=== PATIENT | female | born 1990 | race Caucasian/White ===

== ENCOUNTER 2020-05-01 11:49 | Outpatient (REF) | payer OTHER, SELFPAY | END 2020-05-01 11:50 | disposition home or self-care (01) | LOC: HO.MAMMO 11:49 | PROVIDERS: PCP Internal Medicine; Visit Provider Internal Medicine | DX: Z13.89 Encounter for screening for other disorder (principal) ==

== ENCOUNTER → 2020-11-07 11:26 | Outpatient (BNVA) | payer OTHER, SELFPAY | PROVIDERS: PCP Internal Medicine; Visit Provider Surgery | DX: L98.9 Disorder of the skin and subcutaneous tissue, unspecified (principal) | CPT/HCPCS: 99212 ==

== ENCOUNTER 2020-11-15 10:40 | Day surgery (SDC) | payer OTHER, SELFPAY ==
--- NOTE | 2020-11-14 12:06 | HO.ANESPROP2 ---
Documented by User: Mavis Moss 11/14/20 12:06 HPI - Anesthesia Eval Consult details Narrative: 30yo F for Excision of 4 Skin Lesions on neck and Bilateral Axilla h/o severe PONV r/t fentanyl PMFSH Active Problems Active Problems: All Active Problems (Updated 11/07/20 @ 13:05 by José Antonio Hull MD) Skin lesions, generalized (Acute) Past Medical History Medical History (Updated 11/07/20 @ 13:05 by José Antonio Hull MD) Chronic heartburn Lumbago with sciatica, right side Tonsillar abscess Family History Family History Maternal Aunt Breast cancer, Onset Age: 40 Surgical History Surgical History History of section (06/19/09) History of excision of mass (06/07/19) Social History Social History (Updated 11/07/20 @ 11:40 by NEGRO Zafar) Alcohol intake: current Alcohol intake frequency: holidays/special occasions only Patient Tobacco Use Status: Current everyday Tobacco user Tobacco use type: Cigarette Cigarette Packs Per Day: 1 Cigarettes Per Day: 20.0 Second Hand Smoke Exposure: No Use of substances other than those prescribed or required for medical reasons: No Are you DNR?: No Advance Directives: No Advance Directives Information Provided: Yes Patient : No Meds Allergies Allergy/AdvReac Type Severity Reaction Status Date / Time fentanyl [FENTANYL] Allergy Severe SEVERE N/V Verified 11/15/20 11:17 (POST EGD W/CS) clindamycin [CLINDAMYCIN] Allergy Intermediate HIVES/SWELL Verified 11/15/20 11:17 ING Home Medications Medication Instructions Recorded Confirmed Last Taken Type omeprazole 20 mg capsule,delayed 20 mg PO BID 11/07/20 11/07/20 Unknown History release Exam Exam Date and Time: November 14, 2020 1206 Assessment and Plan Assessment Anesthesia Assessment: Chart Reviewed Documented by User: Winifred Vo 11/15/20 12:37 PMFSH Past Medical History Medical History (Updated 11/07/20 @ 13:05 by José Antonio Hull MD) Chronic heartburn Lumbago with sciatica, right side Tonsillar abscess Family History Family History Maternal Aunt Breast cancer, Onset Age: 40 Surgical History Surgical History History of section (06/19/09) History of excision of mass (06/07/19) Social History Social History (Updated 11/07/20 @ 11:40 by NEGRO Zafar) Alcohol intake: current Alcohol intake frequency: holidays/special occasions only Patient Tobacco Use Status: Current everyday Tobacco user Tobacco use type: Cigarette Cigarette Packs Per Day: 1 Cigarettes Per Day: 20.0 Second Hand Smoke Exposure: No Use of substances other than those prescribed or required for medical reasons: No Are you DNR?: No Advance Directives: No Advance Directives Information Provided: Yes Patient : No Meds Allergies Allergy/AdvReac Type Severity Reaction Status Date / Time fentanyl [FENTANYL] Allergy Severe SEVERE N/V Verified 11/15/20 11:17 (POST EGD W/CS) clindamycin [CLINDAMYCIN] Allergy Intermediate HIVES/SWELL Verified 11/15/20 11:17 ING Home Medications Medication Instructions Recorded Confirmed Last Taken Type omeprazole 20 mg capsule,delayed 20 mg PO BID 11/07/20 11/07/20 Unknown History release Exam Airway Mallampati Class: I TM Dist: >3cm Neck ROM: Full
[2020-11-15 10:56] VITALS: BMI 32.3
[2020-11-15 11:04] VITALS: BP 143/74; PULSE 107; RESP 16; TEMP 36.4; O2SAT 100
[2020-11-15] MEDS: ceFAZolin Sodium/Dextrose,Iso 2 GM/50 ML PIGGYBACK IV (11:15)
[2020-11-15] MEDS: Lactated Ringers 1,000 ML 100 ML IVCONT (11:15)
[2020-11-15] MEDS: Scopolamine 1.5 MG PATCH.TD.3 TRANSDERMA (11:16)
[2020-11-15 12:31] LABS: UPreg QC Valid YES; Urine Pregnancy NEGATIVE (NEGATIVE)
--- NOTE | 2020-11-15 13:10 | MHC.SHP ---
Pre-Procedural Eval Section A The patient is an INPATIENT: No Changes since office visit: Yes Patient answered all questions; No Cold of Flu in the past 2 weeks, No New Medical Problems and No Changes in Medication The History & Physical has been completed within 30 days and I have reviewed it.: Yes Section B Chief Complaint: Skin lesions, generalized Allergies: Allergies Allergy/AdvReac Type Severity Reaction Status Date / Time fentanyl [FENTANYL] Allergy Severe SEVERE N/V Verified 11/15/20 11:17 (POST EGD W/CS) clindamycin [CLINDAMYCIN] Allergy Intermediate HIVES/SWELL Verified 11/15/20 11:17 ING Plan Diagnosis/Plan: Unchanged I have reviewed the history and physical and performed a pertinent physical examination on my patient. No changes have occurred unless specified.
--- NOTE | 2020-11-15 14:12 | P.OP_ITS ---
Operative Note Operative Note Date of Service: 11/15/20 Narrative: Preoperative diagnosis: Dense x4 including 2 and right axilla, 1 in neck and 1 in left axilla Postoperative diagnosis: Same Procedure: Excision of 4 skin lesions of bilateral axilla and neck Surgeon: José Antonio Hull MD [employer] Hand: Ally Small PA-C Anesthesia: Local plus MAC Indications for procedure: 30-year-old female presenting with multiple dark skin lesions throughout her body including a large lesion measuring 0.5 cm in the neck just above the sternal notch, a 2nd lesion in the left anterior axilla measuring 0.5 cm at its base. In the right axilla there are 2 lesions 1 measuring 0.25 and the 2nd measuring 0.5 cm. No ulceration or bleeding is noted from any of the lesions. Operative findings: 4 skin lesions as noted above Specimen:skin lesions times 4 of bilateral axilla and neck. Estimated blood loss: 5 mls Complications:none Procedure details: Patient was brought to the OR and placed in a supine position. After administering light sedation the patient's bilateral axilla and neck were prepped Betadine and draped in a sterile fashion. Beginning in the left axilla the lesion was anesthetized using 1% lidocaine with epinephrine. Elliptical incisions and created with a scalpel carried down through subcutaneous tissue. Lesion was completely excised and sent to pathology for further examination. This was then closed using a 5-0 Prolene suture. Attention was then directed to the neck where again local was applied an elliptical incision oriented transversely created. Lesion was carried down through the subcutaneous tissue and excised. This was passed off the table and sent to pathology for further examination. Skin was then closed using 5 0 Prolene suture. Attention was then directed to the right axilla were 2 lesions were identified. Both sites were anesthetized with the lidocaine 1% with epinephrine. Two elliptical incisions were then created around both lesions. Lesions were closed using the 5 0 Prolene suture. Sterile bandages were applied. The patient tolerated the procedure well. She was transferred to PACU in stable condition.
[2020-11-15 14:20] VITALS: BP 92/38; PULSE 94; RESP 16; TEMP 36.6; O2SAT 99
[2020-11-15 14:35] VITALS: BP 100/57; PULSE 80; RESP 16; O2SAT 100
[2020-11-15 14:50] VITALS: BP 103/62; PULSE 84; RESP 18; TEMP 36.8; O2SAT 97
== END 2020-11-15 15:15 | disposition home or self-care (01) ==
PROVIDERS: Nurse Practitioner; PCP Internal Medicine; Visit Provider Surgery
PROC: (CPT 11400; principal; 2020-11-15 12:40)
DX: D23.4 Other benign neoplasm of skin of scalp and neck (principal); D23.5 Other benign neoplasm of skin of trunk; K21.9 Gastro-esophageal reflux disease without esophagitis; Z79.899 Other long term (current) drug therapy; Z88.1 Allergy status to other antibiotic agents; Z88.8 Allergy status to other drugs, medicaments and biological substances; F17.210 Nicotine dependence, cigarettes, uncomplicated
CPT/HCPCS: 11400; 11420; 11401; 81025; 88305; J0690

== ENCOUNTER → 2020-11-24 11:36 | Outpatient (BNVA) | payer OTHER, SELFPAY | PROVIDERS: PCP Internal Medicine; Visit Provider Surgery | DX: L98.9 Disorder of the skin and subcutaneous tissue, unspecified (principal) | CPT/HCPCS: 99212 ==

== ENCOUNTER → 2021-12-04 10:44 | Outpatient (BNVA) | payer OTHER, SELFPAY | PROVIDERS: PCP Internal Medicine; Visit Provider Surgery | DX: L98.9 Disorder of the skin and subcutaneous tissue, unspecified (principal) | CPT/HCPCS: 99212 ==

== ENCOUNTER 2021-12-12 13:28 | Outpatient (REF) | payer OTHER, SELFPAY ==
[2021-12-12 16:29] LABS: MANUAL DIFF FLAG NO
[2021-12-12 16:57] LABS: Alanine Aminotransferase 34 U/L (0-31); Anion Gap 12 (12-20); Aspartate Amino Transferase 25 U/L (5-31); Blood Urea Nitrogen 5 mg/dL (9-16); Calcium 9.5 mg/dL (8.4-10.2); Carbon Dioxide 26 mmol/L (22-29); Chloride 106 mmol/L (96-108); Cholesterol 155 mg/dL; Estimated Glomerular Filt Rate > 60; Glucose Fasting 94 mg/dL (60-99); HDL Cholesterol 39 mg/dL; LDL Cholesterol Calculated 80 mg/dl; Potassium 3.7 mmol/L (3.3-5.1); Sodium 140 mmol/L (135-145); Triglycerides 183 mg/dL
[2021-12-12 17:03] LABS: Basophils Percent Auto 0.4 % (0-2); Eosinophils Absolute Auto 0.2 X10*3/uL (0.0-0.4); Eosinophils Percent Auto 2.3 % (0-4); Hematocrit 35.5 % (37.0-47.0); Hemoglobin 11.8 g/dl (12.0-16.0); Imm Gran Abs Auto 0.02 X10*3/uL (0.00-0.03); Imm Gran Pct Auto 0.3 % (0.0-0.4); Lymphocytes Absolute Auto 2.8 X10*3/uL (1.2-4.9); Mean Corpuscular HGB Conc 33.2 g/dl (31.0-35.0); Mean Corpuscular Hemoglobin 27.9 pg (27.0-33.0); Mean Corpuscular Volume 83.9 fL (80.0-98.0); Monocytes Absolute Auto 0.6 X10*3/uL (0.1-1.2); Monocytes Percent Auto 7.7 % (2-11); Neutrophils Absolute Auto 3.7 x10*3/uL (2.0-8.3); Neutrophils Percent Auto 51.3 % (45-73); Platelet Count 335 X10*3/uL (160-400); Red Blood Count 4.23 X10*6/uL (4.20-5.50); Red Cell Distribution Width 12.8 % (11.0-16.0); White Blood Count 7.3 X10*3/uL (4.8-10.8)
== END 2021-12-12 13:29 | disposition home or self-care (01) ==
LOC: HO.HMGCLDS 13:28
PROVIDERS: Visit Provider Internal Medicine
DX: Z00.01 Encounter for general adult medical examination with abnormal findings (principal)
CPT/HCPCS: 36415; 80048; 80061; 84450; 84460; 85025

== ENCOUNTER 2022-02-06 05:57 | Day surgery (SDC) | payer OTHER, SELFPAY ==
[2021-12-13 11:09] VITALS: BMI 35.9
--- NOTE | 2021-12-18 09:33 | HO.ANESPROP2 ---
HPI - Anesthesia Eval Consult details Narrative: 31yo F for Excision Lesion, right face, right neck, bilateral groin s/p lesion excision 10/2020 with MAC PMFSH Active Problems Active Problems: All Active Problems (Updated 12/12/21 @ 13:26 by Eladia Baker MD) Skin lesions, generalized (Acute) Past Medical History Medical History (Updated 12/12/21 @ 13:26 by Eladia Baker MD) Chronic heartburn Hiatal hernia Lumbago with sciatica, right side Tonsillar abscess Family History Family History (Updated 12/12/21 @ 12:29 by Aliyah Browning CMA) Maternal Aunt Breast cancer, Onset Age: 40 Surgical History Surgical History (Updated 12/13/21 @ 11:07 by Wen Bryan RN) History of section (06/19/09) History of esophagogastroduodenoscopy (EGD) History of excision of mass (06/07/19) Social History Social History Housing: Apartment Alcohol intake: current Alcohol intake frequency: holidays/special occasions only Patient Tobacco Use Status: Former Tobacco user Tobacco use type: Cigarette Cigarette Packs Per Day: 1 Cigarettes Per Day: 20.0 e-Cigarette/Vaping Use: Never Used Second Hand Smoke Exposure: No Current occupational status: unemployed Cognitive needs: No Hearing needs: No Vision needs: No Meds Allergies Allergy/AdvReac Type Severity Reaction Status Date / Time fentanyl [FENTANYL] Allergy Severe SEVERE N/V Verified 12/12/21 13:06 (POST EGD W/CS) clindamycin [CLINDAMYCIN] Allergy Intermediate HIVES/SWELL Verified 12/12/21 13:06 ING Home Medications Medication Instructions Recorded Confirmed Last Taken Type omeprazole 20 mg capsule,delayed 20 mg PO DAILY 04/27/21 04/27/21 Unknown History release acetaminophen 500 mg tablet 500 mg PO Q4-6H PRN pain 12/12/21 Unknown History ibuprofen 800 mg tablet 800 mg PO Q6-8H PRN pain 12/12/21 Unknown History levonorgestrel 20 mcg/24 hours (7 intrauterine 12/12/21 Unknown History yrs) 52 mg intrauterine device (Mirena) Exam Exam Date and Time: December 18, 2021 0933 Height,Weight and Vital Signs: Height 5 ft 1 in Weight 86.183 kg Pertinent Lab Results Pertinent Lab Results: Laboratory Tests 12/12/21 12/12/21 13:36 13:36 WBC 7.3 Hgb 11.8 L Hct 35.5 L Plt Count 335 Sodium 140 Potassium 3.7 Chloride 106 Carbon Dioxide 26 BUN 5 L Creatinine 0.79 Assessment and Plan Assessment Anesthesia Assessment: Chart Reviewed
--- NOTE | 2022-01-17 15:00 | HO.ANESPROP2 ---
Documented by User: Mavis Moss NP 02/04/22 08:14 HPI - Anesthesia Eval Consult details Narrative: 31yo F for Excision Lesion, right face, right neck, bilateral groin 02/06/22 Fentanyl causes severe N/V s/p axilla and neck lesion excision 10/2020 with MAC PMFSH Active Problems Active Problems: All Active Problems (Updated 12/12/21 @ 13:26 by Eladia Baker MD) Skin lesions, generalized (Acute) Past Medical History Medical History Chronic heartburn Hiatal hernia Lumbago with sciatica, right side Tonsillar abscess Family History Family History Maternal Aunt Breast cancer, Onset Age: 40 Surgical History Surgical History History of section (06/19/09) History of esophagogastroduodenoscopy (EGD) History of excision of mass (06/07/19) Social History Social History Housing: Apartment Alcohol intake: current Alcohol intake frequency: holidays/special occasions only Patient Tobacco Use Status: Former Tobacco user Tobacco use type: Cigarette Cigarette Packs Per Day: 1 Cigarettes Per Day: 20.0 e-Cigarette/Vaping Use: Never Used Second Hand Smoke Exposure: No Use of substances other than those prescribed or required for medical reasons: Yes Substance Use Type Other:: occasional; Are you DNR?: No Advance Directives: No Advance Directives Information Provided: Yes Patient : No Current occupational status: unemployed Cognitive needs: No Hearing needs: No Vision needs: No Meds Allergies Allergy/AdvReac Type Severity Reaction Status Date / Time fentanyl [FENTANYL] Allergy Severe SEVERE N/V Verified 01/02/22 10:43 (POST EGD W/CS) clindamycin [CLINDAMYCIN] Allergy Intermediate HIVES/SWELL Verified 01/02/22 10:43 ING Home Medications Medication Instructions Recorded Confirmed Last Taken Type omeprazole 20 mg capsule,delayed 20 mg PO DAILY 04/27/21 04/27/21 02/06/22 History release acetaminophen 500 mg tablet 500 mg PO Q4-6H PRN pain 12/12/21 Unknown History ibuprofen 800 mg tablet 800 mg PO Q6-8H PRN pain 12/12/21 02/05/22 History levonorgestrel 20 mcg/24 hours (7 intrauterine 12/12/21 Unknown History yrs) 52 mg intrauterine device (Mirena) Exam Exam Date and Time: January 17, 2022 1500 Height,Weight and Vital Signs: Height 5 ft 1 in Weight 86.183 kg Pertinent Lab Results Pertinent Lab Results: Laboratory Tests 12/12/21 12/12/21 13:36 13:36 WBC 7.3 Hgb 11.8 L Hct 35.5 L Plt Count 335 Sodium 140 Potassium 3.7 Chloride 106 Carbon Dioxide 26 BUN 5 L Creatinine 0.79 Assessment and Plan Assessment Anesthesia Assessment: Chart Reviewed Documented by User: Ritu Vo MD 02/06/22 07:29 [facility] Past Medical History Medical History Chronic heartburn Hiatal hernia Lumbago with sciatica, right side Tonsillar abscess Functional capacity: independent ambulation Patient : No Family History Family History Maternal Aunt Breast cancer, Onset Age: 40 Family history of problems with anesthesia: No Surgical History Surgical History History of section (06/19/09) History of esophagogastroduodenoscopy (EGD) History of excision of mass (06/07/19) History of Problems with Anesthesia: No Social History Social History Housing: Apartment Alcohol intake: current Alcohol intake frequency: holidays/special occasions only Patient Tobacco Use Status: Former Tobacco user Tobacco use type: Cigarette Cigarette Packs Per Day: 1 Cigarettes Per Day: 20.0 e-Cigarette/Vaping Use: Never Used Second Hand Smoke Exposure: No Use of substances other than those prescribed or required for medical reasons: Yes Substance Use Type Other:: occasional; Are you DNR?: No Advance Directives: No Advance Directives Information Provided: Yes Patient : No Current occupational status: unemployed Cognitive needs: No Hearing needs: No Vision needs: No Meds Allergies Allergy/AdvReac Type Severity Reaction Status Date / Time fentanyl [FENTANYL] Allergy Severe SEVERE N/V Verified 01/02/22 10:43 (POST EGD W/CS) clindamycin [CLINDAMYCIN] Allergy Intermediate HIVES/SWELL Verified 01/02/22 10:43 ING Home Medications Medication Instructions Recorded Confirmed Last Taken Type omeprazole 20 mg capsule,delayed 20 mg PO DAILY 04/27/21 04/27/21 02/06/22 History release acetaminophen 500 mg tablet 500 mg PO Q4-6H PRN pain 12/12/21 Unknown History ibuprofen 800 mg tablet 800 mg PO Q6-8H PRN pain 12/12/21 02/05/22 History levonorgestrel 20 mcg/24 hours (7 intrauterine 12/12/21 Unknown History yrs) 52 mg intrauterine device (Mirena) Exam Airway Mallampati Class: III TM Dist: >3cm Neck ROM: Full Loose/Missing/Broken Teeth: Yes, Upper and Lower Heart: RRR Lungs: CTA Assessment and Plan Final Anesthetic Review Family History of Problems with Anesthesia: No History of Problems with Anesthesia: No ASA Class: II Final Preanesthetic Review: No Changes in Pt Med Stat, Meds/Allgs Chart Reviewed, Consent Obtained/Reviewed and Anes Risks/Benef Reviewed Patient Risk: Intermediate Procedure Risk: Low Anesthetic Plan Anesthetic Plan: MAC: Disposition: Standard PACU
[2022-02-06 06:21] VITALS: BMI 35.9
[2022-02-06 06:35] LABS: UPreg QC Valid YES; Urine Pregnancy NEGATIVE (NEGATIVE)
[2022-02-06] MEDS: Lactated Ringers 1,000 ML 100 ML IVCONT (06:57)
[2022-02-06] MEDS: Scopolamine 1.5 MG PATCH.TD.3 EAR-BEHIND (07:36)
--- NOTE | 2022-02-06 07:36 | MHC.SHP ---
Pre-Procedural Eval Section A Date of Service: 02/06/22 The patient is an INPATIENT: No Changes since office visit: Yes Patient answered all questions; No Cold of Flu in the past 2 weeks, No New Medical Problems and No Changes in Medication The History & Physical has been completed within 30 days and I have reviewed it.: Yes Section B Chief Complaint: lesions Allergies: Allergies Allergy/AdvReac Type Severity Reaction Status Date / Time fentanyl [FENTANYL] Allergy Severe SEVERE N/V Verified 01/02/22 10:43 (POST EGD W/CS) clindamycin [CLINDAMYCIN] Allergy Intermediate HIVES/SWELL Verified 01/02/22 10:43 ING Plan Diagnosis/Plan: Unchanged I have reviewed the history and physical and performed a pertinent physical examination on my patient. No changes have occurred unless specified.
--- NOTE | 2022-02-06 08:27 | P.OP_ITS ---
Operative Note Operative Note Date of Service: 02/06/22 Narrative: Preoperative diagnosis: Skin lesion x2 right face and neck, x2 bilateral groins Postoperative diagnosis: Same Procedure: Excision of skin lesions right face, right neck, and bilateral groins. Surgeon: José Antonio Hull MD Academic Support Specialist: Anesthesia: Mac Indications for procedure: 31-year-old female with history of multiple skin lesions now presenting with several new skin lesions which are causing irritation and increasing in size. This includes a black/brown variegated lesion in a pre-auricular location measuring approximately 1 cm in diameter. A 2nd flat melanotic lesion is noted in the right neck just below the chin in the submental region, this 1 measuring 1.5 cm in diameter. Two groin lesions are noted including 1 pedunculated lesion with a red surface in the left groin measuring 1 cm diameter. A 2nd flat lesion which is very irritated and has a nipple like in appearance measuring 2 cm in diameter is located in the right groin at the leg crease. Operative findings: Lesions as noted above all excised and sent to pathology for further examination. Specimen: Skin lesion right face, right neck, bilateral groins. Estimated blood loss: Less than 2 mL Complications: None Procedure details: Patient was brought to the OR and placed in a supine position. After administering light sedation patient's right face and neck and bilateral groins were prepped with Betadine and draped in a sterile fashion. A surgical time-out was called the consent confirmed. Patient received preoperative antibiotics and Venodyne boots were in place. Beginning in the preauricular region on the right side local anesthesia was infiltrated around the skin lesion. Elliptical incision was then created with a 1 mm margin. This was carried out through subcutaneous tissue and around the lesion. Pressure was held to maintain hemostasis. Skin was then closed using interrupted 4-0 nylon sutures. Attention was then directed to the right next lesion. Again local anesthesia was infiltrated around the lesion. Elliptical incision with 2 mm margins was then obtained. This carried out through subcutaneous tissue and around the lesion in the subcutaneous tissue. Pressure was held to maintain hemostasis. Dermis was reapproximated using interrupted 3-0 Polysorb sutures. Skin was then closed using 4-0 nylon suture. Attention was then directed to the bilateral groins. Beginning in the left groi n local anesthesia was infiltrated below the lesion. Elliptical incision with 2 mm margins was then obtained. This was carried out to through subcutaneous tissue and around the lesion wall. Skin was then closed using interrupted 4-0 nylon sutures. Attention was then directed to the right groin were again local was infiltrated in elliptical incision created with 2 mm margins. This was carried down to the subcutaneous tissue and around the lesion. Dermis was reapproximated using interrupted 3-0 Polysorb sutures. Skin was then closed using interrupted 4-0 nylon sutures. Sterile dressings were then applied to all 4 lesions. Specimen was passed off the table and sent to pathology for further examination. The patient tolerated the procedure well. Sponge, instrument, and needle counts reported as correct. The patient was transferred to PACU in stable condition.
[2022-02-06 08:35] VITALS: BP 96/45; PULSE 72; RESP 16; TEMP 36.2; O2SAT 95
[2022-02-06 08:50] VITALS: BP 106/49; PULSE 71; RESP 16; TEMP 36.2; O2SAT 98
--- NOTE | 2022-02-06 14:34 | HO.POSTANES ---
Post Anesthesia Evaluation Post Anesthesia Evaluation Vital Signs: Vital Signs Temp Pulse Resp BP Pulse Ox O2 Del Method 02/06/22 08:50 97.2 F 71 16 106/49 L 98 Room Air 02/06/22 08:35 97.2 F 72 16 96/45 L 95 Room Air Anesthesia: Monitored Mental Status: Awake Pain Control: Satisfactory Nausea/Vomiting: None Hydration: Adequate Anesthesia-Related Issues: No Anes. Related Issues
== END 2022-02-06 09:36 | disposition home or self-care (01) ==
PROVIDERS: Nurse Practitioner; PCP Internal Medicine; Visit Provider Surgery
PROC: (CPT 11442; principal; 2022-02-06 07:30)
DX: D22.21 Melanocytic nevi of right ear and external auricular canal (principal); D22.39 Melanocytic nevi of other parts of face; D22.5 Melanocytic nevi of trunk; R12 Heartburn; Z79.899 Other long term (current) drug therapy; Z88.1 Allergy status to other antibiotic agents; Z88.8 Allergy status to other drugs, medicaments and biological substances; F17.210 Nicotine dependence, cigarettes, uncomplicated
CPT/HCPCS: 11442; 11422; 12041; 11402; 11403; 12031; 81025; 88305; J0690; J1100; J2250; J2405; J2795; J3010

== ENCOUNTER 2022-03-01 09:40 | Outpatient (REF) | payer OTHER, SELFPAY ==
--- NOTE | ~2022-03-01 | MR_ITS ---
EXAMINATION: MR KNEE WITHOUT CONTRAST, RIGHT CLINICAL INFORMATION: Medial right knee pain. COMPARISON: None TECHNIQUE: MRI of the knee without contrast was performed using routine sequences on a high-field scanner. FINDINGS: MENISCI: Medial Meniscus: Intact. Lateral Meniscus: Intact. LIGAMENTS: Cruciate: Intact. Collateral: Minimal edema adjacent to the medial collateral ligament which could indicate a minimal 1 sprain. No measurable tear. Intact fibular collateral ligament. EXTENSOR MECHANISM: Intact. ARTICULAR CARTILAGE/BONE: Patellofemoral Compartment: Normal. Medial Compartment: Normal. Lateral Compartment: Normal. JOINT FLUID AND BURSAE: Normal. There is focal aneurysmal dilatation of the small saphenous vein with a fluid-fluid level measuring up to 1.4 x 2.1 x 2.7 cm. No additional soft tissue mass or fluid collection. MR/MR knee RT wo con IMPRESSION: 1. Possible minimal grade 1 sprain of the medial collateral ligament. 2. 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
== END 2022-03-01 09:41 | disposition home or self-care (01) ==
LOC: HO.MRI 09:40
PROVIDERS: Visit Provider Internal Medicine
DX: M25.561 Pain in right knee (principal)
CPT/HCPCS: 73721

== ENCOUNTER 2022-06-24 11:42 | Emergency (ER) | payer OTHER, SELFPAY ==
[2022-06-24 12:44] VITALS: BP 122/81; PULSE 74; RESP 16; O2SAT 100; BMI 36.2
--- NOTE | 2022-06-24 12:49 | ED_ITS ---
HPI - Ear Problem General Chief complaint: Ear Problems Stated complaint: Double Ear Pain Time Seen by Provider: 06/24/22 12:51 Source: patient Mode of arrival: ambulatory Limitations: no limitations History of Present Illness HPI Narrative: 31-year-old female presenting to the ER with complaints of bilateral ear pain worse on the right than the left for the past few days worse today. Reports that she tried to remove some walks with cotton swab and no symptomatic relief. She has also been using heating pads. She has also been using peroxide. No symptomatic relief. She denies any other symptoms related to this. MD Complaint: ear pain, ear discharge and decreased hearing Location: right ear Duration: constant Severity: moderate Relieving factors: nothing Exacerbating factors: chewing and palpation Discharge from ear: yes - purulent Associated symptoms ear: decreased hearing and external ear tenderness Treatment prior to arrival: attempt at ear wax removal and other (And peroxide) Related Data Home Medications Medication Instructions Recorded Confirmed omeprazole 20 mg capsule,delayed 20 mg PO DAILY 04/27/21 04/27/21 release ibuprofen 800 mg tablet 800 mg PO Q6-8H PRN pain 12/12/21 levonorgestrel 20 mcg/24 hours (8 intrauterine 12/12/21 yrs) 52 mg intrauterine device (Mirena) Previous Rx's Medication Instructions Recorded ferrous fumarate 324 mg (106 mg 324 mg PO DAILY #90 tabs 12/14/21 iron) tablet tramadol 50 mg tablet 50 mg PO DAILY PRN pain #10 tabs 02/12/22 acetaminophen 300 mg-codeine 30 mg 1 tab PO Q8H PRN pain #10 tabs 06/24/22 tablet amoxicillin 875 mg-potassium 1 tab PO BID 10 days #20 tabs 06/24/22 clavulanate 125 mg tablet Allergies Allergy/AdvReac Type Severity Reaction Status Date / Time fentanyl [FENTANYL] Allergy Severe SEVERE N/V Verified 02/14/22 13:56 (POST EGD W/CS) clindamycin [CLINDAMYCIN] Allergy Intermediate HIVES/SWELL Verified 02/14/22 13:56 ING Review of Systems Review of Systems: Constitutional : No Weight loss, No Fever, No Chills, No Night Sweats, No Fatigue, No Malaise ENT/Mouth : No Hearing loss, + Ear Pain, No Nasal Congestion, No Sinus Pain, No Hoarseness, No sore throat, No Rhinorrhea, No Swallowing Difficulty Eyes: No Eye Pain, No Swelling, No Redness, No Foreign Body, No Discharge, No Vision Changes Cardiovascular : No Chest Pain, No SOB, No Dyspnea on Exertion, No Orthopnea, No Edema, No Palpitations Respiratory : No Cough, No Sputum, No Wheezing, No Smoke Exposure, No Dyspnea Gastrointestinal : No Nausea, No Vomiting, No Diarrhea, No Constipation, No abdominal Pain, No Hematochezia, No Melena Genitourinary : no irregular bleeding, No Dysuria, No Urinary Frequency, No Hematuria, No Urinary Incontinence, No Urgency, No Flank Pain, No Urinary Flow Changes, No Hesitancy Musculoskeletal : No joint pain, No Myalgias, No Joint Swelling Skin : No Skin Lesions, No rash Neuro : No Weakness, No Numbness, No Paresthesias, No Loss of Consciousness, No Dizziness, No Headache Psych : No Anxiety/Panic, No Depression, No SI/HI/AH/VH, No Social Issues, Heme/Lymph: No Bruising, No Bleeding,No Lymphadenopathy Endocrine : No Polyuria, No Polydipsia, No Temperature Intolerance Yes all other systems are reviewed and are negative [facility] Past Medical History Attestation statement: The following information was validated with the patient. Source: old records reviewed and nursing notes reviewed Medical History Chronic heartburn Hiatal hernia Knee pain, right anterior Lumbago with sciatica, right side Tonsillar abscess Surgical History History of section (06/19/09) History of esophagogastroduodenoscopy (EGD) History of excision of mass (06/07/19) Family History Family History Maternal Aunt Breast cancer, Onset Age: 40 Social History Social History Housing: Apartment Alcohol intake: current Alcohol intake frequency: holidays/special occasions only Patient Tobacco Use Status: Former Tobacco user Tobacco use type: Cigarette Cigarette Packs Per Day: 1 Cigarettes Per Day: 20.0 e-Cigarette/Vaping Use: Never Used Second Hand Smoke Exposure: No Advance Directives: No Advance Directives Information Provided: No Current occupational status: unemployed Cognitive needs: No Hearing needs: No Vision needs: No Physical Exam Vital Signs: Vital Signs: Last Vital Signs Pulse 74 06/24/22 12:44 Resp 16 06/24/22 12:44 BP 122/81 06/24/22 12:44 Pulse Ox 100 06/24/22 12:44 O2 Del Method 06/24/22 12:44 BMI result Body Mass Index 36.2 Vital signs reviewed. Blood pressure normal. Pulse normal. Respiration normal. Oxygen normal. Temperature normal. Appearance: Alert. Oriented X3. No acute distress. Head: Normal external exam. Normocephalic. Atraumatic. Eyes: PERRLA. EOMI. Conjunctiva and sclera normal. Eyelids normal. ENT: EAC normal. Left tympanic membrane mildly erythematous not perforated. Right tympanic membrane appears perforated patient noted to have purulent drainage with external ear canal tenderness and tenderness to palpation upon manipulation of the pinna and tragus. Consistent went external ear canal otitis externa and ruptured tympanic membrane to the right side. Pharynx normal. Uvula midline. Moist mucous membranes. No lesions/ulcerations or masses noted on the tongue. Normal voice. No trismus noted. No drooling noted. No muffled voice noted. Neck: Normal inspection. Neck supple. FROM. No adenopathy. Thyroid Normal. No meningeal signs. CVS: Normal heart rate and rhythm. Heart sound normal. Pulses normal throughout. No murmurs/rales/gallops. Respiratory: No respiratory distress. Painless inspiration. Breath sounds normal. No wheezes/rales/rhonchi noted. Chest nontender. No accessory muscle usage noted or decreased air movement noted. Back: Full range of motion noted. Nontender. Skin: Skin warm and dry. Normal skin color. Normal skin turgor. No rashes/lesions/lacerations noted. Extremities: Extremities exhibit normal range of motion and nontender. Neuro: Oriented X 3. No motor deficit. No sensory deficit. Reflexes normal. Normal steady gait. No focal neuro deficits noted. CN's II-XII intact bilaterally? Vascular: + radial pulses. Normal cap refill. No cyanosis noted to upper extremity nails Course Course Course Narrative: Will DC home with antibiotics and symptomatic treatment referral to ear nose and throat and instructions return if any new or worsening symptoms to stop trying to clean her ears with any drops or Q-tips. Patient understands agrees with this plan. Discharge Plan Discharge Clinical Impression: Otitis media, Otitis media with rupture of tympanic membrane Patient Disposition: Home, Self-Care Instructions: Ruptured Eardrum (ED), Ear Infection (ED) Prescriptions: New amoxicillin-pot clavulanate 875-125 mg tablet 1 tab PO BID 10 Days Qty: 20 0RF acetaminophen-codeine 300-30 mg tablet 1 tab PO Q8H PRN (Reason: pain) Qty: 10 0RF No Action ferrous fumarate 324 mg (106 mg iron) tablet 324 mg PO DAILY Qty: 90 1RF tramadol 50 mg tablet 50 mg PO DAILY PRN (Reason: pain) Qty: 10 0RF omeprazole 20 mg capsule,delayed release(DR/EC) 20 mg PO DAILY ibuprofen 800 mg tablet 800 mg PO Q6-8H PRN (Reason: pain) Mirena 20 mcg/24 hours (7 yrs) 52 mg intrauterine device intrauterine Referrals: Eladia Baker MD [Primary Care Provider] - Yadiel Guardado [Physician] - (Call to make a follow-up appointment)
== END 2022-06-24 13:03 | disposition home or self-care (01) ==
LOC: HO.ED 12:55
PROVIDERS: Emergency Provider Student in an Organized Health Care Education/Training Program; PCP Internal Medicine
DX: H66.91 Otitis media, unspecified, right ear (principal); H72.91 Unspecified perforation of tympanic membrane, right ear; H66.92 Otitis media, unspecified, left ear; Z87.891 Personal history of nicotine dependence
CPT/HCPCS: 99281; 99283

== ENCOUNTER 2022-12-17 10:41 | Outpatient (REF) | payer BC, SELFPAY ==
[2022-12-19 08:13] LABS: Prolactin 4.4 ng/mL
== END 2022-12-17 10:42 | disposition home or self-care (01) ==
LOC: HO.HMGCLDS 10:41
PROVIDERS: PCP Internal Medicine; Visit Provider Internal Medicine
DX: N64.3 Galactorrhea not associated with childbirth (principal)
CPT/HCPCS: 36415; 84146

== ENCOUNTER 2022-12-30 15:22 | Outpatient (AMB) | payer BC, SELFPAY ==
--- NOTE | 2022-12-30 15:23 | MHC.OFFWIV ---
Intake Vital Signs 12/30/22 15:28 BP 122/82 Blood Pressure Location Lt brachial Position Sitting Pulse 94 Pulse Source Pulse Oximeter Pulse Oximetry (%) 98 Oxygen Delivery Method Room Air Intake Visit Reasons: EST bleeding from right breast Intake Note: Patient here for bleeding from right breast, the bleeding and oozing which has been 2 days but she was having tender breast days prior. Patient Tobacco Use Status: Former Tobacco user Allergies fentanyl [FENTANYL] Allergy (Severe, Verified 12/31/22 14:17) SEVERE N/V (POST EGD W/CS) clindamycin [CLINDAMYCIN] Allergy (Intermediate, Verified 12/31/22 14:17) HIVES/SWELLING Medication List - Last Reconciled 12/30/22 by Robbie Orantes MD acetaminophen-codeine 300-30 mg 1 tab PO Q8H PRN ferrous fumarate 324 mg PO DAILY ibuprofen 600 mg PO Q8H PRN levonorgestrel (Mirena) intrauterine omeprazole 20 mg PO DAILY Do you need a note to return to daycare/school/sports/work: No HPI EST bleeding from right breast HPI Details 32-year-old female presents to the office for a sick visit. Patient is reporting that she is now having some blood coming out from the right nipple. In fact it is an area adjoining the nipple. She still has milkish discharge from the nipple. No fever or chills. [facility] Medical History Chronic heartburn Hiatal hernia Knee pain, right anterior Lumbago with sciatica, right side Tonsillar abscess Surgical History History of section (06/19/09) History of esophagogastroduodenoscopy (EGD) History of excision of mass (06/07/19) Family History Maternal Aunt Breast cancer, Onset Age: 40 Social History Housing: Apartment Alcohol intake: current Alcohol intake frequency: holidays/special occasions only Patient Tobacco Use Status: Former Tobacco user Tobacco use type: Cigarette Cigarette Packs Per Day: 1 Cigarettes Per Day: 20.0 e-Cigarette/Vaping Use: Never Used Second Hand Smoke Exposure: No Current occupational status: unemployed Cognitive needs: No Hearing needs: No Vision needs: No Physical Exam Vital Signs: Last Vital Signs Pulse 94 12/30/22 15:28 BP 122/82 12/30/22 15:28 Pulse Ox 98 12/30/22 15:28 Oxygen Delivery Method Room Air 12/30/22 15:28 Chest Other: Exam done with female medical reimbursement manager in the room. Right breast: Tiny erosion, adjacent to the nipple. No oozing noted. No masses palpable and no lymphadenopathy. Assessment & Plan Assessment & Plan (1) Mastitis, acute: Code(s): N61.0 - Mastitis without abscess Plan: Ultrasound of the breast ordered. Antibiotics ordered. Patient has already an appointment with her primary care provider for galactorrhea.. Orders: Orders US breast RT complete 12/30/22 N61.0 - Mastitis without abscess Medications: New cephalexin 500 mg PO BID 14 caps 0RF Coding Level of Care Code Est Pt Level 3 (97624) Diagnoses Mastitis, acute N61.0
[2022-12-30 15:28] VITALS: BP 122/82; PULSE 94; O2SAT 98
== END 2022-12-30 16:15 | disposition home or self-care (01) ==
PROVIDERS: PCP Internal Medicine; Visit Provider Internal Medicine
DX: N61.0 Mastitis without abscess (principal)
CPT/HCPCS: 99213

== ENCOUNTER 2023-01-15 13:40 | Outpatient (AMB) | payer BC, SELFPAY ==
--- NOTE | 2023-01-15 13:47 | MHC.PC.OV ---
Vital Signs 01/15/23 13:48 Height 5 ft 2 in Weight 189 lb BMI 34.6 BP 102/72 Blood Pressure Location Lt brachial Position Sitting Pulse 77 Pulse Source Pulse Oximeter Pulse Oximetry (%) 98 Oxygen Delivery Method Room Air Intake Visit Reasons: follow up from walk in Intake Note: Pt is here today c/o recurrent leakage Rt breast Allergies fentanyl [FENTANYL] Allergy (Severe, Verified 01/15/23 16:44) SEVERE N/V (POST EGD W/CS) clindamycin [CLINDAMYCIN] Allergy (Intermediate, Verified 01/15/23 16:44) HIVES/SWELLING Medication List - Last Reconciled 01/15/23 by Eladia Baker MD acetaminophen-codeine 300-30 mg 1 tab PO Q8H PRN ferrous fumarate 324 mg PO DAILY ibuprofen 600 mg PO Q8H PRN levonorgestrel (Mirena) intrauterine omeprazole 20 mg PO DAILY Tobacco use date assessed: 01/15/23 Dental Screening Dental Screen Date: 01/15/23 Did you have a dental visit in the last 12 months?: Yes Did you have a dental problem in the last 6 months where you did not have access to dental care?: Yes Was dental information given to patient?: Patient has dentist HPI HPI Comments History of Present Illness Details 32-year-old lady here today for follow-up after recent visit to the walk-in , complaining of a bloody discharge coming from right nipple, accompanied by pain in right breast. She was placed on cephalexin with no further discharge noted coming from right nipple area. She still is complaining of some tenderness on right areola. She still has not had her breast ultrasound done due to some miscommunication with orders. Has already orders for bilateral diagnostic mammogram and needs an order for bilateral [facility]. She has had similar episodes in her from the left nipple in 2019, diagnosed with a cyst in her left nipple which was surgically removed. [facility] Medical History (Updated 01/15/23 @ 16:52 by Eladia Baker MD) Breast pain, right Chronic heartburn Cyst of left nipple H/O nipple discharge Hiatal hernia Knee pain, right anterior Lumbago with sciatica, right side Tonsillar abscess Surgical History History of section (06/19/09) History of esophagogastroduodenoscopy (EGD) History of excision of mass (06/07/19) Family History Maternal Aunt Breast cancer, Onset Age: 40 Social History Housing: Apartment Alcohol intake: current Alcohol intake frequency: holidays/special occasions only Patient Tobacco Use Status: Former Tobacco user Tobacco use type: Cigarette Cigarette Packs Per Day: 1 Cigarettes Per Day: 20.0 e-Cigarette/Vaping Use: Never Used Second Hand Smoke Exposure: No Current occupational status: unemployed Cognitive needs: No Hearing needs: No Vision needs: No Questionnaire Thrive Questionnaire Date Thrive assessed: 12/12/21 I am a: Patient What is your living situation today?: I have a steady place to live Within the past 12 months, did the food you bought not last and you didn't have the money to get more?: Never true Within the past 12 months, did you worry whether your food would run out before you got money to buy more?: Never true Please select the resources that you would like help with: None AUDIT C Alcohol Use Questionnaire (AUDIT-C) 1. How often do you have a drink containing alcohol?: 2-4 times a month 2. How many drinks containing alcohol do you have on a typical day when you are drinking?: 5 or 6 3. How often do you have six or more drinks on one occasion?: Monthly Total Score: 6 ELLIOT-7 AMB Questionnaire ELLIOT-7 Date ELLIOT - 7 assessed: 12/12/21 Feeling nervous, anxious, or on edge: 2 = More than half the days Not being able to stop or control worryin = More than half the days Worrying too much about different things: 2 = More than half the days Trouble relaxin = Several days Being so restless that it is hard to sit still: 0 = Not at all Becoming easily annoyed or irritable: 2 = More than half the days Feeling afraid as if something awful might happen: 1 = Several days Total ELLIOT-7 score (0-4 normal; 5-9 mild; 10-14 moderate; 15-21 severe): 10 Source: Developed by Drs. Dante Perkins, Soniya Maldonado, Jatinder Tellez and colleagues, with an educational betsy from [employer]. Review of Systems Const All systems reviewed & are unremarkable except as noted in HPI and below Physical exam (Primary Care) Vital Signs: Last Vital Signs Pulse 77 01/15/23 13:48 BP 102/72 01/15/23 13:48 Pulse Ox 98 01/15/23 13:48 Oxygen Delivery Method Room Air 01/15/23 13:48 BMI result Body Mass Index 34.6 Tobacco/Smoking Status: Tobacco use Status Tobacco use date assessed 01/15/23 01/15/23 13:54 Patient Tobacco Use Status Former Tobacco user 01/15/23 13:47 Tobacco use type Cigarette 01/15/23 13:47 e-Cigarette/Vaping Use Never Used 01/15/23 13:47 Thrive Assessment: Date of Thrive Assessment Date Thrive assessed 12/12/21 01/15/23 13:47 Const Other: Alert oriented x3, no acute distress noted ambulatory normal gait Neck Other: Supple with no lymphadenopathy Chest Other: No palpable breast mass bilateral, slight tenderness on palpation of right areolar area, no discharge expressed from right breast, no rash or skin lesion noted Breast/axilla inspection: normal inspection of the axillae Breast/axilla palpation: axillary lymphadenopathy not noted Assessment and Plan Assessment & Plan (1) Breast pain, right: Code(s): N64.4 - Mastodynia Plan: Already has orders for bilateral diagnostic mammogram, ordered bilateral breast ultrasound, and advised to follow-up with Dr. Hull after tests done further evaluation and management (2) H/O nipple discharge: Code(s): Z87.898 - Personal history of other specified conditions Plan: Bilateral breast ultrasound and bilateral diagnostic mammogram ordered. Advised to follow-up with Dr. Hull after test done for further evaluation and management. Orders: Orders US breast LT complete Today N64.4 - Mastodynia, Z87.898 - Personal history of other specified conditions US breast RT complete Today N61.0 - Mastitis without abscess, N64.3 - Galactorrhea not associated with childbirth US breast RT complete 12/30/22 N64.4 - Mastodynia, Z87.898 - Personal history of other specified conditions Coding Level of Care Code Est Pt Level 3 (91955) Diagnoses Breast pain, right N64.4 H/O nipple discharge Z87.898
[2023-01-15 13:48] VITALS: BP 102/72; PULSE 77; O2SAT 98; BMI 34.6
== END 2023-01-15 14:40 | disposition home or self-care (01) ==
PROVIDERS: PCP Internal Medicine; Visit Provider Internal Medicine
DX: N64.4 Mastodynia (principal); Z87.898 Personal history of other specified conditions
CPT/HCPCS: 99213

== ENCOUNTER 2023-01-17 14:27 | Outpatient (REF) | payer BC, SELFPAY ==
--- NOTE | ~2023-01-17 | MM_ITS ---
EXAMINATION: MM DIAGNOSTIC DIGITAL BREAST TOMOSYNTHESIS, BILATERAL CLINICAL INFORMATION: The patient is a 32-year-old female with one month of spontaneous right white and yellow nipple discharge and one episode of right bloody nipple discharge. The patient also reported right nipple pain The patient reports finishing antibiotics on 01/13/2023 with resolution of her nipple pain. The lifetime risk of breast cancer based on the Tyrer-Cuzick Model is 12.6%. COMPARISON: Mammography: This study is compared with the prior exam from 2019. MAMMOGRAM: TECHNIQUE: Digital breast tomosynthesis is performed in both the craniocaudal and mediolateral oblique views along with computer-aided detection (CAD). Synthesized 2D images are generated from the tomosynthesis. CC and lateral magnification imaging of the nipple areolar complex and subareolar region were performed. FINDINGS: There are scattered areas of fibroglandular density (ACR BI-RADS breast composition Category b). There are no significant masses, abnormal calcifications, or other abnormalities. ULTRASOUND: Sonography of the right nipple areolar complex reveals no discrete abnormality. Clinical follow-up is advised. MM/MM tomosynthesis diagnostic BI IMPRESSION: No mammographic evidence of malignancy. No sonographic abnormalities of the right nipple areolar complex. In the setting of one episode of bloody nipple discharge, clinical follow-up is advised. A surgical consultation may be obtained at the discretion of the referring clinician. Breast MRI may also be useful for history of bloody nipple discharge, even one episode. Results are provided to the patient at time of visit by the technologist. ASSESSMENT: BI-RADS BI-RADS 1 - Negative RECOMMENDATION: 1 year F/U This patient's information was entered into a reminder system with a target due date for their next mammogram.
== END 2023-01-17 14:28 | disposition home or self-care (01) ==
LOC: HO.MAMMO 14:27
PROVIDERS: PCP Internal Medicine; Visit Provider Internal Medicine
DX: N61.0 Mastitis without abscess (principal); N64.3 Galactorrhea not associated with childbirth
CPT/HCPCS: 76642; 77062; 77066

== ENCOUNTER → 2023-01-17 14:30 | Outpatient (BNV) | payer BC, SELFPAY | PROVIDERS: PCP Internal Medicine; Visit Provider Radiology Diagnostic Radiology | DX: N64.52 Nipple discharge (principal) | CPT/HCPCS: 76642; 77062; 77066 ==

== ENCOUNTER 2023-01-23 14:45 | Outpatient (AMB) | payer BC, SELFPAY ==
--- NOTE | 2023-01-23 14:53 | A.OFFVIS_ITS ---
Intake Vital Signs 01/23/23 15:04 Height 5 ft 1 in Weight 191 lb BMI 36.1 BP 148/86 H Blood Pressure Location Lt brachial Position Sitting Pulse 107 H Intake Visit Reasons: Right breast pain, bloody nipple discharge Intake Note: Patient is seen in office for evaluation of right breast pain, bloody nipple discharge. Patient c/o: onset over a month, bleeding on right nipple started 3 wks ago, was given antibiotics and bleeding stopped, feels the breast are full like breast feeding when squeezing blood comes out, has family hx of breast CA, area is sore and tender denies redness, discoloration, or other concerns with the breast , had mammogram and u/s done Deposition Operator Required: No Partition Assembly Machine Operator: Partition Assembly Machine Operator Present Accompanied by: Self / Same As Patient Allergies fentanyl [FENTANYL] Allergy (Severe, Verified 01/23/23 15:02) SEVERE N/V (POST EGD W/CS) clindamycin [CLINDAMYCIN] Allergy (Intermediate, Verified 01/23/23 15:02) HIVES/SWELLING Medication List - Last Reconciled 01/24/23 by José Antonio Hull MD acetaminophen-codeine 300-30 mg 1 tab PO Q8H PRN ferrous fumarate 324 mg PO DAILY ibuprofen 600 mg PO Q8H PRN levonorgestrel (Mirena) intrauterine omeprazole 20 mg PO DAILY HPI HPI Comments History of Present Illness Details 32-year-old female patient presenting for evaluation of right breast pain and bloody nipple discharge. The discharge started approximately a month ago and was spontaneous without the need for squeezing. This lasted several days but then subsequently resolved but now she continues to have a cloudy to clear discharge always from the same region of the breast. She starts with an a jesse of fullness in the 10 o'clock to 11 o'clock position 4-5 cm from the nipple after which pressure on this location will immediately produce a large amount of discharge. The area is sore to palpation but she denies any redness, or other palpable masses. Her family history is positive for breast cancer. Mammogram and ultrasound revealed no suspicious findings (BI-RADS 1). The patient is concerned about breast cancer and would like to have lesion removed if possible. [facility] Medical History Breast pain, right Chronic heartburn Cyst of left nipple H/O nipple discharge Hiatal hernia Knee pain, right anterior Lumbago with sciatica, right side Tonsillar abscess Surgical History History of section (06/19/09) History of esophagogastroduodenoscopy (EGD) History of excision of mass (06/07/19) Family History Maternal Aunt Breast cancer, Onset Age: 40 Social History Housing: Apartment Alcohol intake: current Alcohol intake frequency: holidays/special occasions only Patient Tobacco Use Status: Former Tobacco user Tobacco use type: Cigarette Cigarette Packs Per Day: 1 Cigarettes Per Day: 20.0 e-Cigarette/Vaping Use: Never Used Second Hand Smoke Exposure: No Current occupational status: unemployed Cognitive needs: No Hearing needs: No Vision needs: No Female Reproductive History Menstrual Age of Menarche: 10 Date of last menstrual period: 01/22/12 Total pregnancies: 1 Number of Living Children: 1 Review of Systems Const Denies chills, Denies fever(s), Denies headache(s) and Denies poor appetite ENT Denies dizziness and Denies headache(s) Card Denies chest pain, Denies rapid heart rate, Denies palpitations and Denies slow heart rate Resp Denies chest congestion, Denies cough, Denies pain on inspiration and Denies wheezing GI Denies abdominal pain, Denies bloating, Denies change in stool character, Denies constipation, Denies diarrhea, Denies nausea, Denies vomiting and Denies h ematemesis Reports nipple discharge Musc Denies back pain, Denies arthralgias, Denies joint swelling and Denies numbness Skin/Breast Reports breast swelling, Reports breast pain, Reports change in pigmentation, Reports nipple discharge and Denies rash Neuro Denies dizziness, Denies headache(s) and Denies numbness Psych Denies anxiety and Denies depression Endo Denies palpitations Morgan/Lymph Denies easy bleeding, Denies easy bruising and Denies lymphadenopathy Aller/Immun Denies wheezing Physical Exam Vital Signs: Last Vital Signs Pulse 107 H 01/23/23 15:04 BP 148/86 H 01/23/23 15:04 BMI result Body Mass Index 36.1 Const General: cooperative and no acute distress Nutritional Appearance: well nourished Orientation/consciousness: patient oriented x3 Limitations: no limitations HEENT Head: Yes normocephalic and Yes atraumatic Ears: hearing grossly normal bilaterally Chest Other: Palpation of the right breast reveals no palpable mass, skin change or enlarged lymph nodes. Palpation within the 11 o'clock position by the patient is able to produce a small amount of clear discharge from a single duct. The discharge is nonbloody. Examination of the left breast reveals no palpable mass, skin change, enlarged lymph nodes or nipple discharge. Chest/axillae images: 1. Quadrant producing discharge Resp Effort & Inspection: normal respiratory effort, no audible wheezes, no cough and no respiratory distress Cardio Jugular venous distension: no JVD GI Inspection: Yes normal to inspection Skin Other: Warm, dry, no rash Neuro General: patient oriented x3 Extrem General: Yes no clubbing, cyanosis or edema Assessment & Plan Assessment & Plan (1) H/O nipple discharge: Code(s): Z87.898 - Personal history of other specified conditions (2) Breast pain, right: Code(s): N64.4 - Mastodynia Plan 32-year-old female patient presenting with persistent discharge from the right nipple which is spontaneous but also his produce with pressure in the 10-11 o'clock position of the right breast. The patient is reporting discomfort associated with this and is concerned about developing breast cancer due to family history. We discussed excision of the offending lactiferous duct. After discussion of the procedure, risks, and alternatives, she consents to the right breast duct excision as a short-stay surgery. Coding Level of Care Code Est Pt Level 4 (03431) Diagnoses H/O nipple discharge Z87.898 Breast pain, right N64.4
[2023-01-23 15:04] VITALS: BP 148/86; PULSE 107; BMI 36.1
== END 2023-01-23 15:24 | disposition home or self-care (01) ==
PROVIDERS: PCP Internal Medicine; Referring Provider Internal Medicine; Visit Provider Surgery
DX: N64.52 Nipple discharge (principal); N64.4 Mastodynia; Z80.3 Family history of malignant neoplasm of breast
CPT/HCPCS: 99214

== ENCOUNTER → 2023-01-23 14:45 | Outpatient (BNVA) | payer BC, SELFPAY | PROVIDERS: PCP Internal Medicine; Referring Provider Internal Medicine; Visit Provider Surgery ==

== ENCOUNTER 2023-02-05 06:06 | Day surgery (SDC) | payer BC, SELFPAY ==
--- NOTE | 2023-02-04 08:51 | P.CONAN_ITS ---
Documented by User: Mavis Moss NP 02/04/23 08:51 HPI - Anesthesia Eval Consult details Narrative: 32yo F for Right Excision Rt Breast lactiferous Duct Severe PONV after conscious sedation EGD with fentanyl PMFSH Active Problems Active Problems: All Active Problems (Updated 01/15/23 @ 16:52 by Eladia Baker MD) H/O nipple discharge (Acute) Breast pain, right (Acute) Mastitis, acute (Acute) Galactorrhea (Acute) Knee pain, right anterior (Acute) Skin lesions, generalized (Acute) Past Medical History Medical History Breast pain, right Chronic heartburn Cyst of left nipple H/O nipple discharge Hiatal hernia Knee pain, right anterior Lumbago with sciatica, right side Tonsillar abscess Family History Family History Maternal Aunt Breast cancer, Onset Age: 40 Family history of problems with anesthesia: No Surgical History Surgical History History of section (06/19/09) History of esophagogastroduodenoscopy (EGD) History of excision of mass (06/07/19) History of Problems with Anesthesia: No Social History Social History Housing: Apartment Alcohol intake: current Alcohol intake frequency: holidays/special occasions only Patient Tobacco Use Status: Former Tobacco user Tobacco use type: Cigarette Cigarette Packs Per Day: 1 Cigarettes Per Day: 20.0 e-Cigarette/Vaping Use: Never Used Second Hand Smoke Exposure: No Current occupational status: unemployed Cognitive needs: No Hearing needs: No Vision needs: No Meds Allergies Allergy/AdvReac Type Severity Reaction Status Date / Time fentanyl [FENTANYL] Allergy Severe SEVERE N/V Verified 01/23/23 15:02 (POST EGD W/CS) clindamycin [CLINDAMYCIN] Allergy Intermediate HIVES/SWELL Verified 01/23/23 15:02 ING Home Medications Medication Instructions Recorded Confirmed Last Taken Type omeprazole 20 mg capsule,delayed 20 mg PO DAILY 04/27/21 01/24/23 02/05/23 History release levonorgestrel 21 mcg/24 hours (22 08/04/23 Unknown History yrs) 52 mg intrauterine device (Mirena) Exam Exam Date and Time: February 04, 2023 0851 Assessment and Plan Assessment Anesthesia Assessment: Chart Reviewed Final Anesthetic Review Family History of Problems with Anesthesia: No History of Problems with Anesthesia: No Documented by User: Betsy oJnas MD 02/05/23 07:36 [facility] Past Medical History Medical History Breast pain, right Chronic heartburn Cyst of left nipple H/O nipple discharge Hiatal hernia Knee pain, right anterior Lumbago with sciatica, right side Tonsillar abscess Family History Family History Maternal Aunt Breast cancer, Onset Age: 40 Surgical History Surgical History History of section (06/19/09) History of esophagogastroduodenoscopy (EGD) History of excision of mass (06/07/19) Social History Social History Housing: Apartment Alcohol intake: current Alcohol intake frequency: holidays/special occasions only Patient Tobacco Use Status: Former Tobacco user Tobacco use type: Cigarette Cigarette Packs Per Day: 1 Cigarettes Per Day: 20.0 e-Cigarette/Vaping Use: Never Used Second Hand Smoke Exposure: No Current occupational status: unemployed Cognitive needs: No Hearing needs: No Vision needs: No Meds Allergies Allergy/AdvReac Type Severity Reaction Status Date / Time fentanyl [FENTANYL] Allergy Severe SEVERE N/V Verified 01/23/23 15:02 (POST EGD W/CS) clindamycin [CLINDAMYCIN] Allergy Intermediate HIVES/SWELL Verified 01/23/23 15:02 ING Home Medications Medication Instructions Recorded Confirmed Last Taken Type omeprazole 20 mg capsule,delayed 20 mg PO DAILY 04/27/21 01/24/23 02/05/23 History release levonorgestrel 21 mcg/24 hours (8 intrauterine 12/12/21 01/24/23 Unknown History yrs) 52 mg intrauterine device (Mirena) Exam Airway Mallampati Class: II (edentulous) TM Dist: >3cm Neck ROM: Full Denture: Upper and Lower Loose/Missing/Broken Teeth: Yes, Upper and Lower Heart: RRR Lungs: CTA Assessment and Plan Assessment Anesthesia Assessment: Anesthesia Plan Discussed and Chart Reviewed Final Anesthetic Review NPO: Yes ASA Class: II Final Preanesthetic Review: Meds/Allgs Chart Reviewed, Consent Obtained/Reviewed and Anes Risks/Benef Reviewed Patient Risk: Low Procedure Risk: Low Anesthetic Plan Anesthetic Plan: GA Disposition: Standard PACU
[2023-02-05] VITALS (8 sets, daily range): BP systolic 93–136; BP diastolic 41–74; PULSE 64–99; RESP 13–20; TEMP 36.3; O2SAT 97–100; BMI 37.0
[2023-02-05] MEDS: Scopolamine 1.5 MG PATCH.TD.3 TRANSDERMA (06:15)
[2023-02-05 06:28] LABS: UPreg QC Valid YES; Urine Pregnancy NEGATIVE (NEGATIVE)
[2023-02-05] MEDS: Lactated Ringers 1,000 ML 100 ML IVCONT (06:42)
--- NOTE | 2023-02-05 08:14 | W.PM.OPN ---
Operative Note Operative Note Date of Service: 02/05/23 Narrative: Preoperative diagnosis: right nipple discharge, bloody Postoperative diagnosis: same Procedure: excision right breast lactiferous duct Surgeon: José Antonio Hull MD Demand Planning Analyst: Ally Small PA-C Anesthesia: general LMA Indications for procedure: 32-year-old female patient presenting with complaints of bloody nipple discharge from right nipple. She reports a sensation of fullness in the 11 o'clock position. When area is breast bloody discharge is expressed. Workup with mammogram ultrasound was negative. Operative findings: Area of fullness noted in the 11 o'clock position. Lacrimal probe unable to definitely localize the offending lactiferous duct. Excision of lactiferous duct extending to the 11 o'clock position was performed up to undersurface of the nipple. Specimen: Right breast lump Estimated blood loss: 2 mL Complications: none Procedure details: patient was brought to the OR placed in a supine position. After administering general anesthesia patient's right breast was prepped with ChloraPrep and draped in a sterile fashion. A surgical time-out was called the consent confirmed. Patient received preoperative antibiotics and Venodyne boots were in place. Local anesthesia consisting of 0.5% Sensorcaine was infiltrated in a curvilinear fashion at the margin of the areola at the 10 to 12 o'clock position. A lack more probe, 4-0 was inserted into the opening lactiferous duct. Discharge was noted from this duct. Curvilinear incision was then made between the 10 and 12 o'clock position. This was carried out through subcutaneous tissue. Dissection was continued in the subcutaneous tissue up to the nipple. Hemostat was then used to dissect around the offending lactiferous duct. The probe was removed as a could not be advanced any further. Dissection was continued in a radial fashion towards the 11 o'clock position to include the offending lactiferous duct. Was marked with a long suture on the lateral margin, short suture the medial (nipple ) margin and looped suture on the posterior margin. Hemostasis was assured using electrocautery. Wounds were irrigated with saline solution and suctioned dry. Deep breast tissue was reapproximated using interrupted 3-0 Polysorb sutures. Dermis was reapproximated using interrupted 3-0 Polysorb sutures and skin was closed using a running subcuticular 4-0 Polysorb suture. Steri-Strips, 2 x 2 gauze and Tegaderm were then applied. Patient tolerated the procedure well. Sponge, instrument, and needle counts reported as correct. Patient was transferred to PACU in stable condition.
[2023-02-05] MEDS: oxyCODONE HCl Immed Release 5 MG TABLET PO (08:56)
[2023-02-05] MEDS: ondansetron HCL 4 MG/2 ML VIAL IVPUSH (09:36)
== END 2023-02-05 10:33 | disposition home or self-care (01) ==
PROVIDERS: Nurse Practitioner; PCP Internal Medicine; Visit Provider Surgery
PROC: (CPT 19112; principal; 2023-02-05 07:30)
DX: N64.52 Nipple discharge (principal); N60.31 Fibrosclerosis of right breast; N60.81 Other benign mammary dysplasias of right breast; N60.21 Fibroadenosis of right breast; N64.89 Other specified disorders of breast; Z87.898 Personal history of other specified conditions
CPT/HCPCS: 19120; 81025; 88307; J0131; J0690; J1100; J2250; J2405; J2795; J3010

== ENCOUNTER → 2023-02-05 06:06 | Outpatient (BNV) | payer BC, SELFPAY | PROVIDERS: PCP Internal Medicine; Visit Provider Surgery | DX: N64.52 Nipple discharge (principal) | CPT/HCPCS: 19110 ==

== ENCOUNTER 2023-02-14 11:08 | Outpatient (AMB) | payer BC, SELFPAY ==
--- NOTE | 2023-02-14 11:09 | MHC.OFFVIS ---
Intake Vital Signs 02/14/23 11:15 Height 5 ft 1 in Weight 189 lb 4 oz BMI 35.8 BP 131/67 Blood Pressure Location Lt brachial Position Sitting Pulse 77 Intake Visit Reasons: S/P excision Rt breast lactiforous duct Intake Note: Patient is seen in office for post op assessment post excision of lactifourous duct of the right breast. 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 She tolerated the procedure well returns today for wound check. 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 She feels well and denies any ongoing nipple discharge at this time. [facility] Medical History Breast pain, right Chronic heartburn Cyst of left nipple H/O nipple discharge Hiatal hernia Knee pain, right anterior Lumbago with sciatica, right side Tonsillar abscess Surgical History History of section (06/19/09) History of esophagogastroduodenoscopy (EGD) History of excision of mass (06/07/19) Family History Maternal Aunt Breast cancer, Onset Age: 40 Social History Housing: Apartment Alcohol intake: current Alcohol intake frequency: holidays/special occasions only Patient Tobacco Use Status: Former Tobacco user Tobacco use type: Cigarette Cigarette Packs Per Day: 1 Cigarettes Per Day: 20.0 e-Cigarette/Vaping Use: Never Used Second Hand Smoke Exposure: No Current occupational status: unemployed Cognitive needs: No Hearing needs: No Vision needs: No Female Reproductive History Menstrual Age of Menarche: 10 Physical Exam Vital Signs: Last Vital Signs Pulse 77 02/14/23 11:15 BP 131/67 02/14/23 11:15 BMI result Body Mass Index 35.8 Const General: comfortable and no acute distress Nutritional Appearance: well nourished Orientation/consciousness: patient oriented x3 Limitations: no limitations Chest Other: Incision in the circumareolar region of 9-12 o'clock is clean, dry, and intact without redness or discharge. No hematoma or seroma is appreciated. Resp Effort & Inspection: normal respiratory effort Skin Other: Warm, dry, no rash Neuro General: patient oriented x3 Extrem Other: No edema. Assessment & Plan Assessment & Plan (1) H/O nipple discharge: Code(s): Z87.898 - Personal history of other specified conditions Plan 32-year-old female patient presenting with complaints of right nipple discharge, s/p excision of right breast lactiferous duct. 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 A copy of the pathology report was provided to the patient. Her wounds were found to be clean, dry, and intact without redness or discharge. She should follow up as needed. Coding Level of Care Code Global (11854) Diagnoses H/O nipple discharge Z87.898
[2023-02-14 11:15] VITALS: BP 131/67; PULSE 77; BMI 35.8
== END 2023-02-14 11:20 | disposition home or self-care (01) ==
PROVIDERS: PCP Internal Medicine; Visit Provider Surgery
DX: Z87.898 Personal history of other specified conditions (principal)
CPT/HCPCS: 99024

== ENCOUNTER → 2023-02-14 11:08 | Outpatient (BNVA) | payer BC, SELFPAY | PROVIDERS: PCP Internal Medicine; Visit Provider Surgery ==

== ENCOUNTER 2023-02-20 09:44 | Outpatient (AMB) | payer BC, SELFPAY ==
--- NOTE | 2023-02-20 09:48 | A.OFFVIS_ITS ---
Intake Vital Signs 02/20/23 09:53 Height 5 ft 1 in Weight 193 lb 1.999 oz BMI 36.5 BP 120/80 Blood Pressure Location Lt brachial Position Sitting Intake Visit Reasons: Right breast pain, bloody nipple discharge Intake Note: Patient is seen in office for right breast pain, bloody nipple discharge. 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 She noted some whitish discharge from the piercing site as well as some bloody discharge and yellow discharge from the nipple. She denies any redness in the skin but does note continued hardness in pain. [facility] Medical History Breast pain, right Chronic heartburn Cyst of left nipple H/O nipple discharge Hiatal hernia Knee pain, right anterior Lumbago with sciatica, right side Tonsillar abscess Surgical History History of section (06/19/09) History of esophagogastroduodenoscopy (EGD) History of excision of mass (06/07/19) Family History Maternal Aunt Breast cancer, Onset Age: 40 Social History Housing: Apartment Alcohol intake: current Alcohol intake frequency: holidays/special occasions only Patient Tobacco Use Status: Former Tobacco user Tobacco use type: Cigarette Cigarette Packs Per Day: 1 Cigarettes Per Day: 20.0 e-Cigarette/Vaping Use: Never Used Second Hand Smoke Exposure: No Current occupational status: unemployed Cognitive needs: No Hearing needs: No Vision needs: No Female Reproductive History Menstrual Age of Menarche: 10 Physical Exam Chest Chest/axillae images: 1. Incision is clean, dry, and intact. Small amount of whitish discharge is noted from the lateral opening of the nipple piercing. Breast is tender with deep palpation with an apparent underlying hematoma. Skin General skin exam: no rashes or lesions noted Assessment & Plan Assessment & Plan (1) H/O nipple discharge: Code(s): Z87.898 - Personal history of other specified conditions Plan Possible bloody discharge from underlying hematoma with open terminal ducts. Recommend warm compresses several times daily to the right breast. Additional bloody discharge may be expressed over the next several days. No evidence of underlying infection. I recommended patient return in 1 week for wound examination. Coding Level of Care Code Global (00532) Diagnoses H/O nipple discharge Z87.898
[2023-02-20 09:53] VITALS: BP 120/80; BMI 36.5
== END 2023-02-20 10:01 | disposition home or self-care (01) ==
PROVIDERS: PCP Internal Medicine; Visit Provider Surgery
DX: Z87.898 Personal history of other specified conditions (principal); Z48.89 Encounter for other specified surgical aftercare
CPT/HCPCS: 99024

== ENCOUNTER → 2023-02-20 09:44 | Outpatient (BNVA) | payer BC, SELFPAY | PROVIDERS: PCP Internal Medicine; Visit Provider Surgery ==

== ENCOUNTER 2023-02-27 13:15 | Outpatient (AMB) | payer BC, SELFPAY ==
[2023-02-27 13:20] VITALS: BP 131/65; PULSE 86; BMI 36.1
--- NOTE | 2023-02-27 13:20 | A.OFFVIS_ITS ---
Intake Vital Signs 02/27/23 13:20 Height 5 ft 1 in Weight 191 lb BMI 36.1 BP 131/65 Blood Pressure Location Rt brachial Position Sitting Pulse 86 Intake Visit Reasons: Right breast pain, wound check, 1 wk follow up Intake Note: Patient here to f/u Rt breast wound check. C/o bleeding, oozing clear and yellowish discharge from nipple. No longer taking pain meds. Senior Sales Operations Analyst Required: No Accompanied by: Self / Same As Patient Allergies fentanyl [FENTANYL] Allergy (Severe, Verified 02/27/23 13:22) SEVERE N/V (POST EGD W/CS) clindamycin [CLINDAMYCIN] Allergy (Intermediate, Verified 02/27/23 13:22) HIVES/SWELLING HPI HPI Comments History of Present Illness Details Patient returns for a right breast wound check. She denies any further nipple bleeding but does report some discharge from the piercing site. This is similar to what happen on the left side which was previously excised. She has some discomfort associated with this but denies any skin redness. The discharge is white color. [facility] Medical History H/O nipple discharge Breast pain, right Cyst of left nipple Knee pain, right anterior Hiatal hernia Chronic heartburn Lumbago with sciatica, right side Tonsillar abscess Surgical History History of esophagogastroduodenoscopy (EGD) History of excision of mass (06/07/19) History of section (06/19/09) Family History Maternal Aunt Breast cancer, Onset Age: 40 Social History Housing: Apartment Alcohol intake: current Alcohol intake frequency: holidays/special occasions only Patient Tobacco Use Status: Former Tobacco user Tobacco use type: Cigarette Cigarette Packs Per Day: 1 Cigarettes Per Day: 20.0 e-Cigarette/Vaping Use: Never Used Second Hand Smoke Exposure: No Current occupational status: unemployed Cognitive needs: No Hearing needs: No Vision needs: No Female Reproductive History Menstrual Age of Menarche: 10 Review of Systems Const Denies chills, Denies fever(s), Denies headache(s) and Denies poor appetite ENT Denies dizziness and Denies headache(s) Card Denies chest pain, Denies rapid heart rate, Denies palpitations and Denies slow heart rate Resp Denies chest congestion, Denies cough, Denies pain on inspiration and Denies wheezing GI Denies abdominal pain, Denies bloating, Denies change in stool character, Denies constipation, Denies diarrhea, Denies nausea, Denies vomiting and Denies hematemesis Reports nipple discharge Musc Denies back pain, Denies arthralgias, Denies joint swelling and Denies numbness Skin/Breast Reports breast swelling, Reports breast pain, Reports change in pigmentation, Reports nipple discharge and Denies rash Neuro Denies dizziness, Denies headache(s) and Denies numbness Psych Denies anxiety and Denies depression Endo Denies palpitations Morgan/Lymph Denies easy bleeding, Denies easy bruising and Denies lymphadenopathy Aller/Immun Denies wheezing Physical Exam Vital Signs: Last Vital Signs Pulse 86 02/27/23 13:20 BP 131/65 02/27/23 13:20 BMI result Body Mass Index 36.1 Const General: comfortable and no acute distress Nutritional Appearance: well nourished Orientation/consciousness: patient oriented x3 Limitations: no limitations Chest Other: Incision in the circumareolar region of 9-12 o'clock is clean, dry, and intact without redness or discharge. No palpable masses appreciated and no nipple discharge can be expressed. Open area noted at the site of the piercing medially and laterally. No evidence of abscess at this time. Resp Effort & Inspection: normal respiratory effort Skin Other: Warm, dry, no rash Neuro General: patient oriented x3 Extrem Other: No edema. Assessment & Plan Assessment & Plan (1) H/O nipple discharge: Code(s): Z87.898 - Personal history of other specified conditions Plan Patient is improved today with no further nipple discharge. There is some discharge from the nipple piercing similar to what was seen on the left side. I recommended observation for now. The tract of the piercing may be removed if this persists. The patient expressed understanding and agrees with the plan. Coding Level of Care Code Global (35103) Diagnoses H/O nipple discharge Z87.898
== END 2023-02-27 13:46 | disposition home or self-care (01) ==
PROVIDERS: PCP Internal Medicine; Visit Provider Surgery
DX: Z87.898 Personal history of other specified conditions (principal); Z48.89 Encounter for other specified surgical aftercare
CPT/HCPCS: 99024

== ENCOUNTER → 2023-02-27 13:15 | Outpatient (BNVA) | payer BC, SELFPAY | PROVIDERS: PCP Internal Medicine; Visit Provider Surgery ==

== ENCOUNTER 2023-03-07 09:01 | Day surgery (SDC) | payer BC, SELFPAY ==
--- NOTE | 2023-03-05 15:00 | P.CONAN_ITS ---
Documented by User: Mavis Moss NP 03/05/23 15:01 HPI - Anesthesia Eval Consult details Narrative: 32yo F for Upper Endoscopy s/p breast mass excision 01/2023 with GA-LMA Hx of severe PONV after EGD with conscious sedation PMFSH Active Problems Active Problems: All Active Problems (Updated 01/15/23 @ 16:52 by Eladia Baker MD) H/O nipple discharge (Acute) Breast pain, right (Acute) Mastitis, acute (Acute) Galactorrhea (Acute) Knee pain, right anterior (Acute) Skin lesions, generalized (Acute) Past Medical History Medical History H/O nipple discharge Breast pain, right Cyst of left nipple Knee pain, right anterior Hiatal hernia Chronic heartburn Lumbago with sciatica, right side Tonsillar abscess Family History Family History Maternal Aunt Breast cancer, Onset Age: 40 Family history of problems with anesthesia: No Surgical History Surgical History Hx of breast surgery History of esophagogastroduodenoscopy (EGD) History of excision of mass (06/07/19) History of section (06/19/09) History of Problems with Anesthesia: No Social History Social History Housing: Apartment Alcohol intake: current Alcohol intake frequency: holidays/special occasions only Patient Tobacco Use Status: Former Tobacco user Quit Date: 2 yrs ago Tobacco use type: Cigarette Cigarette Packs Per Day: 1 Cigarettes Per Day: 20.0 e-Cigarette/Vaping Use: Never Used Second Hand Smoke Exposure: No Use of substances other than those prescribed or required for medical reasons: No Are you DNR?: No Advance Directives: No Advance Directives Information Provided: Yes Current occupational status: unemployed Cognitive needs: No Hearing needs: No Vision needs: No Meds Allergies Allergy/AdvReac Type Severity Reaction Status Date / Time clindamycin [CLINDAMYCIN] Allergy Intermediate HIVES/SWELL Verified 03/07/23 09:13 ING fentanyl [FENTANYL] AdvReac Severe SEVERE N/V Verified 03/07/23 09:13 (POST EGD W/CS) Home Medications Medication Instructions Recorded Confirmed Last Taken Type omeprazole 20 mg capsule,delayed 20 mg PO DAILY 04/27/21 02/20/23 03/07/23 08:00 History release levonorgestrel 21 mcg/24 hours (8 1 device intrauterine 12/12/21 02/20/23 Unknown History yrs) 52 mg intrauterine device (Mirena) biotin 2,500 mcg tablet 5,000 mcg PO DAILY 03/07/23 03/07/23 Unknown History ferrous fumarate 324 mg (106 mg 324 mg PO DAILY 03/07/23 Unknown History iron) tablet (Ferrocite) Exam Exam Date and Time: March 05, 2023 1500 Assessment and Plan Assessment Anesthesia Assessment: Chart Reviewed Final Anesthetic Review Family History of Problems with Anesthesia: No History of Problems with Anesthesia: No Documented by User: Betsy Jonas MD 03/07/23 10:12 [facility] Past Medical History Medical History H/O nipple discharge Breast pain, right Cyst of left nipple Knee pain, right anterior Hiatal hernia Chronic heartburn Lumbago with sciatica, right side Tonsillar abscess Family History Family History Maternal Aunt Breast cancer, Onset Age: 40 Surgical History Surgical History Hx of breast surgery History of esophagogastroduodenoscopy (EGD) History of excision of mass (06/07/19) History of section (06/19/09) Social History Social History Housing: Apartment Alcohol intake: current Alcohol intake frequency: holidays/special occasions only Patient Tobacco Use Status: Former Tobacco user Quit Date: 2 yrs ago Tobacco use type: Cigarette Cigarette Packs Per Day: 1 Cigarettes Per Day: 20.0 e-Cigarette/Vaping Use: Never Used Second Hand Smoke Exposure: No Use of substances other than those prescribed or required for medical reasons: No Are you DNR?: No Advance Directives: No Advance Directives Information Provided: Yes Current occupational status: unemployed Cognitive needs: No Hearing needs: No Vision needs: No Meds Allergies Allergy/AdvReac Type Severity Reaction Status Date / Time clindamycin [CLINDAMYCIN] Allergy Intermediate HIVES/SWELL Verified 03/07/23 09:13 ING fentanyl [FENTANYL] AdvReac Severe SEVERE N/V Verified 03/07/23 09:13 (POST EGD W/CS) Home Medications Medication Instructions Recorded Confirmed Last Taken Type omeprazole 20 mg capsule,delayed 20 mg PO DAILY 04/27/21 02/20/23 03/07/23 08:00 History release levonorgestrel 21 mcg/24 hours (8 1 device intrauterine 12/12/21 02/20/23 Unknown History yrs) 52 mg intrauterine device (Mirena) biotin 2,500 mcg tablet 5,000 mcg PO DAILY 03/07/23 03/07/23 Unknown History ferrous fumarate 324 mg (106 mg 324 mg PO DAILY 03/07/23 Unknown History iron) tablet (Ferrocite) Exam Airway Mallampati Class: II TM Dist: >3cm Neck ROM: Full Loose/Missing/Broken Teeth: Yes, Upper and Lower Heart: RRR Lungs: CTA Assessment and Plan Assessment Anesthesia Assessment: Anesthesia Plan Discussed Final Anesthetic Review NPO: Yes ASA Class: II Final Preanesthetic Review: Meds/Allgs Chart Reviewed, Consent Obtained/Reviewed and Anes Risks/Benef Reviewed Patient Risk: Low Procedure Risk: Intermediate Anesthetic Plan Anesthetic Plan: MAC: Disposition: Standard PACU
[2023-03-07 09:18] VITALS: BMI 35.3
[2023-03-07 09:26] VITALS: BP 122/81; PULSE 97; RESP 15; TEMP 36.7; O2SAT 97
[2023-03-07 09:34] LABS: UPreg QC Valid YES; Urine Pregnancy NEGATIVE (NEGATIVE)
[2023-03-07] MEDS: Lactated Ringers 1,000 ML 100 ML IVCONT (09:37)
[2023-03-07 10:40] VITALS: BP 98/45; PULSE 76; RESP 18; TEMP 36.1; O2SAT 99
--- NOTE | 2023-03-07 10:42 | P.BOP_ITS ---
Brief Operative Note Date of Service: 03/07/23 Pre-op diagnosis: Goodson's Post-op diagnosis: other (Same, Hiatal hernia, Gastric polyps) Procedure: EGD with biopsies Surgeon: Dante Ho Anesthesia: MAC Was an Controls Project Engineer used for this Procedure?: No Estimated blood loss (mL): 2.0 Pathology: other (A. EG Junction at 32cm B. Gastric polyps) Condition: stable Disposition: PACU
[2023-03-07 10:55] VITALS: BP 113/66; PULSE 82; RESP 20; TEMP 36.7; O2SAT 97
--- NOTE | 2023-03-07 11:30 | OP_ITS ---
DATE OF SERVICE: 03/07/2023 SURGEON: Dante Ho MD INDICATIONS: The patient presents for evaluation of gastroesophageal reflux and Goodson's esophagus. Full consent obtained from her for this, including risks of bleeding and perforation. PREOPERATIVE DIAGNOSIS: POSTOPERATIVE DIAGNOSIS: PROCEDURE PERFORMED: Esophagogastroduodenoscopy with biopsies. ESTIMATED BLOOD LOSS: COMPLICATIONS: ANESTHESIA: Monitored anesthesia care. ASSISTANTS: SPECIMENS: PREOPERATIVE DIAGNOSES: Gastroesophageal reflux and Goodson's esophagus. POSTOPERATIVE DIAGNOSES: Gastroesophageal reflux and Goodson esophagus's, hiatal hernia, gastric polyps. DESCRIPTION OF PROCEDURE: The patient was placed in the left lateral decubitus position. The Olympus video gastroscope was passed in the posterior oropharynx and upper esophagus under direct vision. The scope was passed slowly to the distal esophagus. The gastroesophageal junction appeared at 32 cm. There were short, less than 1 cm projections of Goodson's mucosa. There was no esophagitis nor any lesions. There was a small to moderate-sized hiatal hernia. The scope was advanced to the pylorus and the duodenum was cannulated in the descending portion. The duodenum including the bulb appeared normal without mass or ulceration. The scope was withdrawn back in the stomach. The gastric antrum and body appeared normal with good peristalsis. The scope was retroflexed, visualizing the proximal stomach carefully, which appeared normal, other than multiple hyperplastic appearing gastric polyps. There was no mass or ulceration. The scope was straightened. Biopsies were obtained from some of the gastric polyps. The scope was withdrawn back to the esophagus. Biopsies were obtained from the area of Goodson's appearing mucosa. Proximal to this, the esophageal mucosa appeared normal. The scope was withdrawn from the patient. She tolerated the procedure well and was returned to the recovery area in stable condition. IMPRESSION: 1. Hiatal hernia, history of Goodson esophagus. 2. Gastric polyps. PLAN: The results of the biopsies will be checked. She was advised to continue her daily omeprazole. I would recommend a repeat upper endoscopy in 3 years for further surveillance, assuming these biopsies do not show dysplasia. MD ADRIANNA Gerard/YANIRA / [id number] MTDDerik
== END 2023-03-07 11:20 | disposition home or self-care (01) ==
PROVIDERS: Nurse Practitioner; PCP Internal Medicine; Visit Provider Internal Medicine
PROC: 0DJ08ZZ Inspection of Upper Intestinal Tract, Via Natural or Artificial Opening Endoscopic (ICD-10-PCS; CPT 43235; principal; 2023-03-07 10:10)
DX: K21.9 Gastro-esophageal reflux disease without esophagitis (principal); K22.70 Barrett's esophagus without dysplasia; K31.7 Polyp of stomach and duodenum; K44.9 Diaphragmatic hernia without obstruction or gangrene; Z79.899 Other long term (current) drug therapy
CPT/HCPCS: 43239; 81025; 88305; 88342

== ENCOUNTER 2023-04-28 05:53 | Day surgery (SDC) | payer BC, SELFPAY ==
[2023-04-23 18:53] VITALS: BMI 37.4
--- NOTE | 2023-04-25 09:03 | P.CONAN_ITS ---
Documented by User: Mavis Moss NP 04/25/23 09:04 HPI - Anesthesia Eval Consult details Narrative: 32yo F for Right Nipple Fistula Excision Severe N/V with Fentanyl PMFSH Active Problems Active Problems: All Active Problems (Updated 03/06/23 @ 07:18 by Radha Farnsworth RN) Mastitis, acute (Acute) Galactorrhea (Acute) Skin lesions, generalized (Acute) H/O nipple discharge (Acute) Breast pain, right (Acute) Knee pain, right anterior (Acute) Past Medical History Medical History H/O nipple discharge Breast pain, right Cyst of left nipple Knee pain, right anterior Hiatal hernia Chronic heartburn Lumbago with sciatica, right side Tonsillar abscess Family History Family History Maternal Aunt Breast cancer, Onset Age: 40 Family history of problems with anesthesia: No Surgical History Surgical History Hx of breast surgery History of esophagogastroduodenoscopy (EGD) History of excision of mass (06/07/19) History of section (06/19/09) History of Problems with Anesthesia: No Social History Social History Housing: Apartment Alcohol intake: current Alcohol intake frequency: 0-2 drinks per day Patient Tobacco Use Status: Former Tobacco user Quit Date: 2020 Tobacco use type: Cigarette Cigarette Packs Per Day: 1 Cigarettes Per Day: 20.0 e-Cigarette/Vaping Use: Never Used Second Hand Smoke Exposure: No Use of substances other than those prescribed or required for medical reasons: No Have you been hit, kicked, punched, or otherwise hurt by someone within the past year? If so, by whom?: No Are you DNR?: No Advance Directives: No Advance Directives Information Provided: Yes Advance Directives on File: No Recently lost weight without trying: No Eating poorly because of decreased appetite: No Nutrition Risks: No Nutritional Risk Patient : No Current occupational status: unemployed Cognitive needs: No Hearing needs: No Vision needs: No Meds Allergies Allergy/AdvReac Type Severity Reaction Status Date / Time clindamycin [CLINDAMYCIN] Allergy Intermediate HIVES/SWELL Verified 03/07/23 09:13 ING fentanyl [FENTANYL] AdvReac Severe SEVERE N/V Verified 03/07/23 09:13 (POST EGD W/CS) Home Medications Medication Instructions Recorded Confirmed Last Taken Type omeprazole 20 mg capsule,delayed 20 mg PO DAILY 04/27/21 04/28/23 04/28/23 History release levonorgestrel 21 mcg/24 hours (8 1 device intrauterine ONCE 12/12/21 04/23/23 Unknown History yrs) 52 mg intrauterine device (Mirena) biotin 2,500 mcg tablet 5,000 mcg PO DAILY 03/07/23 04/23/23 Unknown History ferrous fumarate 324 mg (106 mg 324 mg PO DAILY 03/07/23 04/23/23 Unknown History iron) tablet (Ferrocite) Exam Exam Date and Time: April 25, 2023 09 Height,Weight and Vital Signs: Height 5 ft 1 in Weight 89.811 kg Assessment and Plan Assessment Anesthesia Assessment: Chart Reviewed Final Anesthetic Review Family History of Problems with Anesthesia: No History of Problems with Anesthesia: No Documented by User: Kitty Tony MD 04/28/23 07:35 [facility] Past Medical History Medical History H/O nipple discharge Breast pain, right Cyst of left nipple Knee pain, right anterior Hiatal hernia Chronic heartburn Lumbago with sciatica, right side Tonsillar abscess Family History Family History Maternal Aunt Breast cancer, Onset Age: 40 Surgical History Surgical History Hx of breast surgery History of esophagogastroduodenoscopy (EGD) History of excision of mass (06/07/19) History of section (06/19/09) Social History Social History Housing: Apartment Alcohol intake: current Alcohol intake frequency: 0-2 drinks per day Patient Tobacco Use Status: Former Tobacco user Quit Date: 2020 Tobacco use type: Cigarette Cigarette Packs Per Day: 1 Cigarettes Per Day: 20.0 e-Cigarette/Vaping Use: Never Used Second Hand Smoke Exposure: No Use of substances other than those prescribed or required for medical reasons: No Have you been hit, kicked, punched, or otherwise hurt by someone within the past year? If so, by whom?: No Are you DNR?: No Advance Directives: No Advance Directives Information Provided: Yes Advance Directives on File: No Recently lost weight without trying: No Eating poorly because of decreased appetite: No Nutrition Risks: No Nutritional Risk Patient : No Current occupational status: unemployed Cognitive needs: No Hearing needs: No Vision needs: No Meds Allergies Allergy/AdvReac Type Severity Reaction Status Date / Time clindamycin [CLINDAMYCIN] Allergy Intermediate HIVES/SWELL Verified 03/07/23 09:13 ING fentanyl [FENTANYL] AdvReac Severe SEVERE N/V Verified 03/07/23 09:13 (POST EGD W/CS) Home Medications Medication Instructions Recorded Confirmed Last Taken Type omeprazole 20 mg capsule,delayed 20 mg PO DAILY 04/27/21 04/28/23 04/28/23 History release levonorgestrel 21 mcg/24 hours (8 1 device intrauterine ONCE 12/12/21 04/23/23 Unknown History yrs) 52 mg intrauterine device (Mirena) biotin 2,500 mcg tablet 5,000 mcg PO DAILY 03/07/23 04/23/23 Unknown History ferrous fumarate 324 mg (106 mg 324 mg PO DAILY 03/07/23 04/23/23 Unknown History iron) tablet (Ferrocite) Exam Airway Mallampati Class: II TM Dist: >3cm Neck ROM: Full Denture: Upper and Lower Heart: rrr Lungs: cta Assessment and Plan Assessment Anesthesia Assessment: Anesthesia Plan Discussed Final Anesthetic Review NPO: Yes ASA Class: III Final Preanesthetic Review: No Changes in Pt Med Stat, Meds/Allgs Chart Reviewed, Consent Obtained/Reviewed and Anes Risks/Benef Reviewed Patient Risk: Low Procedure Risk: Low Anesthetic Plan Anesthetic Plan: GA Disposition: Standard PACU
[2023-04-28] VITALS (10 sets, daily range): BP systolic 100–120; BP diastolic 35–70; PULSE 61–95; RESP 16–18; TEMP 36.5–36.7; O2SAT 96–99
[2023-04-28 06:36] LABS: UPreg QC Valid YES; Urine Pregnancy NEGATIVE (NEGATIVE)
[2023-04-28] MEDS: Lactated Ringers 1,000 ML 100 ML IVCONT (06:43)
[2023-04-28] MEDS: Scopolamine 1.5 MG PATCH.TD.3 TRANSDERMA (06:43)
--- NOTE | 2023-04-28 07:25 | MHC.SHP ---
Pre-Procedural Eval Section A Date of Service: 04/28/23 The patient is an INPATIENT: No Changes since office visit: Yes Patient answered all questions; No Cold of Flu in the past 2 weeks, No New Medical Problems and No Changes in Medication The History & Physical has been completed within 30 days and I have reviewed it.: Yes Section B Chief Complaint: Personal history of other specified conditions Allergies: Allergies Allergy/AdvReac Type Severity Reaction Status Date / Time clindamycin [CLINDAMYCIN] Allergy Intermediate HIVES/SWELL Verified 03/07/23 09:13 ING fentanyl [FENTANYL] AdvReac Severe SEVERE N/V Verified 03/07/23 09:13 (POST EGD W/CS) Plan Diagnosis/Plan: Unchanged I have reviewed the history and physical and performed a pertinent physical examination on my patient. No changes have occurred unless specified. Time Spent With Patient Time: Total time managing care of this patient today ____ minutes.
--- NOTE | 2023-04-28 08:21 | P.OP_ITS ---
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 Patient was found to have discharge both from the nipple and piercing site in the right nipple. Operative findings: Fistula tract between the nipple and opening on the medial right nipple. This is the site of her previous piercing Specimen: Right nipple fistula Estimated blood loss: 2 mL Complications: None Procedure details: Patient was brought to the OR placed in a supine position. After administering general anesthesia patient's right breast was prepped with ChloraPrep and draped in a sterile fashion. A surgical time-out was called the consent confirmed. Patient received preoperative antibiotics and Venodyne boots were in place. Local anesthesia was then infiltrated circumferentially around the right nipple-areolar complex. A probe was then inserted into the nipple at the site of discharge and immediately exited through the medial piercing site. An elliptical incision was then made around the piercing site circumferentially. Incision was then carried down into the subcutaneous tissue. A sharp scissors was then used to excise the track from the piercing to the nipple exit. The specimen was removed and sent to pathology for further examination. A small cystic collection appear to be associated with this fistula was included with the specimen. Pressure was held to maintain hemostasis. Dermis was then reapproximated using interrupted 4-0 Polysorb sutures. Skin was closed using i nterrupted 5 0 Prolene sutures. Sterile dressing cyst in of 2 x 2 gauze and Tegaderm were then applied. The patient tolerated the procedure well. Sponge, instrument, and needle counts reported as correct. The patient was transferred to PACU in stable condition.
[2023-04-28] MEDS: ondansetron HCL 4 MG/2 ML VIAL IVPUSH (08:51)
== END 2023-04-28 10:29 | disposition home or self-care (01) ==
PROVIDERS: Nurse Practitioner; PCP Internal Medicine; Visit Provider Surgery
PROC: (CPT 19120; principal; 2023-04-28 07:30)
DX: N64.0 Fissure and fistula of nipple (principal); N60.31 Fibrosclerosis of right breast; N64.52 Nipple discharge; S20.151A Superficial foreign body of breast, right breast, initial encounter; W26.8XXA Contact with other sharp object(s), not elsewhere classified, initial encounter; W45.8XXA Other foreign body or object entering through skin, initial encounter; Y93.9 Activity, unspecified; Y92.9 Unspecified place or not applicable; Y99.8 Other external cause status; Z87.891 Personal history of nicotine dependence
CPT/HCPCS: 19120; 81025; 88305; 88307; J0690; J1100; J1885; J2405; J2550; J2795; J3010

== ENCOUNTER → 2023-04-28 05:53 | Outpatient (BNV) | payer BC, SELFPAY | PROVIDERS: PCP Internal Medicine; Visit Provider Surgery | DX: N64.0 Fissure and fistula of nipple (principal) | CPT/HCPCS: 19120 ==

== ENCOUNTER 2023-05-06 09:53 | Outpatient (AMB) | payer BC, SELFPAY ==
--- NOTE | 2023-05-06 09:55 | A.OFFVIS_ITS ---
Intake Vital Signs 05/06/23 10:02 Height 5 ft 1 in Weight 191 lb 2 oz BMI 36.1 BP 123/70 Blood Pressure Location Lt brachial Position Sitting Pulse 100 Intake Visit Reasons: S/P Rt. nipple fistula excision Intake Note: Patient is seen in office for post op assessment post excision right nipple fistula (lumpectomy). Patient c/o: area is sore, admits to pain, white/yellowish discharge for the past 2 days Guest Specialist Required: No Circular Head Saw Operator: Circular Head Saw Operator Present Accompanied by: Self / Same As Patient Allergies clindamycin [CLINDAMYCIN] Allergy (Intermediate, Verified 05/06/23 10:03) HIVES/SWELLING fentanyl [FENTANYL] Adverse Reaction (Severe, Verified 05/06/23 10:03) SEVERE N/V (POST EGD W/CS) Medication List - Last Reconciled 05/06/23 by José Antonio Hull MD biotin 5,000 mcg PO DAILY ferrous fumarate (Ferrocite) 324 mg PO DAILY levonorgestrel (Mirena) 1 device intrauterine ONCE omeprazole 20 mg PO DAILY oxycodone 5 mg PO Q6H PRN HPI HPI Comments History of Present Illness Details Patient returns 1 week following excision of a right breast fistula between the nipple and nipple piercing. She tolerated the procedure well but does note some discharge from the opposite side. She has some soreness from the sutures which are in place still. She denies any fever or chills. [facility] Medical History H/O nipple discharge Breast pain, right Cyst of left nipple Knee pain, right anterior Hiatal hernia Chronic heartburn Lumbago with sciatica, right side Tonsillar abscess Surgical History History of lumpectomy of right breast (04/28/23) Hx of breast surgery History of esophagogastroduodenoscopy (EGD) History of excision of mass (06/07/19) History of section (06/19/09) Family History Maternal Aunt Breast cancer, Onset Age: 40 Social History Housing: Apartment Alcohol intake: current Alcohol intake frequency: 0-2 drinks per day Patient Tobacco Use Status: Former Tobacco user Quit Date: 2020 Tobacco use type: Cigarette Cigarette Packs Per Day: 1 Cigarettes Per Day: 20.0 e-Cigarette/Vaping Use: Never Used Second Hand Smoke Exposure: No Current occupational status: unemployed Cognitive needs: No Hearing needs: No Vision needs: No Female Reproductive History Menstrual Age of Menarche: 10 Physical Exam Vital Signs: Last Vital Signs Pulse 100 05/06/23 10:02 BP 123/70 05/06/23 10:02 BMI result Body Mass Index 36.1 Const General: healthy appearing Chest Other: Right breast incision is clean, dry and intact. Two sutures remain in place. These were removed in the incision found to be well healed. Skin Other: Warm, dry, no rash Extrem General: No edema Assessment & Plan Assessment & Plan (1) Galactorrhea: Code(s): N64.3 - Galactorrhea not associated with childbirth Plan Patient returns 1 week following excision of a left nipple fistula. She tolerated the procedure well the wounds are healing nicely. I recommended she return in 1 month for follow-up examination. She should call sooner for any new concerns. Coding Level of Care Code Global (54420) Diagnoses Galactorrhea N64.3
[2023-05-06 10:02] VITALS: BP 123/70; PULSE 100; BMI 36.1
== END 2023-05-06 10:10 | disposition home or self-care (01) ==
PROVIDERS: PCP Internal Medicine; Visit Provider Surgery
DX: N64.3 Galactorrhea not associated with childbirth (principal)
CPT/HCPCS: 99024

== ENCOUNTER → 2023-05-06 09:53 | Outpatient (BNVA) | payer BC, SELFPAY | PROVIDERS: PCP Internal Medicine; Visit Provider Surgery ==

== ENCOUNTER 2023-05-13 08:22 | Outpatient (REF) | payer BC, SELFPAY ==
[2023-05-13 15:44] LABS: CT PCR NOT DETECTED (Not Detect.); NG PCR NOT DETECTED (Not Detect.)
[2023-05-14 13:19] LABS: BV Int Neg Control Negative (Negative); BV Int Pos Control Positive (Positive)
== END 2023-05-13 08:23 | disposition home or self-care (01) ==
LOC: HO.LAB 08:22
PROVIDERS: Advanced Practice Midwife; PCP Internal Medicine; Visit Provider Surgery
DX: Z01.419 Encounter for gynecological examination (general) (routine) without abnormal findings (principal); Z20.2 Contact with and (suspected) exposure to infections with a predominantly sexual mode of transmission; N64.3 Galactorrhea not associated with childbirth
CPT/HCPCS: 0353U; 87480; 87510; 87660

== ENCOUNTER 2023-05-13 08:22 | Outpatient (AMB) | payer BC, SELFPAY ==
--- NOTE | 2023-05-13 08:24 | MHC.OFFVIS ---
Intake Vital Signs 05/13/23 08:32 Height 5 ft 1 in Weight 191 lb 4 oz BMI 36.1 BP 135/72 Blood Pressure Location Lt brachial Position Sitting Pulse 95 Intake Visit Reasons: Infected incision Intake Note: Patient is seen in office for wound check/poss infection, post excision right nipple fistula (lumpectomy). Patient c/o: since the weekend the wound started to open, discharge and had what looks like an internal suture come out of the incision L.OV: 05/06/23 Receptionist Secretary Required: No Accompanied by: Self / Same As Patient Allergies clindamycin [CLINDAMYCIN] Allergy (Intermediate, Verified 05/13/23 08:26) HIVES/SWELLING fentanyl [FENTANYL] Adverse Reaction (Severe, Verified 05/13/23 08:26) SEVERE N/V (POST EGD W/CS) HPI HPI Comments History of Present Illness Details Patient returns 2 weeks following excision of a right breast fistula between the nipple and nipple piercing. She reported green to yellow discharge from the incision late last week and was subsequently started on doxycycline 100 mg p.o. b.i.d.. She returns today for follow-up examination. She reports noting a suture, white in color with purulence discharge. Findings suggestive of an infected Polysorb suture. She is taking the antibiotic without any apparent side effects. She does know a diffuse rash which started before the antibiotic. [facility] Medical History H/O nipple discharge Breast pain, right Cyst of left nipple Knee pain, right anterior Hiatal hernia Chronic heartburn Lumbago with sciatica, right side Tonsillar abscess Surgical History History of lumpectomy of right breast (04/28/23) Hx of breast surgery History of esophagogastroduodenoscopy (EGD) History of excision of mass (06/07/19) History of section (06/19/09) Family History Maternal Aunt Breast cancer, Onset Age: 40 Social History Housing: Apartment Alcohol intake: current Alcohol intake frequency: 0-2 drinks per day Patient Tobacco Use Status: Former Tobacco user Quit Date: 2020 Tobacco use type: Cigarette Cigarette Packs Per Day: 1 Cigarettes Per Day: 20.0 e-Cigarette/Vaping Use: Never Used Second Hand Smoke Exposure: No Current occupational status: unemployed Cognitive needs: No Hearing needs: No Vision needs: No Female Reproductive History Menstrual Age of Menarche: 10 Physical Exam Const General: healthy appearing Chest Other: Right breast incision is now open and draining a small amount of purulent fluid. There is no surrounding erythema appreciated. The nipple incision is healed. Skin Other: Warm, dry, no rash Extrem General: No edema Assessment & Plan Assessment & Plan (1) Galactorrhea: Code(s): N64.3 - Galactorrhea not associated with childbirth Plan Probable stitch abscess which appears to be improving knot of the suture has been evacuated. Can you antibiotics as prescribed. She should follow-up in approximately 2 weeks for wound examination. Coding Level of Care Code Global (61286) Diagnoses Galactorrhea N64.3
[2023-05-13 08:32] VITALS: BP 135/72; PULSE 95; BMI 36.1
== END 2023-05-13 08:39 | disposition home or self-care (01) ==
PROVIDERS: PCP Internal Medicine; Visit Provider Surgery
DX: N64.3 Galactorrhea not associated with childbirth (principal)
CPT/HCPCS: 99024

== ENCOUNTER 2023-05-13 08:46 | Outpatient (AMB) | payer BC, SELFPAY ==
--- NOTE | 2023-05-13 08:50 | A.OFFVIS_ITS ---
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 Doing well with no concerns. She tries to eat healthy, having issues with her dentures, and not active with exercise. No bleeding with the Mirena, inserted 2020. Strings not found at follow up, was told US was normal. She denies vaginal itching and irritation. STI screening offered; she accepts. Declines bloodwork. Denies family history of breast, ovarian or colon cancer. Last pap smear 2020, was negative. [facility] Medical History (Updated 05/13/23 @ 09:06 by NEGRO Aragon) H/O herpes simplex infection H/O nipple discharge Breast pain, right Cyst of left nipple Knee pain, right anterior Hiatal hernia Chronic heartburn Lumbago with sciatica, right side Tonsillar abscess Surgical History History of lumpectomy of right breast (04/28/23) Hx of breast surgery History of esophagogastroduodenoscopy (EGD) History of excision of mass (06/07/19) History of section (06/19/09) Family History (Updated 05/13/23 @ 09:01 by NEGRO Aragon) Maternal Aunt Breast cancer, Onset Age: 40 Father Myocardial infarction Maternal Grandmother Pancreas cancer Paternal Grandfather Lung cancer Bladder cancer (Updated 05/13/23 @ 08:57 by NEGRO Aragon) Housing: Apartment Alcohol intake: current Alcohol intake frequency: 0-2 drinks per day Patient Tobacco Use Status: Former Tobacco user Quit Date: 2020 Tobacco use type: Cigarette Cigarette Packs Per Day: 1 Cigarettes Per Day: 20.0 e-Cigarette/Vaping Use: Never Used Second Hand Smoke Exposure: No Current occupational status: unemployed Sexual orientation: Straight/Heterosexual Gender identity: Female Cognitive needs: No Hearing needs: No Vision needs: No Female Reproductive History Menstrual Age of Menarche: 10 control method: progestin IUCD (Mirena 07/2020, strings missing, pt. reports US at [facility] was normal-IUD in place) Total pregnancies: 1 Full term: 1 Number of Living Children: 1 Date of last pap smear: 09/29/18 (neg pap and hpv) History of STI: Yes (HSV) Review of Systems Const All systems reviewed & are unremarkable except as noted in HPI and below Reports as per HPI Eyes Reports no additional complaints ENT Reports no additional complaints Card Reports no additional complaints Resp Reports no additional complaints GI Reports as per HPI and Reports no additional complaints Reports as per HPI Musc Reports no additional complaints Skin/Breast Reports as per HPI Neuro Reports no additional complaints Psych Reports no additional complaints Endo Reports no additional complaints Morgan/Lymph Reports no additional complaints Aller/Immun Reports no additional complaints Physical Exam Vital Signs: Last Vital Signs BP 114/78 05/13/23 08:54 BMI result Body Mass Index 36.1 Const General: cooperative, healthy appearing, no acute distress, well developed and alert Orientation/consciousness: patient oriented x3 HEENT Head: Yes normal to inspection Eyes General: appearance normal, both eyes and all related structures Neck Neck: Yes normal visual inspection Thyroid: Thyroid normal Chest Chest palpation & inspection: normal inspection of the chest and other (no puckering, dimpling, peau de orange, retraction, discharge, masses) Breast/axilla inspection: normal inspection of the breasts Breast/axilla palpation: normal palpation of the breasts Resp Effort & Inspection: normal respiratory effort GI Inspection: Yes normal to inspection Palpation (GI): Soft to palpation Rectal Exam - Female: deferred General: Yes bladder normal to palpation External Female Exam: normal external appearance and normal appearance of the urethra Speculum Exam - Vagina: normal appearance of the vagina, normal palpation and normal vaginal discharge Speculum Exam - Cervix: normal appearance of the cervix and normal palpation Bimanual exam- vagina & uterus: normal bimanual exam, normal palpation, uterine size normal, bladder normal to palpation, normal palpation and non-tender Bimanual Exam- Adnexa, other: no masses Skin General skin exam: no rashes or lesions noted Rashes: no rashes Neuro General: patient oriented x3 Cognition (Neuro): normal cognition Extrem General: Yes normal to inspection Psych Attitude: cooperative Thought process: Normal thought process present Assessment & Plan Assessment & Plan (1) Encounter for well woman exam with routine gynecological exam: Code(s): Z01.419 - Encounter for gynecological examination (general) (routine) without abnormal findings Plan: Discussed: Current recommendations for pap smears per ASCCP guidelines. Breast awareness and periodic breast exams. Maintain a healthy lifestyle including a well balanced diet and routine exercise. Missing IUD strings: Plan records-US from [facility]. All of her questions and concerns were addressed to the best of my ability. 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 Orders: Orders Bacterial Vaginosis Panel Today Z20.2 - Contact with and (suspected) exposure to infections with a predominantly sexual mode of transmission CT NG by PCR Today Z20.2 - Contact with and (suspected) exposure to infections with a predominantly sexual mode of transmission Medications: New valacyclovir take for three days, then repeat as needed 500 mg PO DAILY 90 days 30 tabs 1RF Coding Level of Care Code New Pt Prev Care 18-39yr(38027 Diagnoses Encounter for well woman exam with routine gynecological exam Z01.419
[2023-05-13 08:54] VITALS: BP 114/78; BMI 36.1
== END 2023-05-13 09:32 | disposition home or self-care (01) ==
PROVIDERS: PCP Internal Medicine; Visit Provider Advanced Practice Midwife
DX: Z01.419 Encounter for gynecological examination (general) (routine) without abnormal findings (principal)
CPT/HCPCS: 99385

== ENCOUNTER 2023-05-13 09:29 | Outpatient (REF) | payer BC, SELFPAY | END 2023-05-13 09:30 | disposition home or self-care (01) | LOC: HO.LNP 09:29 | PROVIDERS: Visit Provider Advanced Practice Midwife | DX: Z13.89 Encounter for screening for other disorder (principal) ==

== ENCOUNTER 2023-05-26 13:25 | Outpatient (AMB) | payer BC, SELFPAY ==
[2023-05-26 14:13] VITALS: BP 120/82; PULSE 80; O2SAT 98; BMI 36.1
--- NOTE | 2023-05-26 14:13 | A.OFFPC_ITS ---
Vital Signs 05/26/23 14:13 Height 5 ft 1 in Weight 191 lb BMI 36.1 BP 120/82 Blood Pressure Location Rt brachial Position Sitting Pulse 80 Pulse Source Pulse Oximeter Pulse Oximetry (%) 98 Oxygen Delivery Method Room Air Intake Visit Reasons: Follow up Anxiety/Loss of sleep OK by Dr. Baker Intake Note: Pt is here to follow up on loss of sleep and Anxiety Allergies clindamycin [CLINDAMYCIN] Allergy (Intermediate, Verified 05/26/23 14:23) HIVES/SWELLING fentanyl [FENTANYL] Adverse Reaction (Severe, Verified 05/26/23 14:23) SEVERE N/V (POST EGD W/CS) Medication List - Last Reconciled 05/26/23 by Eladia Baker MD biotin 5,000 mcg PO DAILY ferrous fumarate (Ferrocite) 324 mg PO DAILY levonorgestrel (Mirena) 1 device intrauterine ONCE omeprazole 20 mg PO DAILY valacyclovir 500 mg PO DAILY 90 days Tobacco use date assessed: 05/26/23 Dental Screening Dental Screen Date: 05/26/23 Did you have a dental visit in the last 12 months?: No Did you have a dental problem in the last 6 months where you did not have access to dental care?: No Was dental information given to patient?: Patient has dentist HPI Follow up Anxiety/Loss of sleep OK by Dr. Baker HPI Details 32-year-old lady here today complaining of having difficulty initiating and maintaining sleep at night. Patient has been having some frequent anxiety attacks lately, mainly he brought about by ongoing issues with her right breast, currently not healing well after surgical excision of a cystic mass. She also is here complaining of slightly pruritic rash appearing on and off on arms and has a mole on her back that she would like to have checked by dermatology. [facility] Medical History (Updated 06/02/23 @ 01:43 by Eladia Baker MD) Anxiety H/O herpes simplex infection H/O nipple discharge Breast pain, right Cyst of left nipple Knee pain, right anterior Hiatal hernia Chronic heartburn Lumbago with sciatica, right side Tonsillar abscess Surgical History History of lumpectomy of right breast (04/28/23) Hx of breast surgery History of esophagogastroduodenoscopy (EGD) History of excision of mass (06/07/19) History of section (06/19/09) Family History Maternal Aunt Breast cancer, Onset Age: 40 Father Myocardial infarction Maternal Grandmother Pancreas cancer Paternal Grandfather Lung cancer Bladder cancer Social History Housing: Apartment Alcohol intake: current Alcohol intake frequency: 0-2 drinks per day Comment: counts correct Patient Tobacco Use Status: Former Tobacco user Quit Date: 2020 Tobacco use type: Cigarette Cigarette Packs Per Day: 1 Cigarettes Per Day: 20.0 e-Cigarette/Vaping Use: Never Used Second Hand Smoke Exposure: No Current occupational status: unemployed Sexual orientation: Straight/Heterosexual Gender identity: Female Cognitive needs: No Hearing needs: No Vision needs: No Female Reproductive History Menstrual Age of Menarche: 10 Questionnaire PHQ-9 Over the last 2 weeks, how often have you been bothered by any of the following problems? 1. Little interest or pleasure in doing things: several days 2. Feeling down, depressed, or hopeless: not at all 3. Trouble falling or staying asleep, or sleeping too much: more than half the days 4. Feeling tired or having little energy: more than half the days 5. Poor appetite or overeating: not at all 6. Feeling bad about yourself - or that you are a failure or have let yourself or your family down: not at all 7. Trouble concentrating on things, such as reading the newspaper or watching television: not at all 8. Moving or speaking so slowly that other people could have noticed. Or the opposite - being so fidgety or restless that you have been moving around a lot more than usual: not at all 9. Thoughts that you would be better off or of hurting yourself in some way: not at all Total score: 5 Depression Screening Interpretation: Negative Depression Screening Done: Yes 20954 - PHQ-9 Billing: Yes Source: Developed by Drs. Dante Perkins, Soniya Maldonado, Jatinder Tellez and colleagues, with an educational betsy from [email or web address]. Thrive Questionnaire Date Thrive assessed: 05/26/23 I am a: Patient What is your living situation today?: I have a steady place to live Within the past 12 months, did the food you bought not last and you didn't have the money to get more?: Never true Within the past 12 months, did you worry whether your food would run out before you got money to buy more?: Never true Do you have trouble paying for medicines?: No Do you have trouble getting transportation to medical appointments?: No Do you have trouble paying your heating and electricity bill?: No Do you have trouble taking care of your child, family member or friend?: No Do you have trouble with day-to-day activities such as bathing, preparing meals, shopping, managing finances, etc.?: No Are you currently unemployed and looking for a job?: No Are you interested in more education?: No ELLIOT-7 AMB Questionnaire ELLIOT-7 Date ELLIOT - 7 assessed: 05/26/23 Feeling nervous, anxious, or on edge: 2 = More than half the days Not being able to stop or control worryin = More than half the days Worrying too much about different things: 1 = Several days Trouble relaxin = More than half the days Being so restless that it is hard to sit still: 1 = Several days Becoming easily annoyed or irritable: 1 = Several days Feeling afraid as if something awful might happen: 2 = More than half the days Total ELLIOT-7 score (0-4 normal; 5-9 mild; 10-14 moderate; 15-21 severe): 11 Source: Developed by Drs. Dante Perkins, Soniya Maldonado, Jatinder Tellez and colleagues, with an educational betsy from [email or web address]. ELLIOT-7 Assessment Billing ELLIOT-7 Assessment Tool: ELLIOT-7 Assessment 28369 Review of Systems Const All systems reviewed & are unremarkable except as noted in HPI and below Physical exam (Primary Care) Vital Signs: Last Vital Signs Pulse 80 05/26/23 14:13 BP 120/82 05/26/23 14:13 Pulse Ox 98 05/26/23 14:13 Oxygen Delivery Method Room Air 05/26/23 14:13 BMI result Body Mass Index 36.1 Tobacco/Smoking Status: Tobacco use Status Tobacco use date assessed 05/26/23 05/26/23 14:20 Patient Tobacco Use Status Former Tobacco user 05/26/23 14:13 Tobacco use type Cigarette 05/26/23 14:13 e-Cigarette/Vaping Use Never Used 05/26/23 14:13 PHQ-9: PHQ-9 Score PHQ-9: Total score 13 05/26/23 14:51 Depression Screening Interpretation: Negative Thrive Assessment: Date of Thrive Assessment Date Thrive assessed 05/26/23 05/26/23 14:51 Const Other: Alert oriented x3, no acute distress noted, ambulatory normal gait Orientation/consciousness: patient oriented x3 Neck Neck: Yes full ROM, Yes no lymphadenopathy and Yes supple Skin Other: Hyperpigmented slightly raised lesion on right upper back, with slightly blurred margins, faint erythematous rash on arms Neuro General: patient oriented x3, gait normal, tone normal, moves all extremities, Normal light touch and pain sensation, no focal motor deficits and CN's II-XI intact bilaterally Extrem General: Yes normal to inspection, Yes full ROM, Yes no joint enlargement and Yes no pedal edema Psych Appearance: grossly normal and well kempt Mental Status: mental status grossly normal Speech and movement: Normal speech and movement present Affect: normal affect Attitude: cooperative Thought process: Normal thought process present Assessment and Plan Assessment & Plan (1) Atypical mole: Code(s): D22.9 - Melanocytic nevi, unspecified Plan: Referral to [facility] ordered for further evaluation management (2) Rash and nonspecific skin eruption: Code(s): R21 - Rash and other nonspecific skin eruption Plan: Referral to [facility] ordered (3) Anxiety: Code(s): F41.9 - Anxiety disorder, unspecified Plan: Will do a trial of hydroxyzine 25 mg per tablet to take initially half a tablet at bedtime as needed for insomnia an acute anxiety attacks. May increase to full dose if no improvement of symptoms noted. Patient cautioned that this medicine may cause drowsiness and decreased alertness, advised not to drive or operate any machinery when taking the medication. Orders: Referrals Dermatology Referral D22.9 - Melanocytic nevi, unspecified, R21 - Rash and other nonspecific skin eruption Medications: New hydroxyzine HCl Initially try half a tablet or 12.5 mg at bedtime. And may take as needed twice a day for acute anxiety 25 mg PO BID PRN 30 tabs 0RF Acute anxiety at tacks and insomnia Coding Level of Care Code Est Pt Level 3 (82891) Diagnoses Atypical mole D22.9 Rash and nonspecific skin eruption R21 Anxiety F41.9 Additional Codes ELLIOT-7 Assessment Billing - ELLIOT-7 Assessment Tool: ELLIOT-7 Assessment 03288 ([id number])
== END 2023-05-26 15:24 | disposition home or self-care (01) ==
PROVIDERS: PCP Internal Medicine; Visit Provider Internal Medicine
DX: D22.9 Melanocytic nevi, unspecified (principal); R21 Rash and other nonspecific skin eruption; F41.9 Anxiety disorder, unspecified
CPT/HCPCS: 99213

== ENCOUNTER → 2023-05-29 10:50 | Outpatient (BNVA) | payer BC, SELFPAY | PROVIDERS: PCP Internal Medicine; Visit Provider Surgery | DX: Z48.01 Encounter for change or removal of surgical wound dressing (principal) | CPT/HCPCS: 99211 ==

== ENCOUNTER 2023-06-05 08:48 | Outpatient (AMB) | payer BC, SELFPAY ==
--- NOTE | 2023-06-05 08:53 | A.OFFVIS_ITS ---
Intake Vital Signs 06/05/23 09:01 Height 5 ft 1 in Weight 192 lb 4 oz BMI 36.3 BP 134/63 Blood Pressure Location Lt brachial Position Sitting Pulse 79 Intake Visit Reasons: one month S/P Rt. nipple fistula excision Intake Note: Patient is seen in office for 2 weeks follow up, post excision right nipple fistula (lumpectomy). Pt c/o: continued discharge, feels like one of the internal stitches is coming out, redness and pain Salon Coordinator Required: No Manager Welding: Manager Welding Present Accompanied by: Self / Same As Patient Allergies clindamycin [CLINDAMYCIN] Allergy (Intermediate, Verified 06/05/23 09:01) HIVES/SWELLING fentanyl [FENTANYL] Adverse Reaction (Severe, Verified 06/05/23 09:01) SEVERE N/V (POST EGD W/CS) Medication List - Last Reconciled 06/05/23 by José Antonio Hull MD biotin 5,000 mcg PO DAILY ferrous fumarate (Ferrocite) 324 mg PO DAILY hydroxyzine HCl 25 mg PO BID PRN levonorgestrel (Mirena) 1 device intrauterine ONCE omeprazole 20 mg PO DAILY valacyclovir 500 mg PO DAILY 90 days HPI HPI Comments History of Present Illness Details Patient returns with continued discharge from the right nipple. She noted a dissolvable stitch which she was able to remove. She was able to take a picture of the suture which definitely appear to be a Polysorb suture. She also notes occasional discharge from the lateral portion of the piercing. [facility] Medical History Anxiety H/O herpes simplex infection H/O nipple discharge Breast pain, right Cyst of left nipple Knee pain, right anterior Hiatal hernia Chronic heartburn Lumbago with sciatica, right side Tonsillar abscess Surgical History History of lumpectomy of right breast (04/28/23) Hx of breast surgery History of esophagogastroduodenoscopy (EGD) History of excision of mass (06/07/19) History of section (06/19/09) Family History Maternal Aunt Breast cancer, Onset Age: 40 Father Myocardial infarction Maternal Grandmother Pancreas cancer Paternal Grandfather Lung cancer Bladder cancer Social History Housing: Apartment Alcohol intake: current Alcohol intake frequency: 0-2 drinks per day Comment: counts correct Patient Tobacco Use Status: Former Tobacco user Quit Date: 2020 Tobacco use type: Cigarette Cigarette Packs Per Day: 1 Cigarettes Per Day: 20.0 e-Cigarette/Vaping Use: Never Used Second Hand Smoke Exposure: No Current occupational status: unemployed Sexual orientation: Straight/Heterosexual Gender identity: Female Cognitive needs: No Hearing needs: No Vision needs: No Female Reproductive History Menstrual Age of Menarche: 10 Physical Exam Vital Signs: Last Vital Signs Pulse 79 06/05/23 09:01 BP 134/63 06/05/23 09:01 BMI result Body Mass Index 36.3 Chest Other: Right nipple with an area of granulation tissue measuring several mm in diameter suggestive of a foreign body reaction. No underlying abscess appreciated. No residual suture materials identified. Spot Band-Aid applied to granulation t issue. Skin Other: Warm, dry, no rash Assessment & Plan Assessment & Plan (1) Galactorrhea: Code(s): N64.3 - Galactorrhea not associated with childbirth Plan Patient develops stitch abscess at the nipple and subsequently was able to remove the suture. Granulation tissue was noted noted at the site. I recommended continuing dry sterile dressings. Site should really epithelialize over the next several days not of the sutures removed. She will return approximately 2-3 weeks for follow-up examination. Coding Level of Care Code Global (55598) Diagnoses Galactorrhea N64.3
[2023-06-05 09:01] VITALS: BP 134/63; PULSE 79; BMI 36.3
== END 2023-06-05 09:11 | disposition home or self-care (01) ==
PROVIDERS: PCP Internal Medicine; Visit Provider Surgery
DX: N64.3 Galactorrhea not associated with childbirth (principal)
CPT/HCPCS: 99024

== ENCOUNTER → 2023-06-05 08:48 | Outpatient (BNVA) | payer BC, SELFPAY | PROVIDERS: PCP Internal Medicine; Visit Provider Surgery ==

== ENCOUNTER 2023-06-24 09:15 | Outpatient (AMB) | payer BC, SELFPAY ==
--- NOTE | 2023-06-24 09:23 | A.OFFVIS_ITS ---
Intake Vital Signs 06/24/23 09:27 Height 5 ft 1 in Weight 196 lb 10.437 oz BMI 37.2 BP 100/60 Blood Pressure Location Lt brachial Position Sitting Intake Visit Reasons: 3 wks f/ S/P Rt. nipple fistula excision Intake Note: Patient is seen in office for 3 weeks follow up, post excision right nipple fistula (lumpectomy). 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 She continues to have pain and discharge at the nipple. A photo taking several days ago reveals discharge from both sides of the nipple corresponding to the previous piercing as well as the center of the nipple. She reports a collection below the nipple which fills and then pains from the 3 areas. She denies fever or chills. She is currently off antibiotics. [facility] Medical History Anxiety H/O herpes simplex infection H/O nipple discharge Breast pain, right Cyst of left nipple Knee pain, right anterior Hiatal hernia Chronic heartburn Lumbago with sciatica, right side Tonsillar abscess Surgical History History of lumpectomy of right breast (04/28/23) Hx of breast surgery History of esophagogastroduodenoscopy (EGD) History of excision of mass (06/07/19) History of section (06/19/09) Family History Maternal Aunt Breast cancer, Onset Age: 40 Father Myocardial infarction Maternal Grandmother Pancreas cancer Paternal Grandfather Lung cancer Bladder cancer Social History Housing: Apartment Alcohol intake: current Alcohol intake frequency: 0-2 drinks per day Comment: counts correct Patient Tobacco Use Status: Former Tobacco user Quit Date: 2020 Tobacco use type: Cigarette Cigarette Packs Per Day: 1 Cigarettes Per Day: 20.0 e-Cigarette/Vaping Use: Never Used Second Hand Smoke Exposure: No Current occupational status: unemployed Sexual orientation: Straight/Heterosexual Gender identity: Female Cognitive needs: No Hearing needs: No Vision needs: No Female Reproductive History Menstrual Age of Menarche: 10 Physical Exam Vital Signs: Last Vital Signs BP 100/60 06/24/23 09:27 BMI result Body Mass Index 37.2 Chest Other: Right nipple with openings noted in the medial and central portion of the nipple with a pimple like structure in the lateral site. No fluctuance is appreciated however there is tenderness to deep palpation. No erythema noted in the surrounding skin. No residual suture material is identified. Skin General skin exam: no rashes or lesions noted and no fluctuance Extrem General: No edema Assessment & Plan Assessment & Plan (1) Mastitis, acute: Code(s): N61.0 - Mastitis without abscess Plan Patient with continued right nipple discharge following excision of a fistula. Previous examination revealed a spit suture. No further suture material is noted at this time. She continues to have evidence of a fistula despite the previous excision. I recommended restarting antibiotics for the next 2 weeks with follow-up examination at that time. She may require further surgical excision of fistula remains. Medications: New doxycycline hyclate 100 mg PO BID 30 tabs 0RF Coding Level of Care Code Global (41579) Diagnoses Mastitis, acute N61.0
[2023-06-24 09:27] VITALS: BP 100/60; BMI 37.2
== END 2023-06-24 09:41 | disposition home or self-care (01) ==
PROVIDERS: PCP Internal Medicine; Visit Provider Surgery
DX: N61.0 Mastitis without abscess (principal)
CPT/HCPCS: 99024

== ENCOUNTER → 2023-06-24 09:15 | Outpatient (BNVA) | payer BC, SELFPAY | PROVIDERS: PCP Internal Medicine; Visit Provider Surgery ==

== ENCOUNTER 2023-07-01 16:19 | Outpatient (AMB) | payer BC, SELFPAY ==
--- NOTE | 2023-07-01 16:16 | A.OFFPC_ITS ---
Intake Visit Reasons: Followup insomnia Veronica [phone] Intake Note: Pt is following up for insomnia Allergies clindamycin [CLINDAMYCIN] Allergy (Intermediate, Verified 07/01/23 16:51) HIVES/SWELLING fentanyl [FENTANYL] Adverse Reaction (Severe, Verified 07/01/23 16:51) SEVERE N/V (POST EGD W/CS) Medication List - Last Reconciled 07/01/23 by Eladia Baker MD biotin 5,000 mcg PO DAILY doxycycline hyclate 100 mg PO BID ferrous fumarate (Ferrocite) 324 mg PO DAILY hydroxyzine HCl 25 mg PO BEDTIME PRN levonorgestrel (Mirena) 1 device intrauterine ONCE omeprazole 20 mg PO DAILY Tobacco use date assessed: 07/01/23 Dental Screening Dental Screen Date: 07/01/23 Did you have a dental visit in the last 12 months?: No Did you have a dental problem in the last 6 months where you did not have access to dental care?: No Was dental information given to patient?: No HPI HPI Comments History of Present Illness Details 2-year-old lady here today for a [facility] visit regarding difficulty sleeping. Patient has been taking hydroxyzine, 25 mg at bedtime as needed which helps her go to sleep but makes her wake up groggy and sleepy in the morning. She also has been having frequent anxiety attacks and low mood, feeling tired a lot, no energy and poor appetite. Patient states that she has started feeling this way ever since she started having her breast issues. [facility] Medical History (Updated 07/01/23 @ 17:04 by Eladia Baker MD) Mixed anxiety and depressive disorder H/O herpes simplex infection H/O nipple discharge Breast pain, right Cyst of left nipple Knee pain, right anterior Hiatal hernia Chronic heartburn Lumbago with sciatica, right side Tonsillar abscess Surgical History History of lumpectomy of right breast (04/28/23) Hx of breast surgery History of esophagogastroduodenoscopy (EGD) History of excision of mass (06/07/19) History of section (06/19/09) Family History Maternal Aunt Breast cancer, Onset Age: 40 Father Myocardial infarction Maternal Grandmother Pancreas cancer Paternal Grandfather Lung cancer Bladder cancer Social History Housing: Apartment Alcohol intake: current Alcohol intake frequency: 0-2 drinks per day Comment: counts correct Patient Tobacco Use Status: Former Tobacco user Quit Date: 2020 Tobacco use type: Cigarette Cigarette Packs Per Day: 1 Cigarettes Per Day: 20.0 e-Cigarette/Vaping Use: Never Used Second Hand Smoke Exposure: No Current occupational status: unemployed Sexual orientation: Straight/Heterosexual Gender identity: Female Cognitive needs: No Hearing needs: No Vision needs: No Female Reproductive History Menstrual Age of Menarche: 10 Questionnaire PHQ-9 Over the last 2 weeks, how often have you been bothered by any of the following problems? 1. Little interest or pleasure in doing things: not at all 2. Feeling down, depressed, or hopeless: more than half the days 3. Trouble falling or staying asleep, or sleeping too much: nearly every day 4. Feeling tired or having little energy: more than half the days 5. Poor appetite or overeating: nearly every day 6. Feeling bad about yourself - or that you are a failure or have let yourself or your family down: several days 7. Trouble concentrating on things, such as reading the newspaper or watching television: not at all 8. Moving or speaking so slowly that other people could have noticed. Or the opposite - being so fidgety or restless that you have been moving around a lot more than usual: several days 9. Thoughts that you would be better off or of hurting yourself in some way: not at all Total score: 12 Depression Screening Interpretation: Positive Depression Screening Done: Yes Source: Developed by Drs. Dante Perkins, Soniya Maldonado, Jatinder Tellez and colleagues, with an educational betsy from [employer]. Thrive Questionnaire Date Thrive assessed: 07/01/23 I am a: Patient What is your living situation today?: I have a steady place to live Within the past 12 months, did the food you bought not last and you didn't have the money to get more?: Never true Within the past 12 months, did you worry whether your food would run out before you got money to buy more?: Never true Do you have trouble paying for medicines?: No Do you have trouble getting transportation to medical appointments?: No Do you have trouble paying your heating and electricity bill?: No Do you have trouble taking care of your child, family member or friend?: No Do you have trouble with day-to-day activities such as bathing, preparing meals, shopping, managing finances, etc.?: No Are you currently unemployed and looking for a job?: No Are you interested in more education?: No Please select the resources that you would like help with: None AUDIT C Alcohol Use Questionnaire (AUDIT-C) 1. How often do you have a drink containing alcohol?: 2-4 times a month 2. How many drinks containing alcohol do you have on a typical day when you are drinking?: 3 or 4 3. How often do you have six or more drinks on one occasion?: Never Total Score: 3 ELLIOT-7 AMB Questionnaire ELLIOT-7 Date ELLIOT - 7 assessed: 07/01/23 Feeling nervous, anxious, or on edge: 2 = More than half the days Not being able to stop or control worryin = More than half the days Worrying too much about different things: 2 = More than half the days Trouble relaxin = More than half the days Being so restless that it is hard to sit still: 2 = More than half the days Becoming easily annoyed or irritable: 0 = Not at all Feeling afraid as if something awful might happen: 2 = More than half the days Total ELLIOT-7 score (0-4 normal; 5-9 mild; 10-14 moderate; 15-21 severe): 12 Source: Developed by Drs. Dante Perkins, Soniya Maldonado, Jatinder Tellez and colleagues, with an educational betsy from [employer]. ELLIOT-7 Assessment Billing ELLIOT-7 Assessment Tool: ELLIOT-7 Assessment 38934 Review of Systems Const All systems reviewed & are unremarkable except as noted in HPI and below Denies body aches, Denies headache(s) and Denies weakness ENT Denies dizziness, Denies headache(s), Denies nasal congestion, Denies nasal discharge and Denies sore throat Card Denies chest pain, Denies lightheadedness, Denies palpitations and Denies dyspnea Resp Denies cough, Denies dyspnea and Denies wheezing GI Denies abdominal pain, Denies belching and Denies melena Denies urinary frequency, Denies dysuria and Denies urinary urgency Musc Reports no additional complaints Neuro Denies dizziness, Denies headache(s) and Denies weakness Psych Reports no additional complaints Endo Denies polydipsia, Denies polyuria and Denies palpitations Aller/Immun Denies seasonal rhinorrhea and Denies wheezing Physical exam (Primary Care) Tobacco/Smoking Status: Tobacco use Status Tobacco use date assessed 07/01/23 07/01/23 16:19 Patient Tobacco Use Status Former Tobacco user 07/01/23 16:19 Tobacco use type Cigarette 07/01/23 16:19 e-Cigarette/Vaping Use Never Used 07/01/23 16:19 PHQ-9: PHQ-9 Score PHQ-9: Total score 12 07/01/23 17:05 Depression Screening Interpretation: Positive Thrive Assessment: Date of Thrive Assessment Date Thrive assessed 07/01/23 07/01/23 16:21 Assessment and Plan Assessment & Plan (1) Mixed anxiety and depressive disorder: Code(s): F41.8 - Other specified anxiety disorders Plan: Started on buspirone 5 mg per tablet to take 1 tablet 3 times a day and take hydroxy seen but cut it down to 12.5 mg or half a tablet once or twice a day as needed for acute anxiety attacks. She was also given a prescription for trazodone 50 mg per tablet to take 1 tablet at bedtime as needed for acute episodes of insomnia . Schedule follow-up visit in 4 weeks. Medications: New trazodone 50 mg PO BEDTIME PRN 20 tabs 0RF sleep buspirone 5 mg PO TID 90 tabs 0RF F41.8 - Other specified anxiety disorders Changed From hydroxyzine HCl Initially try half a tablet or 12.5 mg at bedtime. And may take as needed twice a day for acute anxiety 25 mg PO BID PRN 30 tabs 0RF Acute anxiety attacks and insomnia To hydroxyzine HCl Initially try half a tablet or 12.5 mg at bedtime. And may take as needed twice a day for acute anxiety 25 mg PO BEDTIME PRN Acute anxiety attacks and insomnia Coding Level of Care Code Tele Est Pt Level 3 (31401) Diagnoses Mixed anxiety and depressive disorder F41.8 Additional Codes ELLIOT-7 Assessment Billing - ELLIOT-7 Assessment Tool: ELLIOT-7 Assessment 27224 ([id number])
== END 2023-07-01 17:03 | disposition home or self-care (01) ==
LOC: HO.HMGC 16:19
PROVIDERS: PCP Internal Medicine; Visit Provider Internal Medicine
DX: F41.8 Other specified anxiety disorders (principal)
CPT/HCPCS: 96127; 99213

== ENCOUNTER 2023-07-10 07:24 | Outpatient (REF) | payer BC, SELFPAY ==
[2023-07-10 11:47] LABS: MANUAL DIFF FLAG NO
[2023-07-10 12:25] LABS: Basophils Percent Auto 0.3 % (0-2); Eosinophils Absolute Auto 0.2 X10*3/uL (0.0-0.4); Eosinophils Percent Auto 2.2 % (0-4); Hematocrit 37.1 % (37.0-47.0); Hemoglobin 12.4 g/dl (12.0-16.0); Imm Gran Abs Auto 0.03 X10*3/uL (0.00-0.03); Imm Gran Pct Auto 0.3 % (0.0-0.4); Lymphocytes Percent Auto 32.7 % (20-40); Mean Corpuscular HGB Conc 33.4 g/dl (31.0-35.0); Mean Corpuscular Hemoglobin 28.6 pg (27.0-33.0); Mean Corpuscular Volume 85.7 fL (80.0-98.0); Mean Platelet Volume 10.1 fL (9.4-12.3); Monocytes Absolute Auto 0.5 X10*3/uL (0.1-1.2); Monocytes Percent Auto 5.6 % (2-11); Neutrophils Absolute Auto 5.4 x10*3/uL (2.0-8.3); Neutrophils Percent Auto 58.9 % (45-73); Platelet Count 328 X10*3/uL (160-400); Red Blood Count 4.33 X10*6/uL (4.20-5.50); White Blood Count 9.1 X10*3/uL (4.8-10.8)
[2023-07-10 12:28] LABS: Alanine Aminotransferase 23 U/L (0-31); Aspartate Amino Transferase 20 U/L (5-31); Cholesterol 137 mg/dL (<200); HDL Cholesterol 45 mg/dL (>40); Iron 80 mcg/dL (30-160); LDL Cholesterol Calculated 73 mg/dL (<100); Percent Iron Saturation 34 % (15-50); Total Iron Binding Capacity 235 mcg/dL (228-428); Triglycerides 99 mg/dL (<150); Unsaturated Iron Binding 155 ug/dL
== END 2023-07-10 07:25 | disposition home or self-care (01) ==
LOC: HO.HMGCLDS 07:24
PROVIDERS: PCP Internal Medicine; Visit Provider Internal Medicine
DX: D64.9 Anemia, unspecified (principal); E78.1 Pure hyperglyceridemia
CPT/HCPCS: 36415; 80061; 83540; 84450; 84460; 85025

== ENCOUNTER 2023-07-15 09:51 | Outpatient (AMB) | payer BC, SELFPAY ==
--- NOTE | 2023-07-15 10:00 | MHC.OFFVIS ---
Intake Vital Signs 07/15/23 10:07 Height 5 ft 1 in Weight 192 lb BMI 36.3 BP 126/70 Blood Pressure Location Lt brachial Position Sitting Pulse 91 Intake Visit Reasons: 3 wks f/ S/P Rt. nipple fistula excision Intake Note: Patient is seen in office for 3 weeks follow up, post excision right nipple fistula (lumpectomy). Pt c/o: right breast left side of nipple is finally closed up, still has discharge in 2 areas of the nipple Teacher Adult Education Required: No Filbert Grower: Filbert Grower Present Accompanied by: Self / Same As Patient Allergies clindamycin [CLINDAMYCIN] Allergy (Intermediate, Verified 07/01/23 16:51) HIVES/SWELLING fentanyl [FENTANYL] Adverse Reaction (Severe, Verified 07/01/23 16:51) SEVERE N/V (POST EGD W/CS) HPI HPI Comments History of Present Illness Details 32-year-old female patient returning for follow-up examination of her right nipple. She reports some pain extending into the right axilla but denies any fever or chills. She does have discharge from 3 spots including the site of the nipple piercing and the central nipple which feels up nearly every other day. When the nipple drains the pain improves. She is continuing with the antibiotics without difficulty. [facility] Medical History Hypertriglyceridemia Anemia Mixed anxiety and depressive disorder H/O herpes simplex infection H/O nipple discharge Breast pain, right Cyst of left nipple Knee pain, right anterior Hiatal hernia Chronic heartburn Lumbago with sciatica, right side Tonsillar abscess Surgical History History of lumpectomy of right breast (04/28/23) Hx of breast surgery History of esophagogastroduodenoscopy (EGD) History of excision of mass (06/07/19) History of section (06/19/09) Family History Maternal Aunt Breast cancer, Onset Age: 40 Father Myocardial infarction Maternal Grandmother Pancreas cancer Paternal Grandfather Lung cancer Bladder cancer Social History Housing: Apartment Alcohol intake: current Alcohol intake frequency: 0-2 drinks per day Comment: counts correct Patient Tobacco Use Status: Former Tobacco user Quit Date: 2020 Tobacco use type: Cigarette Cigarette Packs Per Day: 1 Cigarettes Per Day: 20.0 e-Cigarette/Vaping Use: Never Used Second Hand Smoke Exposure: No Current occupational status: unemployed Sexual orientation: Straight/Heterosexual Gender identity: Female Cognitive needs: No Hearing needs: No Vision needs: No Female Reproductive History Menstrual Age of Menarche: 10 Review of Systems Const Denies chills, Denies fever(s), Denies headache(s) and Denies poor appetite ENT Denies dizziness and Denies headache(s) Card Denies chest pain, Denies rapid heart rate, Denies palpitations and Denies slow heart rate Resp Denies chest congestion, Denies cough, Denies pain on inspiration and Denies wheezing GI Denies abdominal pain, Denies bloating, Denies change in stool character, Denies constipation, Denies diarrhea, Denies nausea, Denies vomiting and Denies hematemesis Reports nipple discharge Musc Denies back pain, Denies arthralgias, Denies joint swelling and Denies numbness Skin/Breast Reports breast swelling, Reports breast pain, Reports change in pigmentation, Reports nipple discharge and Denies rash Neuro Denies dizziness, Denies headache(s) and Denies numbness Psych Denies anxiety and Denies depression Endo Denies palpitations Morgan/Lymph Denies easy bleeding, Denies easy bruising and Denies lymphadenopathy Aller/Immun Denies wheezing Physical Exam Vital Signs: Last Vital Signs Pulse 91 07/15/23 10:07 BP 126/70 07/15/23 10:07 BMI result Body Mass Index 36.3 Chest Other: Right nipple with openings noted in the medial and central portion of the nipple with a pimple like structure in the lateral site. No fluctuance is appreciated however there is tenderness to deep palpation. No erythema noted in the surrounding skin. No residual suture material is identified. No enlarged lymph nodes appreciated. Chest/axillae images: 1. Site of discharge from both sides of the nipple Resp Effort & Inspection: normal respiratory effort, no audible wheezes, no cough and no respiratory distress GI Inspection: Yes normal to inspection Skin General skin exam: no rashes or lesions noted and no fluctuance Extrem General: No edema Assessment & Plan Assessment & Plan (1) Galactorrhea: Code(s): N64.3 - Galactorrhea not associated with childbirth Plan 32-year-old female patient returning with continued discharge from the nipple at the site of nipple piercing. Patient has nearly daily output from 3 locations as noted above. I recommended a re-excision to include both sides of the piercing as well as the central nipple to be performed as a short-stay surgery. After discussion of the procedure, risks, and alternatives, she consents to a excision of a right nipple fistula as a short-stay surgery. Coding Level of Care Code Global (97063) Diagnoses Galactorrhea N64.3
[2023-07-15 10:07] VITALS: BP 126/70; PULSE 91; BMI 36.3
== END 2023-07-15 10:20 | disposition home or self-care (01) ==
PROVIDERS: PCP Internal Medicine; Visit Provider Surgery
DX: N64.3 Galactorrhea not associated with childbirth (principal)
CPT/HCPCS: 99024

== ENCOUNTER → 2023-07-15 09:51 | Outpatient (BNVA) | payer BC, SELFPAY | PROVIDERS: PCP Internal Medicine; Visit Provider Surgery ==

== ENCOUNTER 2023-07-21 11:47 | Outpatient (AMB) | payer BC, SELFPAY ==
--- NOTE | 2023-07-21 11:48 | A.OFFPC_ITS ---
Intake Visit Reasons: Follow up med/[phone] Allergies clindamycin [CLINDAMYCIN] Allergy (Intermediate, Verified 07/21/23 12:03) HIVES/SWELLING fentanyl [FENTANYL] Adverse Reaction (Severe, Verified 07/21/23 12:03) SEVERE N/V (POST EGD W/CS) Medication List - Last Reconciled 07/21/23 by Eladia Baker MD biotin 5,000 mcg PO DAILY buspirone 5 mg PO TID ferrous fumarate (Ferrocite) 324 mg PO DAILY levonorgestrel (Mirena) 1 device intrauterine ONCE omeprazole 20 mg PO DAILY trazodone 50 mg PO BEDTIME PRN Tobacco use date assessed: 07/21/23 Dental Screening Dental Screen Date: 07/21/23 Did you have a dental visit in the last 12 months?: No Was dental information given to patient?: No HPI Follow up med/[phone] HPI Details 32-year-old lady here today for follow-u p regarding her mixed anxiety depression. She was started on buspirone 5 mg 1 tablet taken 3 times a day in addition to trazodone 50 mg at bedtime for help with sleeping. Patient states that mood swings has improved, has not had any acute anxiety attacks since starting medication, able to sleep better on trazodone which he takes at night. [facility] Medical History (Updated 07/21/23 @ 12:11 by Eladia Baker MD) Hypertriglyceridemia Anemia Mixed anxiety and depressive disorder H/O herpes simplex infection H/O nipple discharge Breast pain, right Cyst of left nipple Knee pain, right anterior Hiatal hernia Chronic heartburn Lumbago with sciatica, right side Tonsillar abscess Surgical History History of lumpectomy of right breast (04/28/23) Hx of breast surgery History of esophagogastroduodenoscopy (EGD) History of excision of mass (06/07/19) History of section (06/19/09) Family History Maternal Aunt Breast cancer, Onset Age: 40 Father Myocardial infarction Maternal Grandmother Pancreas cancer Paternal Grandfather Lung cancer Bladder cancer Social History Housing: Apartment Alcohol intake: current Alcohol intake frequency: 0-2 drinks per day Comment: counts correct Patient Tobacco Use Status: Former Tobacco user Quit Date: 2020 Tobacco use type: Cigarette Cigarette Packs Per Day: 1 Cigarettes Per Day: 20.0 e-Cigarette/Vaping Use: Never Used Second Hand Smoke Exposure: No Current occupational status: unemployed Sexual orientation: Straight/Heterosexual Gender identity: Female Cognitive needs: No Hearing needs: No Vision needs: No Female Reproductive History Menstrual Age of Menarche: 10 Questionnaire PHQ-9 Over the last 2 weeks, how often have you been bothered by any of the following problems? 1. Little interest or pleasure in doing things: not at all 2. Feeling down, depressed, or hopeless: not at all 3. Trouble falling or staying asleep, or sleeping too much: more than half the days 4. Feeling tired or having little energy: not at all 5. Poor appetite or overeating: not at all 6. Feeling bad about yourself - or that you are a failure or have let yourself or your family down: not at all 7. Trouble concentrating on things, such as reading the newspaper or watching television: not at all 8. Moving or speaking so slowly that other people could have noticed. Or the opp osite - being so fidgety or restless that you have been moving around a lot more than usual: not at all 9. Thoughts that you would be better off or of hurting yourself in some way: not at all Total score: 2 Depression Screening Interpretation: Negative (Feeling much better on buspirone 5 mg taken 1 tablet 3 times a day) Depression Screening Done: Yes 05519 - PHQ-9 Billing: Yes Source: Developed by Drs. Dante Perkins, Soniya Maldonado, Jatinder Tellez and colleagues, with an educational betsy from [employer]. Thrive Questionnaire Date Thrive assessed: 07/01/23 ELLIOT-7 AMB Questionnaire ELLIOT-7 Date ELLIOT - 7 assessed: 07/21/23 Source: Developed by Drs. Dante Perkins, Soniya Maldonado, Jatinder Tellez and colleagues, with an educational betsy from [employer]. Review of Systems Const Denies chills, Denies fever(s), Denies headache(s) and Denies poor appetite ENT Denies dizziness and Denies headache(s) Card Denies chest pain, Denies rapid heart rate, Denies palpitations and Denies slow heart rate Resp Denies chest congestion, Denies cough, Denies pain on inspiration and Denies wheezing GI Denies abdominal pain, Denies bloating, Denies change in stool character, Denies constipation, Denies diarrhea, Denies nausea, Denies vomiting and Denies hematemesis Reports nipple discharge Musc Denies back pain, Denies arthralgias, Denies joint swelling and Denies numbness Skin/Breast Reports breast swelling, Reports breast pain, Reports change in pigmentation, Reports nipple discharge and Denies rash Neuro Denies dizziness, Denies headache(s) and Denies numbness Psych Denies anxiety and Denies depression Endo Denies palpitations Morgan/Lymph Denies easy bleeding, Denies easy bruising and Denies lymphadenopathy Aller/Immun Denies wheezing Physical exam (Primary Care) Tobacco/Smoking Status: Tobacco use Status Tobacco use date assessed 07/21/23 07/21/23 11:49 Patient Tobacco Use Status Former Tobacco user 07/21/23 11:49 Tobacco use type Cigarette 07/21/23 11:49 e-Cigarette/Vaping Use Never Used 07/21/23 11:49 Depression Screening Interpretation: Negative (Feeling much better on buspirone 5 mg taken 1 tablet 3 times a day) Thrive Assessment: Date of Thrive Assessment Date Thrive assessed 07/01/23 07/21/23 11:49 Results Reviewed Results Reviewed: Name: Mavis Blakely Age/Sex: 32/F : 1990 Unit#: [id number] Attend Dr: Eladia Baker MD Re07/10/23 Status: DEP REF Location: [facility] Disch: SPEC : [id number] ASAEL: 07/10/23 STATUS: COMP REQ : [id number] RECD: 07/10/[address]: Eladia Baker MD COMP: 07/10/23 ENTERED: 07/10/[address]: ORDERED: CBC Auto Diff Test Result Flag Reference WBC 9.1 4.8-10.8 X10*3/uL RBC 4.33 4.20-5.50 X10*6/uL HGB 12.4 12.0-16.0 g/dl HCT 37.1 37.0-47.0 % MCV 85.7 80.0-98.0 fL MCH 28.6 27.0-33.0 pg MCHC 33.4 31.0-35.0 g/dl RDW 13.0 11.0-16.0 % PLT 328 160-400 X10*3/uL SPEC : [id number] ASAEL: 07/10/23 STATUS: COMP REQ : [id number] RECD: 07/10/23 [facility] DR: Eladia Baker MD COMP: 07/10/23 ENTERED: 07/10/[address] [facility] [address]: ORDERED: IRON PROF, AST, ALT, Lipid Panel Test Result Flag Reference Iron 80 30-160 mcg/dL TIBC 235 228-428 mcg/dL Saturation 34 15-50 % UIBC 155 ug/dL AST (GOT) 20 5-31 U/L ALT (GPT) 23 0-31 U/L Triglyceride 99 <150 mg/dL Desirable Triglyceride: less than 150 mg/dL Borderline High Triglyceride 150-199 mg/dL High Triglyceride: 200-499 mg/dL Very High Triglyceride: greater than or equal to 5OO mg/dL Cholesterol 137 <200 mg/dL Desirable Cholesterol: less than 200 mg/dL Borderline High Cholesterol: 200-239 mg/dL High Cholesterol: greater than 239 mg/dL LDL Calculated 73 <100 mg/dL Desirable LDL: less than 100 mg/dL Near Optimal/Above Optimal LDL: 110-129 mg/dL Borderline High LDL: 130-159 mg/dL High LDL: 160-189 mg/dL Very High LDL: greater than or equal to 190 mg/dL HDL 45 >40 mg/dL Desirable HDL: greater than 40 mg/dL Note: This HDL assay may give artificially low results in patients with liver disease. SPEC : [id number] ASAEL: 07/10/23 STATUS: COMP REQ : [id number] RECD: 07/10/23 [facility] DR: Eladia Baker MD COMP: 07/10/23-1228 ENTERED: 07/10/23-[address]: ORDERED: IRON PROF, AST, ALT, Lipid Panel Test Result Flag Reference Iron 80 30-160 mcg/dL TIBC 235 228-428 mcg/dL Saturation 34 15-50 % UIBC 155 ug/dL AST (GOT) 20 5-31 U/L ALT (GPT) 23 0-31 U/L Triglyceride 99 <150 mg/dL Desirable Triglyceride: less than 150 mg/dL Borderline High Triglyceride 150-199 mg/dL High Triglyceride: 200-499 mg/dL Very High Triglyceride: greater than or equal to 5OO mg/dL Cholesterol 137 <200 mg/dL Desirable Cholesterol: less than 200 mg/dL Borderline High Cholesterol: 200-239 mg/dL High Cholesterol: greater than 239 mg/dL LDL Calculated 73 <100 mg/dL Desirable LDL: less than 100 mg/dL Near Optimal/Above Optimal LDL: 110-129 mg/dL Borderline High LDL: 130-159 mg/dL High LDL: 160-189 mg/dL Very High LDL: greater than or equal to 190 mg/dL HDL 45 >40 mg/dL Desirable HDL: greater than 40 mg/dL Note: This HDL assay may give artificially low results in patients with liver disease. Assessment and Plan Assessment & Plan (1) Mixed anxiety and depressive disorder: Code(s): F41.8 - Other specified anxiety disorders Plan: Feeling much better with mood controlled and stable, no anxiety attacks, will continue on buspirone 5 mg 1 tablet 3 times a day and trazodone 50 mg at bedtime for sleep difficulties. Medications: Changed From buspirone 5 mg PO TID 90 tabs 0RF F41.8 - Other specified anxiety disorders To buspirone 5 mg PO TID 3 months 270 tabs 1RF F41.8 - Other specified anxiety disorders Refilled trazodone 50 mg PO BEDTIME PRN 30 tabs 3RF sleep Coding Level of Care Code Tele Est Pt Level 3 (23913) Diagnoses Mixed anxiety and depressive disorder F41.8
== END 2023-07-21 16:09 | disposition home or self-care (01) ==
PROVIDERS: PCP Internal Medicine; Visit Provider Internal Medicine
DX: F41.8 Other specified anxiety disorders (principal)
CPT/HCPCS: 99213

== ENCOUNTER 2023-07-28 07:10 | Day surgery (SDC) | payer BC, SELFPAY ==
[2023-07-24 15:02] VITALS: BMI 36.3
--- NOTE | 2023-07-25 09:34 | P.CONAN_ITS ---
Documented by User: Mavis Moss NP 07/25/23 09:37 HPI - Anesthesia Eval Consult details Narrative: 32yo F for Right Excision of Right Nipple Fistula s/p same 04/2023 with GA-LMA 4 Severe N/V with Fentanyl, scop patch with last procedure PMFSH Active Problems Active Problems: All Active Problems (Updated 07/21/23 @ 12:11 by Eladia Baker MD) Mixed anxiety and depressive disorder (Acute) Mastitis, acute (Acute) Galactorrhea (Acute) Past Medical History Medical History Hypertriglyceridemia Anemia Mixed anxiety and depressive disorder H/O herpes simplex infection H/O nipple discharge Breast pain, right Cyst of left nipple Knee pain, right anterior Hiatal hernia Chronic heartburn Lumbago with sciatica, right side Tonsillar abscess Family History Family History Maternal Aunt Breast cancer, Onset Age: 40 Father Myocardial infarction Maternal Grandmother Pancreas cancer Paternal Grandfather Lung cancer Bladder cancer Family history of problems with anesthesia: No Surgical History Surgical History History of lumpectomy of right breast (04/28/23) Hx of breast surgery History of esophagogastroduodenoscopy (EGD) History of excision of mass (06/07/19) History of section (06/19/09) History of Problems with Anesthesia: No Social History Social History Housing: Apartment Alcohol intake: current Alcohol intake frequency: 0-2 drinks per day Comment: counts correct Patient Tobacco Use Status: Former Tobacco user Quit Date: 2020 Tobacco use type: Cigarette Cigarette Packs Per Day: 1 Cigarettes Per Day: 20.0 e-Cigarette/Vaping Use: Never Used Second Hand Smoke Exposure: No Are you DNR?: No Advance Directives: No Advance Directives Information Provided: Yes Nutrition Risks: No Nutritional Risk FDLMP: i dont get one Current occupational status: unemployed Sexual orientation: Straight/Heterosexual Gender identity: Female Cognitive needs: No Hearing needs: No Vision needs: No Meds Allergies Allergy/AdvReac Type Severity Reaction Status Date / Time clindamycin [CLINDAMYCIN] Allergy Intermediate HIVES/SWELL Verified 07/28/23 07:14 ING buspirone [From BuSpar] Allergy Blurry Verified 07/28/23 07:29 Vision fentanyl [FENTANYL] AdvReac Severe SEVERE N/V Verified 07/28/23 07:14 (POST EGD W/CS) Home Medications Medication Instructions Recorded Confirmed Last Taken Type omeprazole 20 mg capsule,delayed 20 mg PO DAILY 04/27/21 07/28/23 07/28/23 History release levonorgestrel 21 mcg/24 hours (8 1 device intrauterine ONCE 12/12/21 07/28/23 Unknown History yrs) 52 mg intrauterine device (Mirena) biotin 2,500 mcg tablet 5,000 mcg PO DAILY 03/07/23 07/28/23 07/27/23 History Exam Height,Weight and Vital Signs: Height 5 ft 1 in Weight 87.09 kg Pertinent Lab Results Pertinent Lab Results: Laboratory Tests 07/10/23 07:37 WBC 9.1 Hgb 12.4 Hct 37.1 Plt Count 328 Assessment and Plan Assessment Anesthesia Assessment: Chart Reviewed Final Anesthetic Review Family History of Problems with Anesthesia: No History of Problems with Anesthesia: No Documented by User: Winifred Vo MD 07/28/23 08:13 [facility] Past Medical History Medical History Hypertriglyceridemia Anemia Mixed anxiety and depressive disorder H/O herpes simplex infection H/O nipple discharge Breast pain, right Cyst of left nipple Knee pain, right anterior Hiatal hernia Chronic heartburn Lumbago with sciatica, right side Tonsillar abscess Family History Family History Maternal Aunt Breast cancer, Onset Age: 40 Father Myocardial infarction Maternal Grandmother Pancreas cancer Paternal Grandfather Lung cancer Bladder cancer Surgical History Surgical History History of lumpectomy of right breast (04/28/23) Hx of breast surgery History of esophagogastroduodenoscopy (EGD) History of excision of mass (06/07/19) History of section (06/19/09) Social History Social History Housing: Apartment Alcohol intake: current Alcohol intake frequency: 0-2 drinks per day Comment: counts correct Patient Tobacco Use Status: Former Tobacco user Quit Date: 2020 Tobacco use type: Cigarette Cigarette Packs Per Day: 1 Cigarettes Per Day: 20.0 e-Cigarette/Vaping Use: Never Used Second Hand Smoke Exposure: No Are you DNR?: No Advance Directives: No Advance Directives Information Provided: Yes Nutrition Risks: No Nutritional Risk FDLMP: i dont get one Current occupational status: unemployed Sexual orientation: Straight/Heterosexual Gender identity: Female Cognitive needs: No Hearing needs: No Vision needs: No Meds Allergies Allergy/AdvReac Type Severity Reaction Status Date / Time clindamycin [CLINDAMYCIN] Allergy Intermediate HIVES/SWELL Verified 07/28/23 07:14 ING buspirone [From BuSpar] Allergy Blurry Verified 07/28/23 07:29 Vision fentanyl [FENTANYL] AdvReac Severe SEVERE N/V Verified 07/28/23 07:14 (POST EGD W/CS) Home Medications Medication Instructions Recorded Confirmed Last Taken Type omeprazole 20 mg capsule,delayed 20 mg PO DAILY 04/27/21 07/28/23 07/28/23 History release levonorgestrel 21 mcg/24 hours (8 1 device intrauterine ONCE 12/12/21 07/28/23 Unknown History yrs) 52 mg intrauterine device (Mirena) biotin 2,500 mcg tablet 5,000 mcg PO DAILY 03/07/23 07/28/23 07/27/23 History Exam Airway Mallampati Class: I TM Dist: >3cm Neck ROM: Full Assessment and Plan Assessment Anesthesia Assessment: Anesthesia Plan Discussed Final Anesthetic Review NPO: Yes ASA Class: II Final Preanesthetic Review: No Changes in Pt Med Stat, Meds/Allgs Chart Reviewed, Consent Obtained/Reviewed and Anes Risks/Benef Reviewed Patient Risk: Low Procedure Risk: Low Anesthetic Plan Anesthetic Plan: GA Disposition: Standard PACU
[2023-07-28] VITALS (8 sets, daily range): BP systolic 114–126; BP diastolic 64–81; PULSE 77–98; RESP 10–18; TEMP 36.2–36.7; O2SAT 97–99; BMI 35.0
[2023-07-28 07:34] LABS: UPreg QC Valid YES; Urine Pregnancy NEGATIVE (NEGATIVE)
[2023-07-28] MEDS: Scopolamine 1.5 MG PATCH.TD.3 TRANSDERMA (07:36)
[2023-07-28] MEDS: Lactated Ringers 1,000 ML 100 ML IVCONT (07:36)
--- NOTE | 2023-07-28 07:56 | PC.NURSE ---
report given to trevon hernandez rn at this time. aware to sign in three spots on preop record.
--- NOTE | 2023-07-28 08:06 | MHC.SHP ---
Pre-Procedural Eval Section A - 24 Hr Update-Section A only Date of Service: 07/28/23 The patient is an INPATIENT: No Changes since office visit: Yes Patient answered all questions; No Cold of Flu in the past 2 weeks, No New Medical Problems and No Changes in Medication The patient has been examined within 24 hours of the surgical procedure. The History & Physical has been completed within 30 days and I have reviewed it.: Yes Section B - Complete if H&P > 30 days Chief Complaint: Galactorrhea not associated with childbirth Allergies: Allergies Allergy/AdvReac Type Severity Reaction Status Date / Time clindamycin [CLINDAMYCIN] Allergy Intermediate HIVES/SWELL Verified 07/28/23 07:14 ING buspirone [From BuSpar] Allergy Blurry Verified 07/28/23 07:29 Vision fentanyl [FENTANYL] AdvReac Severe SEVERE N/V Verified 07/28/23 07:14 (POST EGD W/CS) Plan Diagnosis/Plan: Unchanged I have reviewed the history and physical and performed a pertinent physical examination on my patient. No changes have occurred unless specified. Time Spent With Patient Time: Total time managing care of this patient today ____ minutes.
--- NOTE | 2023-07-28 09:25 | W.PM.OPN ---
Operative Note Operative Note Date of Service: 07/28/23 Narrative: Preoperative diagnosis: Right nipple fistula following nipple piercing Postoperative diagnosis: Same Procedure: Excision right nipple fistula Surgeon: José Antonio Hull MD Content Production Specialist: Ally Small PA-C, SONDRA Vasquez Anesthesia: General LMA Indications for procedure: 32-year-old female patient with previous history of nipple piercings with recurrent infections involving the right nipple. Previous excision was performed however she continues to have discharge. She presents today for excision of the nipple fistula between the nipple piercing openings. Operative findings: No abscess collection identified track was able to be cannulated between the bilateral areas of fistula formation. Specimen: Right nipple fistula Estimated blood loss: 2 mL Complications: None Procedure details: Patient was brought to the OR placed in a supine position. After administering general anesthesia the patient's right breast was prepped with ChloraPrep and draped in a sterile fashion. The area of fistula draining was noted in the lateral nipple. A surgical time-out was called the consent confirmed. Patient received preoperative antibiotics and Venodyne boots were in place. A probe was placed between the 2 fistulas. Elliptical incision was made on both sides oriented transversely. Incision was then continued into the sub nipple tissue. Combination of sharp and blunt dissection was then used dissected fistula between the 2 tracts. This was sent to pathology for further examination. Pressure was held to maintain hemostasis. Skin was then closed using interrupted 5 0 nylon sutures. Sterile dressings were then applied. The patient tolerated the procedure well. Sponge, instrument, and needle counts reported as correct. The patient was transferred to PACU in stable condition.
[2023-07-28] MEDS: ondansetron HCL 4 MG/2 ML VIAL IVPUSH (10:24)
== END 2023-07-28 10:58 | disposition home or self-care (01) ==
PROVIDERS: Nurse Practitioner; PCP Internal Medicine; Visit Provider Surgery
PROC: (CPT 19120; principal; 2023-07-28 08:40)
DX: N64.3 Galactorrhea not associated with childbirth (principal); N64.0 Fissure and fistula of nipple; N60.81 Other benign mammary dysplasias of right breast; F41.8 Other specified anxiety disorders; Z79.899 Other long term (current) drug therapy; Z88.8 Allergy status to other drugs, medicaments and biological substances; Z88.1 Allergy status to other antibiotic agents; Z87.891 Personal history of nicotine dependence
CPT/HCPCS: 19120; 81025; 88307; J0131; J0665; J0690; J1100; J1596; J2250; J2405; J2704; J3010

== ENCOUNTER → 2023-07-28 07:10 | Outpatient (BNV) | payer BC, SELFPAY | PROVIDERS: PCP Internal Medicine; Visit Provider Surgery | DX: N64.3 Galactorrhea not associated with childbirth (principal) | CPT/HCPCS: 19120 ==

== ENCOUNTER 2023-07-31 13:20 | Emergency (ER) | payer BC, SELFPAY ==
--- NOTE | ~2023-07-31 | CT_ITS ---
EXAMINATION: CT HEAD WITHOUT CONTRAST CLINICAL INFORMATION: Dizziness, headache, visual disturbance COMPARISON: None available. TECHNIQUE: Contiguous axial imaging was performed from the skull base to vertex without intravenous administration of contrast. This CT examination was performed using dose optimization techniques as appropriate, variously including the following: *Automated exposure control *Adjustment of mA and/or kV according to patient size (this includes techniques or standardized protocols for targeted exams where dose is matched to indication/reason for exam; i.e. extremities or head) *Use of iterative reconstruction technique DLP: 579.77 mGy-cm FINDINGS: Ventricles, sulci and cisterns are normal. There is no midline shift, no abnormal intra- or extra- axial fluid accumulation. [place] and white matter differentiation is normal. Bone window images show no evidence of skull fracture. CT/CT head/brain wo IV con IMPRESSION: 1. Normal CT scan of the brain. 2. No intracranial hemorrhage or skull fracture is seen. 3. No evidence of space occupying lesion could be found. 4. The current plain CT scan of the brain shows no diagnostic evidence of acute cerebral infarction.
--- NOTE | ~2023-07-31 | CT_ITS ---
EXAMINATION: CT ANGIOGRAM OF THE CHEST WITH AND WITHOUT CONTRAST (CT PULMONARY ANGIOGRAM FOR PE) CLINICAL INFORMATION: Reason for Exam pain, tachy COMPARISON: None available. TECHNIQUE: Prior to contrast administration, noncontrast localization images were obtained. Subsequently, multidetector volumetric imaging was performed from the thoracic inlet to below the diaphragms following the administration of 80 mL Omnipaque 350 intravenous contrast. No contrast reaction reported Sagittal, coronal, and MIP oblique sagittal reformatted images were obtained on the CT workstation, uploaded to PACS, and reviewed. This CT examination was performed using dose optimization techniques as appropriate, variously including the following: *Automated exposure control *Adjustment of mA and/or kV according to patient size (this includes techniques or standardized protocols for targeted exams where dose is matched to indication/reason for exam; i.e. extremities or head) *Use of iterative reconstruction technique Total exam dose-length product 237 mGy-cm FINDINGS: QUALITY OF STUDY/CONTRAST BOLUS: Satisfactory. PULMONARY ARTERIES: No pulmonary emboli. THORACIC AORTA: No aneurysm. LUNG: No focal consolidation, nodules or masses. PLEURA: No pleural effusion or pneumothorax. MEDIASTINUM: Normal heart size. No pericardial effusion. No hilar or mediastinal lymphadenopathy. No evidence of septal bowing or right heart strain. CORONARY ARTERY CALCIFICATION: None visualized on this study. CHEST WALL/AXILLA: No axillary or internal mammary lymphadenopathy. OSSEOUS STRUCTURES: No acute or suspicious osseous abnormality. UPPER ABDOMEN: Visualized liver, spleen, pancreas and adrenal glands are unremarkable No reflux of contrast into the hepatic veins to suggest elevated right heart pressures. CT/CT angio chest PE protocol IMPRESSION: 1. No evidence of PE. 2. No evidence of aortic aneurysm. VTE: negative.
--- NOTE | ~2023-07-31 | XR_ITS ---
EXAMINATION: XR ABDOMEN KUB CLINICAL INDICATION: Check upper IUD placement. COMPARISON: None available. TECHNIQUE: AP view of the abdomen. FINDINGS: There is contrast opacifying bilateral kidney pelvises and ureters without any filling defect. There is contrast visualized in an empty bladder as well. There is IUD visualized in the pelvis likely in an anteverted uterus. The bowel gas pattern is nonspecific. There is no organomegaly. XR/XR KUB IMPRESSION: IUD visualized in the pelvis likely in an anteverted uterus.
--- NOTE | 2023-07-31 13:26 | ECG_ITS ---
Test Reason : TACHYCARDIA Blood Pressure : / mmHG Vent. Rate : 116 BPM Atrial Rate : 116 BPM P-R Int : 144 ms QRS Dur : 080 ms QT Int : 320 ms P-R-T Axes : 047 019 062 degrees QTc Int : 444 ms Sinus tachycardia Possible Left atrial enlargement Cannot rule out Anterior infarct , age undetermined Abnormal ECG No previous ECGs available Referred By: Generic ED Physician Electronically Signed By:KIM BORJA
[2023-07-31 14:19] VITALS: BP 117/68; BP 130/76; PULSE 107; PULSE 120; RESP 17; TEMP 37; O2SAT 99; BMI 33.5
--- NOTE | 2023-07-31 14:20 | ED.GENADULT ---
HPI - General Adult General Chief complaint: General Medical Stated complaint: TACHY,DIZZY,RECENT SURGERY TO RT BREAST PER EMS Time Seen by Provider: 07/31/23 16:08 Source: patient, RN notes reviewed and old records reviewed Mode of arrival: EMS Limitations: no limitations History of Present Illness HPI narrative: 32-year-old female presents for evaluation of multiple complaints. She states for last few weeks she has had brain fog, increased heart rate as high as 130. ? Right breast fistula repair due to galactorrhea [address] Hull. She denies any pain or drainage from the area. Her primary doctor started her on Lexapro and p.r.n. lorazepam yesterday Patient states that she occasionally has chest pressure Denies any fevers, chills Patient also states that she has an IUD but ?last time I went to the OBGYN, they could not find it. ? Related Data Home Medications Medication Instructions Recorded Confirmed omeprazole 20 mg capsule,delayed 20 mg PO DAILY 04/27/21 07/28/23 release levonorgestrel 21 mcg/24 hours (8 1 device intrauterine ONCE 12/12/21 07/28/23 yrs) 52 mg intrauterine device (Mirena) biotin 2,500 mcg tablet 5,000 mcg PO DAILY 03/07/23 07/28/23 Previous Rx's Medication Instructions Recorded ferrous fumarate 324 mg (106 mg 324 mg PO DAILY #90 tabs 06/27/23 iron) tablet (Ferrocite) trazodone 50 mg tablet 50 mg PO BEDTIME PRN sleep #30 tabs 07/21/23 oxycodone 5 mg tablet 5 mg PO Q6H PRN pain (scale score 07/28/23 7-10) #15 tabs Allergies Allergy/AdvReac Type Severity Reaction Status Date / Time clindamycin [CLINDAMYCIN] Allergy Intermediate HIVES/SWELL Verified 07/28/23 07:14 ING buspirone [From BuSpar] Allergy Blurry Verified 07/28/23 07:29 Vision fentanyl [FENTANYL] AdvReac Severe SEVERE N/V Verified 07/28/23 07:14 (POST EGD W/CS) Review of Systems Constitutional: Constitutional: Denies body ache(s), Denies chills and Denies fever(s) Eyes: Eyes: Reports blurry vision ENT: Reports dizziness Cardiovascular: Cardiovascular: Reports chest pain, Reports rapid heart rate and Denies dyspnea Respiratory: Respiratory: Denies cough and Denies dyspnea Gastrointestinal: Gastrointestinal: Denies abdominal pain, Reports nausea and Denies vomiting Musculoskeletal: Musculoskeletal: Denies back pain Integumentary/Breasts: Skin/Breast: Denies rash Neurologic: Reports dizziness [facility] Past Medical History Medical History (Updated 07/31/23 @ 17:24 by Marcus Thomas) Hypertriglyceridemia Anemia Mixed anxiety and depressive disorder H/O herpes simplex infection H/O nipple discharge Breast pain, right Cyst of left nipple Knee pain, right anterior Hiatal hernia Chronic heartburn Lumbago with sciatica, right side Tonsillar abscess Surgical History History of lumpectomy of right breast (04/28/23) Hx of breast surgery History of esophagogastroduodenoscopy (EGD) History of excision of mass (06/07/19) History of section (06/19/09) Family History Family History Maternal Aunt Breast cancer, Onset Age: 40 Father Myocardial infarction Maternal Grandmother Pancreas cancer Paternal Grandfather Lung cancer Bladder cancer Social History Social History Housing: Apartment Alcohol intake: current Alcohol intake frequency: 0-2 drinks per day Comment: counts correct Patient Tobacco Use Status: Former Tobacco user Quit Date: 2020 Tobacco use type: Cigarette Cigarette Packs Per Day: 1 Cigarettes Per Day: 20.0 Smoked in Last 30 Days: No e-Cigarette/Vaping Use: Never Used Second Hand Smoke Exposure: No Use of substances other than those prescribed or required for medical reasons: No Advance Directives: No Advance Directives Information Provided: Yes Patient : No Current occupational status: unemployed Sexual orientation: Straight/Heterosexual Gender identity: Female Cognitive needs: No Hearing needs: No Vision needs: No Physical Exam ED Vital Signs: Vital Signs - 24 hr 07/31/23 14:19 07/31/23 16:06 07/31/23 17:35 Temperature 98.6 F 99.1 F 98.4 F Pulse Rate 107 H 118 H 97 Respiratory Rate 17 18 14 Blood Pressure 130/76 136/83 132/80 Pulse Oximetry 99 98 97 Oxygen Delivery Method Room Air Room Air Room Air BMI result Body Mass Index 33.5 Const General: healthy appearing, comfortable, no acute distress, alert and awake Nutritional Appearance: well nourished Orientation/consciousness: patient oriented x3 HENMT Head: Yes normocephalic and Yes atraumatic Eyes Eyelids: Yes eyelids normal Conjunctivae: conjunctivae normal Sclerae: sclerae normal Corneas: corneas normal Pupils: Equal, round and reactive pupils present EOM: EOMs intact bilaterally Neck Neck: Yes full ROM Resp Effort & Inspection: normal respiratory effort, able to speak in complete sentences and not labored Skin General skin exam: elasticity normal Neuro General: patient oriented x3 Cranial nerves: Yes Equal, round and reactive pupils present and Yes Bilaterally intact EOM present Cognition (Neuro): normal cognition Extrem Other: Moving all extremities well without any obvious deformities Course Course Course Narrative: RME: Dizziness and vision changes starting Friday. Heaviness in chest started 'a while ago'. Had a breast procedure on Friday with Dr Hull, excision of right nipple fistula 2' nipple piercing. HR 122 in triage. Has had decreased PO intake due to sore throat from ETT during surgery. States she feels as if something is there but denies any difficulty swallowing, change in phonation, or trouble swallowing secretions. Denies energy drink, ETOH, tobacco marijuana, or illicit drug use Reevaluation(s) Reevaluation #1: The patient's workup reviewed, no acute findings, the CTA of the chest was negative for PE. TSH within normal limits. Patient's heart rate improved the 90s after IV fluids. It does sporadically jump up to low 100s but remained sinus rhythm. The patient is currently asymptomatic and stable to follow-up with her PCP as well as Cardiology Time: 18:19 Medications Administered Discontinued Medications Generic Name Dose Route Start Last Admin Trade Name Freq PRN Reason Stop Dose Admin Sodium Chloride 1,000 mls @ 999 mls/hr 07/31/23 16:45 07/31/23 17:32 Ns IV 07/31/23 17:45 999 mls/hr .Q1H1M VIN Administration Iohexol 100 ml 07/31/23 16:47 07/31/23 16:50 Iohexol 350 Mg/Ml 100 Ml Infus..Btl IV 07/31/23 16:48 65 ml ONCE ONE Administration Medical Decision Making Medical Decision Making [facility] Narrative: 32-year-old female presents for evaluation of multiple complaints, primarily dizziness, blurry vision and fast heart rate. She denies any medical history. She reports having a Mirena IUD. Her EKG is sinus tachycardia at 116 beats minute. No ectopy. ST segment changes. Her labs are significant for leukocytosis of 14.9 K. This is possibly related to her recent surgery. Low suspicion for infection surgical site as the patient has no pain or drainage from this area. She is also afebrile. Significant tachycardia and occasional chest pain will get a CT angiography to rule out PE. Given the recent surgery, it is likely that her D-dimer would be elevated regardless. We will get a KUB to evaluate for location of her IUD is she reports that last time was checked they were unable to find it. I also added on a TSH level to evaluate for hyperthyroidism Differential Diagnosis Differential Diagnoses: The differential diagnosis associated with the presentation includes Sinus tachycardia Dehydration GUA[place]KO Orthostatic tachycardia POTS PE less likely Lab Data [facility] Lab Attestation statement: I reviewed the patient's lab results. As above 07/31/23 16:03 07/31/23 16:04 Labs: Lab Results 07/31/23 07/31/23 07/31/23 Range/Units 14:56 16:03 16:04 WBC 14.9 H (4.8-10.8) X10*3/uL RBC 4.60 (4.20-5.50) X10*6/uL Hgb 13.2 (12.0-16.0) g/dl Hct 38.6 (37.0-47.0) % MCV 83.9 (80.0-98.0) fL MCH 28.7 (27.0-33.0) pg MCHC 34.2 (31.0-35.0) g/dl RDW 12.4 (11.0-16.0) % Plt Count 307 (160-400) X10*3/uL MPV 9.4 (9.4-12.3) fL Immature Gran % (Auto) 0.5 H (0.0-0.4) % Neut % (Auto) 79.2 H (45-73) % Lymph % (Auto) 15.5 L (20-40) % [place] % (Auto) 4.1 (2-11) % Eos % (Auto) 0.4 (0-4) % Baso % (Auto) 0.3 (0-2) % Lymph # (Auto) 2.3 (1.2-4.9) X10*3/uL [place] # (Auto) 0.6 (0.1-1.2) X10*3/uL Eos # (Auto) 0.1 (0.0-0.4) X10*3/uL Baso # (Auto) 0.0 (0.0-0.2) X10*3/uL Abs Immat Gran (auto) 0.07 H (0.00-0.03) X10*3/uL Absolute Neuts (auto) 11.8 H (2.0-8.3) x10*3/uL Absolute Nucleated RBC 0.000 (0.0-0.012) X10*3/uL Nucleated RBC % (auto) 0.0 (0.0-0.2) /100WBC PT 13.3 (11.1-13.3) SEC INR 1.1 (0.9-1.1) Sodium 139 (135-145) mmol/L Potassium 3.7 (3.3-5.1) mmol/L Chloride 105 (96-108) mmol/L Carbon Dioxide 23 (22-29) mmol/L Anion Gap 15 (12-20) BUN 9 (9-16) mg/dL Creatinine 0.74 (0.5-1.4) mg/dL Estim Creat Clear Calc 106.9 Estimated GFR > 60 Random Glucose 105 (60-115) mg/dL Calcium 10.2 D (8.4-10.2) mg/dL Total Bilirubin 0.4 (0.0-1.0) mg/dL AST 29 (5-31) U/L ALT 42 H (0-31) U/L Alkaline Phosphatase 91 (39-117) U/L Total Protein 8.7 H (6.5-8.0) g/dL Albumin 4.6 (3.5-5.0) g/dL TSH (0.32-4.0) uIU/mL Urine Color Yellow Urine Appearance Clear Urine pH 8.5 (5.0-9.0) Ur Specific [place] 1.020 (1.005-1.025) Urine Protein Trace (Neg-Trace) mg/dL Urine Glucose (UA) Negative (Negative) mg/dL Urine Ketones Negative (Negative) mg/dL Urine Blood Negative (Negative) Urine Nitrite Negative (Negative) Ur Leukocyte Esterase Negative (Negative) Urine RBC 0-2 (0-2) /HPF Urine WBC 0-5 (0-5) /HPF Ur Squamous Epith Cells 6-10 (0-2) /HPF Urine Bacteria 1+ (None Seen) Hyaline Casts 0-2 (0-2) /LPF Urine Test NEGATIVE (NEGATIVE) 07/31/23 Range/Units 17:39 WBC (4.8-10.8) X10*3/uL RBC (4.20-5.50) X10*6/uL Hgb (12.0-16.0) g/dl Hct (37.0-47.0) % MCV (80.0-98.0) fL MCH (27.0-33.0) pg MCHC (31.0-35.0) g/dl RDW (11.0-16.0) % Plt Count (160-400) X10*3/uL MPV (9.4-12.3) fL Immature Gran % (Auto) (0.0-0.4) % Neut % (Auto) (45-73) % Lymph % (Auto) (20-40) % [place] % (Auto) (2-11) % Eos % (Auto) (0-4) % Baso % (Auto) (0-2) % Lymph # (Auto) (1.2-4.9) X10*3/uL [place] # (Auto) (0.1-1.2) X10*3/uL Eos # (Auto) (0.0-0.4) X10*3/uL Baso # (Auto) (0.0-0.2) X10*3/uL Abs Immat Gran (auto) (0.00-0.03) X10*3/uL Absolute Neuts (auto) (2.0-8.3) x10*3/uL Absolute Nucleated RBC (0.0-0.012) X10*3/uL Nucleated RBC % (auto) (0.0-0.2) /100WBC PT (11.1-13.3) SEC INR (0.9-1.1) Sodium (135-145) mmol/L Potassium (3.3-5.1) mmol/L Chloride (96-108) mmol/L Carbon Dioxide (22-29) mmol/L Anion Gap (12-20) BUN (9-16) mg/dL Creatinine (0.5-1.4) mg/dL Estim Creat Clear Calc Estimated GFR Random Glucose (60-115) mg/dL Calcium (8.4-10.2) mg/dL Total Bilirubin (0.0-1.0) mg/dL AST (5-31) U/L ALT (0-31) U/L Alkaline Phosphatase (39-117) U/L Total Protein (6.5-8.0) g/dL Albumin (3.5-5.0) g/dL TSH 0.60 (0.32-4.0) uIU/mL Urine Color Urine Appearance Urine pH (5.0-9.0) Ur Specific [place] (1.005-1.025) Urine Protein (Neg-Trace) mg/dL Urine Glucose (UA) (Negative) mg/dL Urine Ketones (Negative) mg/dL Urine Blood (Negative) Urine Nitrite (Negative) Ur Leukocyte Esterase (Negative) Urine RBC (0-2) /HPF Urine WBC (0-5) /HPF Ur Squamous Epith Cells (0-2) /HPF Urine Bacteria (None Seen) Hyaline Casts (0-2) /LPF Urine Test (NEGATIVE) Independent Interpretation I performed an independent interpretation of an: EKG (See above) and CT Scan (No acute findings, no large, saddle PE) Radiology Impression Discussion of test interpretation with radiology: I have reviewed the radiologist's reading. (No evidence of PE. No evidence of aortic aneurysm) Radiologist Impression: Normal CT scan of the brain Discharge Plan Discharge Clinical Impression: Tachycardia, Dizziness Patient Disposition: Home, Self-Care Instructions: Tachycardia (ED) Additional Instructions: Your workup in the ER today was reassuring. This includes your blood work, EKG, CT scan your brain and CTA of the chest The x-ray of your pelvis shows that the IUD is still in the pelvis Follow-up with OBGYN regarding the For the fast heart rate, you may follow-up with Cardiology, you may call the office the Dr. Amos Prescriptions: No Action ferrous fumarate [Ferrocite] 324 mg (106 mg iron) tablet 324 mg PO DAILY Qty: 90 1RF biotin 2,500 mcg Tablet 5,000 mcg PO DAILY oxycodone 5 mg tablet 5 mg PO Q6H PRN (Reason: pain (scale score 7-10)) Qty: 15 0RF Rx Instructions: Partial Fill upon patient request. trazodone 50 mg tablet 50 mg PO BEDTIME PRN (Reason: sleep) Qty: 30 3RF omeprazole 20 mg capsule,delayed release(DR/EC) 20 mg PO DAILY Mirena 20 mcg/24 hours (7 yrs) 52 mg intrauterine device 1 device intrauterine ONCE Referrals: Herson Amos MD [Physician] - (Tachycardia)
[2023-07-31 15:02] LABS: Appearance Urine Clear; Color Urine Yellow; Glucose Urine UA Negative (Negative); Leukocyte Esterase Urine Negative (Negative); Nitrite Urine Negative (Negative); PH 8.5 (5.0-9.0); Urine Blood Negative (Negative); Urine Ketones Negative (Negative); Urine Protein Trace mg/dL (Neg-Trace)
[2023-07-31 15:04] LABS: UPreg QC Valid YES; Urine Pregnancy NEGATIVE (NEGATIVE)
[2023-07-31 15:21] LABS: Bacteria Urine 1+ (None Seen); Hyaline Casts Urine 0-2 /LPF (0-2); RBC Urine 0-2 /HPF (0-2); WBC Urine 0-5 /HPF (0-5)
[2023-07-31 16:06] VITALS: BP 136/83; PULSE 118; RESP 18; TEMP 37.3; O2SAT 98
[2023-07-31 16:08] LABS: MANUAL DIFF FLAG NO
[2023-07-31 16:10] LABS: Basophils Percent Auto 0.3 % (0-2); Eosinophils Absolute Auto 0.1 X10*3/uL (0.0-0.4); Eosinophils Percent Auto 0.4 % (0-4); Hematocrit 38.6 % (37.0-47.0); Hemoglobin 13.2 g/dl (12.0-16.0); Imm Gran Abs Auto 0.07 X10*3/uL (0.00-0.03); Imm Gran Pct Auto 0.5 % (0.0-0.4); Lymphocytes Absolute Auto 2.3 X10*3/uL (1.2-4.9); Lymphocytes Percent Auto 15.5 % (20-40); Mean Corpuscular HGB Conc 34.2 g/dl (31.0-35.0); Mean Corpuscular Hemoglobin 28.7 pg (27.0-33.0); Mean Corpuscular Volume 83.9 fL (80.0-98.0); Mean Platelet Volume 9.4 fL (9.4-12.3); Monocytes Absolute Auto 0.6 X10*3/uL (0.1-1.2); Monocytes Percent Auto 4.1 % (2-11); Neutrophils Absolute Auto 11.8 x10*3/uL (2.0-8.3); Neutrophils Percent Auto 79.2 % (45-73); Platelet Count 307 X10*3/uL (160-400); Red Cell Distribution Width 12.4 % (11.0-16.0); White Blood Count 14.9 X10*3/uL (4.8-10.8)
[2023-07-31 16:23] LABS: Alanine Aminotransferase 42 U/L (0-31); Albumin Level 4.6 g/dL (3.5-5.0); Alkaline Phosphatase 91 U/L (39-117); Anion Gap 15 (12-20); Aspartate Amino Transferase 29 U/L (5-31); Bilirubin Total 0.4 mg/dL (0.0-1.0); Blood Urea Nitrogen 9 mg/dL (9-16); Calcium 10.2 mg/dL (8.4-10.2); Carbon Dioxide 23 mmol/L (22-29); Chloride 105 mmol/L (96-108); Creatinine Clr Calc Pharmacy 106.9; Estimated Glomerular Filt Rate > 60; Glucose Random 105 mg/dL (60-115); INTERNATIONAL NORM RATIO 1.1 (0.9-1.1); Potassium 3.7 mmol/L (3.3-5.1); Prothrombin Time 13.3 SEC (11.1-13.3); Sodium 139 mmol/L (135-145); Total Protein 8.7 g/dL (6.5-8.0)
[2023-07-31] MEDS: iohexoL 350 MG/ML 100 ML INFUS..BTL IV (16:50)
[2023-07-31] MEDS: 0.9 % Sodium Chloride 1,000 ML 999 ML IV (17:32)
[2023-07-31 17:35] VITALS: BP 132/80; PULSE 97; RESP 14; TEMP 36.9; O2SAT 97
[2023-07-31 19:13] VITALS: BP 132/86; PULSE 99; RESP 16; O2SAT 99
== END 2023-07-31 19:14 | disposition home or self-care (01) ==
PROVIDERS: Emergency Medicine; Nurse Practitioner Family; Physician Assistant; Emergency Provider Internal Medicine
DX: R00.0 Tachycardia, unspecified (principal); R42 Dizziness and giddiness; Z87.891 Personal history of nicotine dependence; Z79.899 Other long term (current) drug therapy
CPT/HCPCS: 36415; 70450; 71275; 74018; 80053; 81001; 81025; 84443; 85025; 85610; 93005; 99284; Q9967

== ENCOUNTER → 2023-07-31 13:26 | Outpatient (BNV) | payer BC, SELFPAY | PROVIDERS: Emergency Provider Internal Medicine; Visit Provider Internal Medicine | DX: R00.0 Tachycardia, unspecified (principal); R94.31 Abnormal electrocardiogram [ECG] [EKG] | CPT/HCPCS: 93010 ==

== ENCOUNTER 2023-08-04 09:47 | Outpatient (AMB) | payer BC, SELFPAY ==
[2023-08-04 09:51] VITALS: BP 110/88; PULSE 116; BMI 33.2
--- NOTE | 2023-08-04 09:51 | MHC.OFFVIS ---
Intake Vital Signs 08/04/23 09:51 Height 5 ft 2 in Weight 181 lb 10.574 oz BMI 33.2 BP 110/88 Blood Pressure Location Lt brachial Position Sitting Pulse 116 H Intake Visit Reasons: [facility] ED req fu/tachycardia/dizzy (HS) Intake Note: NPV [employer] Set Up Operator Required: No Accompanied by: Spouse Allergies clindamycin [CLINDAMYCIN] Allergy (Intermediate, Verified 08/04/23 09:52) HIVES/SWELLING buspirone [From BuSpar] Allergy (Verified 08/04/23 09:52) Blurry Vision fentanyl [FENTANYL] Adverse Reaction (Severe, Verified 08/04/23 09:52) SEVERE N/V (POST EGD W/CS) Medication List - Last Reconciled 08/04/23 by Herson Amos MD biotin 5,000 mcg PO DAILY escitalopram oxalate 10 mg PO DAILY ferrous fumarate (Ferrocite) 324 mg PO DAILY levonorgestrel (Mirena) 1 device intrauterine ONCE lorazepam 1 mg PO BID omeprazole 20 mg PO DAILY oxycodone 5 mg PO Q6H PRN trazodone 50 mg PO BEDTIME PRN HPI HPI Comments History of Present Illness Details Mavis is here for consultation regarding tachycardia. It seems that she does have a lot of anxiety at baseline. Recently, it seems that she had breast surgery. 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 In that context, she states that she has been feeling her heart racing and there was an ER visit for that. No other symptoms like chest pain or shortness of breath. No previous cardiac history. Patient is not clear if she is getting anxious and then her heart is racing or it is got nothing to do with anxiety. Of note, there is a prior rhythm strip from 2020 that had shown sinus tachycardia. [facility] Medical History (Updated 08/01/23 @ 00:01 by Charles Botello) Hypertriglyceridemia Anemia Mixed anxiety and depressive disorder H/O herpes simplex infection H/O nipple discharge Breast pain, right Cyst of left nipple Knee pain, right anterior Hiatal hernia Chronic heartburn Lumbago with sciatica, right side Tonsillar abscess Surgical History History of lumpectomy of right breast (11/06/23) Hx of breast surgery History of esophagogastroduodenoscopy (EGD) History of excision of mass (06/07/19) History of section (06/19/09) Family History Maternal Aunt Breast cancer, Onset Age: 40 Father Myocardial infarction Maternal Grandmother Pancreas cancer Paternal Grandfather Lung cancer Bladder cancer Social History (Updated 08/04/23 @ 09:53 by Catalina Storm) Housing: Apartment Alcohol intake: current Alcohol intake frequency: 0-2 drinks per day Comment: counts correct Patient Tobacco Use Status: Former Tobacco user Quit Date: 2020 Cigarette Packs Per Day: 1 Cigarettes Per Day: 20.0 e-Cigarette/Vaping Use: Never Used Second Hand Smoke Exposure: No Current occupational status: unemployed Sexual orientation: Straight/Heterosexual Gender identity: Female Cognitive needs: No Hearing needs: No Vision needs: No Female Reproductive History Menstrual Age of Menarche: 10 Review of Systems Const Denies chills, Denies daytime sleepiness, Denies fatigue, Denies fever(s), Denies frequent falls, Denies night sweats, Denies snoring, Denies weakness, Denies weight gain and Denies weight loss Eyes Denies loss of vision ENT Denies dizziness and Denies hearing loss Card Reports chest pain, Denies chest pain with activity, Denies syncope, Reports rapid heart rate, Denies edema, Denies claudication, Denies leg edema, Denies lightheadedness, Reports palpitations, Denies dyspnea, Denies dyspnea on exertion and Denies orthopnea Resp Denies cough, Denies excessive phlegm production, Denies dyspnea, Denies dyspnea on exertion, Denies snoring and Denies wheezing GI Denies abdominal pain, Denies hematochezia, Denies change in bowel habits, Denies change in stool character, Denies heartburn, Denies nausea and Denies vomiting Denies hematuria, Denies urinary frequency and Denies dysuria Musc Denies arthralgias, Denies muscle weakness, Denies numbness and Denies tingling Skin/Breast Denies nail changes and Denies rash Neuro Denies Abnormal speech present, Denies dizziness, Denies syncope, Denies frequent falls, Denies loss of vision, Denies memory loss, Denies numbness, Denies tingling and Denies weakness Psych Denies depression and Denies memory loss Endo Denies fatigue and Reports palpitations Aller/Immun Denies wheezing Physical Exam Vital Signs: Last Vital Signs Pulse 116 H 08/04/23 09:51 BP 110/88 08/04/23 09:51 BMI result Body Mass Index 33.2 Const General: comfortable and no acute distress Orientation/consciousness: patient oriented x3 HEENT Other: Unremarkable Head: Yes normal to inspection Neck Neck: Yes normal visual inspection Chest Chest palpation & inspection: normal inspection of the chest Resp Auscultation: clear to auscultation bilaterally Cardio Palpation: normal PMI Heart sounds: S1 normal heart sound present, S2 normal heart sound present, no gallops, no murmurs and no rubs GI Palpation (GI): Soft to palpation Back/Spine/Pelvis Other: unremarkable Skin General skin exam: no rashes or lesions noted Neuro General: patient oriented x3 Speech: No Abnormal speech present Extrem General: Yes normal to inspection Psych Mental Status: mental status grossly normal Assessment & Plan Assessment & Plan (1) Tachycardia: Code(s): R00.0 - Tachycardia, unspecified Plan In the recent EKG, underlying rhythm is sinus tachycardia, 116/Min; possible left atrial enlargement and cannot exclude old anterior infarct, but more likely from her body habitus. Of note, a prior rhythm strip in 2020 shows mild sinus tachycardia in the similar range. Vital signs over the last few years also show mild intermittent sinus tachycardia. Overall, possible tendency for mild sinus tachycardia which could be worse with anxiety. We will get an echocardiogram and Holter for further evaluation. Otherwise, mainly reassurance at this time. Discussed with significant other. Orders: Orders CA echo transthoracic complete Today R00.0 - Tachycardia, unspecified ECG 3 day holter monitor Today R00.2 - Palpitations Coding Level of Care Code New Pt Level 3 (19547) Diagnoses Tachycardia R00.0
== END 2023-08-04 10:08 | disposition home or self-care (01) ==
PROVIDERS: Visit Provider Internal Medicine
DX: R00.0 Tachycardia, unspecified (principal)
CPT/HCPCS: 99203

== ENCOUNTER → 2023-08-04 09:47 | Outpatient (BNVA) | payer BC, SELFPAY | PROVIDERS: Visit Provider Internal Medicine ==

== ENCOUNTER 2023-08-05 09:42 | Outpatient (AMB) | payer BC, SELFPAY ==
--- NOTE | 2023-08-05 09:49 | MHC.OFFVIS ---
Intake Vital Signs 08/05/23 09:58 Height 5 ft 2 in Weight 177 lb BMI 32.4 BP 126/75 Blood Pressure Location Lt brachial Position Sitting Pulse 100 Intake Visit Reasons: S/p Exc right nipple fistula Intake Note: Patient is seen in office for post post op assessment post re-excision of right nipple fistula. 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 She denies any significant pain in the right nipple and has noted no discharge or bleeding. She returns today for suture removal. Pathology revealed benign breast tissue. [facility] Medical History (Updated 08/01/23 @ 00:01 by Charles Botello) Hypertriglyceridemia Anemia Mixed anxiety and depressive disorder H/O herpes simplex infection H/O nipple discharge Breast pain, right Cyst of left nipple Knee pain, right anterior Hiatal hernia Chronic heartburn Lumbago with sciatica, right side Tonsillar abscess Surgical History (Updated 08/05/23 @ 09:32 by Karin Pappas Paige) History of lumpectomy of right breast (07/28/23) Hx of breast surgery History of esophagogastroduodenoscopy (EGD) History of excision of mass (06/07/19) History of section (06/19/09) Family History Maternal Aunt Breast cancer, Onset Age: 40 Father Myocardial infarction Maternal Grandmother Pancreas cancer Paternal Grandfather Lung cancer Bladder cancer Social History (Updated 08/04/23 @ 09:53 by Catalina Storm) Housing: Apartment Alcohol intake: current Alcohol intake frequency: 0-2 drinks per day Comment: counts correct Patient Tobacco Use Status: Former Tobacco user Quit Date: 2020 Cigarette Packs Per Day: 1 Cigarettes Per Day: 20.0 e-Cigarette/Vaping Use: Never Used Second Hand Smoke Exposure: No Current occupational status: unemployed Sexual orientation: Straight/Heterosexual Gender identity: Female Cognitive needs: No Hearing needs: No Vision needs: No Female Reproductive History Menstrual Age of Menarche: 10 Physical Exam Chest Other: Right nipple incision is clean, dry, and intact. Sutures removed and the wounds found to be well healed. There is no evidence of a wound infection and no discharge could be identified. Skin General skin exam: no rashes or lesions noted Assessment & Plan Assessment & Plan (1) Mastitis, acute: Code(s): N61.0 - Mastitis without abscess (2) Galactorrhea: Code(s): N64.3 - Galactorrhea not associated with childbirth Plan Patient returns 1 week following right nipple surgery. She tolerated the procedure well the wounds are healing nicely. She should follow up as needed. Coding Level of Care Code Global (76202) Diagnoses Mastitis, acute N61.0 Galactorrhea N64.3
[2023-08-05 09:58] VITALS: BP 126/75; PULSE 100; BMI 32.4
== END 2023-08-05 10:19 | disposition home or self-care (01) ==
PROVIDERS: PCP Internal Medicine; Visit Provider Surgery
DX: N61.0 Mastitis without abscess (principal); N64.3 Galactorrhea not associated with childbirth
CPT/HCPCS: 99024

== ENCOUNTER → 2023-08-05 09:42 | Outpatient (BNVA) | payer BC, SELFPAY | PROVIDERS: PCP Internal Medicine; Visit Provider Surgery ==

== ENCOUNTER 2023-08-25 10:12 | Outpatient (AMB) | payer BC, SELFPAY ==
[2023-08-25 11:12] VITALS: BP 118/70; PULSE 88; TEMP 36.8; O2SAT 98; BMI 34.0
--- NOTE | 2023-08-25 11:12 | AM.OFFWIN_ITS ---
Intake Vital Signs 08/25/23 11:12 Height 5 ft 2 in Weight 186 lb BMI 34.0 BP 118/70 Blood Pressure Location Lt brachial Position Sitting Pulse 88 Pulse Source Pulse Oximeter Temp 98.3 F Temp Source Temporal Artery Scan Pulse Oximetry (%) 98 Oxygen Delivery Method Room Air Intake Visit Reasons: EST/sore throat ([phone]) Intake Note: pt is here today for sore throat started 3 days ago Patient Tobacco Use Status: Former Tobacco user Quit Date: 2020 Allergies clindamycin [CLINDAMYCIN] Allergy (Intermediate, Verified 08/25/23 11:41) HIVES/SWELLING buspirone [From BuSpar] Allergy (Verified 08/25/23 11:41) Blurry Vision fentanyl [FENTANYL] Adverse Reaction (Severe, Verified 08/25/23 11:41) SEVERE N/V (POST EGD W/CS) Medication List - Last Reconciled 08/25/23 by Robbie Orantes MD biotin 5,000 mcg PO DAILY escitalopram oxalate 10 mg PO DAILY ferrous fumarate (Ferrocite) 324 mg PO DAILY levonorgestrel (Mirena) 1 device intrauterine ONCE omeprazole 20 mg PO DAILY Do you need a note to return to daycare/school/sports/work: No HPI EST/sore throat ([phone]) HPI Details Patient presents for a sick visit. Reporting symptoms of sinus congestion, sore throat and difficulty swallowing. Low-grade fever. No family member is sick. No recent travel. Patient reports symptoms of malaise and fatigue. [facility] Medical History (Updated 08/01/23 @ 00:01 by Charles Botello) Hypertriglyceridemia Anemia Mixed anxiety and depressive disorder H/O herpes simplex infection H/O nipple discharge Breast pain, right Cyst of left nipple Knee pain, right anterior Hiatal hernia Chronic heartburn Lumbago with sciatica, right side Tonsillar abscess Surgical History (Updated 08/05/23 @ 09:32 by NEGRO Ge) History of lumpectomy of right breast (07/28/23) Hx of breast surgery History of esophagogastroduodenoscopy (EGD) History of excision of mass (06/07/19) History of section (06/19/09) Family History Maternal Aunt Breast cancer, Onset Age: 40 Father Myocardial infarction Maternal Grandmother Pancreas cancer Paternal Grandfather Lung cancer Bladder cancer Social History Housing: Apartment Alcohol intake: current Alcohol intake frequency: 0-2 drinks per day Comment: counts correct Patient Tobacco Use Status: Former Tobacco user Quit Date: 2020 Cigarette Packs Per Day: 1 Cigarettes Per Day: 20.0 e-Cigarette/Vaping Use: Never Used Second Hand Smoke Exposure: No Current occupational status: unemployed Sexual orientation: Straight/Heterosexual Gender identity: Female Cognitive needs: No Hearing needs: No Vision needs: No Female Reproductive History Menstrual Age of Menarche: 10 Physical Exam Vital Signs: Last Vital Signs Temp 98.3 F 08/25/23 11:12 Pulse 88 08/25/23 11:12 BP 118/70 08/25/23 11:12 Pulse Ox 98 08/25/23 11:12 Oxygen Delivery Method Room Air 08/25/23 11:12 BMI result Body Mass Index 34.0 Const General: cooperative and healthy appearing Nutritional Appearance: well nourished Orientation/consciousness: patient oriented x3 Limitations: no limitations HEENT Head: Yes normal to inspection Eyes General: appearance normal, both eyes and all related structures Neck Other: Painful, lymph node in the anterior cervical chain. Neck: Yes normal visual inspection Chest Chest palpation & inspection: normal palpation of entire chest wall Resp Effort & Inspection: normal respiratory effort Neuro General: patient oriented x3 Results AMB Rapid Strep AMB Rapid Strep Negative Last Edit by EILEEN Peña on 08/25/23 11:30 Results Reviewed Results Reviewed: Laboratory Last Values Strep Scn Rapid Clinic Negative 08/25/23 11:29 Assessment & Plan Assessment & Plan (1) Upper respiratory tract infection: Code(s): J06.9 - Acute upper respiratory infection, unspecified Plan: Antibiotics ordered. Increase fluid intake. Tylenol for aches and pains. If symptoms worsen, follow-up here for a recheck. Orders: Orders AMB Rapid Strep Screen Today Z13.9 - Encounter for screening, unspecified Coding Level of Care Code Est Pt Level 3 (91701) Diagnoses Upper respiratory tract infection J06.9
== END 2023-08-25 12:05 | disposition home or self-care (01) ==
PROVIDERS: PCP Internal Medicine; Visit Provider Internal Medicine
DX: J06.9 Acute upper respiratory infection, unspecified (principal); J02.9 Acute pharyngitis, unspecified
CPT/HCPCS: 87880; 99213

== ENCOUNTER → 2023-08-29 10:36 | Outpatient (REF) | payer BC, SELFPAY ==
--- NOTE | 2023-08-29 10:38 | CA_ITS ---
Transthoracic Echocardiogram Patient (Last, First, Middle): Mavis Blakely L Gender: Female Date of : 1990 Age: 32 Procedure Date: 08/29/2023 Procedure Type: Transthoracic Echocardiogram Location: OP Height: 157.48 cm Weight: 81.65 kg BSA: 1.83 m2 Heart Rate: bpm BP: 128 / 80 mmHg Sheet Taker: TRESSA Referring MD: Herson Amos MD Symptoms: R00.0 - Tachycardia, unspecified Study Quality: Fair ECG Rhythm: Sinus Conclusions: - Normal left ventricular size and systolic function. The visually estimated ejection fraction is between 55-60%. There is no evidence of regional wall motion abnormalities. Diastolic function is normal for age. LV wall thickness at upper limit of normal. Global longitudinal strain is normal. - Normal right ventricular cavity size and systolic function. Findings Left Ventricle Normal left ventricular size and systolic function. The visually estimated ejection fraction is between 55-60%. There is no evidence of regional wall motion abnormalities. Diastolic function is normal for age. LV wall thickness at upper limit of normal. Global longitudinal strain is normal. Right Ventricle Normal right ventricular cavity size and systolic function. Atria Both atria are normal in size. Aortic Valve Normal aortic valve structure and function. There is no aortic valve stenosis. There is no aortic valve regurgitation. Mitral Valve Normal mitral valve structure and function. There is no mitral valve regurgitation. There is no mitral valve stenosis. Pulmonic Valve Normal pulmonic valve structure and function. There is no pulmonic valve regurgitation. Tricuspid Valve Normal tricuspid valve structure and function. There is trace tricuspid valve regurgitation. Normal right atrial pressure. There is no evidence of pulmonary hypertension. Great Vessels All visible segments of the aorta are normal in size. The visualized portions of the pulmonary artery and branches are normal. Venous The inferior vena cava is normal in size and collapses greater than 50% with inspiration. Pericardium/Pleural There is no evidence of pericardial effusion. Prior Study Comparison No prior study available for comparison. Measurements 2D Linear Measurements IVSd: 0.98 0.6-0.9/0.6-1.0 cm LVIDd: 4.52 3.9-5.3/4.2-5.9 cm LVIDd Index: 2.47 2.4-3.2/2.2-3.1 cm/m2 LVIDs: 2.76 2.0-3.6 cm LVPWd: 0.92 0.7-1.1 cm LA Diam: 2.90 2.7-3.8/3.0-4.0 cm LAIDs Index: 1.58 1.5-2.3 cm/m2 LV Mass: 179.03 67-162/88-224 g LV Mass Index: 97.83 43-95/49-115 g/m2 LVOT Diam: 1.90 3.0+(-)1.3 cm 2D Systolic Function EF 4C: 69.20 >55% EF 2C: 66.60 >55% EF BiP: 67.40 >55% Mitral Valve MV Pk E: 1.03 MV PK A: 0.79 MV Decel Time: 162.00 E/A: 1.30 E'Lateral: 14.70 E'Medial: 11.40 E/E' Med: 9.00 E/E' Lat: 7.00 PHT: 47.00 MVA PHT: 4.68 Decel Robertson: 6.38 Aortic Valve AoV Pk Sudarshan: 1.50 AoV Mn Sudarshan: 1.04 AoV VTI: 0.33 AoV Pk Grad: 9.00 Aov Mn Grad: 5.00 ANNA Cont.VTI: 2.36 LVOT LVOT Pk Sudarshan: 1.13 LVOT Mn Sudarshan: 0.80 LVOT VTI: 0.27 LVOT Pk Grad: 5.00 LVOT Mn Grad: 3.00 LVOT Diam: 1.90 LVOT Area: 2.84 Diastolic Function MV Pk E: 1.03 MV Pk A: 0.79 E/A: 1.30 E'Medial: 11.40 E/E' Med: 9.00 E' Laterial: 14.70 E/E' Lat: 7.00 Right Ventricle TAPSE (mm): 23.00 TVS' Sudarshan: 12.30 Tricuspid Valve TR Pk Sudarshan: 2.09 TR Pk Grad: 17.00 RA Press: 3.00 RVSP: 20.00 Great Vessels Aorta Sinus of Valsalva: 2.90 2.0-3.5 cm Ao Asc: 2.70 2.1-3.4 cm Pulmonary Valve PV Pk Sudarshan: 1.33 Peak PV Grad: 7.00 Updated in Other Vendor System with Status of Final Sebas Brothers MD electronically signed on 09/01/2023 5:06:14 PM with status of Final
--- NOTE | 2023-08-29 10:38 | HM_ITS ---
Conclusion: 1. Patient was monitored for total period of 2 days and 22 hours 2. Baseline was normal sinus rhythm with average heart rate of 79 beats per minute 3. Rare PVCs noted 4. No significant pauses noted 5. No patient reported events MTDD
== END ==
LOC: HO.CARD 10:36
PROVIDERS: PCP Internal Medicine; Visit Provider Internal Medicine
DX: R00.2 Palpitations (principal); R00.0 Tachycardia, unspecified
CPT/HCPCS: 93242; 93306

== ENCOUNTER → 2023-08-29 10:38 | Outpatient (BNV) | payer BC, SELFPAY | PROVIDERS: PCP Internal Medicine; Visit Provider Internal Medicine Cardiovascular Disease | DX: R00.0 Tachycardia, unspecified (principal) | CPT/HCPCS: 93244; 93306; 93356 ==

== ENCOUNTER 2023-09-01 12:41 | Outpatient (AMB) | payer BC, SELFPAY ==
--- NOTE | 2023-09-01 12:44 | MHC.OFFWIV ---
Intake Vital Signs 09/01/23 12:46 Weight 184 lb BP 120/76 Blood Pressure Location Rt brachial Position Sitting Pulse 76 Pulse Source Pulse Oximeter Pulse Oximetry (%) 98 Oxygen Delivery Method Room Air Intake Visit Reasons: EP Yeast infection after Antibiotics Intake Note: Patient here for yeast infection after antibiotics. Patient Tobacco Use Status: Former Tobacco user Quit Date: 2020 Allergies clindamycin [CLINDAMYCIN] Allergy (Intermediate, Verified 09/01/23 12:47) HIVES/SWELLING buspirone [From BuSpar] Allergy (Verified 09/01/23 12:47) Blurry Vision fentanyl [FENTANYL] Adverse Reaction (Severe, Verified 09/01/23 12:47) SEVERE N/V (POST EGD W/CS) Do you need a note to return to daycare/school/sports/work: No HPI HPI Comments History of Present Illness Details Patient presents to the walkin today for sick visit complaining of yeast infection after recent course of abx endorses thick, white vaginal discharge, odor and itching has suffered with same in the past denies vaginal bleeding, chance of , abd pain, back pain, dysuria, hematuria denies concern for STI PFSH Medical History (Updated 09/01/23 @ 13:01 by Clau Conde APRN, REAL ESTATE DEVELOPMENT MANAGER) Hypertriglyceridemia Anemia Mixed anxiety and depressive disorder H/O herpes simplex infection H/O nipple discharge Breast pain, right Cyst of left nipple Knee pain, right anterior Hiatal hernia Chronic heartburn Lumbago with sciatica, right side Tonsillar abscess Surgical History (Updated 08/05/23 @ 09:32 by NEGRO Ge) History of lumpectomy of right breast (07/28/23) Hx of breast surgery History of esophagogastroduodenoscopy (EGD) History of excision of mass (06/07/19) History of section (06/19/09) Family History Maternal Aunt Breast cancer, Onset Age: 40 Father Myocardial infarction Maternal Grandmother Pancreas cancer Paternal Grandfather Lung cancer Bladder cancer Social History Housing: Apartment Alcohol intake: current Alcohol intake frequency: 0-2 drinks per day Comment: counts correct Patient Tobacco Use Status: Former Tobacco user Quit Date: 2020 Cigarette Packs Per Day: 1 Cigarettes Per Day: 20.0 e-Cigarette/Vaping Use: Never Used Second Hand Smoke Exposure: No Current occupational status: unemployed Sexual orientation: Straight/Heterosexual Gender identity: Female Cognitive needs: No Hearing needs: No Vision needs: No Female Reproductive History Menstrual Age of Menarche: 10 Review of Systems Const All systems reviewed & are unremarkable except as noted in HPI and below Physical Exam Vital Signs: Last Vital Signs Pulse 76 09/01/23 12:46 BP 120/76 09/01/23 12:46 Pulse Ox 98 09/01/23 12:46 Oxygen Delivery Method Room Air 09/01/23 12:46 General: awake, alert, oriented. Answers questions appropriately. Fully engaged in examination. Skin: warm, dry, intact HEENT: Normocephalic. Hearing intact. Cardiac: External chest normal in appearance. Respiratory: No cough, audible wheezing or stridor. Abdomen: without gross distension. : declines vaginal exam MS: No obvious swelling or deformities. Neurological: Oriented to person, place, time and situation. Thought process intact. No gait abnormalities appreciated. Psychiatric: Appropriate mood and affect. Good judgment and insight. Assessment & Plan Assessment & Plan (1) Yeast infection of the vagina: Code(s): B37.31 - Acute candidiasis of vulva and vagina Plan Fluconazole as prescribed Patient declines exam, declines eval for STIs All questions and concerns were answered, patient agrees with plan Follow-up with PCP or walk-in clinic for any new worsening symptoms Medications: New fluconazole 150 mg PO Q3D 2 tabs 0RF Coding Level of Care Code Est Pt Level 3 (68434) Diagnoses Yeast infection of the vagina B37.31
[2023-09-01 12:46] VITALS: BP 120/76; PULSE 76; O2SAT 98
== END 2023-09-01 15:19 | disposition home or self-care (01) ==
PROVIDERS: PCP Internal Medicine; Visit Provider Registered Nurse Emergency
DX: B37.31 Acute candidiasis of vulva and vagina (principal)
CPT/HCPCS: 99213

== ENCOUNTER 2023-09-19 13:51 | Outpatient (REF) | payer BC, SELFPAY ==
[2023-09-19 14:05] LABS: MANUAL DIFF FLAG NO
[2023-09-19 15:40] LABS: Basophils Percent Auto 0.4 % (0-2); Eosinophils Absolute Auto 0.2 X10*3/uL (0.0-0.4); Eosinophils Percent Auto 2.5 % (0-4); Hematocrit 35.6 % (37.0-47.0); Hemoglobin 11.8 g/dl (12.0-16.0); Imm Gran Abs Auto 0.04 X10*3/uL (0.00-0.03); Imm Gran Pct Auto 0.5 % (0.0-0.4); Lymphocytes Absolute Auto 2.8 X10*3/uL (1.2-4.9); Lymphocytes Percent Auto 33.8 % (20-40); Mean Corpuscular HGB Conc 33.1 g/dl (31.0-35.0); Mean Corpuscular Hemoglobin 28.2 pg (27.0-33.0); Mean Corpuscular Volume 85.2 fL (80.0-98.0); Mean Platelet Volume 9.6 fL (9.4-12.3); Monocytes Absolute Auto 0.6 X10*3/uL (0.1-1.2); Monocytes Percent Auto 6.7 % (2-11); Neutrophils Absolute Auto 4.7 x10*3/uL (2.0-8.3); Neutrophils Percent Auto 56.1 % (45-73); Platelet Count 309 X10*3/uL (160-400); Red Blood Count 4.18 X10*6/uL (4.20-5.50); Red Cell Distribution Width 13.8 % (11.0-16.0); White Blood Count 8.3 X10*3/uL (4.8-10.8)
[2023-09-19 16:09] LABS: Alanine Aminotransferase 22 U/L (0-31); Albumin Level 4.2 g/dL (3.5-5.0); Alkaline Phosphatase 103 U/L (39-117); Anion Gap 11 (12-20); Aspartate Amino Transferase 19 U/L (5-31); Bilirubin Direct 0.2 mg/dL (0.0-0.5); Bilirubin Total 0.3 mg/dL (0.0-1.0); Blood Urea Nitrogen 6 mg/dL (9-16); C Reactive Protein 3.04 mg/dL (< or = 0.50); Calcium 9.9 mg/dL (8.4-10.2); Carbon Dioxide 25 mmol/L (22-29); Chloride 109 mmol/L (96-108); Estimated Glomerular Filt Rate > 60; Glucose Random 90 mg/dL (60-115); Potassium 3.5 mmol/L (3.3-5.1); Sodium 141 mmol/L (135-145); Total Protein 8.6 g/dL (6.5-8.0)
[2023-09-19 16:32] LABS: Erythrocyte Sedimentation Rate 44 MM/HR (0-20)
[2023-09-22 11:49] LABS: Immunoglobulin A 357 mg/dL (47-310)
[2023-09-22 21:14] LABS: Gliadin Deamidated IgA Ab 1.5 U/mL; Gliadin Deamidated IgG Ab 8.5 U/mL
[2023-09-23 12:13] LABS: Endomysial IgA Antibody Negative (Negative)
[2023-09-23 20:02] LABS: Transglutaminase Ab IgG <1.0 U/mL; Transglutaminase IgA <1.0 U/mL
== END 2023-09-19 13:52 | disposition home or self-care (01) ==
LOC: HO.LAB 13:51
PROVIDERS: PCP Internal Medicine; Visit Provider Internal Medicine
DX: K52.9 Noninfective gastroenteritis and colitis, unspecified (principal)
CPT/HCPCS: 36415; 80048; 80076; 82784; 85025; 85652; 86140; 86231; 86258; 86364

== ENCOUNTER 2023-09-22 10:18 | Outpatient (REF) | payer BC, SELFPAY ==
[2023-09-22 11:37] LABS: CDiff Gene PCR NEGATIVE (Negative)
[2023-09-22 12:13] LABS: Leukocytes Stool Qualitative NEGATIVE (NEGATIVE)
[2023-09-22 14:39] LABS: Adenovirus F 40/41 Not Detected (Not Detect.); Astrovirus Not Detected (Not Detect.); Campylobacter Not Detected (Not Detect.); Cryptosporidium Not Detected (Not Detect.); Cyclospora cayetanensis Not Detected (Not Detect.); E. coli EAEC Not Detected (Not Detect.); E. coli EPEC Not Detected (Not Detect.); E. coli ETEC Not Detected (Not Detect.); E. coli STEC Not Detected (Not Detect.); Entamoeba histolytica Not Detected (Not Detect.); Giardia lamblia Not Detected (Not Detect.); Norovirus GI/GII Not Detected (Not Detect.); Plesiomonas shigelloides Not Detected (Not Detect.); Rotavirus A Not Detected (Not Detect.); Salmonella Not Detected (Not Detect.); Sapovirus Not Detected (Not Detect.); Shigella sp./EIEC Not Detected (Not Detect.); Vibrio Not Detected (Not Detect.); Vibrio Cholerae Not Detected (Not Detect.); Yersinia enterocolitica Not Detected (Not Detect.)
[2023-09-26 18:13] LABS: Calprotectin, Fecal 165 mcg/g
== END 2023-09-22 10:19 | disposition home or self-care (01) ==
LOC: HO.LNP 10:18
PROVIDERS: Visit Provider Internal Medicine
DX: K52.9 Noninfective gastroenteritis and colitis, unspecified (principal)
CPT/HCPCS: 83993; 87493; 87507; 89055

== ENCOUNTER 2023-09-24 06:26 | Day surgery (SDC) | payer BC, SELFPAY ==
--- NOTE | 2023-09-23 08:20 | HO.ANESPROP2 ---
Documented by User: Mavis Moss NP 09/23/23 08:21 HPI - Anesthesia Eval Consult details Narrative: 33yo F for Colonoscopy PMFSH Active Problems Active Problems: All Active Problems (Updated 09/01/23 @ 13:01 by Clau Conde APRN, VIDEO PRESENTATION OPERATOR) Yeast infection of the vagina (Acute) Mixed anxiety and depressive disorder (Acute) Mastitis, acute (Acute) Galactorrhea (Acute) Past Medical History Medical History Hypertriglyceridemia Anemia Mixed anxiety and depressive disorder H/O herpes simplex infection H/O nipple discharge Breast pain, right Cyst of left nipple Knee pain, right anterior Hiatal hernia Chronic heartburn Lumbago with sciatica, right side Tonsillar abscess Family History Family History Maternal Aunt Breast cancer, Onset Age: 40 Father Myocardial infarction Maternal Grandmother Pancreas cancer Paternal Grandfather Lung cancer Bladder cancer Family history of problems with anesthesia: No Surgical History Surgical History History of lumpectomy of right breast (07/28/23) Hx of breast surgery History of esophagogastroduodenoscopy (EGD) History of excision of mass (06/07/19) History of section (06/19/09) History of Problems with Anesthesia: No Social History Social History Housing: Apartment Alcohol intake: current Alcohol intake frequency: 0-2 drinks per day Comment: counts correct Patient Tobacco Use Status: Former Tobacco user Quit Date: 2020 Cigarette Packs Per Day: 1 Cigarettes Per Day: 20.0 e-Cigarette/Vaping Use: Never Used Second Hand Smoke Exposure: No Use of substances other than those prescribed or required for medical reasons: No Are you DNR?: No Advance Directives: No Advance Directives Information Provided: Yes Current occupational status: unemployed Sexual orientation: Straight/Heterosexual Gender identity: Female Cognitive needs: No Hearing needs: No Vision needs: No Meds Allergies Allergy/AdvReac Type Severity Reaction Status Date / Time clindamycin [CLINDAMYCIN] Allergy Intermediate HIVES/SWELL Verified 04/03/24 06:52 ING buspirone [From BuSpar] Allergy Blurry Verified 09/24/23 06:52 Vision fentanyl [FENTANYL] AdvReac Severe SEVERE N/V Verified 09/24/23 06:52 (POST EGD W/CS) Home Medications Medication Instructions Recorded Confirmed Last Taken Type omeprazole 20 mg capsule,delayed 20 mg PO DAILY 04/27/21 09/24/23 09/24/23 06:10 History release levonorgestrel 21 mcg/24 hours (8 1 device intrauterine ONCE 12/12/21 09/24/23 Unknown History yrs) 52 mg intrauterine device (Mirena) biotin 2,500 mcg tablet 5,000 mcg PO DAILY 03/07/23 09/24/23 07/27/23 History Assessment and Plan Assessment Anesthesia Assessment: Chart Reviewed Final Anesthetic Review Family History of Problems with Anesthesia: No History of Problems with Anesthesia: No Documented by User: Bryan Freeman MD 09/24/23 07:16 [facility] Past Medical History Medical History Hypertriglyceridemia Anemia Mixed anxiety and depressive disorder H/O herpes simplex infection H/O nipple discharge Breast pain, right Cyst of left nipple Knee pain, right anterior Hiatal hernia Chronic heartburn Lumbago with sciatica, right side Tonsillar abscess Family History Family History Maternal Aunt Breast cancer, Onset Age: 40 Father Myocardial infarction Maternal Grandmother Pancreas cancer Paternal Grandfather Lung cancer Bladder cancer Family history of problems with anesthesia: No Surgical History Surgical History History of lumpectomy of right breast (07/28/23) Hx of breast surgery History of esophagogastroduodenoscopy (EGD) History of excision of mass (06/07/19) History of section (06/19/09) History of Problems with Anesthesia: Yes (ponv) Social History Social History Housing: Apartment Alcohol intake: current Alcohol intake frequency: 0-2 drinks per day Comment: counts correct Patient Tobacco Use Status: Former Tobacco user Quit Date: 2020 Cigarette Packs Per Day: 1 Cigarettes Per Day: 20.0 e-Cigarette/Vaping Use: Never Used Second Hand Smoke Exposure: No Use of substances other than those prescribed or required for medical reasons: No Are you DNR?: No Advance Directives: No Advance Directives Information Provided: Yes Current occupational status: unemployed Sexual orientation: Straight/Heterosexual Gender identity: Female Cognitive needs: No Hearing needs: No Vision needs: No Meds Allergies Allergy/AdvReac Type Severity Reaction Status Date / Time clindamycin [CLINDAMYCIN] Allergy Intermediate HIVES/SWELL Verified 09/24/23 06:52 ING buspirone [From BuSpar] Allergy Blurry Verified 09/24/23 06:52 Vision fentanyl [FENTANYL] AdvReac Severe SEVERE N/V Verified 09/24/23 06:52 (POST EGD W/CS) Home Medications Medication Instructions Recorded Confirmed Last Taken Type omeprazole 20 mg capsule,delayed 20 mg PO DAILY 04/27/21 09/24/23 09/24/23 06:10 History release levonorgestrel 21 mcg/24 hours (8 1 device intrauterine ONCE 12/12/21 09/24/23 Unknown History yrs) 52 mg intrauterine device (Mirena) biotin 2,500 mcg tablet 5,000 mcg PO DAILY 03/07/23 09/24/23 07/27/23 History Exam Airway Mallampati Class: I TM Dist: >3cm Neck ROM: Full Denture: Upper and Lower Heart: rrr Lungs: cta Assessment and Plan Assessment Anesthesia Assessment: Anesthesia Plan Discussed Final Anesthetic Review Family History of Problems with Anesthesia: No History of Problems with Anesthesia: Yes (ponv) NPO: Yes Final Preanesthetic Review: No Changes in Pt Med Stat, Meds/Allgs Chart Reviewed, Consent Obtained/Reviewed and Anes Risks/Benef Reviewed Patient Risk: Intermediate Procedure Risk: Intermediate Anesthetic Plan Anesthetic Plan: MAC: Disposition: Standard PACU
[2023-09-24 06:51] VITALS: BMI 32.6
[2023-09-24 06:52] LABS: UPreg QC Valid YES; Urine Pregnancy NEGATIVE (NEGATIVE)
[2023-09-24 07:01] VITALS: BP 104/77; PULSE 82; RESP 16; TEMP 37.1; O2SAT 100
[2023-09-24] MEDS: Scopolamine 1.5 MG PATCH.TD.3 TRANSDERMA (07:25)
[2023-09-24] MEDS: Lactated Ringers 1,000 ML 100 ML IVCONT (07:26)
[2023-09-24 08:37] VITALS: BP 100/56; PULSE 74; RESP 14; TEMP 37.3; O2SAT 98
--- NOTE | 2023-09-24 08:39 | P.BOP_ITS ---
Brief Operative Note Date of Service: 09/24/23 Pre-op diagnosis: Diarrhea Post-op diagnosis: other (Colon polyps, R/O Microscopic colitis) Procedure: Colonoscopy to the cecum and TI with biopsies, Bx/removal of rectal polyp, and hot snare polypectomy x 2 in AC and at 20cm Surgeon: Dante Ho MD Anesthesia: MAC Was an [employer] used for this Procedure?: No Estimated blood loss (mL): 2.0 Pathology: other (A. Proximal ascending colon polyp B. Terminal ileum C. Ascending colon D. Descending colon E. Polyp at 20cm F. Rectal polyp) Condition: stable
--- NOTE | 2023-09-24 08:59 | OP_ITS ---
DATE OF SERVICE: 09/24/2023 SURGEON: Dante Ho MD INDICATIONS: The patient presents for evaluation of persistent diarrhea. Full consent has been obtained from her for this, including risks of bleeding and perforation. PREOPERATIVE DIAGNOSIS: Diarrhea. POSTOPERATIVE DIAGNOSIS: PROCEDURE PERFORMED: Colonoscopy to cecum and terminal ileum with hot snare polypectomy x 2, biopsy and removal of polyp x 1, and biopsies. ESTIMATED BLOOD LOSS: COMPLICATIONS: ANESTHESIA: Medication used, monitored anesthesia care. ASSISTANTS: SPECIMENS: POSTOPERATIVE DIAGNOSES: Diarrhea, colon polyps, rule out microscopic colitis, small internal hemorrhoids. DESCRIPTION OF PROCEDURE: The patient was placed in the left lateral decubitus position. The digital rectal exam revealed no abnormalities. The Olympus video pediatric colonoscope was entered into the rectum advanced easily to the cecum. Once in the cecum, I did identify normal-appearing cecal pouch with appendiceal orifice and a normal-appearing ileocecal valve. The terminal ileum was cannulated and appeared normal. Biopsies were obtained. The scope was withdrawn back in the colon. The entire cecum and ileocecal valve appeared normal. The scope was then slowly withdrawn assessing all mucosal surfaces carefully. Preparation was excellent. In the very proximal ascending colon was a flat, but raised approximately 10 to 12 mm polyp, which was removed by hot snare polypectomy and recovered by suction. The polypectomy site appeared clean, without any sign of residual polyp nor bleeding. At 20 cm was an approximately 6 mm polyp, which was removed by hot snare polypectomy and recovered by suction. The polypectomy site appeared clean, without any sign of residual polyp nor bleeding. In the rectum was a 3 or 4 mm polyp, which was biopsied and completely removed with a cold biopsy forceps. There was no evidence of any colitis, angiodysplasias, nor any other polyps. Random biopsies were obtained in the ascending and descending colon. In the rectum, scope was retroflexed visualizing small internal hemorrhoids, but no other pathology. The rectal mucosa appeared normal. The scope was straightened and withdrawn from the patient. She tolerated the procedure well and was returned to the recovery area in stable condition. IMPRESSION: 1. Colon polyps. 2. Rule out microscopic colitis. 3. Internal hemorrhoids. PLAN: The results of the pathology will be checked. If the polyps are tubular adenomas or serrated polyps I would recommend a repeat colonoscopy in 3 years. She was advised not to use any aspirin and NSAIDs for 1 week. The results of biopsies will be checked in regard to her ongoing issues with diarrhea. Further plans will be made depending upon those results. MD ADRIANNA Gerard/YANIRA / [id number] MTDD
[2023-09-24 09:03] VITALS: BP 109/63; PULSE 64; RESP 17; TEMP 36.7; O2SAT 96
== END 2023-09-24 09:48 | disposition home or self-care (01) ==
PROVIDERS: Nurse Practitioner; PCP Internal Medicine; Visit Provider Internal Medicine
PROC: 0DJD8ZZ Inspection of Lower Intestinal Tract, Via Natural or Artificial Opening Endoscopic (ICD-10-PCS; CPT 45378; principal; 2023-09-24 07:30)
DX: D12.2 Benign neoplasm of ascending colon (principal); K62.1 Rectal polyp; K64.8 Other hemorrhoids; K52.9 Noninfective gastroenteritis and colitis, unspecified
CPT/HCPCS: 45385; 45380; 81025; 88305; J2250; J2704

== ENCOUNTER 2023-10-17 14:37 | Outpatient (AMB) | payer BC, SELFPAY ==
[2023-10-17 14:42] VITALS: BP 120/68; PULSE 89; O2SAT 99; BMI 33.9
--- NOTE | 2023-10-17 14:42 | MHC.OFFVIS ---
Vital Signs 10/17/23 14:42 Height 5 ft 2 in Weight 185 lb 3.013 oz BMI 33.9 BP 120/68 Blood Pressure Location Lt brachial Position Sitting Pulse 89 Pulse Source Pulse Oximeter Pulse Oximetry (%) 99 Oxygen Delivery Method Room Air Intake Visit Reasons: 2 mth fu echo/holter (HS) Intake Note: follow up after echo and holter pt feels good Allergies clindamycin [CLINDAMYCIN] Allergy (Intermediate, Verified 09/24/23 06:52) HIVES/SWELLING buspirone [From BuSpar] Allergy (Verified 09/24/23 06:52) Blurry Vision fentanyl [FENTANYL] Adverse Reaction (Severe, Verified 09/24/23 06:52) SEVERE N/V (POST EGD W/CS) escitalopram [From Lexapro] Adverse Reaction (Verified 09/24/23 07:23) Vomiting lorazepam Adverse Reaction (Verified 09/24/23 07:23) Vomiting HPI Comments Details: Mavis is here for follow-up after testing. She reports she has stopped a lot of psychiatric medications and feels much better. She still gets some racing heart rate at night but notices background sound improves. it. States the last day of the holter she was active around noon time putting together a celebratation. [facility] Medical History Hypertriglyceridemia Anemia Mixed anxiety and depressive disorder H/O herpes simplex infection H/O nipple discharge Breast pain, right Cyst of left nipple Knee pain, right anterior Hiatal hernia Chronic heartburn Lumbago with sciatica, right side Tonsillar abscess Surgical History History of lumpectomy of right breast (07/28/23) Hx of breast surgery History of esophagogastroduodenoscopy (EGD) History of excision of mass (06/07/19) History of section (06/19/09) Family History Maternal Aunt Breast cancer, Onset Age: 40 Father Myocardial infarction Maternal Grandmother Pancreas cancer Paternal Grandfather Lung cancer Bladder cancer Social History Housing: Apartment Alcohol intake: current Alcohol intake frequency: 0-2 drinks per day Comment: counts correct Patient Tobacco Use Status: Former Tobacco user Quit Date: 2020 Cigarette Packs Per Day: 1 Cigarettes Per Day: 20.0 e-Cigarette/Vaping Use: Never Used Second Hand Smoke Exposure: No Current occupational status: unemployed Sexual orientation: Straight/Heterosexual Gender identity: Female Cognitive needs: No Hearing needs: No Vision needs: No Female Reproductive History Menstrual Age of Menarche: 10 Review of Systems Const Denies weakness ENT Denies dizziness Card Denies chest pain, Denies chest pain with activity, Denies syncope, Denies rapid heart rate, Denies pedal edema, Denies edema, Denies leg edema, Denies lightheadedness, Denies palpitations, Denies dyspnea, Denies dyspnea on exertion and Denies orthopnea Resp Denies cough, Denies dyspnea and Denies dyspnea on exertion GI Denies hematochezia and Denies change in stool character Musc Denies abnormal gait, Denies muscle cramps, Denies muscle weakness, Denies numbness, Denies radiating pain into limb and Denies tingling Neuro Denies abnormal gait, Denies dizziness, Denies syncope, Denies numbness, Denies tingling and Denies weakness Endo Denies palpitations Physical Exam Vital Signs: Last Vital Signs Pulse 89 10/17/23 14:42 BP 120/68 10/17/23 14:42 Pulse Ox 99 10/17/23 14:42 Oxygen Delivery Method Room Air 10/17/23 14:42 BMI result Body Mass Index 33.9 Results Reviewed Results Reviewed: Echo: Conclusions: - Normal left ventricular size and systolic function. The visually estimated ejection fraction is between 55-60%. There is no evidence of regional wall motion abnormalities. Diastolic function is normal for age. LV wall thickness at upper limit of normal. Global longitudinal strain is normal. - Normal right ventricular cavity size and systolic function. HotlerConclusion: 1. Patient was monitored for total period of 2 days and 22 hours 2. Baseline was normal sinus rhythm with average heart rate of 79 beats per minute 3. Rare PVCs noted 4. No significant pauses noted 5. No patient reported events Assessment & Plan Assessment & Plan (1) Tachycardia: Code(s): R00.0 - Tachycardia, unspecified Category: Medical Plan Hotler showing max rate of 160 bpm. Rare PVCs. Ejection fraction showing 55-60%. wall thickness upper limit of normal. Normal RV cavity and systlic function. Offered reassurance. She is going to work with her mental health professionals to reduce night time anxiety. Will follow-up in 6 months to assess heart racing / tachycardia. Avoid stimulants and improve stress mitigation techniques. Coding Level of Care Code Est Pt Level 3 (89391) Diagnoses Tachycardia R00.0
== END 2023-10-17 15:13 | disposition home or self-care (01) ==
PROVIDERS: PCP Internal Medicine; Visit Provider Nurse Practitioner
DX: R00.0 Tachycardia, unspecified (principal)
CPT/HCPCS: 99213

== ENCOUNTER → 2023-10-17 14:37 | Outpatient (BNVA) | payer BC, SELFPAY | PROVIDERS: PCP Internal Medicine; Visit Provider Nurse Practitioner | DX: R00.0 Tachycardia, unspecified (principal) ==

== ENCOUNTER 2023-12-08 11:27 | Outpatient (REF) | payer BC, SELFPAY ==
[2023-12-08 13:01] LABS: Anion Gap 12 (12-20); Blood Urea Nitrogen 7 mg/dL (9-16); Calcium 9.8 mg/dL (8.4-10.2); Carbon Dioxide 28 mmol/L (22-29); Chloride 106 mmol/L (96-108); Estimated Glomerular Filt Rate > 60; Glucose Random 88 mg/dL (60-115); Potassium 3.4 mmol/L (3.3-5.1); Sodium 143 mmol/L (135-145)
[2023-12-08 13:18] LABS: T4 Thyroxine 9.1 ug/dL (4.5-12.0); Thyroid Stimulating Hormone 1.16 uIU/mL (0.32-4.0)
== END 2023-12-08 11:28 | disposition home or self-care (01) ==
LOC: HO.LAB 11:27
PROVIDERS: Visit Provider Internal Medicine
DX: K52.9 Noninfective gastroenteritis and colitis, unspecified (principal)
CPT/HCPCS: 36415; 80048; 84436; 84443

== ENCOUNTER 2023-12-11 12:41 | Outpatient (REF) | payer BC, SELFPAY ==
--- NOTE | ~2023-12-11 | CT_ITS ---
EXAMINATION: CT ABDOMEN AND PELVIS WITH CONTRAST CLINICAL INFORMATION: Chronic diarrhea and abnormal weight loss. COMPARISON: None available. TECHNIQUE: Multidetector volumetric images were obtained from the superior aspect of the liver through the pubic symphysis following administration 85 mL of Omnipaque 350 intravenous contrast. Sagittal and coronal reformatted images were obtained on the technologist's workstation. Oral contrast: Yes This CT examination was performed using dose optimization techniques as appropriate, variously including the following: *Automated exposure control *Adjustment of mA and/or kV according to patient size (this includes techniques or standardized protocols for targeted exams where dose is matched to indication/reason for exam; i.e. extremities or head) *Use of iterative reconstruction technique DLP: 535 mGy-cm FINDINGS: LUNG BASES: The visualized lung bases are unremarkable. LIVER, GALLBLADDER, AND BILIARY TREE: The liver is normal in size, shape, and attenuation. No focal hepatic lesion or biliary ductal dilatation is present. The gallbladder is unremarkable with no evidence of radiopaque gallstones, gallbladder wall thickening, or obvious pericholecystic inflammatory changes. PANCREAS: No discrete suspicious mass. There is a small lipoma or prominent fatty cleft in the uncinate measuring 10 x 5 mm. No ductal dilatation. SPLEEN: Unremarkable. ADRENAL GLANDS: Unremarkable. KIDNEYS AND URETERS: The kidneys are normal in size, shape, and attenuation. No hydronephrosis, hydroureter, or calculi seen. No perinephric stranding. BLADDER: Unremarkable. GASTROINTESTINAL TRACT: The small and large bowel are normal in caliber. No focal bowel wall thickening. No acute inflammatory changes. The appendix appears normal. ABDOMINAL WALL: No significant hernia is appreciated. LYMPH NODES: No lymphadenopathy. VASCULAR: No aortic aneurysm. PELVIC VISCERA: An IUD appears appropriately positioned in the uterus. Ovaries appear normal for age. OSSEOUS STRUCTURES: No suspicious osseous lesions CT/CT abdomen pelvis w IV con IMPRESSION: No explanation for chronic diarrhea and weight loss. No CT evidence of enteritis or colitis. No visible bowel mass.
[2023-12-11] MEDS: iohexoL 350 MG/ML 100 ML INFUS..BTL IV (15:04)
== END 2023-12-11 12:42 | disposition home or self-care (01) ==
LOC: HO.CT 12:41
PROVIDERS: PCP Internal Medicine; Visit Provider Internal Medicine
DX: K52.9 Noninfective gastroenteritis and colitis, unspecified (principal); R63.4 Abnormal weight loss
CPT/HCPCS: 74177; Q9967

== ENCOUNTER 2024-01-08 06:29 | Day surgery (SDC) | payer BC, SELFPAY ==
--- NOTE | 2024-01-07 09:49 | P.CONAN_ITS ---
Documented by User: Mavis Moss NP 01/07/24 09:50 HPI - Anesthesia Eval Consult details Narrative: 33yo F for Upper Endoscopy PMFSH Active Problems Active Problems: All Active Problems Yeast infection of the vagina (Acute) Mixed anxiety and depressive disorder (Acute) Mastitis, acute (Acute) Galactorrhea (Acute) Past Medical History Medical History Hypertriglyceridemia Anemia Mixed anxiety and depressive disorder H/O herpes simplex infection H/O nipple discharge Breast pain, right Cyst of left nipple Knee pain, right anterior Hiatal hernia Chronic heartburn Lumbago with sciatica, right side Tonsillar abscess Family History Family History Maternal Aunt Breast cancer, Onset Age: 40 Father Myocardial infarction Maternal Grandmother Pancreas cancer Paternal Grandfather Lung cancer Bladder cancer Family history of problems with anesthesia: No Surgical History Surgical History History of lumpectomy of right breast (07/28/23) Hx of breast surgery History of esophagogastroduodenoscopy (EGD) History of excision of mass (06/07/19) History of section (06/19/09) History of Problems with Anesthesia: Yes Social History Social History Housing: Apartment Alcohol intake: current Alcohol intake frequency: 0-2 drinks per day Comment: counts correct Patient Tobacco Use Status: Former Tobacco user Cigarette Packs Per Day: 1 Cigarettes Per Day: 20.0 e-Cigarette/Vaping Use: Never Used Second Hand Smoke Exposure: No Use of substances other than those prescribed or required for medical reasons: No Are you DNR?: No Advance Directives: No Advance Directives Information Provided: Yes Current occupational status: unemployed Sexual orientation: Straight/Heterosexual Gender identity: Female Cognitive needs: No Hearing needs: No Vision needs: No Meds Allergies Allergy/AdvReac Type Severity Reaction Status Date / Time clindamycin [CLINDAMYCIN] Allergy Intermediate HIVES/SWELL Verified 01/08/24 06:41 ING buspirone [From BuSpar] Allergy Blurry Verified 01/08/24 06:41 Vision fentanyl [FENTANYL] AdvReac Severe SEVERE N/V Verified 01/08/24 06:41 (POST EGD W/CS) escitalopram [From Lexapro] AdvReac Vomiting Verified 01/08/24 06:41 lorazepam AdvReac Vomiting Verified 01/08/24 06:41 Home Medications ?Medication ?Instructions ?Recorded ?Confirmed ?Last Taken ?Type omeprazole 20 mg capsule,delayed 20 mg PO DAILY 04/27/21 01/08/24 01/08/24 History release levonorgestrel 21 mcg/24 hr (up to 1 device intrauterine ONCE 12/12/21 01/08/24 Unknown History 8 years) 52 mg intrauterine device (Mirena) biotin 2,500 mcg tablet 5,000 mcg PO DAILY 03/07/23 01/08/24 07/27/23 History budesonide 3 mg 3 mg PO DAILY 01/08/24 01/08/24 Unknown History capsule,delayed,extended release Exam Pertinent Lab Results Pertinent Lab Results: Laboratory Tests 09/19/23 12/08/23 14:04 11:42 WBC 8.3 Hgb 11.8 L Hct 35.6 L Plt Count 309 Sodium 143 Potassium 3.4 Chloride 106 Carbon Dioxide 28 BUN 7 L Creatinine 0.72 Assessment and Plan Assessment Anesthesia Assessment: Chart Reviewed Final Anesthetic Review Family History of Problems with Anesthesia: No History of Problems with Anesthesia: Yes Documented by User: Kitty Tony MD 01/08/24 07:32 [facility] Past Medical History Medical History Hypertriglyceridemia Anemia Mixed anxiety and depressive disorder H/O herpes simplex infection H/O nipple discharge Breast pain, right Cyst of left nipple Knee pain, right anterior Hiatal hernia Chronic heartburn Lumbago with sciatica, right side Tonsillar abscess Family History Family History Maternal Aunt Breast cancer, Onset Age: 40 Father Myocardial infarction Maternal Grandmother Pancreas cancer Paternal Grandfather Lung cancer Bladder cancer Surgical History Surgical History History of lumpectomy of right breast (07/28/23) Hx of breast surgery History of esophagogastroduodenoscopy (EGD) History of excision of mass (06/07/19) History of section (06/19/09) Social History Social History Housing: Apartment Alcohol intake: current Alcohol intake frequency: 0-2 drinks per day Comment: counts correct Patient Tobacco Use Status: Former Tobacco user Cigarette Packs Per Day: 1 Cigarettes Per Day: 20.0 e-Cigarette/Vaping Use: Never Used Second Hand Smoke Exposure: No Use of substances other than those prescribed or required for medical reasons: No Are you DNR?: No Advance Directives: No Advance Directives Information Provided: Yes Current occupational status: unemployed Sexual orientation: Straight/Heterosexual Gender identity: Female Cognitive needs: No Hearing needs: No Vision needs: No Meds Allergies Allergy/AdvReac Type Severity Reaction Status Date / Time clindamycin [CLINDAMYCIN] Allergy Intermediate HIVES/SWELL Verified 01/08/24 06:41 ING buspirone [From BuSpar] Allergy Blurry Verified 01/08/24 06:41 Vision fentanyl [FENTANYL] AdvReac Severe SEVERE N/V Verified 01/08/24 06:41 (POST EGD W/CS) escitalopram [From Lexapro] AdvReac Vomiting Verified 01/08/24 06:41 lorazepam AdvReac Vomiting Verified 01/08/24 06:41 Home Medications ?Medication ?Instructions ?Recorded ?Confirmed ?Last Taken ?Type omeprazole 20 mg capsule,delayed 20 mg PO DAILY 04/27/21 01/08/24 01/08/24 History release levonorgestrel 21 mcg/24 hr (up to 1 device intrauterine ONCE 12/12/21 01/08/24 Unknown History 8 years) 52 mg intrauterine device (Mirena) biotin 2,500 mcg tablet 5,000 mcg PO DAILY 03/07/23 01/08/24 07/27/23 History budesonide 3 mg 3 mg PO DAILY 01/08/24 01/08/24 Unknown History capsule,delayed,extended release Exam Airway Mallampati Class: II TM Dist: >3cm Neck ROM: Full Heart: rrr Lungs: cta Assessment and Plan Assessment Anesthesia Assessment: Anesthesia Plan Discussed Final Anesthetic Review NPO: Yes ASA Class: III Final Preanesthetic Review: No Changes in Pt Med Stat, Meds/Allgs Chart Reviewed, Consent Obtained/Reviewed and Anes Risks/Benef Reviewed Patient Risk: Intermediate (high anxiety) Procedure Risk: Low Anesthetic Plan Anesthetic Plan: MAC: Disposition: Standard PACU
--- OUTSIDE RECORDS SUMMARY | 2024-01-08 06:31 | XMS_ITS | Patient Health Record ---
Author Organization [facility] Address [address] [place] [address] Care Team Providers Care Para Operator Name Role Phone Samuel KAMARA, Eladia Primary Care Provider Dante Azul [phone] ALLERGIES Allergen (clinical drug ingredient) Drug/Non Drug Allergy documented on EMR Reaction Allergy Type Onset Date Status clindamycin Clindamycin Unknown Drug Allergy Act sanjiv buspirone Buspirone Unknown Drug Allergy Active cyclobenzaprine Cyclobenzaprine HCl Unknown Drug Allergy Active clindamycin Clindamycin HCl Unknown Drug Allergy Active fentanyl Fentanyl Unknown Drug Allergy Active RESULTS Component Value Reference Range Notes Ur Preg Test Reviewed date:03/08/2023 10:47:08 AM Interpretation: Performing Lab:[facility], [address] [place] [phone] Notes/Report: Urine NEGATIVE NEGATIVE This test was developed to detect early . False negative results may occur after the 5th - 7th week of when using this test method. If clinically indicated, consider a serum hCG. Pathology Reviewed date:03/16/2023 09:16:06 PM Interpretation: Performing Lab:[facility], [address] [place] [phone] Notes/Report: Calprotectin, Fecal Reviewed date:09/29/2023 07:09:12 PM Interpretation: Performing Lab:[facility], [address] [place] [phone] Notes/Report: Calprotectin, Fecal 165 Reference Range: <50 Normal 50-120 Borderline >120 Elevated Calprotectin in Crohn's disease and ulcerative colitis can be five to several thousand times above the reference population (50 mcg/g or less). Levels are usually 50 mcg/g or less in healthy patients and with irritable bowel syndrome. Repeat testing in 4-6 weeks is suggested for borderline values. THIS TEST WAS PERFORMED AT: [facility] [address] [place] [address] MONTEZ AMBROSIO MD,PHD,ISMA GI PANEL Reviewed date:09/22/2023 06:31:35 PM Interpretation: Performing Lab:[facility], [address] [place] [phone] Notes/Report: Campylobacter Not Detected Not Detect. Plesiomonas shigelloides Not Detected Not Detect. Salmonella Not Detected Not Detect. Vibrio Not Detected Not Detect. Vibrio Cholerae Not Detected Not Detect. Yersinia enterocolitica Not Detected Not Detect. E. coli EAEC Not Detected Not Detect. E. coli EPEC Not Detected Not Detect. E. coli ETEC Not Detected Not Detect. E. coli STEC Not Detected Not Detect. E. coli O157 Not applicable Not Detect. E. coli containing the O157 antigen are a subset of Shiga-like toxin-producing E. coli (STEC). Shigella sp./EIEC Not Detected Not Detect. Cryptosporidium Not Detected Not Detect. Cyclospora cayetanensis Not Detected Not Detect. Entamoeba histolytica Not Detected Not Detect. Giardia lamblia Not Detected Not Detect. Adenovirus F 40/41 Not Detected Not Detect. Astrovirus Not Detected Not Detect. Norovirus GI/GII Not Detected Not Detect. Rotavirus A Not Detected Not Detect. Sapovirus Not Detected Not Detect. All results must be correlated with clinical findings. Negative results do not exclude the possibility of gastrointestinal infection and should not be used as the sole basis for diagnosis, treatment, or other management decisions. Virus, bacteria, and parasite nucleic acid may persist in vivo independently of organism viability. Additionally, some organisms may be carried symptomatically. Detection of organism targets does not imply that the corresponding organisms are infectious or are the causative agents for clinical symptoms. There is a risk of false negative values due to the presence of sequence variants in the gene targets of the assay, amplification inhibitors in specimens, or inadequate numbers of organisms for amplification. The identification of several diarrheagenic E. coli pathotypes has historically relied upon phenotypic characteristics. This panel targets genetic determinants characteristic of most pathogenic strains, but may not detect all strains having phenotypic characteristics of a pathotype. The performance of this test has not been established for monitoring treatment of infection with any of the panel organisms. This assay is performed by Multiplexed PCR, utilizing the Packet Digital Array. Complete Blood Count Auto Di ff Reviewed date:2023 07:04:05 PM Interpretation: Performing Lab:[facility], [address] [place] [phone] Notes/Report: White Blood Count 8.3 4.8-10.8 X10*3/uL Red Blood Count 4.18 4.20-5.50 X10*6/uL Hemoglobin 11.8 12.0-16.0 g/dl Hematocrit 35.6 37.0-47.0 % Mean Corpuscular Volume 85.2 80.0-98.0 fL Mean Corpuscular Hemoglobin 28.2 27.0-33.0 pg Mean Corpuscular HGB Conc 33.1 31.0-35.0 g/dl Red Cell Distribution Width 13.8 11.0-16.0 % Platelet Count 309 160-400 X10*3/uL Mean Platelet Volume 9.6 9.4-12.3 fL Neutrophils Percent Auto 56.1 45-73 % Imm Gran Pct Auto 0.5 0.0-0.4 % Lymphocytes Percent Auto 33.8 20-40 % Monocytes Percent Auto 6.7 2-11 % Eosinophils Percent Auto 2.5 0-4 % Basophils Percent Auto 0.4 0-2 % NRBC Pct Auto 0.0 0.0-0.2 /100WBC Neutrophils Absolute Auto 4.7 2.0-8.3 x10*3/u L Imm Gran Abs Auto 0.04 0.00-0.03 X10*3/uL Lymphocytes Absolute Auto 2.8 1.2-4.9 X10*3/u L Monocytes Absolute Auto 0.6 0.1-1.2 X10*3/uL Eosinophils Absolute Auto 0.2 0.0-0.4 X10*3/u L Basophils Absolute Auto 0.0 0.0-0.2 X10*3/uL NRBC Abs Auto 0.000 0.0-0.012 X10*3/uL Erythrocyte Sedimentation Ra te Reviewed date:09/22/2023 06:32:28 PM Interpretation: Performing Lab:[facility], [address] [place] [phone] Notes/Report: Erythrocyte Sedimentation Rate 44 0-20 MM/HR Patients with polycythemia and many hemoglobin abnormalities may have depressed sed rates whereas patients with anemia may have elevated sed rates. Liver Panel Reviewed date:2023 07:01:51 PM Interpretation: Performing Lab:[facility], [address] [place] [phone] Notes/Report: Bilirubin Total 0.3 0.0-1.0 mg/dL Bilirubin Direct 0.2 0.0-0.5 mg/dL Aspartate Amino Transferase 19 5-31 U/L Alanine Aminotransferase 22 0-31 U/L Total Protein 8.6 6.5-8.0 g/dL Albumin Level 4.2 3.5-5.0 g/dL Alkaline Phosphatase 103 39-117 U/L Basic Metabolic Panel Reviewed date:2023 07:02:14 PM Interpretation: Performing Lab:[facility], [address] [place] [phone] Notes/Report: Sodium 141 135-145 mmol/L Potassium 3.5 3.3-5.1 mmol/L Chloride 109 96-108 mmol/L Carbon Dioxide 25 22-29 mmol/L Anion Gap 11 12-20 Blood Urea Nitrogen 6 9-16 mg/dL Creatinine 0.76 0.5-1.4 mg/dL Estimated Glomerular Filt Rate > 60 NOTE: For -Azerbaijani individuals, multiply the result by 1.210. Chronic Kidney Disease: Estimated GFR < 60 mL/min/1.73m2 Severe Kidney Disease: Estimated GFR < 15 mL/min/1.73m2 Glucose Random 90 60-115 mg/dL Calcium 9.9 8.4-10.2 mg/dL C Reactive Protein Reviewed date:2023 07:02:22 PM Interpretation: Performing Lab:[facility], [address] [place] [phone] Notes/Report: C Reactive Protein 3.04 < or = 0.50 mg/dL Immunoglobulin A Reviewed date:09/24/2023 06:11:24 PM Interpretation: Performing Lab:[facility], [address] [place] [phone] Notes/Report: Immunoglobulin A 357 47-310 mg/dL THIS TEST WAS PERFORMED AT: [facility] [address] [place] [phone] CHUCKY MEJÍA MD Transglutaminase Ab IgG Reviewed date:09/24/2023 06:11:32 PM Interpretation: Performing Lab:[facility], [address] [place] [phone] Notes/Report: Transglutaminase Ab IgG <1.0 Value Interpretation ----- <15.0 Antibody not detected > or = 15.0 Antibody detected THIS TEST WAS PERFORMED AT: [facility] [address] [place] [phone] CHUCKY MEJÍA MD Transglutaminase IgA Reviewed date:09/24/2023 06:11:41 PM Interpretation: Performing Lab:[facility], [address] [place] [phone] Notes/Report: Transglutaminase IgA <1.0 Value Interpretation ----- <15.0 Antibody not detected > or = 15.0 Antibody detected THIS TEST WAS PERFORMED AT: [facility] [address] [place] [phone] CHUCKY MEJÍA MD Gliadin Ab Panel Reviewed date:09/24/2023 06:12:12 PM Interpretation: Performing Lab:[facility], [address] [place] [phone] Notes/Report: Gliadin Deamidated IgA Ab 1.5 Value Interpretation ----- <15.0 Antibody not detected > or = 15.0 Antibody detected Gliadin Deamidated IgG Ab 8.5 Value Interpretation ----- <15.0 Antibody not detected > or = 15.0 Antibody detected THIS TEST WAS PERFORMED AT: [facility] [address] [place] [phone] CHUCKY MEJÍA MD Endomysial IgA rflx Titer Reviewed date:09/24/2023 06:12:20 PM Interpretation: Performing Lab:[facility], [address] [place] [phone] Notes/Report: Endomysial IgA Antibody Negative Negative THIS TEST WAS PERFORMED AT: [facility] [phone] ARTEMIO SAHU MD,PHD Endomysial Titer TNP Leukocytes Stool Qualitative Reviewed date:09/22/2023 06:30:35 PM Interpretation: Performing Lab:[facility], [address] [place] [phone] Notes/Report: Leukocytes Stool Qualitative NEGATIVE NEGATIVE CDiff Gene PCR Reviewed date:09/22/2023 06:30:28 PM Interpretation: Performing Lab:[facility], [address] [place] [phone] Notes/Report: CDiff Gene PCR NEGATIVE Negative If C. difficile strongly suspected despite one negative test, a second test may be sent vs. empiric treatment for C. difficile infection. Ur Preg Test Reviewed date:09/24/2023 06:01:05 PM Interpretation: Performing Lab:[facility], [address] [place] [phone] Notes/Report: Urine NEGATIVE NEGATIVE This test was developed to detect early . False negative results may occur after the 5th - 7th week of when using this test method. If clinically indicated, consider a serum hCG. Pathology Reviewed date:10/04/2023 12:47:30 AM Interpretation: Performing Lab:[facility], [address] [place] [phone] Notes/Report: T4 Thyroxine Reviewed date:12/08/2023 11:45:41 PM Interpretation: Performing Lab:[facility], [address] [place] [phone] Notes/Report: T4 Thyroxine 9.1 4.5-12.0 ug/dL Basic Metabolic Panel Reviewed date:12/08/2023 11:45:21 PM Interpretation: Performing Lab:[facility], [address] [place] [phone] Notes/Report: Sodium 143 135-145 mmol/L Potassium 3.4 3.3-5.1 mmol/L Chloride 106 96-108 mmol/L Carbon Dioxide 28 22-29 mmol/L Anion Gap 12 12-20 Blood Urea Nitrogen 7 9-16 mg/dL Creatinine 0.72 0.5-1.4 mg/dL Estimated Glomerular Filt Rate > 60 NOTE: For -Azerbaijani individuals, multiply the result by 1.210. Chronic Kidney Disease: Estimated GFR < 60 mL/min/1.73m2 Severe Kidney Disease: Estimated GFR < 15 mL/min/1.73m2 Glucose Random 88 60-115 mg/dL Calcium 9.8 8.4-10.2 mg/dL Thyroid Stimulating Hormone Reviewed date:12/08/2023 11:45:28 PM Interpretation: Performing Lab:[facility], [address] [place] [phone] Notes/Report: Thyroid Stimulating Hormone 1.16 0.32-4.0 uIU/mL TSH 3rd Generation ([facility]) CT abdomen pelvis w con Reviewed date:01/03/2024 05:30:54 PM Interpretation: Performing Lab: Notes/Report: [address] [address] [address] Scan Report Signed Patient: Mavis Merida MR#: [id number] : 1990 Acct:[id number] Age/Sex: 33 / F ADM Date: 12/11/23 Loc: HO.CT Attending Dr: Dante Ho MD Ordering Physician: Dante Ho MD Date of Service: 12/11/23 Procedure(s): CT abdomen pelvis w IV con Accession Number(s): [id number] cc: Eladia Baker MD; Dante Ho MD EXAMINATION: CT ABDOMEN AND PELVIS WITH CONTRAST CLINICAL INFORMATION: Chronic diarrhea and abnormal weight loss. COMPARISON: None available. TECHNIQUE: Multidetector volumetric images were obtained from the superior aspect of the liver through the pubic symphysis following administration 85 mL of Omnipaque 350 intravenous contrast. Sagittal and coronal reformatted images were obtained on the technologist's workstation. Oral contrast: Yes This CT examination was performed using dose optimization techniques as appropriate, variously including the following: *Automated exposure control *Adjustment of mA and/or kV according to patient size (this includes techniques or standardized protocols for targeted exams where dose is matched to indication/reason for exam; i.e. extremities or head) *Use of iterative reconstruction technique DLP: 535 mGy-cm FINDINGS: LUNG BASES: The visualized lung bases are unremarkable. LIVER, GALLBLADDER, AND BILIARY TREE: The liver is normal in size, shape, and attenuation. No focal hepatic lesion or biliary ductal dilatation is present. The gallbladder is unremarkable with no evidence of radiopaque gallstones, gallbladder wall thickening, or obvious pericholecystic inflammatory changes. PANCREAS: No discrete suspicious mass. There is a small lipoma or prominent fatty cleft in the uncinate measuring 10 x 5 mm. No ductal dilatation. SPLEEN: Unremarkable. ADRENAL GLANDS: Unremarkable. KIDNEYS AND URETERS: The kidneys are normal in size, shape, and attenuation. No hydronephrosis, hydroureter, or calculi seen. No perinephric stranding. BLADDER: Unremarkable. GASTROINTESTINAL TRACT: The small and large bowel are normal in caliber. No focal bowel wall thickening. No acute inflammatory changes. The appendix appears normal. ABDOMINAL WALL: No significant hernia is appreciated. LYMPH NODES: No lymphadenopathy. VASCULAR: No aortic aneurysm. PELVIC VISCERA: An IUD appears appropriately positioned in the uterus. Ovaries appear normal for age. OSSEOUS STRUCTURES: No suspicious osseous lesions CT/CT abdomen pelvis w IV con IMPRESSION: No explanation for chronic diarrhea and weight loss. No CT evidence of enteritis or colitis. No visible bowel mass. Dictated By: Garth Hutchins MD Signed By: <Electronically signed by Garth Hutchins MD in OV> 12/29/23 1434 DD/ 1503 TD/TT: Brick Handler: JAVIER REASON FOR REFERRAL No Information MEDICATIONS Medication SIG (Take, Route, Frequency, Duration) Notes Start Date End Date Status Budesonide 3 MG TAKE 3 CAPSULES BY M OUTH EVERY DAY for 90 Active Omeprazole 20 MG TAKE 1 CAPSULE BY MO UTH EVERY DAY for 90 Active Iron (Ferrous Sulfate) 325 (65 Fe) MG 1 tablet Orally Three times a Week for 30 day(s) Active Biotin 10 MG 1 tablet Orally Once a day for 30 day(s) Active Lomotil 2.5-0.025 MG 1 or 2 tablets Oral ly Every 6 hours as needed for diarrhea. You can take 1 or 2 right when you get up in the morning to try to make things better before the diarrhea even starts. But make sure you avoid any constipation for 30 days 12/04/2023 Active IMMUNIZATIONS Vaccine Route Administration Date Status Comme nts Influenza Unknown 05/05/2018 Refused Influenza Unknown 12/13/2022 Refused SOCIAL HISTORY Tobacco Use: Social History Observation Description Date Details (start date - stop date) Former Smoker NA - NA Sex Assigned At : Social History Observation Description Sex Assigned At Unknown Tobacco Use/Smoking Question Answer Notes Patient is a former smoker Alcohol Screen Question Answer Notes Did you have a drink contain ing alcohol in the past year? Yes How often did you have a dri nk containing alcohol in the past year? 2 to 3 times a week (3 points) How many drinks did you have on a typical day when you were drinking in the past year? 1 or 2 drinks (0 point) How often did you have 6 or more drinks on one occasion in the past year? 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) Active confirmed 327685455 Problem 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) Active confirmed Goodson esophag us (442861989) Problem Polyp of stomach and duodenum (K31.7) Active confirmed Benign neoplasm of stomach (91335234) Problem Gastroesophageal reflux disease (K21.9) Active confirmed Gastroesophagea l reflux disease (989311085) Problem Chronic diarrhea (K52.9) Active confirmed Chronic diarrhe a (278659869) Problem Abnormal weight loss (R63.4) Active confirmed Abnormal weight loss (130202667) Problem Early satiety (R68.81) Active confirmed Early satiety (841265369) Problem Weight loss (R63.4) Active confirmed We ight loss (64563831) Problem Abdominal fullness (R19.8) Active confirmed Epigastric fullness (9362633) Problem Serrated polyp of colon (K63.5) Active confirmed Serrated polyp of colon (138097475) VITAL SIGNS Blood pressure diastolic 00 mm Hg 12/02/2023 Height 62 in 12/02/2023 Blood pressure systolic 00 mm Hg 12/02/2023 Weight 180 lbs 12/02/2023 BMI 32.92 kg/m2 12/02/2023 Encounters Encounter Location Date Provider Diagnosis [facility] Outpatient [address] [place] [id number] 09/24/2023 Dante Ho Colon polyps K63.5 ; Rectal polyp K62.1 ; Diarrhea R19.7 and Other hemorrhoids K64.8 [facility] Outpatient [address] [place] [id number] 03/07/2023 Dante Ho Goodson esophagus K2 2.70 ; Hiatal hernia K44.9 ; Polyp of stomach and duodenum K31.7 and Gastroesophageal reflux disease K21.9 [facility] Outpatient [address] [place] [id number] 01/08/2024 Dante Ho [facility] [address] [place] [phone] 2023 Dante Ho Chronic diarrhea K52 .9 [facility] [address] [place] [phone] 12/02/2023 Dante Ho Gastroesophageal ref lux disease, esophagitis presence not specified K21.9 ; Chronic diarrhea K52.9 ; Barretts esophagus without dysplasia K22.70 ; Hiatal hernia K44.9 ; Early satiety R68.81 ; Weight loss R63.4 ; Abdominal fullness R19.8 and Serrated polyp of colon K63.5 [facility] [address] [place] [phone] 09/20/2023 Dante Ho [facility] [address] [place] [phone] 09/29/2023 Dante Ho [facility] [address] [place] [phone] 09/29/2023 Dante Ho [facility] [address] [place] [phone] 09/29/2023 Dante Ho Chronic diarrhea K52 .9 and Abnormal weight loss R63.4 [facility] [address] [place] [address] 12/02/2023 Dante Ho Chronic diarrhea K52 .9 [facility] [address] [place] [phone] 12/05/2023 Dante Ho [facility] [address] [place] [phone] 12/30/2023 Dante Vic [facility] [address] [place] [phone] 12/31/2023 Dante Ho [facility] [address] [place] [phone] 01/07/2024 Dante Ho ASSESSMENTS Encounter Date Diagnosis Assessment Notes Treatment Notes Treatment Clinical Notes 09/24/2023 Rectal polyp (ICD-10 - K62.1) 09/24/2023 Colon polyps (ICD-10 - K63.5) 03/07/2023 Hiatal hernia (ICD-1 0 - K44.9) 03/07/2023 Goodson esophagus (ICD-10 - K22.70) 2023 Chronic diarrhea (ICD-10 - K52.9) Use 1 or 2 Imodium every 4 to 6 hours as needed for diarrhea 12/02/2023 Gastroesophageal reflux disease, esophagitis presence not specified (ICD-10 - K21.9) 12/02/2023 Chronic diarrhea (ICD-10 - K52.9) Stop the Budesonide completely. I will send over a prescription for the diarrhea. 09/29/2023 Abnormal weight loss (ICD-10 - R63.4) 09/29/2023 Chronic diarrhea (ICD-10 - K52.9) 12/02/2023 Chronic diarrhea (ICD-10 - K52.9) 09/24/2023 Diarrhea (ICD-10 - R19.7) 03/07/2023 Polyp of stomach and duodenum (ICD-10 - K31.7) 12/02/2023 Barretts esophagus without dysplasia (ICD-10 - K22.70) 09/24/2023 Other hemorrhoids (ICD-10 - K64.8) 03/07/2023 Gastroesophageal reflux disease (ICD-10 - K21.9) 12/02/2023 Hiatal hernia (ICD-1 0 - K44.9) 12/02/2023 Early satiety (ICD-1 0 - R68.81) 12/02/2023 Weight loss (ICD-10 - R63.4) 12/02/2023 Abdominal fullness (ICD-10 - R19.8) 12/02/2023 Serrated polyp of colon (ICD-10 - K63.5) PLAN OF TREATMENT Pending Test Test Name Order Date CHEM 7 PROFILE 2023 CHEM 7 PROFILE 12/02/2023 LIVER PROFILE 2023 TSH (THYROID STIMULATING HORMONE) 2023 TSH (THYROID STIMULATING HORMONE) 2023 CRP 2023 CBC w DIFF 2023 SED RATE (ESR) 2023 CELIAC PANEL #[address] ABD & PELVIS WITH CONTRAST 12/02/2023 CT ABD & PELVIS WITH CONTRAST 09/29/2023 STOOL WBC 2023 C DIFFICILE RFLX PCR 2023 T4 Thyroxine 09/29/2023 Future Test Test Name Order Date UPPER GI ENDOSCOPY 09/30/2017 UPPER GI ENDOSCOPY 12/13/2022 COLONOSCOPY 09/21/2023 UPPER GI ENDOSCOPY 12/02/2023 Next Appt Details Provider Name:Dante Ho , 01/08/2024 07:30:00 AM, [address] [place] [address] , [place], [place], [phone], Insurance Providers Payer Name Payer Address Payer Phone Subscriber Number Group Number Insured Name Patient Relationship to Insured Coverage Start Date Coverage End Date [facility] [address] [place], [place] [id number] [phone] [id number] MAVIS MERIDA Self - patient is the insured MEDICAL (GENERAL) HISTORY Medical History History ICD Code Denies [place],DM,CVA,Lung disease,renal dise ase GERD/Goodson's--EGD 10/2017-- -small HH, tiny area of Goodson's but no dysplasia---no esophagitis EGD 02/2023 with a small to m oderate-sized hiatal hernia, small area of Goodson's esophagus with biopsies negative for dysplasia, and benign gastric polyps. Rapid heart rate for which s he was evaluated in the ER at [facility]. She had outpatient testing done, including an echocardiogram, and is scheduled for cardiology followup in September of 2023 Colonoscopy in September of 2023 revealed an approximately 1 cm serrated polyp removed from the ascending colon. Workup for the diarrhea that was occurring at that time was negative including random biopsies from the colon. The terminal ileum appeared normal although microscopically did show some inflammation but no granulomas. Celiac disease labs were negative and all stool specimens were negative for any type of infection. A fecal calprotectin level was minimally elevated at 165. She did have a slightly elevated sedimentation rate and C-reactive protein of 44 and 3.0, respectively. Surgical History Surgery Date(Month/Year) Tonsillar abscesses Breast surgery x 3 on the ri t for issues with damage to the milk ducts after removal of piercings with Dr. Hull. Most recent surgery was in early July of 2023. Breast surgery x 1 on the left for the s mckenna issues as above
[2024-01-08 06:48] VITALS: BP 122/83; PULSE 83; RESP 18; TEMP 36.3; O2SAT 98; BMI 32.6
[2024-01-08 06:48] LABS: UPreg QC Valid YES; Urine Pregnancy NEGATIVE (NEGATIVE)
[2024-01-08] MEDS: Lactated Ringers 1,000 ML 100 ML IVCONT (06:57)
--- NOTE | 2024-01-08 07:31 | PC.NURSE ---
Dr Ho at bedside, 24hr update documented on paper.
[2024-01-08] MEDS: Scopolamine 1.5 MG PATCH.TD.3 TRANSDERMA (07:33)
[2024-01-08 08:03] VITALS: BP 107/56; PULSE 70; RESP 16; TEMP 36.1; O2SAT 95
--- NOTE | 2024-01-08 08:16 | PM.OP ---
Brief Operative Note Date of Service: 01/08/24 Pre-op diagnosis: Diarrhea, early satiety, GERD Post-op diagnosis: other (R/O celiac disease. gastric polyps) Procedure: EGD with biopsies Surgeon: Dante Ho MD Anesthesia: MAC Was an Teletype Installer used for this Procedure?: No Estimated blood loss (mL): 2.0 Pathology: other (A. Descending duodenum B. Duodenal bulb C. Gastric antrum D. Gastric polyp) Condition: stable Disposition: PACU
[2024-01-08 08:18] VITALS: BP 121/76; PULSE 67; RESP 14; O2SAT 98
[2024-01-08 08:33] VITALS: BP 123/82; PULSE 76; RESP 18; TEMP 36.6; O2SAT 100
--- NOTE | 2024-01-08 09:19 | OP_ITS ---
DATE OF SERVICE: 01/08/2024 SURGEON: Dante Ho MD INDICATIONS: The patient presents for evaluation of early satiety, diarrhea, gastroesophageal reflux, and weight loss. Full consent has been obtained from her for this, including risks of bleeding and perforation. PREOPERATIVE DIAGNOSIS: POSTOPERATIVE DIAGNOSIS: PROCEDURE PERFORMED: Esophagogastroduodenoscopy with biopsies. ESTIMATED BLOOD LOSS: COMPLICATIONS: ANESTHESIA: Monitored anesthesia care. ASSISTANTS: SPECIMENS: PREOPERATIVE DIAGNOSES: Diarrhea, weight loss, gastroesophageal reflux, and early satiety. POSTOPERATIVE DIAGNOSES: Diarrhea, weight loss, gastroesophageal reflux, and early satiety, rule out celiac disease, rule out Helicobacter pylori, gastric polyps, hiatal hernia. DESCRIPTION OF PROCEDURE: The patient was placed in left lateral decubitus position. The Olympus video gastroscope was passed in the posterior oropharynx and upper esophagus under direct vision. The scope was passed slowly into the distal esophagus. The gastroesophageal junction appeared at 33 cm. There was small areas of Goodson mucosa, but these were not biopsied as they had been biopsied in February 2023 and there was no dysplasia at that time. There was no evidence of any esophagitis. The scope entered the stomach. There was a small to moderate-sized hiatal hernia. The scope was advanced to the pylorus and the duodenum was cannulated to the descending portion. The duodenum including the bulb appeared normal without mass or ulceration. Multiple biopsies were obtained of the 2nd and 3rd portions of duodenum, as well as from the duodenal bulb. The scope was withdrawn back to the stomach. The gastric antrum had some minimal areas of erythema, but no evidence of any erosions or ulceration. Peristalsis appeared to be normal. Biopsies were obtained. The scope was retroflexed, visualizing the proximal stomach carefully, which appeared normal, without any mass or ulceration. There was 1 rather large probable hyperplastic polyp in the proximal stomach, along the greater curvature, which was biopsied several times. It appeared to be grossly hyperplastic. There were other hyperplastic-appearing gastric polyps as well. Of note, there was no evidence of any retained food in the stomach. The scope was withdrawn back to the esophagus. The esophageal mucosa otherwise appeared normal. Again, biopsies were not obtained from the Goodson appearing mucosa as they had been done 1 year ago. The scope was withdrawn from the patient. She tolerated the procedure well and was returned to the recovery area in stable condition. IMPRESSION: 1. Hiatal hernia, history of Goodson esophagus. 2. Gastric polyps. 3. Rule out celiac disease. 4. Rule out H pylori. PLAN: The results of biopsies will be checked. She will continue her daily omeprazole for relief of her reflux. In regard to her diarrhea, she does report this is continuing to be problematic for her. A recent CT scan was unremarkable. The results of the biopsies will be checked. She reports that she is now using one 3 mg budesonide every day to treat any possible component of underlying colitis, although previous biopsies have been negative for both inflammatory bowel disease and microscopic colitis. She thinks the budesonide has helped her a little bit. She did try Lomotil, but had to stop that due to nausea. I will be in touch with her as to the results of her biopsies and follow her up in the office. Of note, pertinent laboratories from earlier in the year included a minimally elevated fecal calprotectin level of 165, C-reactive protein of 3.0, and sedimentation rate of 44. Those labs were from August. It may be worthwhile to repeat those as well. MD ADRIANNA Gerard/YANIRA / [id number] MTDD
== END 2024-01-08 08:54 | disposition home or self-care (01) ==
PROVIDERS: Nurse Practitioner; PCP Internal Medicine; Visit Provider Internal Medicine
PROC: 0DJ08ZZ Inspection of Upper Intestinal Tract, Via Natural or Artificial Opening Endoscopic (ICD-10-PCS; CPT 43235; principal; 2024-01-08 07:30)
DX: K52.9 Noninfective gastroenteritis and colitis, unspecified (principal); K31.7 Polyp of stomach and duodenum; K44.9 Diaphragmatic hernia without obstruction or gangrene; R68.81 Early satiety; K21.9 Gastro-esophageal reflux disease without esophagitis; K22.70 Barrett's esophagus without dysplasia; R19.8 Other specified symptoms and signs involving the digestive system and abdomen; R63.4 Abnormal weight loss; Z68.32 Body mass index [BMI] 32.0-32.9, adult; Z88.1 Allergy status to other antibiotic agents; Z88.8 Allergy status to other drugs, medicaments and biological substances; Z79.899 Other long term (current) drug therapy; Z98.890 Other specified postprocedural states
CPT/HCPCS: 43239; 81025; 88305; 88313; 88342; J1596; J2250; J2704

== ENCOUNTER 2024-01-15 11:56 | Outpatient (AMB) | payer BC, SELFPAY ==
[2024-01-15 12:08] VITALS: BP 122/74; PULSE 76; O2SAT 97; BMI 32.4
--- NOTE | 2024-01-15 12:08 | MHC.PC.OV ---
Vital Signs 01/15/24 12:08 Height 5 ft 2 in Weight 177 lb 6 oz BMI 32.4 BP 122/74 Blood Pressure Location Rt brachial Position Sitting Pulse 76 Pulse Source Pulse Oximeter Pulse Oximetry (%) 97 Oxygen Delivery Method Room Air Intake Visit Reasons: f/u ER elias low mag & potassium Intake Note: pt is here for ER follow up regarding low mag and potassium Industrial Services Worker Required: No Accompanied by: Self / Same As Patient Allergies clindamycin [CLINDAMYCIN] Allergy (Intermediate, Verified 01/15/24 12:47) HIVES/SWELLING buspirone [From BuSpar] Allergy (Verified 01/15/24 12:47) Blurry Vision fentanyl [FENTANYL] Adverse Reaction (Severe, Verified 01/15/24 12:47) SEVERE N/V (POST EGD W/CS) escitalopram [From Lexapro] Adverse Reaction (Verified 01/15/24 12:47) Vomiting lorazepam Adverse Reaction (Verified 01/15/24 12:47) Vomiting Medication List - Last Reconciled 01/15/24 by Eladia Baker MD biotin 5,000 mcg PO DAILY budesonide DR-ER 3 mg PO DAILY ferrous fumarate (Ferrocite) 324 mg PO DAILY levonorgestrel (Mirena) 1 device intrauterine ONCE magnesium aspart,citrate,oxide mg PO omeprazole 20 mg PO DAILY potassium chloride ER (Klor-Con M) 20 mEq PO DAILY Tobacco use date assessed: 07/21/23 Dental Screening Dental Screen Date: 07/21/23 HPI f/u ER elias low mag & potassium HPI Details 83-year-old lady with history of chronic diarrhea, GERD, esophagitis, with Goodson's esophagus, hiatal hernia, here today for follow-up after recent ER visit complaining of generalized weakness and cramps. Found to have hypokalemia and hypomagnesemia and replacements were given. She reports feeling better, currently on magnesium and potassium replacement given at the ER. Has mixed anxiety depression, requesting a new referral for in-person therapy. She has seen someone at [facility] but unfortunately it did not go as expected.. [facility] Medical History Hypertriglyceridemia Anemia Mixed anxiety and depressive disorder H/O herpes simplex infection H/O nipple discharge Breast pain, right Cyst of left nipple Knee pain, right anterior Hiatal hernia Chronic heartburn Lumbago with sciatica, right side Tonsillar abscess Surgical History History of lumpectomy of right breast (07/28/23) Hx of breast surgery History of esophagogastroduodenoscopy (EGD) History of excision of mass (06/07/19) History of section (06/19/09) Family History Maternal Aunt Breast cancer, Onset Age: 40 Father Myocardial infarction Maternal Grandmother Pancreas cancer Paternal Grandfather Lung cancer Bladder cancer Social History Housing: Apartment Alcohol intake: current Alcohol intake frequency: 0-2 drinks per day Comment: counts correct Patient Tobacco Use Status: Former Tobacco user Cigarette Packs Per Day: 1 Cigarettes Per Day: 20.0 e-Cigarette/Vaping Use: Never Used Second Hand Smoke Exposure: No Current occupational status: unemployed Sexual orientation: Straight/Heterosexual Gender identity: Female Cognitive needs: No Hearing needs: No Vision needs: No Female Reproductive History Menstrual Age of Menarche: 10 Questionnaire Thrive Questionnaire Date Thrive assessed: 07/01/23 ELLIOT-7 AMB Questionnaire ELLIOT-7 Date ELLIOT - 7 assessed: 07/21/23 Source: Developed by Drs. Dante Perkins, Soniya Maldonado, Jatinder Tellez and colleagues, with an educational betsy from [employer]. Review of Systems Const Denies weakness ENT Denies dizziness Card Denies chest pain, Denies syncope, Denies pedal edema, Denies lightheadedness, Denies palpitations, Denies dyspnea and Denies dyspnea on exertion Resp Denies cough, Denies dyspnea and Denies dyspnea on exertion GI Denies abdominal pain, Denies hematochezia, Reports early satiety, Reports diarrhea and Denies nausea Musc Denies abnormal gait, Denies muscle cramps, Denies muscle weakness, Denies numbness and Denies tingling Neuro Denies abnormal gait, Denies dizziness, Denies syncope, Denies numbness, Denies tingling and Denies weakness Endo Denies palpitations Physical exam (Primary Care) Vital Signs: Last Vital Signs Pulse 76 01/15/24 12:08 BP 122/74 01/15/24 12:08 Pulse Ox 97 01/15/24 12:08 Oxygen Delivery Method Room Air 01/15/24 12:08 BMI result Body Mass Index 32.4 Tobacco/Smoking Status: Tobacco use Status Tobacco use date assessed 07/21/23 01/15/24 12:10 Patient Tobacco Use Status Former Tobacco user 01/15/24 12:10 Tobacco use type 10/16/23 12:14 e-Cigarette/Vaping Use Never Used 01/15/24 12:10 Thrive Assessment: Date of Thrive Assessment Date Thrive assessed 07/01/23 01/15/24 12:10 Const General: comfortable, no acute distress and alert Orientation/consciousness: patient oriented x3 Neck Neck: Yes full ROM, Yes no lymphadenopathy and Yes supple Resp Effort & Inspection: normal respiratory effort Auscultation: clear to auscultation bilaterally Cardio Rate: regular rate Rhythm: regular rhythm Heart sounds: S1 normal heart sound present and S2 normal heart sound present GI Palpation (GI): Soft to palpation, nontender, no guarding and no hernias Auscultation: normal bowel sounds Skin General skin exam: no rashes or lesions noted Neuro General: patient oriented x3, gait normal, tone normal, moves all extremities, Normal light touch and pain sensation and no focal motor deficits Extrem General: Yes full ROM, Yes no joint enlargement, Yes no clubbing, cyanosis or edema, Yes no calf tenderness and Yes normal gait Psych Appearance: grossly normal and well kempt Mental Status: mental status grossly normal Speech and movement: Normal speech and movement present Affect: normal affect Attitude: cooperative Thought process: Normal thought process present Thought content: Normal thought content present Assessment and Plan Assessment & Plan (1) Hypokalemia: Code(s): E87.6 - Hypokalemia Plan: Will check potassium and magnesium level, continue potassium chloride ER 20 mg once daily (2) Hypomagnesemia: Code(s): E83.42 - Hypomagnesemia Plan: Will check potassium and magnesium leve, continue may citrate daily (3) Mixed anxiety and depressive disorder: Code(s): F41.8 - Other specified anxiety disorders Plan: Currently not on any medications, stopped taking whenever her previous psychiatrist gave her, would like to go back and see a therapist again, referred to Gissel , certified mental health worker, to help with getting her an appointment with a therapist Orders: Orders Magnesium 01/15/24 E83.42 - Hypomagnesemia, E87.6 - Hypokalemia Potassium 01/15/24 E83.42 - Hypomagnesemia, E87.6 - Hypokalemia Coding Level of Care Code Est Pt Level 4 (13199) Diagnoses Hypokalemia E87.6 Hypomagnesemia E83.42 Mixed anxiety and depressive disorder F41.8
== END 2024-01-15 13:44 | disposition home or self-care (01) ==
PROVIDERS: PCP Internal Medicine; Visit Provider Internal Medicine
DX: E87.6 Hypokalemia (principal); E83.42 Hypomagnesemia; F41.8 Other specified anxiety disorders
CPT/HCPCS: 99214

== ENCOUNTER 2024-01-15 13:35 | Outpatient (REF) | payer BC, SELFPAY ==
[2024-01-15 16:20] LABS: C Reactive Protein 1.58 mg/dL (< or = 0.50)
[2024-01-15 16:22] LABS: Magnesium 2.2 mg/dL (1.6-2.6)
[2024-01-15 17:27] LABS: Erythrocyte Sedimentation Rate 39 MM/HR (0-20)
== END 2024-01-15 13:36 | disposition home or self-care (01) ==
LOC: HO.HMGCLDS 13:35
PROVIDERS: PCP Internal Medicine; Referring Provider Internal Medicine; Visit Provider Internal Medicine
DX: K52.9 Noninfective gastroenteritis and colitis, unspecified (principal); E87.6 Hypokalemia; E83.42 Hypomagnesemia
CPT/HCPCS: 36415; 83735; 84132; 85652; 86140

== ENCOUNTER 2024-01-16 13:50 | Outpatient (REF) | payer BC, SELFPAY ==
[2024-01-25 21:49] LABS: Fecal Fat Qualitative NORMAL (NORMAL)
[2024-01-26 18:44] LABS: Calprotectin, Fecal 78 mcg/g
[2024-01-26 20:09] LABS: Pancreatic Elastase-1 >500 mcg/g
[2024-01-29 00:09] LABS: Chymotrypsin, Stool 5.3 U/g (2.3-51.4)
== END 2024-01-16 13:51 | disposition home or self-care (01) ==
LOC: HO.HMGCLNP 13:50
PROVIDERS: PCP Internal Medicine; Visit Provider Internal Medicine
DX: K52.9 Noninfective gastroenteritis and colitis, unspecified (principal)
CPT/HCPCS: 82656; 82705; 83993

== ENCOUNTER → 2024-02-17 08:20 | Outpatient (REF) | payer BC, SELFPAY ==
--- NOTE | ~2024-02-17 | NM_ITS ---
EXAMINATION: NM RADIONUCLIDE SOLID FOOD GASTRIC EMPTYING 4-HOUR STUDY CLINICAL INFORMATION: Early satiety. COMPARISON: None TECHNIQUE: A standard meal consisting of 4 oz of Egg Beaters brand tagged with 1000 microcuries Tc-99m Sulfur Colloid, 8 oz water and tiny piece of toast with jelly was administered orally to the patient. Images were obtained using a dual head gamma camera in the anterior and posterior projections over of the stomach immediately post ingestion and at hourly intervals up to 4 hours post ingestion. The anterior and posterior counts at each time interval were averaged using the geometric mean and expressed as percentage of the immediate post ingestion counts. FINDINGS: There is good visualization of activity in the stomach immediately post ingestion. As the study progresses, there is good clearance of activity from the stomach and visualization of progressively increasing small bowel activity. By the end of the study, there is almost no retention noted in the stomach. Retention in the stomach at each time interval was: 1 hour 85% (normal 37%-90%) 2 hours 31% (normal 30%-60%) 3 hours 2% 4 hours estimation was not performed since only 2% retention was noted at the 3 hours interval. NM/NM gastric emptying study IMPRESSION: Normal 4-hour solid food gastric emptying study. Slightly technically limited since patient did not eat the entire meal. For solid meal, rapid gastric emptying is less than 30% at 60 minutes. Delayed gastric emptying criteria is more than 60% remaining at 120 minutes or more than 10% at 240 minutes. The 4-hour value is the best discriminator of a normal or abnormal result). Gastric emptying study grading per JNMT Consensus Recommendations in 2008 (https://tech.snmjournals.org/content/36/44) Grade 1 (mild retention): 11-20% at 4h Grade 2 (moderate retention): 21-35% at 4h Grade 3 (severe retention): 36-50% at 4h Grade 4 (very severe retention): >50% retention at 4h Electronically signed by: Brunilda Chan MD 02/19/2024 03:11 PM EDT
== END ==
LOC: HO.NUCMED 08:20
PROVIDERS: PCP Internal Medicine; Visit Provider Internal Medicine
DX: K52.9 Noninfective gastroenteritis and colitis, unspecified (principal); R68.81 Early satiety
CPT/HCPCS: 78264; A9541

== ENCOUNTER 2024-02-20 07:52 | Outpatient (REF) | payer BC, SELFPAY ==
--- NOTE | ~2024-02-20 | FL_ITS ---
EXAMINATION: XR UPPER GI SERIES WITH SMALL BOWEL CLINICAL INFORMATION: Early satiety. Chronic diarrhea. COMPARISON: None TECHNIQUE: Fluoroscopic air contrast upper GI examination was performed utilizing standard techniques with thin and thick barium and effervescent granules. Numerous spot images were obtained. Films were then obtained every 30 minutes until contrast reached the right colon. A spot image of the cecum/terminal ileum was obtained. FINDINGS: Dual and single contrast images of the esophagus demonstrate normal caliber, contour, and mucosal pattern. Mild cricopharyngeal achalasia is present. No evidence of stricture, mass, or ulcerations identified. Esophageal peristalsis was normal. A small type I hiatal hernia is present. No significant gastroesophageal reflux was seen during the course of the examination and on reflux views. Dual contrast and single contrast images of the stomach demonstrated a normal contour. The gastric folds have a severely thickened appearance, suggestive of gastritis. No masses or ulcerations are seen. Contrast freely passed into the gastric antrum and duodenal bulb without delay. Single and air-contrast images of the duodenal bulb demonstrate no abnormality. The duodenal sweep has a normal appearance, course, and mucosal fold appearance. SMALL BOWEL SERIES: Sap Functional Analyst view demonstrates normal bowel gas pattern. No dilated loops. IUD present within the central inferior pelvis. Lung bases clear. No organomegaly or abnormal calcifications. The small bowel has a normal fold pattern and caliber. No strictures, masses, or dilated loops are present. Contrast is observed in the right colon after 60 minutes. The terminal ileum has a normal appearance. FLUOROSCOPY TIME: 3 minutes 55 seconds Number of Spot Images: 10 Number of Cine: 14 DOSE AREA PRODUCT: 2613 uGy-m2 (microgray-meter squared) FL/FL upper GI w air w SBFT IMPRESSION: 1. Mild cricopharyngeal achalasia. 2. Small type I hiatal hernia. 3. Severely thickened appearance of the gastric rugal folds, suggestive of gastritis. Recommend correlation with EGD. 4. Unremarkable small bowel series. Contrast is seen in the right colon after 60 minutes. This procedure was performed by Marcus Bergeron PA-C, and supervised by Dr. Morgan Electronically signed by: Daniel Morgan MD 02/20/2024 03:45 PM EDT
== END 2024-02-20 07:53 | disposition home or self-care (01) ==
LOC: HO.XRAY 07:52
PROVIDERS: PCP Internal Medicine; Visit Provider Internal Medicine
DX: K52.9 Noninfective gastroenteritis and colitis, unspecified (principal); R68.81 Early satiety
CPT/HCPCS: 74246; 74248

== ENCOUNTER → 2024-02-20 07:53 | Outpatient (BNV) | payer BC, SELFPAY | PROVIDERS: PCP Internal Medicine; Visit Provider Radiology Diagnostic Radiology | DX: R68.81 Early satiety (principal); R19.7 Diarrhea, unspecified | CPT/HCPCS: 74246 ==

== ENCOUNTER 2024-04-12 08:43 | Outpatient (AMB) | payer BC, SELFPAY ==
[2024-04-12 09:03] VITALS: BP 110/70; PULSE 77; O2SAT 100; BMI 32.4
--- NOTE | 2024-04-12 09:03 | MHC.PC.OV ---
Vital Signs 04/12/24 09:03 Height 5 ft 2 in Weight 177 lb BMI 32.4 BP 110/70 Blood Pressure Location Rt brachial Position Sitting Pulse 77 Pulse Source Pulse Oximeter Pulse Oximetry (%) 100 Oxygen Delivery Method Room Air Intake Visit Reasons: Annual PE under 40 yrs Intake Note: Pt is here today for her PE Allergies clindamycin [CLINDAMYCIN] Allergy (Intermediate, Verified 04/12/24 09:24) HIVES/SWELLING buspirone [From BuSpar] Allergy (Verified 04/12/24 09:24) Blurry Vision fentanyl [FENTANYL] Adverse Reaction (Severe, Verified 04/12/24 09:24) SEVERE N/V (POST EGD W/CS) escitalopram [From Lexapro] Adverse Reaction (Verified 04/12/24:24) Vomiting lorazepam Adverse Reaction (Verified 04/12/24 09:24) Vomiting Medication List - Last Reconciled 04/12/24 by Eladia Baker MD biotin 5,000 mcg PO DAILY ferrous fumarate (Ferrocite) 324 mg PO DAILY levonorgestrel (Mirena) 1 device intrauterine ONCE omeprazole 20 mg PO DAILY Tobacco use date assessed: 04/12/24 Dental Screening Dental Screen Date: 04/12/24 Did you have a dental visit in the last 12 months?: Yes Did you have a dental problem in the last 6 months where you did not have access to dental care?: Yes Was dental information given to patient?: Patient has dentist HPI Annual PE under 40 yrs HPI Details 33-year-old lady here today for physical exam. She HPI Comments History of Present Illness Details 33-year-old lady here today for physical exam. She has chronic heartburn and hiatal hernia currently on omeprazole, prescribed by Dr. Ho. Had an adenomatous polyp of the colon removed on colonoscopy done earlier this year, has chronic diarrhea unresponsive to budesonide, currently on Lomotil daily. As mixed anxiety depression, unable to tolerate escitalopram and buspirone, previously was being seen at [facility] in counseling but now referred to [facility] for in-person therapy. She goes to [facility] for her routine Pap and pelvic exam, has an IUD in place [facility] Medical History (Updated 04/18/24 @ 17:47 by Eladia Baker MD) History of adenomatous polyp of colon COVID-19 vaccination declined Refused influenza vaccine Obesity Hypertriglyceridemia Anemia Mixed anxiety and depressive disorder H/O herpes simplex infection H/O nipple discharge Breast pain, right Cyst of left nipple Knee pain, right anterior Hiatal hernia Chronic heartburn Lumbago with sciatica, right side Tonsillar abscess Surgical History History of lumpectomy of right breast (07/28/23) Hx of breast surgery History of esophagogastroduodenoscopy (EGD) History of excision of mass (06/07/19) History of section (06/19/09) Family History Maternal Aunt Breast cancer, Onset Age: 40 Father Myocardial infarction Maternal Grandmother Pancreas cancer Paternal Grandfather Lung cancer Bladder cancer Social History Housing: Apartment Alcohol intake: current Alcohol intake frequency: 0-2 drinks per day Comment: counts correct Patient Tobacco Use Status: Former Tobacco user Cigarette Packs Per Day: 1 Cigarettes Per Day: 20.0 e-Cigarette/Vaping Use: Never Used Second Hand Smoke Exposure: No Current occupational status: unemployed Sexual orientation: Straight/Heterosexual Gender identity: Female Cognitive needs: No Hearing needs: No Vision needs: No Female Reproductive History Menstrual Age of Menarche: 10 Questionnaire PHQ-9 Over the last 2 weeks, how often have you been bothered by any of the following problems? 1. Little interest or pleasure in doing things: several days 2. Feeling down, depressed, or hopeless: several days 3. Trouble falling or staying asleep, or sleeping too much: several days 4. Feeling tired or having little energy: several days 5. Poor appetite or overeating: several days 6. Feeling bad about yourself - or that you are a failure or have let yourself or your family down: several days 7. Trouble concentrating on things, such as reading the newspaper or watching television: not at all 8. Moving or speaking so slowly that other people could have noticed. Or the opposite - being so fidgety or restless that you have been moving around a lot more than usual: several days 9. Thoughts that you would be better off or of hurting yourself in some way: not at all Total score: 7 Depression Screening Interpretation: Positive (Goes to [facility] therapist does not want any medication at present time) Depression Screening Done: Yes 89684 - PHQ-9 Billing: Yes Source: Developed by Drs. Dante Perkins, Soniya Maldonado, Jatinder Tellez and colleagues, with an educational besty from [employer]. Thrive Questionnaire Date Thrive assessed: 04/12/24 I am a: Patient What is your living situation today?: I have a steady place to live Within the past 12 months, did the food you bought not last and you didn't have the money to get more?: Never true Within the past 12 months, did you worry whether your food would run out before you got money to buy more?: Never true Do you have trouble paying for medicines?: No Do you have trouble getting transportation to medical appointments?: No Do you have trouble paying your heating and electricity bill?: No Do you have trouble taking care of your child, family member or friend?: No Do you have trouble with day-to-day activities such as bathing, preparing meals, shopping, managing finances, etc.?: No Are you currently unemployed and looking for a job?: No Are you interested in more education?: No Please select the resources that you would like help with: None Currently or been in a relationship where the following occur: No concerns reported THRIVE Score: 0 ELLIOT-7 AMB Questionnaire ELLIOT-7 Date ELLIOT - 7 assessed: 07/21/23 Source: Developed by Drs. Dante Perkins, Soniya Maldonado, Jatinder Tellez and colleagues, with an educational betsy from [employer]. Review of Systems Const Denies weakness Eyes Reports no additional complaints ENT Denies dizziness Card Denies chest pain, Denies syncope, Denies pedal edema, Denies lightheadedness, Denies palpitations, Denies dyspnea and Denies dyspnea on exertion Resp Denies cough, Denies dyspnea and Denies dyspnea on exertion GI Denies abdominal pain, Denies hematochezia, Reports early satiety, Reports diarrhea and Denies nausea Reports no additional complaints Musc Denies abnormal gait, Denies muscle cramps, Denies muscle weakness, Denies numbness and Denies tingling Skin/Breast Denies breast swelling, Denies breast pain, Denies breast mass and Denies rash Neuro Denies abnormal gait, Denies dizziness, Denies syncope, Denies numbness, Denies tingling and Denies weakness Psych Reports as per HPI Endo Denies palpitations Morgan/Lymph Reports no additional complaints Aller/Immun Reports no additional complaints Physical exam (Primary Care) Vital Signs: Last Vital Signs Pulse 77 04/12/24 09:03 BP 110/70 04/12/24 09:03 Pulse Ox 100 04/12/24 09:03 Oxygen Delivery Method Room Air 04/12/24 09:03 BMI result Body Mass Index 32.4 Tobacco/Smoking Status: Tobacco use Status Tobacco use date assessed 04/12/24 04/12/24 09:11 Patient Tobacco Use Status Former Tobacco user 04/12/24 09:03 Tobacco use type 01/15/24 13:32 e-Cigarette/Vaping Use Never Used 04/12/24 09:03 PHQ-9: PHQ-9 Score PHQ-9: Total score 7 04/12/24 09:47 Depression Screening Interpretation: Positive (Goes to [facility] therapist does not want any medication at present time) Thrive Assessment: Date of Thrive Assessment Date Thrive assessed 04/12/24 04/12/24 09:11 Currently or been in a relationship where the following occur: No concerns reported Advance Care Planning discussion: Completed/Scanned Date of discussion: 04/12/24 Who was present: Patient Forms completed: Health Care Proxy Time spent: 16-45 minutes Actual minutes spent: 16 Const General: comfortable, no acute distress and alert Orientation/consciousness: patient oriented x3 HENMT Teeth and gingiva: dentures (Upper and lower) Eyes General: appearance normal, both eyes and all related structures Neck Neck: Yes full ROM, Yes no lymphadenopathy and Yes supple Chest Other: Slight tenderness on palpation over superior aspect of left areola, no nipple discharge, no definite mass palpated Chest palpation & inspection: normal inspection of the chest Resp Effort & Inspection: normal respiratory effort Auscultation: clear to auscultation bilaterally Cardio Rate: regular rate Rhythm: regular rhythm Heart sounds: S1 normal heart sound present and S2 normal heart sound present GI Palpation (GI): Soft to palpation, nontender, no guarding and no hernias Auscultation: normal bowel sounds General: Yes no CVA tenderness and Yes deferred (Goes to [facility]) Back/Spine/Pelvis Back: no CVA tenderness and No back tenderness Skin General skin exam: no rashes or lesions noted Neuro General: patient oriented x3, gait normal, tone normal, moves all extremities, Normal light touch and pain sensation and no focal motor deficits Extrem General: Yes full ROM, Yes no joint enlargement, Yes no clubbing, cyanosis or edema, Yes no calf tenderness and Yes normal gait Psych Appearance: grossly normal and well kempt Mental Status: mental status grossly normal Speech and movement: Normal speech and movement present Affect: normal affect Attitude: cooperative Thought process: Normal thought process present Thought content: Normal thought content present Coding Level of Care Code Est Pt Prev Care 18-39y(02593) Diagnoses Annual visit for general adult medical examination with abnormal findings Z00. Mixed anxiety and depressive disorder F41.8 Encounter for counseling regarding advance directives Z71.89 Class 1 obesity due to excess calories without serious comorbidity with body mass index (BMI) of 32.0 to 32.9 in adult E66.811; E66.09; Z68.32 Obesity type: due to excess calories Obesity classification: adult class 1 (BMI 30 - 34.9) Serious obesity comorbidity presence: without serious comorbidity Body mass index: BMI 32.0-32.9 Refused influenza vaccine Z28.21 COVID-19 vaccination declined Z28.21 Additional Codes Vital Signs *Quality* - Advance Care Planning discussion: Completed/Scanned ([id number]) Vital Signs *Quality* - Time spent: 16-45 minutes ([id number]) Assessment & Plan Assessment & Plan (1) Annual visit for general adult medical examination with abnormal findings: Code(s): Z00.01 - Encounter for general adult medical examination with abnormal findings Plan: Will check appropriate labs. Up-to-date with her regular eye exams, goes to [facility]. Take adequate calcium in diet and vitamin-D 3 at 2000 IU per cap once a day, in addition to weight-bearing exercises to help maintain good muscle tone and weight control. She goes to [facility] for her routine Pap and pelvic exam, has an appointment later this year. She already had a screening colonoscopy done by Dr. Ho with rated polyp removed, repeat colonoscopy due in 3 years. declined to get COVID vaccine or flu shot, patient states that she had a Tdap when she was with her son 14 years ago at [facility] (2) Mixed anxiety and depressive disorder: Code(s): F41.8 - Other specified anxiety disorders Category: Medical Plan: Currently being seen at [facility], does not want to start medication at present time (3) Encounter for counseling regarding advance directives: Code(s): Z71.89 - Other specified counseling Plan: Initiated the conversation about Advanced Directives. Advanced Directives help patients prepare for current and future decisions about their medical treatment and place of care. Discussed with patient that it is a process where a patients current condition and prognosis are reviewed, their wishes for information regarding their illness are elicited, and likely medical dilemmas are presented and options discussed. Healthcare proxy form completed today The form can be amended as needed, reviewed yearly and make changes as needed (4) Obesity: Code(s): E66.9 - Obesity, unspecified Category: Medical Qualifiers: Obesity type: due to excess calories Obesity classification: adult class 1 (BMI 30 - 34.9) Serious obesity comorbidity presence: without serious comorbidity Body mass index: BMI 32.0-32.9 Qualified Code(s): E66.811 - Obesity, class 1; E66.09 - Other obesity due to excess calories; Z68.32 - Body mass index [BMI] 32.0-32.9, adult Plan: Discussed need to increase activity and wt reduction. Recommended focusing on improving your health instead of dieting. : Eat Mediterranean diet, limit foods high in fat, sugar, and calories, eat slowly, pay attention to portion sizes, plan your meals ahead of time, start regular physical activity 150 minutes of moderate intensity exercise or 90 minutes/week of vigorous exercise and increase water intake. (5) Refused influenza vaccine: Code(s): Z28.21 - Immunization not carried out because of patient refusal Category: Medical Plan: declined flu shot (6) COVID-19 vaccination declined: Code(s): Z28.21 - Immunization not carried out because of patient refusal Category: Medical Plan: declined covid vaccine Orders: Orders LDL Cholesterol Direct 04/12/24 E66.9 - Obesity, unspecified, F41.8 - Other specified anxiety disorders, Z00.01 - Encounter for general adult medical examination with abnormal findings, Z13.1 - Encounter for screening for diabetes mellitus, Z13.220 - Encounter for screening for lipoid disorders Basic Metabolic Panel Fasting 04/12/24 E66.9 - Obesity, unspecified, F41.8 - Other specified anxiety disorders, Z00.01 - Encounter for general adult medical examination with abnormal findings, Z13.1 - Encounter for screening for diabetes mellitus, Z13.220 - Encounter for screening for lipoid disorders Complete Blood Count Auto Diff 04/12/24 E66.9 - Obesity, unspecified, F41.8 - Other specified anxiety disorders, Z00.01 - Encounter for general adult medical examination with abnormal findings, Z13.1 - Encounter for screening for diabetes mellitus, Z13.220 - Encounter for screening for lipoid disorders Vitamin D 25-OH Total 04/12/24 E66.9 - Obesity, unspecified, F41.8 - Other specified anxiety disorders, Z00.01 - Encounter for general adult medical examination with abnormal findings, Z13.1 - Encounter for screening for diabetes mellitus, Z13.220 - Encounter for screening for lipoid disorders
== END 2024-04-12 09:53 | disposition home or self-care (01) ==
PROVIDERS: PCP Internal Medicine; Visit Provider Internal Medicine
DX: Z00.01 Encounter for general adult medical examination with abnormal findings (principal); F41.8 Other specified anxiety disorders; Z71.89 Other specified counseling; E66.811 Obesity, class 1; E66.09 Other obesity due to excess calories; Z68.32 Body mass index [BMI] 32.0-32.9, adult; Z28.21 Immunization not carried out because of patient refusal; Z00.00 Encounter for general adult medical examination without abnormal findings

== ENCOUNTER → 2024-04-12 08:43 | Outpatient (BNVA) | payer BC, SELFPAY | PROVIDERS: PCP Internal Medicine; Visit Provider Internal Medicine ==

== ENCOUNTER 2024-04-12 09:56 | Outpatient (REF) | payer BC, SELFPAY ==
[2024-04-12 13:17] LABS: MANUAL DIFF FLAG NO
[2024-04-12 13:28] LABS: Basophils Percent Auto 0.4 % (0-2); Eosinophils Absolute Auto 0.1 X10*3/uL (0.0-0.4); Eosinophils Percent Auto 1.1 % (0-4); Hematocrit 38.7 % (37.0-47.0); Hemoglobin 12.7 g/dl (12.0-16.0); Imm Gran Abs Auto 0.03 X10*3/uL (0.00-0.03); Imm Gran Pct Auto 0.4 % (0.0-0.4); Lymphocytes Absolute Auto 2.2 X10*3/uL (1.2-4.9); Lymphocytes Percent Auto 26.1 % (20-40); Mean Corpuscular HGB Conc 32.8 g/dl (31.0-35.0); Mean Corpuscular Hemoglobin 28.7 pg (27.0-33.0); Mean Corpuscular Volume 87.6 fL (80.0-98.0); Mean Platelet Volume 10.1 fL (9.4-12.3); Monocytes Absolute Auto 0.5 X10*3/uL (0.1-1.2); Monocytes Percent Auto 5.5 % (2-11); Neutrophils Absolute Auto 5.5 x10*3/uL (2.0-8.3); Neutrophils Percent Auto 66.5 % (45-73); Platelet Count 294 X10*3/uL (160-400); Red Blood Count 4.42 X10*6/uL (4.20-5.50); Red Cell Distribution Width 13.2 % (11.0-16.0); White Blood Count 8.2 X10*3/uL (4.8-10.8)
[2024-04-12 13:41] LABS: Anion Gap 11 (12-20); Blood Urea Nitrogen 11 mg/dL (9-16); Calcium 10.3 mg/dL (8.4-10.2); Carbon Dioxide 28 mmol/L (22-29); Chloride 105 mmol/L (96-108); Estimated Glomerular Filt Rate > 60; Glucose Fasting 99 mg/dL (60-99); Potassium 4.4 mmol/L (3.3-5.1); Sodium 140 mmol/L (135-145)
[2024-04-12 13:59] LABS: Vitamin D 25-OH Total 25.5 ng/mL (>30)
[2024-04-13 11:42] LABS: LDL Cholesterol Direct 81 mg/dL (<100)
== END 2024-04-12 09:57 | disposition home or self-care (01) ==
LOC: HO.HMGCLDS 09:56
PROVIDERS: PCP Internal Medicine; Visit Provider Internal Medicine
DX: Z00.01 Encounter for general adult medical examination with abnormal findings (principal); F41.8 Other specified anxiety disorders; Z13.220 Encounter for screening for lipoid disorders; Z13.1 Encounter for screening for diabetes mellitus; E66.9 Obesity, unspecified
CPT/HCPCS: 36415; 80048; 82306; 83721; 85025

== ENCOUNTER 2024-04-22 09:39 | Outpatient (AMB) | payer BC, SELFPAY ==
--- NOTE | 2024-04-22 09:42 | MHC.OFFVIS ---
Vital Signs 04/22/24 09:48 Height 5 ft 2 in Weight 177 lb BMI 32.4 BP 120/59 L Blood Pressure Location Lt brachial Position Sitting Pulse 73 Intake Visit Reasons: Rt breast pain and lump Intake Note: Patient is seen in office for evaluation of a right breast lump, post breast and nipple fistula. Pt c/o: has a lump in the right breast near the axilla, area is sore and tender, thinks could be scar tissue mm: DUE 12/2023 surgery:07/28/23 Engineering Designer Required: No Clean Out Driller: Clean Out Driller Present Accompanied by: Self / Same As Patient Allergies clindamycin [CLINDAMYCIN] Allergy (Intermediate, Verified 04/22/24 09:49) HIVES/SWELLING buspirone [From BuSpar] Allergy (Verified 04/22/24 09:49) Blurry Vision fentanyl [FENTANYL] Adverse Reaction (Severe, Verified 04/22/24 09:49) SEVERE N/V (POST EGD W/CS) escitalopram [From Lexapro] Adverse Reaction (Verified 04/22/24 09:49) Vomiting lorazepam Adverse Reaction (Verified 04/22/24 09:49) Vomiting Medication List - Last Reconciled 04/22/24 by José Antonio Hull MD biotin 5,000 mcg PO DAILY ferrous fumarate (Ferrocite) 324 mg PO DAILY levonorgestrel (Mirena) 1 device intrauterine ONCE omeprazole 20 mg PO DAILY HPI Comments Details: 33-year-old female patient returning complaints of right breast pain and a palpable lump, status post right nipple fistula excision performed on 07/28/2023, as well as 03/28/2023 and 02/05/2023. These were previously associated with nipple piercings. Her most recent mammogram was performed on 01/17/2023 revealed no mammographic evidence of malignancy and ultrasound of the right breast was negative as well (BI-RADS 1). She reports the discharge started a proximally 3 weeks ago and was associated with some pressure in the nipple. She reports having discomfort when wearing a regular bra right at the tip of the nipple. The discharge is yellowish in color and comes from both the side and tip of the nipple. [facility] Medical History History of adenomatous polyp of colon COVID-19 vaccination declined Refused influenza vaccine Obesity Hypertriglyceridemia Anemia Mixed anxiety and depressive disorder H/O herpes simplex infection H/O nipple discharge Breast pain, right Cyst of left nipple Knee pain, right anterior Hiatal hernia Chronic heartburn Lumbago with sciatica, right side Tonsillar abscess Surgical History History of lumpectomy of right breast (07/28/23) Hx of breast surgery History of esophagogastroduodenoscopy (EGD) History of excision of mass (06/07/19) History of section (06/19/09) Family History Maternal Aunt Breast cancer, Onset Age: 40 Father Myocardial infarction Maternal Grandmother Pancreas cancer Paternal Grandfather Lung cancer Bladder cancer Social History Housing: Apartment Alcohol intake: current Alcohol intake frequency: 0-2 drinks per day Comment: counts correct Patient Tobacco Use Status: Former Tobacco user Cigarette Packs Per Day: 1 Cigarettes Per Day: 20.0 e-Cigarette/Vaping Use: Never Used Second Hand Smoke Exposure: No Current occupational status: unemployed Sexual orientation: Straight/Heterosexual Gender identity: Female Cognitive needs: No Hearing needs: No Vision needs: No Female Reproductive History Menstrual Age of Menarche: 10 Review of Systems Const All systems reviewed & are unremarkable except as noted in HPI and below Physical Exam Const General: no acute distress Nutritional Appearance: well nourished Orientation/consciousness: patient oriented x3 Chest Other: Right breast with well-healed incisions around the nipple-areolar complex. Area of scar tissue was noted below the areola consistent with a prior surgery. No discharge could be expressed with pressure although the patient was experiencing some discomfort. No erythema was noted in the overlying skin. No other suspicious findings identified. Skin Other: Warm, dry, no rash Neuro General: patient oriented x3 Extrem Other: No upper extremity edema. 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 She also has increased discomfort. I recommended a follow-up mammogram, diagnostic with ultrasound to better evaluate this location. She will return following the study to review the results and discuss treatment options. She expressed understanding and agrees with the plan. Orders: Orders MM diagnostic mammo BI Today N64.3 - Galactorrhea not associated with childbirth, Z80.3 - Family history of malignant neoplasm of breast, Z91.89 - Other specified personal risk factors, not elsewhere classified US breast RT limited Today N64.3 - Galactorrhea not associated with childbirth, Z80.3 - Family history of malignant neoplasm of breast, Z91.89 - Other specified personal risk factors, not elsewhere classified Coding Level of Care Code Est Pt Level 3 (24601) Diagnoses Galactorrhea N64.3 At high risk for breast cancer Z91.89 Family history of breast cancer Z80.3
[2024-04-22 09:48] VITALS: BP 120/59; PULSE 73; BMI 32.4
== END 2024-04-22 10:00 | disposition home or self-care (01) ==
LOC: HO.HGS 09:40
PROVIDERS: PCP Internal Medicine; Referring Provider Internal Medicine; Visit Provider Surgery
DX: N64.3 Galactorrhea not associated with childbirth (principal); Z91.89 Other specified personal risk factors, not elsewhere classified; Z80.3 Family history of malignant neoplasm of breast
CPT/HCPCS: 99213

== ENCOUNTER → 2024-04-22 09:39 | Outpatient (BNVA) | payer BC, SELFPAY | PROVIDERS: PCP Internal Medicine; Referring Provider Internal Medicine; Visit Provider Surgery ==

== ENCOUNTER 2024-04-29 09:57 | Outpatient (REF) | payer BC, SELFPAY ==
--- NOTE | ~2024-04-29 | MM_ITS ---
EXAMINATION: MM DIAGNOSTIC DIGITAL BREAST TOMOSYNTHESIS, BILATERAL CLINICAL INFORMATION: Right breast pain and milky white nipple discharge. Patient has had previous excision right retroareolar region ductal tissue. COMPARISON: Mammography: Comparison is made with relevant prior exams. TECHNIQUE: Digital breast mammography with tomosynthesis is performed in both the craniocaudal and mediolateral oblique views along with computer-aided detection (CAD). Limited right breast ultrasound. FINDINGS: The breasts are heterogeneously dense, which may obscure small masses (ACR BI-RADS breast composition Category c). Left: There are no significant masses, abnormal calcifications, or other abnormalities. Right: Triangular marker denoting site of pain in the retroareolar region without underlying abnormality. Postsurgical changes are stable. No suspicious masses, calcifications or other abnormal findings. Targeted color Doppler ultrasound scanning in the retroareolar region at site of patient's pain and nipple discharge demonstrates normal fibroglandular breast tissue and a few ectatic ducts. Results are discussed with the patient at time of visit. MM/MM tomosynthesis diagnostic BI IMPRESSION: No mammographic or sonographic abnormality in the retroareolar region of the right breast to explain site of patient's pain and milky discharge. Recommend clinical evaluation and follow-up. If clinical concern persists or if patient at high risk a breast MRI could be considered for further evaluation. ASSESSMENT: BI-RADS BI-RADS 1 - Negative RECOMMENDATION: 1 year F/U (accession [id number]), Mammo at 40 or earlier if clinically needed (accession [id number]) This patient's information was entered into a reminder system with a target due date for their next mammogram. Electronically signed by: Ann Barrett DO 04/29/2024 11:45 AM [facility]
--- NOTE | ~2024-04-29 | US_ITS ---
EXAMINATION: MM DIAGNOSTIC DIGITAL BREAST TOMOSYNTHESIS, BILATERAL CLINICAL INFORMATION: Right breast pain and milky white nipple discharge. Patient has had previous excision right retroareolar region ductal tissue. COMPARISON: Mammography: Comparison is made with relevant prior exams. TECHNIQUE: Digital breast mammography with tomosynthesis is performed in both the craniocaudal and mediolateral oblique views along with computer-aided detection (CAD). Limited right breast ultrasound. FINDINGS: The breasts are heterogeneously dense, which may obscure small masses (ACR BI-RADS breast composition Category c). Left: There are no significant masses, abnormal calcifications, or other abnormalities. Right: Triangular marker denoting site of pain in the retroareolar region without underlying abnormality. Postsurgical changes are stable. No suspicious masses, calcifications or other abnormal findings. Targeted color Doppler ultrasound scanning in the retroareolar region at site of patient's pain and nipple discharge demonstrates normal fibroglandular breast tissue and a few ectatic ducts. Results are discussed with the patient at time of visit. US/US breast RT limited mamm only IMPRESSION: No mammographic or sonographic abnormality in the retroareolar region of the right breast to explain site of patient's pain and milky discharge. Recommend clinical evaluation and follow-up. If clinical concern persists or if patient at high risk a breast MRI could be considered for further evaluation. ASSESSMENT: BI-RADS BI-RADS 1 - Negative RECOMMENDATION: 1 year F/U (accession [id number]), Mammo at 40 or earlier if clinically needed (accession [id number]) This patient's information was entered into a reminder system with a target due date for their next mammogram. Electronically signed by: Ann Barrett DO 04/29/2024 11:45 AM [facility]
== END 2024-04-29 09:58 | disposition home or self-care (01) ==
LOC: HO.MAMMO 09:57
PROVIDERS: PCP Internal Medicine; Visit Provider Surgery
DX: N64.3 Galactorrhea not associated with childbirth (principal); Z80.3 Family history of malignant neoplasm of breast; Z91.89 Other specified personal risk factors, not elsewhere classified
CPT/HCPCS: 76642; 77062; 77066

== ENCOUNTER → 2024-04-29 10:15 | Outpatient (BNV) | payer BC, SELFPAY | PROVIDERS: PCP Internal Medicine; Visit Provider Internal Medicine | DX: N64.4 Mastodynia (principal); N64.52 Nipple discharge | CPT/HCPCS: 76642; 77062; 77066 ==

== ENCOUNTER 2024-05-11 08:33 | Outpatient (AMB) | payer BC, SELFPAY ==
[2024-05-11 09:10] VITALS: BP 133/62; PULSE 60; BMI 32.0
--- NOTE | 2024-05-11 09:10 | MHC.OFFVIS ---
Vital Signs 05/11/24 09:10 Height 5 ft 2 in Weight 175 lb 2 oz BMI 32.0 BP 133/62 Blood Pressure Location Lt brachial Position Sitting Pulse 60 Intake Visit Reasons: mm and u/s results, following nipple discharge Intake Note: Patient is seen in office for mm & u/s results, following right nipple pain and discharge. Pt c/o: minimal discharge mm/us: 04/29/24 Regulator Operator Required: No Crusher Loader Operator: Crusher Loader Operator Present Accompanied by: Self / Same As Patient Allergies clindamycin [CLINDAMYCIN] Allergy (Intermediate, Verified 05/11/24 09:22) HIVES/SWELLING buspirone [From BuSpar] Allergy (Verified 05/11/24 09:22) Blurry Vision fentanyl [FENTANYL] Adverse Reaction (Severe, Verified 05/11/24 09:22) SEVERE N/V (POST EGD W/CS) escitalopram [From Lexapro] Adverse Reaction (Verified 05/11/24 09:22) Vomiting lorazepam Adverse Reaction (Verified 05/11/24 09:22) Vomiting Medication List - Last Reconciled 05/11/24 by José Antonio Hull MD biotin 5,000 mcg PO DAILY ferrous fumarate (Ferrocite) 324 mg PO DAILY levonorgestrel (Mirena) 1 device intrauterine ONCE omeprazole 20 mg PO DAILY HPI Comments Details: 33-year-old female patient returning complaints of right breast pain and a palpable lump, status post right nipple fistula excision performed on 07/28/2023, as well as 03/28/2023 and 02/05/2023. These were previously associated with nipple piercings. Her most recent mammogram was performed on 01/17/2023 revealed no mammographic evidence of malignancy and ultrasound of the right breast was negative as well (BI-RADS 1). She reports the discharge started approximately 5 weeks ago and was associated with some pressure in the nipple. She reports having discomfort when wearing a regular bra right at the tip of the nipple. The discharge is yellowish in color and comes from both the side and tip of the nipple. She underwent evaluation with mammogram which revealed no mammographic or sonographic abnormality in the retroareolar region of the right breast explain the patient's pain and milky discharge. She presents today to discuss possible re-excision of this leaking duct. [facility] Medical History History of adenomatous polyp of colon COVID-19 vaccination declined Refused influenza vaccine Obesity Hypertriglyceridemia Anemia Mixed anxiety and depressive disorder H/O herpes simplex infection H/O nipple discharge Breast pain, right Cyst of left nipple Knee pain, right anterior Hiatal hernia Chronic heartburn Lumbago with sciatica, right side Tonsillar abscess Surgical History History of lumpectomy of right breast (07/28/23) Hx of breast surgery History of esophagogastroduodenoscopy (EGD) History of excision of mass (06/07/19) History of section (06/19/09) Family History Maternal Aunt Breast cancer, Onset Age: 40 Father Myocardial infarction Maternal Grandmother Pancreas cancer Paternal Grandfather Lung cancer Bladder cancer Social History Housing: Apartment Alcohol intake: current Alcohol intake frequency: 0-2 drinks per day Comment: counts correct Patient Tobacco Use Status: Former Tobacco user Cigarette Packs Per Day: 1 Cigarettes Per Day: 20.0 e-Cigarette/Vaping Use: Never Used Second Hand Smoke Exposure: No Current occupational status: unemployed Sexual orientation: Straight/Heterosexual Gender identity: Female Cognitive needs: No Hearing needs: No Vision needs: No Female Reproductive History Menstrual Age of Menarche: 10 Review of Systems Const All systems reviewed & are unremarkable except as noted in HPI and below Physical Exam Vital Signs: Last Vital Signs Pulse 60 05/11/24 09:10 BP 133/62 05/11/24 09:10 BMI result Body Mass Index 32.0 Const General: no acute distress Nutritional Appearance: well nourished Orientation/consciousness: patient oriented x3 Chest Other: Right breast with well-healed incisions around the nipple-areolar complex. Area of scar tissue was noted below the areola consistent with a prior surgery. No discharge could be expressed with pressure although the patient was experiencing some discomfort. No erythema was noted in the overlying skin. No other suspicious findings identified. Chest/axillae images: 1. Site of discharge in the inferior outer quadrant Skin Other: Warm, dry, no rash Neuro General: patient oriented x3 Extrem Other: No upper extremity edema. Assessment & Plan Assessment & Plan (1) Galactorrhea: Code(s): N64.3 - Galactorrhea not associated with childbirth Category: Medical Plan 33-year-old female patient with persistent galactorrhea in the right nipple with associated pain. Workup with mammogram and ultrasound were negative however patient continues to have symptoms. She has requested re-excision of this symptomatic duct and after discussion of the procedure, risks and alternatives, consents to a right breast duct excision as a short-stay surgery. Coding Level of Care Code Est Pt Level 4 (45298) Diagnoses Galactorrhea N64.3
== END 2024-05-11 09:28 | disposition home or self-care (01) ==
PROVIDERS: PCP Internal Medicine; Visit Provider Surgery
DX: N64.3 Galactorrhea not associated with childbirth (principal)
CPT/HCPCS: 99214

== ENCOUNTER → 2024-05-11 08:33 | Outpatient (BNVA) | payer BC, SELFPAY | PROVIDERS: PCP Internal Medicine; Visit Provider Surgery ==

== ENCOUNTER 2024-05-11 09:51 | Outpatient (AMB) | payer BC, SELFPAY ==
--- NOTE | 2024-05-11 10:11 | MHC.OFFWIV ---
Intake Vital Signs 05/11/24 10:13 Height 5 ft 2 in Weight 175 lb 8 oz BMI 32.1 BP 110/74 Blood Pressure Location Rt brachial Position Sitting Pulse 73 Pulse Source Pulse Oximeter Temp 98.2 F Temp Source Oral Pulse Oximetry (%) 98 Oxygen Delivery Method Room Air Intake Visit Reasons: EP-covid testing Intake Note: Patient here for head congestion, diarrhea, dry throat. 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 Patient Tobacco Use Status: Former Tobacco user Allergies clindamycin [CLINDAMYCIN] Allergy (Intermediate, Verified 05/11/24 10:14) HIVES/SWELLING buspirone [From BuSpar] Allergy (Verified 05/11/24 10:14) Blurry Vision fentanyl [FENTANYL] Adverse Reaction (Severe, Verified 05/11/24 10:14) SEVERE N/V (POST EGD W/CS) escitalopram [From Lexapro] Adverse Reaction (Verified 05/11/24 10:14) Vomiting lorazepam Adverse Reaction (Verified 05/11/24 10:14) Vomiting Do you need a note to return to daycare/school/sports/work: Yes HPI HPI Comments History of Present Illness Details This is a 33-year-old female with no stated past medical history presenting for evaluation of upper respiratory symptoms she has had for the past 3 days. Patient reports sinus congestion, sneezing, chest congestion and diarrhea. Patient denies having any fevers but has had occasional chills. 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 Patient has not received any immunizations for COVID-19 to date. She denies having any otalgia, sore throat, shortness for breath, chest pain or abdominal pain. She has not taken any medication for treatment of her symptoms. Her employer is requesting testing for respiratory illnesses. [facility] Medical History History of adenomatous polyp of colon COVID-19 vaccination declined Refused influenza vaccine Obesity Hypertriglyceridemia Anemia Mixed anxiety and depressive disorder H/O herpes simplex infection H/O nipple discharge Breast pain, right Cyst of left nipple Knee pain, right anterior Hiatal hernia Chronic heartburn Lumbago with sciatica, right side Tonsillar abscess Surgical History History of lumpectomy of right breast (07/28/23) Hx of breast surgery History of esophagogastroduodenoscopy (EGD) History of excision of mass (06/07/19) History of section (06/19/09) Family History Maternal Aunt Breast cancer, Onset Age: 40 Father Myocardial infarction Maternal Grandmother Pancreas cancer Paternal Grandfather Lung cancer Bladder cancer Social History Housing: Apartment Alcohol intake: current Alcohol intake frequency: 0-2 drinks per day Comment: counts correct Patient Tobacco Use Status: Former Tobacco user Cigarette Packs Per Day: 1 Cigarettes Per Day: 20.0 e-Cigarette/Vaping Use: Never Used Second Hand Smoke Exposure: No Current occupational status: unemployed Sexual orientation: Straight/Heterosexual Gender identity: Female Cognitive needs: No Hearing needs: No Vision needs: No Female Reproductive History Menstrual Age of Menarche: 10 Review of Systems Const All systems reviewed & are unremarkable except as noted in HPI and below Reports chills, Denies fatigue and Denies fever(s) Eyes Reports no additional complaints ENT Reports no additional complaints, Reports nasal congestion and Denies sore throat Card Reports no additional complaints and Denies dyspnea Resp Reports cough, Denies pain with cough, Denies dyspnea, Denies stridor and Denies wheezing GI Reports no additional complaints, Denies abdominal pain, Denies constipation, Reports diarrhea, Denies nausea and Denies vomiting Reports no additional complaints Musc Reports no additional complaints Neuro Reports no additional complaints Psych Reports no additional complaints Endo Denies fatigue Aller/Immun Denies wheezing Physical Exam The patient is afebrile. Const General: cooperative, healthy appearing, comfortable and no acute distress Orientation/consciousness: patient oriented x3 Limitations: no limitations HEENT Head: Yes normal to inspection and Yes normocephalic Ears: hearing grossly normal bilaterally, external ears normal, TM's normal bilaterally and EAC's normal General nose exam: Normal external nose present Face and sinus: Yes normal facial exam Mouth: Normal oral and palatal mucosa present and moist mucous membranes Throat: Yes posterior oropharynx normal Eyes General: appearance normal, both eyes and all related structures Neck Lymphatic: no lymphadenopathy noted Resp Effort & Inspection: normal respiratory effort, able to speak in complete sentences, no respiratory distress and not tachypneic Cardio Rate: regular rate Rhythm: regular rhythm Skin General skin exam: no rashes or lesions noted Neuro General: patient oriented x3 Psych Appearance: grossly normal Mental Status: mental status grossly normal Insight: Good insight present (Psych) Judgement: Good judgement present (Psych) Assessment & Plan Assessment & Plan (1) Acute upper respiratory infection: Code(s): J06.9 - Acute upper respiratory infection, unspecified Plan: SARS panel is ordered and pending. Plan Tylenol or ibuprofen for any discomfort, increase fluids daily, work note is provided. Orders: Orders SARS-CoV2/FLU/RSV Today J06.9 - Acute upper respiratory infection, unspecified Coding Level of Care Code Est Pt Level 3 (32700) Diagnoses Acute upper respiratory infection J06.9 Time Spent (min) 20
[2024-05-11 10:13] VITALS: BP 110/74; PULSE 73; TEMP 36.8; O2SAT 98; BMI 32.1
--- OUTSIDE RECORDS SUMMARY | 2024-05-14 13:27 | XMS_ITS ---
Author Organization [facility] Address [address] [place] [address] Care Team Providers Care Relay Adjuster Name Role Phone Samuel KAMARA, Eladia Primary Care Provider Dante Azul [phone] ALLERGIES Allergen (clinical drug ingredient) Drug/Non Drug Allergy documented on EMR Reaction Allergy Type Onset Date Status fentanyl Fentanyl Unknown Drug Allergy Active clindamycin Clindamycin Unknown Drug Allergy Act sanjiv buspirone Buspirone Unknown Drug Allergy Active cyclobenzaprine Cyclobenzaprine HCl Unknown Drug Allergy Active clindamycin Clindamycin HCl Unknown Drug Allergy Active REASON FOR VISIT Patient presents today for a possible gluten MEDICATIONS Medication SIG (Take, Route, Frequency, Duration) Notes Start Date End Date Status Dicyclomine HCl 10 MG take 1 or 2 capsul es Orally Take 1 or 2 15 to 30 minutes before a meal to see if that will decrease cramps and diarrhea that you get after eating. You can also take 1 or 2 every 6 hours as needed for cramps and diarrhea. Don't take more than 4 times over the course of a 24 hours for 30 day(s) 05/05/2024 Active Omeprazole 20 MG TAKE 1 CAPSULE BY [facility] EVERY DAY for 90 Active Vitamin D3 Active Iron (Ferrous Sulfate) 325 (65 Fe) MG 1 tablet Orally Three times a Week for 30 day(s) Active Biotin 10 MG 1 tablet Orally Once a day for 30 day(s) Active SOCIAL HISTORY Tobacco Use: Social History Observation [...] Never (0 point) Points 3 Interpretation Positive VITAL SIGNS BMI 31.46 kg/m2 05/05/2024 Blood pressure systolic 00 mm Hg 05/05/20 24 Blood pressure diastolic 00 mm Hg 024 Height 62 in 05/05/2024 Weight 172 lbs 05/05/2024 Encounters Encounter Location Date Provider Diagnosis [facility] [address] [place] [address] 05/05/2024 Dante Ho Gastroesophageal ref lux disease, esophagitis presence not specified K21.9 ; Barretts esophagus without dysplasia K22.70 ; Chronic diarrhea K52.9 and Serrated polyp of colon K63.5 ASSESSMENTS Encounter Date Diagnosis Assessment Notes Treatment Notes Treatment Clinical Notes 05/05/2024 Gastroesophageal reflux disease, esophagitis presence not specified (ICD-10 - K21.9) 05/05/2024 Barretts esophagus without dysplasia (ICD-10 - K22.70) Repeat upper endo in 09/202605/05/2024 Chronic diarrhea (ICD-10 - K52.9) Stay on Lactose-free diet I will send over a prescription for Dicyclomine as an antispasmodic to use before meals to try to decrease the loose stools 05/05/2024 Serrated polyp of colon (ICD-10 - K63.5) Repeat colonosocpy in 09/2026 PLAN OF TREATMENT Medication Medication Name Sig Start Date Stop Date Notes Dicyclomine HCl 10 MG take 1 or 2 capsul es Orally Take 1 or 2 15 to 30 minutes before a meal to see if that will decrease cramps and diarrhea that you get after eating. You can also take 1 or 2 every 6 hours as needed for cramps and diarrhea. Don't take more than 4 times over the course of a 24 hours for 30 day(s) 05/05/2024 Treatment Notes Assessment Notes Barretts esophagus without dysplasia Rep eat upper endo in 09/2026 Chronic diarrhea Stay on Lactose-free diet I will send over a prescription for Dicyclomine as an antispasmodic to use before meals to try to decrease the loose stools Serrated polyp of colon Repeat colonosoc py in 09/2026 Next Appt Details Follow Up: prn, Reason: Progress Notes * Examination Category Sub-Category Detail Notes General Examination GENERAL APPEARANCE: pleasant , well nourished, well developed, in no acute distress HEAD: EYES: sclera non-icteric EARS: NOSE: THROAT: NECK/THYROID: no cervical lymphade nopathy, neck supple HEART: S1, S2 normal CHEST: LUNGS: clear to auscultatio n bilaterally ABDOMEN: normal bowel sounds, no guarding or rigidity, no guarding or rigidity, no masses palpable, soft, nontender, nondistended NEUROLOGIC: alert and oriented SKIN: nonjaundiced, no spi jannie angiomata EXTREMITIES: no edema PERIPHERAL PULSES: BACK: BREASTS: MUSCULOSKELETAL: MALE GENITOURINARY: LYMPH NODES: RECTAL EXAM: FEMALE GENITOURINARY: ORAL CAVITY: mucosa moist
--- OUTSIDE RECORDS SUMMARY | 2024-05-14 13:27 | XMS_ITS ---
Author Organization [facility] Address [address] [place] [id number] Care Team Providers Care Payroll Supervisor Name Role Phone Samuel KAMARA, Eladia Primary Care Provider Dante Azul [facility] [phone] REASON FOR VISIT Dicyclomine Rx to [facility] in [place] MEDICATIONS Medication SIG (Take, Route, Fr equency, Duration) Notes Start Date End Date Status [...] 24 hours for 30 day(s) 05/05/2024 Active Encounters Encounter Location Date Provider Diagnosis [facility] [address] [address] 05/05/2024 Dante Ho Chronic diarrhea K52.9 ASSESSMENTS Encounter Date Diagnosis Assessment Notes Treatment Notes Treatment Clinical Notes 05/05/2024 Chronic diarrhea (ICD-10 - K52.9) PLAN OF TREATMENT Medication Medication Name Sig [...]
--- OUTSIDE RECORDS SUMMARY | 2024-05-14 13:28 | XMS_ITS ---
Author Organization [facility] Address [address] [place] [address] Care Team Providers Care Outside Sales Representative Insurance Name Role Phone Samuel KAMARA, Eladia Primary Care Provider Dante Azul [phone] REASON FOR VISIT gerd, edouard's, hiatal hernia Encounters Encounter Location Date Provider Diagnosis [facility] [address], [place] [id number] 03/19/2024 Dante Ho PLAN OF TREATMENT No Information
--- OUTSIDE RECORDS SUMMARY | 2024-05-14 13:28 | XMS_ITS | Patient Health Record ---
Author Organization [facility] Address [address] [place] [address] Care Team Providers Care Skin Tanner Name Role Phone Samuel KAMARA, Eladia Primary Care Provider Dante Azul [phone] ALLERGIES Allergen (clinical drug ingredient) Drug/Non Drug Allergy documented on EMR Reaction Allergy Type Onset Date Status fentanyl Fentanyl Unknown Drug Allergy Active clindamycin Clindamycin Unknown Drug Allergy Act sanjiv buspirone Buspirone Unknown Drug Allergy Active cyclobenzaprine Cyclobenzaprine HCl Unknown Drug Allergy Active clindamycin Clindamycin HCl Unknown Drug Allergy Active RESULTS Component Value Reference Range Notes Calprotectin, Fecal Reviewed date:09/29/2023 07:09:12 PM Interpretation: Performing Lab:[facility], [address] [place] [phone] Notes/Report: Calprotectin, Fecal 165 Reference Range: <50 [...] borderline values. THIS TEST WAS PERFORMED AT: [facility] [place] [address] [place] [address] MONTEZ AMBROSIO MD,PHD,ISMA GI PANEL Reviewed date:09/22/2023 06:31:35 PM Interpretation: Performing Lab:[facility], [address] [place] [phone] Notes/Report: Campylobacter Not Detected Not Detect. Plesiomonas [...] is performed by Multiplexed PCR, utilizing the Qapital Array. Complete Blood Count Auto Di ff Reviewed date:2023 07:04:05 PM Interpretation: Performing Lab:[facility], [address] [place] [phone] Notes/Report: White Blood Count 8.3 4.8-10.8 X10*3/uL [...] te Reviewed date:09/22/2023 06:32:28 PM Interpretation: Performing Lab:[address] [address] Notes/Report: Erythrocyte Sedimentation Rate 44 0-20 MM/HR Patients with polycythemia and many hemoglobin abnormalities may have depressed sed rates whereas patients with anemia may have elevated sed rates. Liver Panel Reviewed date:2023 07:01:51 PM Interpretation: Performing Lab:[address] [address] Notes/Report: Bilirubin Total 0.3 0.0-1.0 mg/dL Bilirubin Direct 0.2 0.0-0.5 mg/dL Aspartate Amino Transferase 19 5-31 U/L Alanine Aminotransferase 22 0-31 U/L Total Protein 8.6 6.5-8.0 g/dL Albumin Level 4.2 3.5-5.0 g/dL Alkaline Phosphatase 103 39-117 U/L Basic Metabolic Panel Reviewed date:2023 07:02:14 PM Interpretation: Performing Lab:[address] [address] Notes/Report: Sodium 141 135-145 mmol/L Potassium 3.5 3.3-5.1 mmol/L Chloride 109 96-108 mmol/L Carbon Dioxide 25 22-29 mmol/L Anion Gap 11 12-20 Blood Urea Nitrogen 6 9-16 mg/dL Creatinine 0.76 0.5-1.4 mg/dL Estimated Glomerular Filt Rate > 60 NOTE: For -Dominican individuals, multiply the result by 1.210. Chronic Kidney Disease: Estimated GFR < 60 mL/min/1.73m2 Severe Kidney Disease: Estimated GFR < 15 mL/min/1.73m2 Glucose Random 90 60-115 mg/dL Calcium 9.9 8.4-10.2 mg/dL C Reactive Protein Reviewed date:2023 07:02:22 PM Interpretation: Performing Lab:[facility], [address] [place] [phone] Notes/Report: C Reactive Protein 3.04 < or = 0.50 mg/dL Immunoglobulin A Reviewed date:09/24/2023 06:11:24 PM Interpretation: Performing Lab:[address] [address] Notes/Report: Immunoglobulin A 357 47-310 mg/dL THIS TEST WAS PERFORMED AT: [facility] [address] [address] CHUCKY MEJÍA MD Transglutaminase Ab IgG Reviewed date:09/24/2023 06:11:32 PM Interpretation: Performing Lab:[address] [address] Notes/Report: Transglutaminase Ab IgG <1.0 Value Interpretation ----- <15.0 Antibody not detected > or = 15.0 Antibody detected THIS TEST WAS PERFORMED AT: [facility] [address] [place] [phone] CHUCKY MEJÍA MD Transglutaminase IgA Reviewed date:09/24/2023 06:11:41 PM Interpretation: Performing Lab:[facility], [address] [place] [phone] Notes/Report: Transglutaminase IgA <1.0 Value Interpretation ----- <15.0 Antibody not detected > or = 15.0 Antibody detected THIS TEST WAS PERFORMED AT: [facility] [address] [place] [phone] CHUCKY MEJÍA MD Gliadin Ab Panel Reviewed date:09/24/2023 06:12:12 PM Interpretation: Performing Lab:[address] [address] Notes/Report: Gliadin Deamidated IgA Ab 1.5 Value Interpretation ----- <15.0 Antibody not detected > or = 15.0 Antibody detected Gliadin Deamidated IgG Ab 8.5 Value Interpretation ----- <15.0 Antibody not detected > or = 15.0 Antibody detected THIS TEST WAS PERFORMED AT: [facility] [address] [place] [phone] CHUCKY MEJÍA MD Endomysial IgA rflx Titer Reviewed date:09/24/2023 06:12:20 PM Interpretation: Performing Lab:[address] [phone] Notes/Report: Endomysial IgA Antibody Negative Negative THIS TEST WAS PERFORMED AT: [facility] [id number] [place] [phone] ARTEMIO SAHU MD,PHD Endomysial Titer TNP Leukocytes Stool Qualitative Reviewed date:09/22/2023 06:30:35 PM Interpretation: Performing Lab:[facility], [address] [place] [phone] Notes/Report: Leukocytes Stool Qualitative NEGATIVE NEGATIVE CDiff Gene PCR Reviewed date:09/22/2023 06:30:28 PM Interpretation: Performing Lab:[facility], [address] [place] [phone] Notes/Report: CDiff Gene PCR NEGATIVE Negative If C. difficile strongly suspected despite one negative test, a second test may be sent vs. empiric treatment for C. difficile infection. Ur Preg Test Reviewed date:09/24/2023 06:01:05 PM Interpretation: Performing Lab:[facility], [address] [place] [phone] Notes/Report: Urine NEGATIVE NEGATIVE This test was developed to detect early . False negative results may occur after the 5th - 7th week of when using this test method. If clinically indicated, consider a serum hCG. Pathology Reviewed date:10/04/2023 12:47:30 AM Interpretation: Performing Lab:[facility], [address] [place] [phone] Notes/Report: T4 Thyroxine Reviewed date:12/08/2023 11:45:41 PM Interpretation: Performing Lab:[facility], [address] [place] [phone] Notes/Report: T4 Thyroxine 9.1 4.5-12.0 ug/dL Basic Metabolic Panel Reviewed date:12/08/2023 11:45:21 PM Interpretation: Performing Lab:[facility], [address] [place] [phone] Notes/Report: Sodium 143 135-145 mmol/L Potassium 3.4 3.3-5.1 mmol/L Chloride 106 96-108 mmol/L Carbon Dioxide 28 22-29 mmol/L Anion Gap 12 12-20 Blood Urea Nitrogen 7 9-16 mg/dL Creatinine 0.72 0.5-1.4 mg/dL Estimated Glomerular Filt Rate > 60 NOTE: For -Dominican individuals, multiply the result by 1.210. Chronic Kidney Disease: Estimated GFR < 60 mL/min/1.73m2 Severe Kidney Disease: Estimated GFR < 15 mL/min/1.73m2 Glucose Random 88 60-115 mg/dL Calcium 9.8 8.4-10.2 mg/dL Thyroid Stimulating Hormone Reviewed date:12/08/2023 11:45:28 PM Interpretation: Performing Lab:[facility], [address] [place] [phone] Notes/Report: Thyroid Stimulating Hormone 1.16 0.32-4.0 uIU/mL TSH 3rd Generation ([facility]) CT abdomen pelvis w con Reviewed date:01/03/2024 05:30:54 PM Interpretation: Performing Lab: Notes/Report: [address] [address] [address] Scan Report Signed Patient: John Merida MR#: [id number] : 1990 Acct:[id number] Age/Sex: 33 / F ADM Date: 12/11/23 Loc: HO.CT Attending Dr: Dante Ho MD Ordering Physician: Dante Ho MD Date of Service: 12/11/23 Procedure(s): CT abdomen pelvis w IV con Accession Number(s): [id number] cc: Eladia Baker MD; Dante Ho MD [...] in OV> 12/29/23 1434 DD/ 1503 TD/TT: Packaging Operator: JAVIER Ferris Preg Test Reviewed date:01/08/2024 08:57:46 AM Interpretation: Performing Lab:[facility], [address] [place] [phone] Notes/Report: Urine NEGATIVE NEGATIVE This test was developed to detect early . False negative results may occur after the 5th - 7th week of when using this test method. If clinically indicated, consider a serum hCG. Pathology Reviewed date:01/13/2024 07:25:09 PM Interpretation: Performing Lab:[facility], [address] [place] [phone] Notes/Report: Pancreatic Elastase-1 Reviewed date:01/26/2024 11:51:01 PM Interpretation: Performing Lab:[facility], [address] [place] [phone] Notes/Report: Pancreatic Elastase-1 >500 Adult and Pediatric Reference Ranges for Pancreatic Elastase-1: Normal: >200 mcg/g Moderate Pancreatic Insufficiency: 100-200 mcg/g Severe Pancreatic Insufficiency: <100 mcg/g Elastase-1 (E-1) assay results are expressed in mcg/g, which represent mcg E1/g feces. It is not necessary to interrupt enzyme substitution therapy. THIS TEST WAS PERFORMED AT: [facility] [address] [place] [address] MONTEZ AMBROSIO MD,PHD,ISMA Fecal Fat Qualitative Reviewed date:01/26/2024 11:51:18 PM Interpretation: Performing Lab:[facility], [address] [place] [phone] Notes/Report: Fecal Fat Qualitative NORMAL NORMAL THIS TEST WAS PERFORMED AT: [facility] [id number] [place] [phone] MONTEZ AMBROSIO MD,PHD,ISMA Calprotectin, Fecal Reviewed date:01/26/2024 11:48:13 PM Interpretation: Performing Lab:[facility], [address] [place] [phone] Notes/Report: Calprotectin, Fecal 78 Reference Range: <50 Normal 50-120 Borderline >120 Elevated Calprotectin in Crohn's disease and ulcerative colitis can be five to several thousand times above the reference population (50 mcg/g or less). Levels are usually 50 mcg/g or less in healthy patients and with irritable bowel syndrome. Repeat testing in 4-6 weeks is suggested for borderline values. THIS TEST WAS PERFORMED AT: [facility] [address] [place] [address] MONTEZ AMBROSIO MD,PHD,ISMA Erythrocyte Sedimentation Ra te Reviewed date:01/15/2024 07:42:05 PM Interpretation: Performing Lab:[facility], [address] [place] [phone] Notes/Report: Erythrocyte Sedimentation Rate 39 0-20 MM/HR Patients with polycythemia and many hemoglobin abnormalities may have depressed sed rates whereas patients with anemia may have elevated sed rates. C Reactive Protein Reviewed date:01/15/2024 07:41:58 PM Interpretation: Performing Lab:[facility], [address] [place] [phone] Notes/Report: C Reactive Protein 1.58 < or = 0.50 mg/dL Chymotrypsin, Stool Reviewed date:02/26/2024 11:06:00 PM Interpretation: Performing Lab:[facility], [address] [place] [phone] Notes/Report: Chymotrypsin, Stool 5.3 2.3-51.4 U/g This test was developed and its analytical performance characteristics have been determined by [employer]. It has not been cleared or approved by FDA. This assay has been validated pursuant to the CLIA regulations and is used for clinical purposes. THIS TEST WAS PERFORMED AT: [facility] [address] [place] [address] MONTEZ AMBROSIO MD,PHD,ISMA SD gastric emptying study Reviewed date:02/26/2024 11:14:16 PM Interpretation: Performing Lab: Notes/Report: [address] [address] Nuclear Medicine Report Signed Patient: John Merida MR#: [id number] : 1990 Acct:[id number] Age/Sex: 33 / F ADM Date: 02/17/24 Loc: EVA Attending Dr: Dante Ho MD Ordering Physician: Dante Ho MD Date of Service: 02/17/24 Procedure(s): SD gastric emptying study Accession Number(s): [id number] cc: Eladia Baker MD; Dante Ho MD EXAMINATION: SD RADIONUCLIDE SOLID FOOD GASTRIC EMPTYING 4-HOUR STUDY CLINICAL INFORMATION: Early satiety. COMPARISON: None TECHNIQUE: A standard meal consisting of 4 oz of Egg Beaters brand tagged with 1000 microcuries Tc-99m Sulfur Colloid, 8 oz water and tiny piece of toast with jelly was administered orally to the patient. Images were obtained using a dual head gamma camera in the anterior and posterior projections over of the stomach immediately post ingestion and at hourly intervals up to 4 hours post ingestion. The anterior and posterior counts at each time interval were averaged using the geometric mean and expressed as percentage of the immediate post ingestion counts. FINDINGS: There is good visualization of activity in the stomach immediately post ingestion. As the study progresses, there is good clearance of activity from the stomach and visualization of progressively increasing small bowel activity. By the end of the study, there is almost no retention noted in the stomach. Retention in the stomach at each time interval was: 1 hour 85% (normal 37%-90%) 2 hours 31% (normal 30%-60%) 3 hours 2% 4 hours estimation was not performed since only 2% retention was noted at the 3 hours interval. NM/NM gastric emptying study IMPRESSION: Normal 4-hour solid food gastric emptying study. Slightly technically limited since patient did not eat the entire meal. For solid meal, rapid gastric emptying is less than 30% at 60 minutes. Delayed gastric emptying criteria is more than 60% remaining at 120 minutes or more than 10% at 240 minutes. The 4-hour value is the best discriminator of a normal or abnormal result). Gastric emptying study grading per JNMT Consensus Recommendations in 2008 (https://tech.snmjournals.org/content/36/44) Grade 1 (mild retention): 11-20% at 4h Grade 2 (moderate retention): 21-35% at 4h Grade 3 (severe retention): 36-50% at 4h Grade 4 (very severe retention): >50% retention at 4h Electronically signed by: Brunilda Chan MD 02/19/2024 03:11 PM EDT RP Dictated By: Brunilda Chan MD Signed By: <Electronically signed by Brunilda Chan MD in OV> 02/19/24 1511 DD/ 0825 TD/TT: 02/17/24 1200 Packaging Operator: SHARON SD upper GI w air w SBFT Reviewed date:05/05/2024 07:49:25 PM Interpretation: Performing Lab: Notes/Report: [address] [address] Fluoroscopy Report Draft Patient: John Merida MR#: [id number] : 1990 Acct:[id number] Age/Sex: 33 / F ADM Date: 02/20/24 Loc: SUZETTE Attending Dr: Dante Ho MD Ordering Physician: Dante Ho MD Date of Service: 02/20/24 Procedure(s): FL upper GI w air w SBFT Accession Number(s): [id number] cc: EXAMINATION: XR UPPER GI SERIES WITH SMALL BOWEL CLINICAL INFORMATION: Early satiety. Chronic diarrhea. COMPARISON: None TECHNIQUE: Fluoroscopic air contrast upper GI examination was performed utilizing standard techniques with thin and thick barium and effervescent granules. Numerous spot images were obtained. Films were then obtained every 30 minutes until contrast reached the right colon. A spot image of the cecum/terminal ileum was obtained. FINDINGS: Dual and single contrast images of the esophagus demonstrate normal caliber, contour, and mucosal pattern. Mild cricopharyngeal achalasia is present. No evidence of stricture, mass, or ulcerations identified. Esophageal peristalsis was normal. A small type I hiatal hernia is present. No significant gastroesophageal reflux was seen during the course of the examination and on reflux views. Dual contrast and single contrast images of the stomach demonstrated a normal contour. The gastric folds have a severely thickened appearance, suggestive of gastritis. No masses or ulcerations are seen. Contrast freely passed into the gastric antrum and duodenal bulb without delay. Single and air-contrast images of the duodenal bulb demonstrate no abnormality. The duodenal sweep has a normal appearance, course, and mucosal fold appearance. SMALL BOWEL SERIES: Band Straightener view demonstrates normal bowel gas pattern. No dilated loops. IUD present within the central inferior pelvis. Lung bases clear. No organomegaly or abnormal calcifications. The small bowel has a normal fold pattern and caliber. No strictures, masses, or dilated loops are present. Contrast is observed in the right colon after 60 minutes. The terminal ileum has a normal appearance. FLUOROSCOPY TIME: 3 minutes 55 seconds Number of Spot Images: 10 Number of Cine: 14 DOSE AREA PRODUCT: 2613 uGy-m2 (microgray-meter squared) FL/FL upper GI w air w SBFT IMPRESSION: 1. Mild cricopharyngeal achalasia. 2. Small type I hiatal hernia. 3. Severely thickened appearance of the gastric rugal folds, suggestive of gastritis. Recommend correlation with EGD. 4. Unremarkable small bowel series. Contrast is seen in the right colon after 60 minutes. This procedure was performed by Marcus Bergeron PA-C, and supervised by Dr. Morgan Electronically signed by: Daniel Morgan MD 02/20/2024 03:45 PM EDT Dictated By: Daniel Morgan MD Signed By: DD/ 0753 TD/TT: 02/20/24 1000 Packaging Operator: REASON FOR REFERRAL No Information MEDICATIONS Medication SIG (Take, Route, Frequency, Duration) Notes Start Date End Date Status Iron (Ferrous Sulfate) 325 (65 Fe) MG 1 tablet Orally Three times a Week for 30 day(s) Active Dicyclomine HCl 10 MG take 1 or [...] Omeprazole 20 MG TAKE 1 CAPSULE BY [facility] EVERY DAY for 90 Active Vitamin D3 Active Biotin 10 MG 1 tablet Orally Once a day for 30 day(s) Active IMMUNIZATIONS Vaccine Route Administration Date Status [...] esophagitis presence not specified (K21.9) Active confirmed 317903053 Problem Gastroesophageal reflux disease without esophagitis (K21.9) Active confirmed 324690038 Problem Barretts esophagus without dysplasia (K22.70) Active confirmed 565380154 Problem Hiatal hernia (K44.9) Active confirmed 22604762 Problem 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) Active confirmed 808926426 Problem 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) Active confirmed Goodson esophag us (975067113) Problem Polyp of stomach and duodenum (K31.7) Active confirmed Benign neoplasm of stomach (85941534) Problem Gastroesophageal reflux disease (K21.9) Active confirmed Gastroesophagea l reflux disease (815121714) Problem Chronic diarrhea (K52.9) Active confirmed Chronic diarrhe a (309551548) Problem Abnormal weight loss (R63.4) Active confirmed Abnormal weight loss (787511139) Problem Early satiety (R68.81) Active confirmed Early satiety (263659214) Problem Weight loss (R63.4) Active confirmed We ight loss (36923015) Problem Abdominal fullness (R19.8) Active confirmed Epigastric fullness (9751835) Problem Serrated polyp of colon (K63.5) Active confirmed Serrated polyp of colon (520118221) Problem Gastric polyps (K31.7) Active confirmed Benign neoplasm of stomach (68141710) Problem Gastro-esophageal reflux disease without esophagitis (K21.9) Active confirmed Gastro-esophage al reflux disease without esophagitis (982002956) VITAL SIGNS Blood pressure diastolic 00 mm Hg 05/05/2024 Height 62 in 05/05/2024 Blood pressure systolic 00 mm Hg 05/05/2024 Weight 172 lbs 05/05/2024 BMI 31.46 kg/m2 05/05/2024 Encounters Encounter Location Date Provider Diagnosis [facility] [address] [place] [id number] 09/24/2023 Dante Ho Colon polyps K63.5 ; Rectal polyp K62.1 ; Diarrhea R19.7 and Other hemorrhoids K64.8 [facility] [address] [place] [id number] 03/19/2024 Dante Ho [facility] [address] [place] [id number] 01/08/2024 Dante Ho Goodson esophagus K2 2.70 ; Hiatal hernia K44.9 ; Gastric polyps K31.7 ; Early satiety R68.81 ; Diarrhea R19.7 ; Gastro-esophageal reflux disease without esophagitis K21.9 and Weight loss R63.4 [facility] [address] [place] [phone] 2023 Dante Ho Chronic diarrhea K52 .9 [facility] [address] [place] [phone] 12/02/2023 Dante Ho Gastroesophageal ref lux disease, esophagitis presence not specified K21.9 ; Chronic diarrhea K52.9 ; Barretts esophagus without dysplasia K22.70 ; Hiatal hernia K44.9 ; Early satiety R68.81 ; Weight loss R63.4 ; Abdominal fullness R19.8 and Serrated polyp of colon K63.5 [facility] [address] [place] [phone] 05/05/2024 Dante Ho Gastroesophageal ref lux disease, esophagitis presence not specified K21.9 ; Barretts esophagus without dysplasia K22.70 ; Chronic diarrhea K52.9 and Serrated polyp of colon K63.5 [facility] [address] [place] [phone] 09/20/2023 Dante Ho [facility] [address] [place] [phone] 09/29/2023 Dante Ho [facility] [address] [place] [phone] 09/29/2023 Dante Ho [facility] [address] [place] [phone] 09/29/2023 Dante Ho Chronic diarrhea K52 .9 and Abnormal weight loss R63.4 [facility] [address] [place] [phone] 12/02/2023 Dante Ho Chronic diarrhea K52 .9 [facility] [address] [place] [phone] 12/05/2023 Dante Ho [facility] [address] [place] [phone] 12/30/2023 Dante Ho [facility] [address] [place] [phone] 12/31/2023 Dante Ho [facility] [address] [place] [phone] 01/07/2024 Dante Ho [facility] [address] [place] [phone] 01/11/2024 Dante Ho [facility] [address] [place] [address] 01/12/2024 Dante Ho Chronic diarrhea K52 .9 and Early satiety R68.81 [facility] [address] [place] [phone] 02/26/2024 Dante Ho [facility] [address] [place] [address] 05/05/2024 Dante Ho Chronic diarrhea K52 .9 ASSESSMENTS Encounter Date Diagnosis Assessment Notes Treatment Notes Treatment Clinical Notes 09/24/2023 Rectal polyp (ICD-10 - K62.1) 09/24/2023 Colon polyps (ICD-10 - K63.5) 01/08/2024 Hiatal hernia (ICD-1 0 - K44.9) 01/08/2024 Goodson esophagus (ICD-10 - K22.70) 2023 Chronic diarrhea (ICD-10 - K52.9) Use 1 or 2 Imodium every 4 to 6 hours as needed for diarrhea 12/02/2023 Gastroesophageal reflux disease, esophagitis presence not specified (ICD-10 - K21.9) 12/02/2023 Chronic diarrhea (ICD-10 - K52.9) Stop the Budesonide completely. I will send over a prescription for the diarrhea. 05/05/2024 Barretts esophagus without dysplasia (ICD-10 - K22.70) Repeat upper endo in 09/202605/05/2024 Gastroesophageal reflux disease, esophagitis presence not specified (ICD-10 - K21.9) 09/29/2023 Abnormal weight loss (ICD-10 - R63.4) 09/29/2023 Chronic diarrhea (ICD-10 - K52.9) 12/02/2023 Chronic diarrhea (ICD-10 - K52.9) 01/12/2024 Chronic diarrhea (ICD-10 - K52.9) 05/05/2024 Chronic diarrhea (ICD-10 - K52.9) 09/24/2023 Diarrhea (ICD-10 - R19.7) 01/08/2024 Gastric polyps (ICD- 10 - K31.7) 12/02/2023 Barretts esophagus without dysplasia (ICD-10 - K22.70) 05/05/2024 Chronic diarrhea (ICD-10 - K52.9) Stay on Lactose-free diet I will send over a prescription for Dicyclomine as an antispasmodic to use before meals to try to decrease the loose stools 09/24/2023 Other hemorrhoids (ICD-10 - K64.8) 01/08/2024 Early satiety (ICD-1 0 - R68.81) 12/02/2023 Hiatal hernia (ICD-1 0 - K44.9) 05/05/2024 Serrated polyp of colon (ICD-10 - K63.5) Repeat colonosocpy in 09/202601/12/2024 Early satiety (ICD-1 0 - R68.81) 01/08/2024 Diarrhea (ICD-10 - R19.7) 12/02/2023 Early satiety (ICD-1 0 - R68.81) 01/08/2024 Gastro-esophageal reflux disease without esophagitis (ICD-10 - K21.9) 12/02/2023 Weight loss (ICD-10 - R63.4) 01/08/2024 Weight loss (ICD-10 - R63.4) 12/02/2023 Abdominal fullness (ICD-10 - R19.8) 12/02/2023 Serrated polyp of colon (ICD-10 - K63.5) PLAN OF TREATMENT Pending Test Test Name Order Date CHEM 7 PROFILE 2023 CHEM 7 PROFILE 12/02/2023 LIVER PROFILE 2023 TSH (THYROID STIMULATING HORMONE) 2023 TSH (THYROID STIMULATING HORMONE) 2023 CRP 2023 CRP 01/12/2024 CBC w DIFF 2023 SED RATE (ESR) 2023 SED RATE (ESR) 01/12/2024 CELIAC PANEL #10 2023 TRYPSIN,STOOL 01/12/2024 CT ABD & PELVIS WITH CONTRAST 12/02/2023 CT ABD & PELVIS WITH CONTRAST 09/29/2023 NUC GASTRIC ANTRUM EMPTYING 01/12/2024 XR GI SMALL BOWEL SERIES 01/12/2024 STOOL WBC 2023 C DIFFICILE RFLX PCR 2023 T4 Thyroxine 09/29/2023 Future Test Test Name Order Date UPPER GI ENDOSCOPY 09/30/2017 UPPER GI ENDOSCOPY 12/13/2022 COLONOSCOPY 09/21/2023 Insurance Providers Payer Name Payer Address Payer Phone Subscriber Number Group Number Insured Name Patient Relationship to Insured Coverage Start Date Coverage End Date [facility] [address] [place], [place] [phone] [id number] JOHN MERIDA Self - patient is the insured MEDICAL (GENERAL) HISTORY Medical History History ICD Code Denies AK,DM,CVA,Lung disease,renal dise ase GERD/Goodson's--EGD 10/2017-- -small HH, tiny area of Goodson's but no dysplasia---no esophagitis EGD 02/2023 with a small to m oderate-sized hiatal hernia, small area of Goodson's esophagus with biopsies negative for dysplasia, and benign gastric polyps. Rapid heart rate for which s he was evaluated in the ER at [facility]. She had outpatient testing done, including [...] C-reactive protein of 44 and 3.0, respectively. Upper endoscopy in December revealed only hyperplastic gastric polyps, mild gastritis the H. pylori was negative, and duodenal biopsies that did not show any definitive evidence of celiac disease---the villi appeared normal and there was only some slight increase in the lymphocytes She had a normal small bowel series and a normal nuclear medicine gastric empty study in regard to her symptoms of early satiety and diarrhea Stool specimens were negativ e for any sign of exocrine pancreatic insufficiency in regard to her diarrhea as well Surgical History Surgery Date(Month/Year) Tonsillar abscesses Breast surgery x 3 on the ri t for issues with damage to the milk ducts after removal of piercings with Dr. Hull. Most recent surgery was in early July of 2023. Breast surgery x 1 on the left for the s mckenna issues as above
== END 2024-05-11 10:26 | disposition home or self-care (01) ==
PROVIDERS: PCP Internal Medicine; Visit Provider Physician Assistant
DX: J06.9 Acute upper respiratory infection, unspecified (principal)

== ENCOUNTER 2024-05-11 15:23 | Outpatient (REF) | payer BC, SELFPAY ==
[2024-05-11 16:09] LABS: Influenza A PCR NEGATIVE (Negative); Influenza B PCR NEGATIVE (Negative); Resp Syncy Virus RNA Qual PCR NEGATIVE (Negative); SARS COV2 PCR INHOUSE NEGATIVE (Negative)
== END 2024-05-11 15:24 | disposition home or self-care (01) ==
LOC: HO.LNP 15:23
PROVIDERS: Visit Provider Physician Assistant
DX: J06.9 Acute upper respiratory infection, unspecified (principal)
CPT/HCPCS: 0241U

== ENCOUNTER 2024-05-26 11:10 | Outpatient (REF) | payer BC, SELFPAY ==
[2024-05-29 21:14] LABS: TS Negative Control Passed; TS Panel A 0; TS Panel B 0; TS Positive Control Passed; TSpotTB Negative (Negative)
--- OUTSIDE RECORDS SUMMARY | 2024-06-01 18:01 | XMS_ITS ---
Author Name [facility] Organization Unknown Results Test Name/Text Value Interpretation Date Range Source LACTATE SERPL [facility] 1.3mmol/L Normal [id number] 0.5 - 2 [facility] CREAT SERPL [facility] 0.8mg/dL Normal [id number] 0.5 - 1 [facility] CALCIUM SERPL [facility] 8.9mg/dL Normal [id number] 8.4 - 10 .2 [facility] SODIUM SERPL [facility] 138mmol/L Normal [id number] 135 - 145 [facility] ANION GAP SERPL [facility] 10mmol/L Normal [id number] 5 - 14 [facility] Glomerular filtration rate/1.73 sq M. predicted 98 Normal [id number] 60 - CT [facility] HCO3 SER SCNC 28mmol/L Normal [id number] 24 - 32 [facility] GLUCOSE SERPL [facility] 106mg/dL Normal [id number] 70 - 199 [facility] BUN SERPL [facility] 8mg/dL Normal [id number] 7 - 17 [facility] CHLORIDE SERPL [facility] 101mmol/L Normal [id number] 98 - 10 7 [facility] POTASSIUM SERPL [facility] 3.1mmol/L Below low normal [id number] 3.5 - 5.1 [facility] CK SERPL [facility] 75U/L Normal [id number] 30 - 135 [facility] MAGNESIUM SERPL [facility] 1.5mg/dL Below low normal [id number] 1.7 - 2.8 [facility] PLATELET NO. BLD AUTO 286K/uL Normal [id number] 150 - 450 [facility] RBC NO. BLD AUTO 4.17M/uL Below low normal [id number] 4.2 - 5.4 [facility] NUCLEATED RBC 0% Normal [id number] 0 - 1 [facility] LYMPHOCYTES NO. BLD AUTO 1.8K/uL Normal [id number] 1 - 3.2 [facility] EOSINOPHIL NO. BLD AUTO 0.1K/uL Normal [id number] 0 - 0.5 [facility] MCH RBC QN AUTO 28.8pg Normal [id number] 25 - 33 [facility] MCHC RBC AUTO MCNC 33.7g/dL Normal [id number] 32 - 36 [facility] MONOCYTES NFR BLD AUTO 4.9% Normal [id number] 2 - 12 [facility] IMMATURE GRANULOCYTE, ABSOLUTE 0.03k/uL Normal [id number] - 0.1 [facility] LYMPHOCYTES NFR BLD AUTO 21.2% Normal [id number] 20 - 48 [facility] EOSINOPHIL NFR BLD AUTO 0.6% Normal [id number] 0 - 6 [facility] HGB BLD MCNC 12g/dL Below low normal [id number] 12.5 - 16 [facility] NEUTROPHILS NO. BLD AUTO 6.1K/uL Normal [id number] 1. 8 - 7.8 [facility] WBC NO. BLD AUTO 8.4K/uL Normal [id number] 4 - 10.5 [facility] BASOPHILS NFR BLD AUTO 0.4% Normal [id number] 0 - 2 [facility] MONOCYTES NO. BLD AUTO 0.4K/uL Normal [id number] 0 - 0.8 [facility] MCV RBC AUTO 85.4fL Normal [id number] 78 - 100 [facility] SMH NEUTROPHILS NFR BLD AUTO 72.5% Normal [id number] 44 - 74 [facility] IMMATURE GRANULOCYTE, PERCENT 0.4% Normal [id number] 0 - 1 [facility] BASOPHILS IN BLOOD BY AUTOMATED COUNT 0K/uL Normal [id number] 0 - 0.2 [facility] PMV BLD AUTO 9.9fL Normal [id number] 7.4 - 11.4 [facility] RDW RBC AUTO RTO 13% Normal [id number] 12.1 - 16. 2 [facility] HCT VFR BLD AUTO 35.6% Below low normal [id number] 37 - 47 [facility] History of Medication Use Medication Directions Dispensed Refills Start Date End Date Stat magnesium oxide tablet 400 mg 400 mg, Oral, 2 times daily, First dose on 01/10/24 at 1830 01/12/2024 active sodium chloride 0.9% bolus (NS) 1,000 mL 1,000 mL, Intravenous, at 1,000 mL/hr, Once, On 01/10/24 at 1715, For 1 dose 01/12/2024 completed Magnesium 400 MG CAPS Take 1 capsule by mouth daily for 5 days. 01/12/2024 active potassium chloride ER (K-DUR,KLOR-CON) tablet 20 mEq Take 1 tablet (20 mEq total) by mouth 2 (two) times a day for 4 days. 01/12/2024 active potassium chloride ER tablet 40 mEq 40 mEq, Oral, Once, On 01/10/24 at 1830, For 1 doseDo not crush or chew tablet.?To make a liquid dissolution from a tablet: ??1) Place the whole tablet(s) in approximately ? ? ? cup of water (4 fluid ounces). ??2) Allow approximately 2 minutes for the tablet(s) to disintegrate. ??3) Stir for about johnston 01/12/2024 completed Problems Problem Status Onset Date Problem Type Date of Resoluti on Source Hypokalemia active [facility]osis[facility] Hypomagnesemia active En[facility]DiagnosisAct [facility]
== END 2024-05-26 11:11 | disposition home or self-care (01) ==
LOC: HO.HMGCLDS 11:10
PROVIDERS: PCP Internal Medicine; Visit Provider Internal Medicine
DX: Z11.1 Encounter for screening for respiratory tuberculosis (principal)
CPT/HCPCS: 36415; 86481

== ENCOUNTER 2024-05-31 06:56 | Day surgery (SDC) | payer BC, SELFPAY ==
[2024-05-27 07:40] VITALS: BMI 32.0
[2024-05-31] VITALS (7 sets, daily range): BP systolic 98–123; BP diastolic 57–79; PULSE 60–94; RESP 16–18; TEMP 36.1–36.8; O2SAT 92–100
[2024-05-31 07:15] LABS: UPreg QC Valid YES; Urine Pregnancy NEGATIVE (NEGATIVE)
[2024-05-31] MEDS: Lactated Ringers 1,000 ML 100 ML IVCONT (07:16)
--- NOTE | 2024-05-31 08:05 | MHC.SHP ---
Pre-Procedural Eval Section A - 24 Hr Update-Section A only Date of Service: 05/31/24 The patient is an INPATIENT: No Changes since office visit: Yes Patient answered all questions; No Cold of Flu in the past 2 weeks, No New Medical Problems and No Changes in Medication The patient has been examined within 24 hours of the surgical procedure. The History & Physical has been completed within 30 days and I have reviewed it.: Yes Section B - Complete if H&P > 30 days Chief Complaint: Galactorrhea not associated with childbirth Allergies: Allergies Allergy/AdvReac Type Severity Reaction Status Date / Time clindamycin [CLINDAMYCIN] Allergy Intermediate HIVES/SWELL Verified 05/31/24 07:10 ING buspirone [From BuSpar] Allergy Blurry Verified 05/31/24 07:10 Vision fentanyl [FENTANYL] AdvReac Severe SEVERE N/V Verified 05/31/24 07:10 (POST EGD W/CS) escitalopram [From Lexapro] AdvReac Vomiting Verified 05/31/24 07:10 lorazepam AdvReac Vomiting Verified 05/31/24 07:10 Plan Diagnosis/Plan: Unchanged I have reviewed the history and physical and performed a pertinent physical examination on my patient. No changes have occurred unless specified. Time Spent With Patient Time: Total time managing care of this patient today ____ minutes.
--- NOTE | 2024-05-31 08:20 | HO.ANESPROP2 ---
Documented by User: Mavis Moss NP 05/28/24 09:39 HPI - Anesthesia Eval Consult details Narrative: 33yo F for Right Excision Breast Duct Severe N/V with Fentanyl PMFSH Active Problems Active Problems: All Active Problems Acute upper respiratory infection (Acute) Family history of breast cancer (Acute) At high risk for breast cancer (Acute) History of adenomatous polyp of colon (Acute) COVID-19 vaccination declined (Acute) Refused influenza vaccine (Acute) Obesity (Acute) Mixed anxiety and depressive disorder (Acute) Mastitis, acute (Acute) Past Medical History Medical History Presence of Mirena IUD Acute upper respiratory infection History of adenomatous polyp of colon COVID-19 vaccination declined Refused influenza vaccine Obesity Hypertriglyceridemia Anemia Mixed anxiety and depressive disorder H/O herpes simplex infection H/O nipple discharge Breast pain, right Cyst of left nipple Knee pain, right anterior Hiatal hernia Chronic heartburn Lumbago with sciatica, right side Tonsillar abscess Family History Family History Maternal Aunt Breast cancer, Onset Age: 40 Father Myocardial infarction Maternal Grandmother Pancreas cancer Paternal Grandfather Lung cancer Bladder cancer Family history of problems with anesthesia: No Surgical History Surgical History History of lumpectomy of right breast (07/28/23) Hx of breast surgery History of esophagogastroduodenoscopy (EGD) History of excision of mass (06/07/19) History of section (06/19/09) History of Problems with Anesthesia: Yes Social History Social History Household Members Other:: duplex Housing: Apartment Are you a primary complex care nurse to a significant other at home: No Do you presently have visiting nurse or other home services: No Alcohol intake: current Alcohol intake frequency: 0-2 drinks per day Comment: counts correct Patient Tobacco Use Status: Former Tobacco user Cigarette Packs Per Day: 1 Cigarettes Per Day: 20.0 e-Cigarette/Vaping Use: Never Used Second Hand Smoke Exposure: No Have you been hit, kicked, punched, or otherwise hurt by someone within the past year? If so, by whom?: No Are you DNR?: No Advance Directives: No Advance Directives Information Provided: Yes Recently lost weight without trying: No Nutrition Risks: No Nutritional Risk FDLMP: 14 years Current occupational status: unemployed Sexual orientation: Straight/Heterosexual Gender identity: Female Cognitive needs: No Hearing needs: No Vision needs: No Meds Allergies Allergy/AdvReac Type Severity Reaction Status Date / Time clindamycin [CLINDAMYCIN] Allergy Intermediate HIVES/SWELL Verified 05/31/24 07:10 ING buspirone [From BuSpar] Allergy Blurry Verified 05/31/24 07:10 Vision fentanyl [FENTANYL] AdvReac Severe SEVERE N/V Verified 05/31/24 07:10 (POST EGD W/CS) escitalopram [From Lexapro] AdvReac Vomiting Verified 05/31/24 07:10 lorazepam AdvReac Vomiting Verified 05/31/24 07:10 Home Medications ?Medication ?Instructions ?Recorded ?Confirmed ?Last Taken ?Type omeprazole 20 mg capsule,delayed 20 mg PO DAILY 04/27/21 05/31/24 05/31/24 History release levonorgestrel 21 mcg/24 hr (up to 1 device intrauterine ONCE 12/12/21 05/31/24 Unknown History 8 years) 52 mg intrauterine device (Mirena) biotin 2,500 mcg tablet 5,000 mcg PO DAILY 03/07/23 05/31/24 07/27/23 History Exam Height,Weight and Vital Signs: Height 5 ft 2 in Weight 79.379 kg Pertinent Lab Results Pertinent Lab Results: Laboratory Tests 04/12/24 10:28 WBC 8.2 Hgb 12.7 Hct 38.7 Plt Count 294 Sodium 140 Potassium 4.4 Chloride 105 Carbon Dioxide 28 BUN 11 Creatinine 0.79 Narrative Narrative: ECHO 2023 Conclusions: - Normal left ventricular size and systolic function. The visually estimated ejection fraction is between 55-60%. There is no evidence of regional wall motion abnormalities. Diastolic function is normal for age. LV wall thickness at upper limit of normal. Global longitudinal strain is normal. - Normal right ventricular cavity size and systolic function. Assessment and Plan Assessment Anesthesia Assessment: Chart Reviewed Final Anesthetic Review Family History of Problems with Anesthesia: No History of Problems with Anesthesia: Yes Documented by User: Radha Kessler DO 05/31/24 08:24 PMF Past Medical History Medical History Presence of Mirena IUD Acute upper respiratory infection History of adenomatous polyp of colon COVID-19 vaccination declined Refused influenza vaccine Obesity Hypertriglyceridemia Anemia Mixed anxiety and depressive disorder H/O herpes simplex infection H/O nipple discharge Breast pain, right Cyst of left nipple Knee pain, right anterior Hiatal hernia Chronic heartburn Lumbago with sciatica, right side Tonsillar abscess Family History Family History Maternal Aunt Breast cancer, Onset Age: 40 Father Myocardial infarction Maternal Grandmother Pancreas cancer Paternal Grandfather Lung cancer Bladder cancer Family history of problems with anesthesia: No Surgical History Surgical History History of lumpectomy of right breast (07/28/23) Hx of breast surgery History of esophagogastroduodenoscopy (EGD) History of excision of mass (06/07/19) History of section (06/19/09) History of Problems with Anesthesia: Yes (PONV) Social History Social History Household Members Other:: duplex Housing: Apartment Are you a primary complex care nurse to a significant other at home: No Do you presently have visiting nurse or other home services: No Alcohol intake: current Alcohol intake frequency: 0-2 drinks per day Comment: counts correct Patient Tobacco Use Status: Former Tobacco user Cigarette Packs Per Day: 1 Cigarettes Per Day: 20.0 e-Cigarette/Vaping Use: Never Used Second Hand Smoke Exposure: No Have you been hit, kicked, punched, or otherwise hurt by someone within the past year? If so, by whom?: No Are you DNR?: No Advance Directives: No Advance Directives Information Provided: Yes Recently lost weight without trying: No Nutrition Risks: No Nutritional Risk FDLMP: 14 years Current occupational status: unemployed Sexual orientation: Straight/Heterosexual Gender identity: Female Cognitive needs: No Hearing needs: No Vision needs: No Meds Allergies Allergy/AdvReac Type Severity Reaction Status Date / Time clindamycin [CLINDAMYCIN] Allergy Intermediate HIVES/SWELL Verified 05/31/24 07:10 ING buspirone [From BuSpar] Allergy Blurry Verified 05/31/24 07:10 Vision fentanyl [FENTANYL] AdvReac Severe SEVERE N/V Verified 05/31/24 07:10 (POST EGD W/CS) escitalopram [From Lexapro] AdvReac Vomiting Verified 05/31/24 07:10 lorazepam AdvReac Vomiting Verified 05/31/24 07:10 Home Medications ?Medication ?Instructions ?Recorded ?Confirmed ?Last Taken ?Type omeprazole 20 mg capsule,delayed 20 mg PO DAILY 04/27/21 05/31/24 05/31/24 History release levonorgestrel 21 mcg/24 hr (up to 1 device intrauterine ONCE 12/12/21 05/31/24 Unknown History 8 years) 52 mg intrauterine device (Mirena) biotin 2,500 mcg tablet 5,000 mcg PO DAILY 03/07/23 05/31/24 07/27/23 History Exam Exam Date and Time: 05/31/24 0820 Height,Weight and Vital Signs: Height 5 ft 2 in Weight 79.379 kg Vital Signs Temperature 97.9 F 05/31/24 07:17 Pulse Rate 94 05/31/24 07:17 Respiratory Rate 18 05/31/24 07:17 Blood Pressure 123/79 05/31/24 07:17 Pulse Oximetry 100 05/31/24 07:17 Oxygen Delivery Method Room Air 05/31/24 07:17 Temperature 97.9 F 05/31/24 07:17 Pulse Rate 94 05/31/24 07:17 Respiratory Rate 18 05/31/24 07:17 Blood Pressure 123/79 05/31/24 07:17 Pulse Oximetry 100 05/31/24 07:17 Oxygen Delivery Method Room Air 05/31/24 07:17 Airway Mallampati Class: I TM Dist: >3cm Neck ROM: Full Loose/Missing/Broken Teeth: Yes (edentulous) Heart: S1S2 Lungs: CTAB Assessment and Plan Assessment Anesthesia Assessment: Anesthesia Plan Discussed and Chart Reviewed Final Anesthetic Review Family History of Problems with Anesthesia: No History of Problems with Anesthesia: Yes (PONV) NPO: Yes ASA Class: II Final Preanesthetic Review: No Changes in Pt Med Stat, Meds/Allgs Chart Reviewed, Consent Obtained/Reviewed and Anes Risks/Benef Reviewed Patient Risk: Low Procedure Risk: Low Anesthetic Plan Anesthetic Plan: GA and Agree w/ Assess. and Plan Disposition: Standard PACU
--- NOTE | 2024-05-31 08:30 | W.PM.OPN ---
Operative Note Operative Note Date of Service: 05/31/24 Narrative: Preoperative diagnosis: Galactorrhea right breast Postoperative diagnosis: Same Procedure: Excision right breast lactiferous duct Surgeon: José Antonio Hull MD Traffic Control Officer: Ally Small PA-C Anesthesia: General LMA Indications for procedure: 33-year-old female patient presenting with a prior history of nipple infections due to a nipple piercing now with discharge from the nipple and pain extending laterally into the axilla. The patient was thought to have lymphadenopathy due to infection in the right breast. Operative findings: Cystic lesion noted in the subareolar location measuring approximately 0.5 cm. Specimen: Right breast lactiferous duct Estimated blood loss: 2 mL Complications: None Procedure details: Patient was brought to the OR and placed in a supine position. After administering general anesthesia the patient's right breast was prepped with ChloraPrep and draped in a sterile fashion. A surgical time-out was called the consent confirmed. Patient received preoperative antibiotics and Venodyne boots were in place. Local anesthesia was then infiltrated in a curvilinear fashion along the lateral margin of the areola. Incision was created with a scalpel and carried out through subcutaneous tissue. Superior and inferior skin flaps were then created. Dissection was then continued down along the areola into the nipple region. Firm tissue was identified within this location and was grasped with an Allis clamp. This was then dissected from the surrounding breast tissue using electrocautery. Hemostasis was assured all times using electrocautery. The specimen was removed and sent to pathology for further examination. Wounds were then irrigated with saline solution and suctioned dry. Skin was then closed using interrupted 5 0 nylon sutures. Sterile dressings were then applied. The patient tolerated the procedure well. Sponge, instrument, and needle counts reported as correct. The patient was transferred to PACU in stable condition.
[2024-05-31] MEDS: oxyCODONE HCl Immed Release 5 MG TABLET PO (09:34)
[2024-05-31] MEDS: Haloperidol Lactate 5 MG/ML VIAL 1 MG IVPUSH (09:43)
== END 2024-05-31 10:57 | disposition home or self-care (01) ==
PROVIDERS: Nurse Practitioner; PCP Internal Medicine; Visit Provider Surgery
PROC: (CPT 19112; principal; 2024-05-31 08:40)
DX: N64.3 Galactorrhea not associated with childbirth (principal); N60.41 Mammary duct ectasia of right breast; N60.11 Diffuse cystic mastopathy of right breast; D64.9 Anemia, unspecified; E78.1 Pure hyperglyceridemia; F41.8 Other specified anxiety disorders; Z97.5 Presence of (intrauterine) contraceptive device; Z88.1 Allergy status to other antibiotic agents; Z88.5 Allergy status to narcotic agent; Z88.8 Allergy status to other drugs, medicaments and biological substances; Z87.891 Personal history of nicotine dependence; Z56.0 Unemployment, unspecified
CPT/HCPCS: 19120; 81025; 88305; 88307; J0690; J1100; J1171; J1630; J1885; J2003; J2250; J2405; J2704; J2795; J3010

== ENCOUNTER → 2024-05-31 06:56 | Outpatient (BNV) | payer BC, SELFPAY | PROVIDERS: PCP Internal Medicine; Visit Provider Surgery | DX: N64.3 Galactorrhea not associated with childbirth (principal) | CPT/HCPCS: 19110 ==

== ENCOUNTER 2024-06-11 09:48 | Outpatient (AMB) | payer BC, SELFPAY ==
--- NOTE | 2024-06-11 09:52 | A.OFFVIS_ITS ---
Vital Signs 3 06/11/24 10:04 Height 5 ft 2 in Weight 174 lb 13.225 oz BMI 32.0 Respiration 16 Pulse 62 Intake Visit Reasons: S/P Rt breast duct excision Intake Note: Patient is seen in office for post op assessment post excision right breast lactiferous duct. Pt c/o: increase pain and sore surgery:05/31/24 Pack Train Driver Required: No Accompanied by: Self / Same As Patient Allergies clindamycin [CLINDAMYCIN] Allergy (Intermediate, Verified 06/11/24 09:53) HIVES/SWELLING buspirone [From BuSpar] Allergy (Verified 06/11/24 09:53) Blurry Vision fentanyl [FENTANYL] Adverse Reaction (Severe, Verified 06/11/24 09:53) SEVERE N/V (POST EGD W/CS) escitalopram [From Lexapro] Adverse Reaction (Verified 06/11/24 09:53) Vomiting lorazepam Adverse Reaction (Verified 06/11/24 09:53) Vomiting HPI Comments Details: Patient returns for follow-up visit after right breast duct excision. She reports sharp pain in the incision extending under the nipple. She returns today for wound check and suture removal. Pathology revealed benign breast tissue with no malignancy or atypia. [facility] Medical History Presence of Mirena IUD Acute upper respiratory infection History of adenomatous polyp of colon COVID-19 vaccination declined Refused influenza vaccine Obesity Hypertriglyceridemia Anemia Mixed anxiety and depressive disorder H/O herpes simplex infection H/O nipple discharge Breast pain, right Cyst of left nipple Knee pain, right anterior Hiatal hernia Chronic heartburn Lumbago with sciatica, right side Tonsillar abscess Surgical History Hx of breast surgery (05/31/24) History of lumpectomy of right breast (07/28/23) Hx of breast surgery History of esophagogastroduodenoscopy (EGD) History of excision of mass (06/07/19) History of section (06/19/09) Family History Maternal Aunt Breast cancer, Onset Age: 40 Father Myocardial infarction Maternal Grandmother Pancreas cancer Paternal Grandfather Lung cancer Bladder cancer Social History Household Members Other:: duplex Housing: Apartment Are you a primary school child care attendant to a significant other at home: No Do you presently have visiting nurse or other home services: No Alcohol intake: current Alcohol intake frequency: 0-2 drinks per day Comment: counts correct Patient Tobacco Use Status: Former Tobacco user Cigarette Packs Per Day: 1 Cigarettes Per Day: 20.0 e-Cigarette/Vaping Use: Never Used Second Hand Smoke Exposure: No Current occupational status: unemployed Sexual orientation: Straight/Heterosexual Gender identity: Female Cognitive needs: No Hearing needs: No Vision needs: No Female Reproductive History Menstrual Age of Menarche: 10 Physical Exam Vital Signs: Last Vital Signs Pulse 62 06/11/24 10:04 Resp 16 06/11/24 10:04 BMI result Body Mass Index 32.0 Const General: no acute distress Nutritional Appearance: well nourished Orientation/consciousness: patient oriented x3 Chest Other: Incision in the right breast is clean, dry, and intact. No erythema or discharge is appreciated. Sutures removed and Steri-Strips applied. Chest/axillae images: 2 1. Skin Other: Warm, dry, no rash Neuro General: patient oriented x3 Assessment & Plan Assessment & Plan (1) Mastitis, acute: Code(s): N61.0 - Mastitis without abscess Category: Medical Plan Wounds are healing nicely although the patient has significant soreness following the surgery. This appears to be mainly postoperative pain with no evidence of wound infection, seroma or hematoma. I recommended patient return in approximately 2 weeks for follow-up examination. She expressed understanding and agrees with the plan. Coding Level of Care Code Global (41916) Diagnoses Mastitis, acute N61.0
[2024-06-11 10:04] VITALS: PULSE 62; RESP 16; BMI 32.0
== END 2024-06-11 10:08 | disposition home or self-care (01) ==
PROVIDERS: PCP Internal Medicine; Visit Provider Surgery
DX: N61.0 Mastitis without abscess (principal)
CPT/HCPCS: 99024

== ENCOUNTER → 2024-06-11 09:48 | Outpatient (BNVA) | payer BC, SELFPAY | PROVIDERS: PCP Internal Medicine; Visit Provider Surgery ==

== ENCOUNTER 2024-06-25 10:20 | Outpatient (AMB) | payer BC, SELFPAY ==
[2024-06-25 10:21] VITALS: BMI 32.0
--- NOTE | 2024-06-25 10:21 | MHC.OFFVIS ---
Vital Signs 06/25/24 10:21 Height 5 ft 2 in Weight 174 lb 13.225 oz BMI 32.0 Intake Visit Reasons: 2 wks post Rt breast duct excision Intake Note: Patient is seen in office for 2 weeks follow up visit, post excision right breast lactiferous duct. Pt c/o: reports no complaints at this time. Social Worker Psychiatric Required: No Accompanied by: Self / Same As Patient Allergies clindamycin [CLINDAMYCIN] Allergy (Intermediate, Verified 06/25/24 10:27) HIVES/SWELLING buspirone [From BuSpar] Allergy (Verified 06/25/24 10:27) Blurry Vision fentanyl [FENTANYL] Adverse Reaction (Severe, Verified 06/25/24 10:27) SEVERE N/V (POST EGD W/CS) escitalopram [From Lexapro] Adverse Reaction (Verified 06/25/24 10:27) Vomiting lorazepam Adverse Reaction (Verified 06/25/24 10:27) Vomiting HPI Comments Details: Patient returns for follow-up visit after right breast duct excision. Overall she continues to note some soreness in the area of the nipple as well as some pain in the arm extending into the shoulder. She denies any redness or discharge from the incision or nipple. She denies any fever or chills. [facility] Medical History Presence of Mirena IUD Acute upper respiratory infection History of adenomatous polyp of colon COVID-19 vaccination declined Refused influenza vaccine Obesity Hypertriglyceridemia Anemia Mixed anxiety and depressive disorder H/O herpes simplex infection H/O nipple discharge Breast pain, right Cyst of left nipple Knee pain, right anterior Hiatal hernia Chronic heartburn Lumbago with sciatica, right side Tonsillar abscess Surgical History Hx of breast surgery (05/31/24) History of lumpectomy of right breast (07/28/23) Hx of breast surgery History of esophagogastroduodenoscopy (EGD) History of excision of mass (06/07/19) History of section (06/19/09) Family History Maternal Aunt Breast cancer, Onset Age: 40 Father Myocardial infarction Maternal Grandmother Pancreas cancer Paternal Grandfather Lung cancer Bladder cancer Social History Household Members Other:: duplex Housing: Apartment Are you a primary child care attendant school to a significant other at home: No Do you presently have visiting nurse or other home services: No Alcohol intake: current Alcohol intake frequency: 0-2 drinks per day Comment: counts correct Patient Tobacco Use Status: Former Tobacco user Cigarette Packs Per Day: 1 Cigarettes Per Day: 20.0 e-Cigarette/Vaping Use: Never Used Second Hand Smoke Exposure: No Current occupational status: unemployed Sexual orientation: Straight/Heterosexual Gender identity: Female Cognitive needs: No Hearing needs: No Vision needs: No Female Reproductive History Menstrual Age of Menarche: 10 Physical Exam Vital Signs: BMI result Body Mass Index 32.0 Const General: no acute distress Nutritional Appearance: well nourished Orientation/consciousness: patient oriented x3 Chest Other: Incision in the right breast is clean, dry, and intact. No erythema or discharge is appreciated. The expected healing ridge is noted around the incision and below the nipple. Skin Other: Warm, dry, no rash Neuro General: patient oriented x3 Assessment & Plan Assessment & Plan (1) Mastitis, acute: Code(s): N61.0 - Mastitis without abscess Category: Medical Plan Overall the patient is improved with no further discharge or evidence of infection. She does have some postoperative pain around the incision and extending into the armpit which may be related to reactive lymphadenopathy. I recommended continued observation at this time to allow the wounds to heal. She should follow up as needed. Coding Level of Care Code Global (89479) Diagnoses Mastitis, acute N61.0
== END 2024-06-25 10:35 | disposition home or self-care (01) ==
PROVIDERS: PCP Internal Medicine; Visit Provider Surgery
DX: N61.0 Mastitis without abscess (principal)
CPT/HCPCS: 99024

== ENCOUNTER → 2024-06-25 10:20 | Outpatient (BNVA) | payer BC, SELFPAY | PROVIDERS: PCP Internal Medicine; Visit Provider Surgery ==

== ENCOUNTER 2024-06-28 15:31 | Outpatient (AMB) | payer BC, SELFPAY ==
[2024-06-28 15:34] VITALS: BP 114/72; PULSE 108; BMI 32.7
--- NOTE | 2024-06-28 15:34 | MHC.OFFVIS ---
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 Her last prior visit to this office was 10/17/23. Today she states that she continues to have concerning symptoms. She has episodes that occur randomly - she feels heat in her body, then heart beats fast, followed by diarrhea, sweatiness and presyncope. She has not had any full syncope. She says she has had her put cold cloths to the back of her head during episodes to help it pass. She says these episodes have happened more times then she can count. He only pattern is it happens more in the evenings. No chest discomfort, shortness of breath, PND, orthopnea or edema. 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 [facility] Medical History Presence of Mirena IUD Acute upper respiratory infection History of adenomatous polyp of colon COVID-19 vaccination declined Refused influenza vaccine Obesity Hypertriglyceridemia Anemia Mixed anxiety and depressive disorder H/O herpes simplex infection H/O nipple discharge Breast pain, right Cyst of left nipple Knee pain, right anterior Hiatal hernia Chronic heartburn Lumbago with sciatica, right side Tonsillar abscess Surgical History Hx of breast surgery (05/31/24) History of lumpectomy of right breast (07/28/23) Hx of breast surgery History of esophagogastroduodenoscopy (EGD) History of excision of mass (06/07/19) History of section (06/19/09) Family History (Reviewed 06/28/24 @ 15:39 by Pallavi Morris [facility] [address]) Maternal Aunt Breast cancer, Onset Age: 40 Father Myocardial infarction Maternal Grandmother Pancreas cancer Paternal Grandfather Lung cancer Bladder cancer Social History Household Members Other:: duplex Housing: Apartment Are you a primary respite care provider to a significant other at home: No Do you presently have visiting nurse or other home services: No Alcohol intake: current Alcohol intake frequency: 0-2 drinks per day Comment: counts correct Patient Tobacco Use Status: Former Tobacco user Cigarette Packs Per Day: 1 Cigarettes Per Day: 20.0 e-Cigarette/Vaping Use: Never Used Second Hand Smoke Exposure: No Current occupational status: unemployed Sexual orientation: Straight/Heterosexual Gender identity: Female Cognitive needs: No Hearing needs: No Vision needs: No Female Reproductive History Menstrual Age of Menarche: 10 Review of Systems ENT Reports dizziness Card Denies chest pain, Denies chest pain at rest, Denies chest pain with activity, Denies rapid heart rate, Denies pedal edema, Denies edema, Denies leg edema, Denies lightheadedness, Denies palpitations, Denies dyspnea, Denies dyspnea on exertion and Denies orthopnea Resp Denies cough, Denies dyspnea and Denies dyspnea on exertion GI Denies hematochezia and Denies change in stool character Musc Denies abnormal gait, Reports limited range of motion, Reports muscle cramps, Denies muscle weakness, Denies numbness, Denies radiating pain into limb, Denies stiffness and Denies tingling Neuro Denies abnormal gait, Reports dizziness, Denies numbness and Denies tingling Endo Denies palpitations Physical Exam Vital Signs: Last Vital Signs Pulse 108 H 06/28/24 15:34 BP 114/72 06/28/24 15:34 BMI result Body Mass Index 32.7 Assessment & Plan Assessment & Plan (1) Palpitations: Code(s): R00.2 - Palpitations Category: Medical Plan: Reports of heart palpitations with details as described above. Symptoms starts as a hot feeling in her body then palpitation then sweaty then diarrhea and presyncope. Episodes are happening frequently. This is the type of symptoms she has been having right along. Echocardiogram done 08/29/2023 showed EF 55-60%, no evidence of regional wall motion abnormality, normal valves. Holter monitor was done 08/29/2023 for 3 days shows sinus rhythm with average heart rate 79, rare PVCs. She tells me she did not have any episodes when she was wearing the heart monitor. Pulse is regular on examination today, mildly tachycardic. She is very mildly orthostatic on exam. Blood pressure and pulse sitting 118/60, 92, blood pressure and pulse standing 112/60, 113. Instructed on maintaining good hydration, recognizing symptoms, try to look for patterns and triggers. Will order a cardiac event monitor to further assess heart rhythm related to her symptoms. It sounds like she may be having vasovagal events, unclear trigger. It also may be related to underlying GI issues. Will check a tilt-table test for further evaluation. Cardiology follow-up in 2-3 months, sooner if needed (2) Pre-syncope: Code(s): R55 - Syncope and collapse Category: Medical Plan: As above Plan Time spent on chart review, documentation, interview assessment Orders: Orders ECG 30 day event monitor 06/28/24 R00.2 - Palpitations, R55 - Syncope and collapse ECG Tilt Table Test 06/28/24 R00.2 - Palpitations, R55 - Syncope and collapse Coding Level of Care Code Est Pt Level 4 (99487) Complex EM visit Add On G2211 Diagnoses Palpitations R00.2 Pre-syncope R55
== END 2024-06-28 16:13 | disposition home or self-care (01) ==
PROVIDERS: PCP Internal Medicine; Visit Provider Nurse Practitioner Family
DX: R00.2 Palpitations (principal); R55 Syncope and collapse
CPT/HCPCS: 99214

== ENCOUNTER → 2024-07-12 13:57 | Outpatient (REF) | payer BC, SELFPAY | LOC: HO.CARD 13:57 | PROVIDERS: PCP Internal Medicine; Visit Provider Nurse Practitioner Family | DX: R00.2 Palpitations (principal); R55 Syncope and collapse | CPT/HCPCS: 93270 ==

== ENCOUNTER → 2024-07-12 13:59 | Outpatient (BNV) | payer BC, SELFPAY | PROVIDERS: PCP Internal Medicine; Visit Provider Internal Medicine | DX: R00.0 Tachycardia, unspecified (principal) | CPT/HCPCS: 93272 ==

== ENCOUNTER 2024-08-04 09:01 | Outpatient (REF) | payer BC, SELFPAY ==
--- OUTSIDE RECORDS SUMMARY | 2024-08-04 11:45 | XMS_ITS | Clinical Summary ---
Author Organization [facility] Address [address] [place] [address] Care Team Providers Care Conservation Assistant Name Role Phone Eladia Baker MD Primary Care Provider [phone] Medications No known medications Active Problems No [...] of Treatment Not on file Care Teams Conservation Assistant Relationship Specialty Start Date End Date Eladia Baker MD [address] [place] [address] PCP - General Internal Medicine 01/10/24
--- OUTSIDE RECORDS SUMMARY | 2024-08-04 11:45 | XMS_ITS | Encounter Summary ---
Author Organization [facility] Address [address] [place] [address] Care Team Providers Care Citrix Architect Name Role Phone Eladia Baker MD Primary Care Provider [phone] Reason for Referral * Cardiac Stress Testing (Routine) - Closed Specialty Diagnoses / Procedures Referred By Contac t Referred To Contact Cardiology Diagnoses Syncope and collapse Procedures Tilt table Sunshine Zaman NP [facility], [address] [place] [address] Referral ID Status Reason Start Date Expiration Date Visits Re quested Visits Authorized [id number] Closed 06/29/2024 06/29/2025 1 1 Reason for Visit * Cardiac Stress Testing (Routine) - Closed Specialty Diagnoses / Procedures Referred By Contac t Referred To Contact Cardiology Diagnoses Syncope and collapse Procedures Tilt table Sunshine Zaman NP [facility], [address] [place] [address] Referral ID Status Reason Start Date Expiration Date Visits Re quested Visits Authorized [id number] Closed 06/29/2024 06/29/2025 1 1 Encounter Details Date Type Department Care Team (Latest Contact Info) Description 07/06/2024 1:18 PM EST - 07/06/2024 11:59 PM EST Hospital Encounter [facility] Xray [address] [place] [phone] Syncope and collapse Discharge Disposition: Home or [...] with findings consistant with dysautonomia. Sunshine Zaman PRODUCTION SAMPLER [facility] C[facility] PROCEDURES Final Result documented in this encounter Visit Diagnoses Diagnosis Syncope and collapse documented in this encounter Care Teams Citrix Architect Relationship Specialty Start Date End Date Eladia Baker MD [address] [place] [address] PCP - General 01/10/24 documented as of this encounter
--- OUTSIDE RECORDS SUMMARY | 2024-08-04 11:45 | XMS_ITS | Clinical Summary ---
Author Organization [facility] Address [address] [place] [address] Phone Care Team Providers Care Route Aide Name Role Phone Eladia Baker MD Primary Care Provider Encounters Date Type Department Care Team Description 07/06/2024 1:18 PM EST - 07/06/2024 11:59 PM EST Hospital Encounter [facility] Xray [address] [place] [address] Syncope and collapse Discharge Disposition: [...] RESULTING AGENCY - 10/26/2020 9:55 AM EDT [id number] THINPREP PAP, IMAGED: NEGATIVE FOR SQUAMOUS INTRAEPITHELIAL [...] LMP RECORDED. Z12.4, Z01.419, R87.810 Chioma Walls [facility] LAB CYTOLOGY ORDERABLES Final R esult HISTORICAL TESTING LAB RESULTING AGENCY from Last 3 Months or Most Recently Relevant to Health Maintenance Insurance [facility] Care Teams Route Aide Relationship Specialty Start Date End Date Eladia Baker MD [address] [place] [address] PCP - General 01/10/24
[2024-08-11 14:53] LABS: HPV Genotype 16 Negative (Negative); HPV Genotype 18 Negative (Negative); HPV High Risk Negative (Negative)
== END 2024-08-04 09:02 | disposition home or self-care (01) ==
LOC: HO.LNP 09:01
PROVIDERS: PCP Internal Medicine; Visit Provider Advanced Practice Midwife
DX: Z01.419 Encounter for gynecological examination (general) (routine) without abnormal findings (principal)
CPT/HCPCS: 87626; 88175

== ENCOUNTER 2024-08-04 09:01 | Outpatient (AMB) | payer BC, SELFPAY ==
--- NOTE | 2024-08-04 09:10 | MHC.OFFVIS ---
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 Doing well with no vice president of customer service concerns. No bleeding w/the Mirena, history of missing strings verified with previous scans last with CT scan in November of 2023. Currently is sexually active. She denies vaginal itching and irritation. STI screening offered; she declines. She admits to not eating healthy and has no regular exercise. Denies family history of ovarian or colon cancer. FH breast cancer. Has follow up with Dr. Hull due to history of breast lumps. Last pap smear 2018, negative. [facility] Medical History Presence of Mirena IUD Acute upper respiratory infection History of adenomatous polyp of colon COVID-19 vaccination declined Refused influenza vaccine Obesity Hypertriglyceridemia Anemia Mixed anxiety and depressive disorder H/O herpes simplex infection H/O nipple discharge Breast pain, right Cyst of left nipple Knee pain, right anterior Hiatal hernia Chronic heartburn Lumbago with sciatica, right side Tonsillar abscess Surgical History Hx of breast surgery (05/31/24) History of lumpectomy of right breast (07/28/23) Hx of breast surgery History of esophagogastroduodenoscopy (EGD) History of excision of mass (06/07/19) History of section (06/19/09) Family History Maternal Aunt Breast cancer, Onset Age: 40 Father Myocardial infarction Maternal Grandmother Pancreas cancer Paternal Grandfather Lung cancer Bladder cancer Social History Household Members Other:: duplex Housing: Apartment Are you a primary transitional care nurse to a significant other at home: No Do you presently have visiting nurse or other home services: No Alcohol intake: current Alcohol intake frequency: 0-2 drinks per day Comment: counts correct Patient Tobacco Use Status: Former Tobacco user Cigarette Packs Per Day: 1 Cigarettes Per Day: 20.0 e-Cigarette/Vaping Use: Never Used Second Hand Smoke Exposure: No Current occupational status: unemployed Sexual orientation: Straight/Heterosexual Gender identity: Female Cognitive needs: No Hearing needs: No Vision needs: No Female Reproductive History Menstrual Age of Menarche: 10 control method: progestin IUCD (Mirena 07/2020) Total pregnancies: 1 Full term: 1 Number of Living Children: 1 Date of last pap smear: 09/29/18 (neg pap and hpv) History of STI: Yes (hx hsv) Review of Systems Const All systems reviewed & are unremarkable except as noted in HPI and below Reports as per HPI Eyes Reports no additional complaints ENT Reports no additional complaints Card Reports no additional complaints Resp Reports no additional complaints GI Reports as per HPI and Reports no additional complaints Reports as per HPI Musc Reports no additional complaints Skin/Breast Reports as per HPI Neuro Reports no additional complaints Psych Reports no additional complaints Endo Reports no additional complaints Morgan/Lymph Reports no additional complaints Aller/Immun Reports no additional complaints Physical Exam Vital Signs: Last Vital Signs BP 114/70 08/04/24 09:12 BMI result Body Mass Index 32.0 Const General: cooperative, healthy appearing, no acute distress, well developed and alert Orientation/consciousness: patient oriented x3 HEENT Head: Yes normal to inspection Eyes General: appearance normal, both eyes and all related structures Neck Neck: Yes normal visual inspection Thyroid: Thyroid normal Chest Other: Scar Chest palpation & inspection: normal inspection of the chest and other (no puckering, dimpling, peau de orange, retraction, discharge, masses) Breast/axilla inspection: normal inspection of the breasts Breast/axilla palpation: normal palpation of the breasts Resp Effort & Inspection: normal respiratory effort GI Inspection: Yes normal to inspection and Yes scar Palpation (GI): Soft to palpation Rectal Exam - Female: deferred General: Yes bladder normal to palpation External Female Exam: normal external appearance and normal appearance of the urethra Speculum Exam - Vagina: normal appearance of the vagina, normal palpation and normal vaginal discharge Speculum Exam - Cervix: normal appearance of the cervix, normal palpation and Other cervical findings present (IUD strings not found) Bimanual exam- vagina & uterus: normal bimanual exam, normal palpation, uterine size normal, bladder normal to palpation, normal palpation and non-tender Bimanual Exam- Adnexa, other: no masses Skin General skin exam: no rashes or lesions noted Rashes: no rashes Neuro General: patient oriented x3 Cognition (Neuro): normal cognition Extrem General: Yes normal to inspection Psych Attitude: cooperative Thought process: Normal thought process present Assessment & Plan Assessment & Plan (1) Encounter for well woman exam with routine gynecological exam: Code(s): Z01.419 - Encounter for gynecological examination (general) (routine) without abnormal findings Category: Medical Plan Discussed: Current recommendations for pap smears per ASCCP guidelines. Breast awareness and periodic breast exams. Maintain a healthy lifestyle including a well balanced diet and routine exercise. To report any unusual bleeding patterns, pelvic pain or any other concerns. Patient verbalizes understanding and agrees to the plan of care. She was given opportunity to ask questions and all questions were answered to the best of my ability. RTO in one year for annual vice president of customer service examination. This note is constructed using voice recognition software. While every effort has been made to ensure accuracy, butter printer errors may have been included. Coding Level of Care Code Est Pt Prev Care 18-39y(55391) Diagnoses Encounter for well woman exam with routine gynecological exam Z01.419
[2024-08-04 09:12] VITALS: BP 114/70; BMI 32.0
--- OUTSIDE RECORDS SUMMARY | 2024-08-04 09:54 | XMS_ITS | Patient Health Record ---
Author Organization [facility] Address [address] [place] [address] Care Team Providers Care Pluck Trimmer Name Role Phone Samuel KAMARA, Eladia Primary Care Provider Dante Azul [phone] ALLERGIES Allergen (clinical drug ingredient) Drug/Non Drug [...] Fecal Reviewed date:09/29/2023 07:09:12 PM Interpretation: Performing Lab:[facility], [address] [place] [phone] Notes/Report: Calprotectin, Fecal 165 Reference Range: <50 [...] borderline values. THIS TEST WAS PERFORMED AT: [facility] [address] [place] [address] MONTEZ AMBROSIO MD,PHD,ISMA GI PANEL Reviewed date:09/22/2023 06:31:35 PM Interpretation: Performing Lab:[facility], [address] [place] [phone] Notes/Report: Campylobacter Not Detected Not Detect. Plesiomonas [...] is performed by Multiplexed PCR, utilizing the [employer] Array. Complete Blood Count Auto Di ff Reviewed date:2023 07:04:05 PM Interpretation: Performing Lab:[facility], [address] [place] [phone] Notes/Report: White Blood Count 8.3 4.8-10.8 X10*3/uL [...] te Reviewed date:09/22/2023 06:32:28 PM Interpretation: Performing Lab:[address] [address] Notes/Report: Erythrocyte Sedimentation Rate 44 0-20 MM/HR Patients with polycythemia and many hemoglobin abnormalities may have depressed sed rates whereas patients with anemia may have elevated sed rates. Liver Panel Reviewed date:2023 07:01:51 PM Interpretation: Performing Lab:[address] [address] Notes/Report: Bilirubin Total 0.3 0.0-1.0 mg/dL Bilirubin Direct 0.2 0.0-0.5 mg/dL Aspartate Amino Transferase 19 5-31 U/L Alanine Aminotransferase 22 0-31 U/L Total Protein 8.6 6.5-8.0 g/dL Albumin Level 4.2 3.5-5.0 g/dL Alkaline Phosphatase 103 39-117 U/L Basic Metabolic Panel Reviewed date:2023 07:02:14 PM Interpretation: Performing Lab:[address] [address] Notes/Report: Sodium 141 135-145 mmol/L Potassium 3.5 3.3-5.1 mmol/L Chloride 109 96-108 mmol/L Carbon Dioxide 25 22-29 mmol/L Anion Gap 11 12-20 Blood Urea Nitrogen 6 9-16 mg/dL Creatinine 0.76 0.5-1.4 mg/dL Estimated Glomerular Filt Rate > 60 NOTE: For -[place] individuals, multiply the result by 1.210. Chronic Kidney Disease: Estimated GFR < 60 mL/min/1.73m2 Severe Kidney Disease: Estimated GFR < 15 mL/min/1.73m2 Glucose Random 90 60-115 mg/dL Calcium 9.9 8.4-10.2 mg/dL C Reactive Protein Reviewed date:2023 07:02:22 PM Interpretation: Performing Lab:[facility], [address] [place] [phone] Notes/Report: C Reactive Protein 3.04 < or = 0.50 mg/dL Immunoglobulin A Reviewed date:09/24/2023 06:11:24 PM Interpretation: Performing Lab:[address] [address] Notes/Report: Immunoglobulin A 357 47-310 mg/dL THIS TEST WAS PERFORMED AT: [facility] [address] [address] CHUCKY MEJÍA MD Transglutaminase Ab IgG Reviewed date:09/24/2023 06:11:32 PM Interpretation: Performing Lab:[address] [address] Notes/Report: Transglutaminase Ab IgG <1.0 Value Interpretation ----- <15.0 Antibody not detected > or = 15.0 Antibody detected THIS TEST WAS PERFORMED AT: [facility] [address] [place] [phone] CHUCKY MEJÍA MD Transglutaminase IgA Reviewed date:09/24/2023 06:11:41 PM Interpretation: Performing Lab:[facility], [address] [place] [phone] Notes/Report: Transglutaminase IgA <1.0 Value Interpretation ----- <15.0 Antibody not detected > or = 15.0 Antibody detected THIS TEST WAS PERFORMED AT: [facility] [address] [place] [phone] CHUCKY MEJÍA MD Gliadin Ab Panel Reviewed date:09/24/2023 06:12:12 PM Interpretation: Performing Lab:[address] [address] Notes/Report: Gliadin Deamidated IgA Ab 1.5 Value Interpretation ----- <15.0 Antibody not detected > or = 15.0 Antibody detected Gliadin Deamidated IgG Ab 8.5 Value Interpretation ----- <15.0 Antibody not detected > or = 15.0 Antibody detected THIS TEST WAS PERFORMED AT: [facility] [address] [place] [address] CHUCKY MEJÍA MD Endomysial IgA rflx Titer Reviewed date:09/24/2023 06:12:20 PM Interpretation: Performing Lab:[address] [address] Notes/Report: Endomysial IgA Antibody Negative Negative THIS TEST WAS PERFORMED AT: [facility] [address] [place] [phone] ARTEMIO SAHU MD,PHD Endomysial Titer TNP Leukocytes Stool Qualitative Reviewed date:09/22/2023 06:30:35 PM Interpretation: Performing Lab:[facility], [address] [place] [phone] Notes/Report: Leukocytes Stool Qualitative NEGATIVE NEGATIVE CDiff Gene PCR Reviewed date:09/22/2023 06:30:28 PM Interpretation: Performing Lab:[facility], [address] [place] [phone] Notes/Report: CDiff Gene PCR NEGATIVE Negative If C. difficile strongly suspected despite one negative test, a second test may be sent vs. empiric treatment for C. difficile infection. Ur Preg Test Reviewed date:09/24/2023 06:01:05 PM Interpretation: Performing Lab:[facility], [address] [place] [phone] Notes/Report: Urine NEGATIVE NEGATIVE This test was developed to detect early . False negative results may occur after the 5th - 7th week of when using this test method. If clinically indicated, consider a serum hCG. Pathology Reviewed date:10/04/2023 12:47:30 AM Interpretation: Performing Lab:[facility], [address] [place] [phone] Notes/Report: T4 Thyroxine Reviewed date:12/08/2023 11:45:41 PM Interpretation: Performing Lab:[facility], [address] [place] [phone] Notes/Report: T4 Thyroxine 9.1 4.5-12.0 ug/dL Basic Metabolic Panel Reviewed date:12/08/2023 11:45:21 PM Interpretation: Performing Lab:[facility], [address] [place] [phone] Notes/Report: Sodium 143 135-145 mmol/L Potassium 3.4 3.3-5.1 mmol/L Chloride 106 96-108 mmol/L Carbon Dioxide 28 22-29 mmol/L Anion Gap 12 12-20 Blood Urea Nitrogen 7 9-16 mg/dL Creatinine 0.72 0.5-1.4 mg/dL Estimated Glomerular Filt Rate > 60 NOTE: For -[place] individuals, multiply the result by 1.210. Chronic Kidney Disease: Estimated GFR < 60 mL/min/1.73m2 Severe Kidney Disease: Estimated GFR < 15 mL/min/1.73m2 Glucose Random 88 60-115 mg/dL Calcium 9.8 8.4-10.2 mg/dL Thyroid Stimulating Hormone Reviewed date:12/08/2023 11:45:28 PM Interpretation: Performing Lab:[facility], [address] [place] [phone] Notes/Report: Thyroid Stimulating Hormone 1.16 0.32-4.0 uIU/mL TSH 3rd Generation ([facility]) CT abdomen pelvis w con Reviewed date:01/03/2024 05:30:54 PM Interpretation: Performing Lab: Notes/Report: [address] [address] [address] Scan Report Signed Patient: John Merida MR#: [id number] : 1990 Acct:[id number] Age/Sex: 33 / F ADM Date: 12/11/23 Loc: HO.CT Attending Dr: Dante Ho MD Ordering Physician: Dante Ho MD Date of Service: 12/11/23 Procedure(s): CT abdomen pelvis w IV con Accession Number(s): [id number] cc: Eladia Baker MD; Dante Ho MD [...] in OV> 12/29/23 1434 DD/ 1503 TD/TT: Burglar Alarm Superintendent: JAVIER Ferris Preg Test Reviewed date:01/08/2024 08:57:46 AM Interpretation: Performing Lab:[facility], [address] [place] [phone] Notes/Report: Urine NEGATIVE NEGATIVE This test was developed to detect early . False negative results may occur after the 5th - 7th week of when using this test method. If clinically indicated, consider a serum hCG. Pathology Reviewed date:01/13/2024 07:25:09 PM Interpretation: Performing Lab:[facility], [address] [place] [phone] Notes/Report: Pancreatic Elastase-1 Reviewed date:01/26/2024 11:51:01 PM Interpretation: Performing Lab:[facility], [address] [place] [phone] Notes/Report: Pancreatic Elastase-1 >500 Adult and Pediatric Reference Ranges for Pancreatic Elastase-1: Normal: >200 mcg/g Moderate Pancreatic Insufficiency: 100-200 mcg/g Severe Pancreatic Insufficiency: <100 mcg/g Elastase-1 (E-1) assay results are expressed in mcg/g, which represent mcg E1/g feces. It is not necessary to interrupt enzyme substitution therapy. THIS TEST WAS PERFORMED AT: [facility] [address] [place] [address] MONTEZ AMBROSIO MD,PHD,ISMA Fecal Fat Qualitative Reviewed date:01/26/2024 11:51:18 PM Interpretation: Performing Lab:[facility], [address] [place] [phone] Notes/Report: Fecal Fat Qualitative NORMAL NORMAL THIS TEST WAS PERFORMED AT: [facility] [address] [place] [address] MONTEZ AMBROSIO MD,PHD,ISMA Calprotectin, Fecal Reviewed date:01/26/2024 11:48:13 PM Interpretation: Performing Lab:[facility], [address] [place] [phone] Notes/Report: Calprotectin, Fecal 78 Reference Range: <50 [...] borderline values. THIS TEST WAS PERFORMED AT: [facility] [address] [place] [address] MONTEZ AMBROSIO MD,PHD,ISMA Erythrocyte Sedimentation Ra te Reviewed date:01/15/2024 07:42:05 PM Interpretation: Performing Lab:[facility], [address] [place] [phone] Notes/Report: Erythrocyte Sedimentation Rate 39 0-20 MM/HR Patients with polycythemia and many hemoglobin abnormalities may have depressed sed rates whereas patients with anemia may have elevated sed rates. C Reactive Protein Reviewed date:01/15/2024 07:41:58 PM Interpretation: Performing Lab:[facility], [address] [place] [phone] Notes/Report: C Reactive Protein 1.58 < or = 0.50 mg/dL Chymotrypsin, Stool Reviewed date:02/26/2024 11:06:00 PM Interpretation: Performing Lab:[facility], [address] [place] [phone] Notes/Report: Chymotrypsin, Stool 5.3 2.3-51.4 U/g This test was developed and its analytical performance characteristics have been determined by [employer]. It has not been cleared or approved by FDA. This assay has been validated pursuant to the CLIA regulations and is used for clinical purposes. THIS TEST WAS PERFORMED AT: [facility] [address] [place] [address] MONTEZ AMBROSIO MD,PHD,ISMA PR gastric emptying study Reviewed date:02/26/2024 11:14:16 PM Interpretation: Performing Lab: Notes/Report: [address] [address] Nuclear Medicine Report Signed Patient: John Merida MR#: [id number] : 1990 Acct:[id number] Age/Sex: 33 / F ADM Date: 02/17/24 Loc: EVA Attending Dr: Dante Ho MD Ordering Physician: Dante Ho MD Date of Service: 02/17/24 Procedure(s): PR gastric emptying study Accession Number(s): [id number] cc: Eladia Baker MD; Dante Ho MD EXAMINATION: PR RADIONUCLIDE SOLID FOOD GASTRIC EMPTYING 4-HOUR STUDY [...] Brunilda Chan MD 02/19/2024 03:11 PM EDT Dictated By: Brunilda Chan MD Signed By: <Electronically signed by Brunilda Chan MD in OV> 02/19/24 1511 DD/ 0825 TD/TT: 02/17/24 1200 Burglar Alarm Superintendent: SHARON MO upper GI w air w SBFT (No t yet reviewed by provider) Interpretation: Performing Lab: Notes/Report: [address] [address] Fluoroscopy Report Signed Patient: John Merida MR#: [id number] : 1990 Acct:[id number] Age/Sex: 33 / F ADM Date: 02/20/24 Loc: SUZETTE Attending Dr: Dante Ho MD Ordering Physician: Dante Ho MD Date of Service: 02/20/24 Procedure(s): FL upper GI w air w SBFT Accession Number(s): [id number] cc: Eladia Baker MD; Dante Ho MD EXAMINATION: XR UPPER GI SERIES WITH SMALL [...] and mucosal fold appearance. SMALL BOWEL SERIES: Enterprise Systems Engineer view demonstrates normal bowel gas pattern. No [...] MD 02/20/2024 03:45 PM EDT Dictated By: Marcus Bergeron Signed By: <Electronically signed by Marcus Bergeron in OV> 02/20/24 3035 <Electronically signed by Daniel Morgan MD in OV> 05/26/24 1208 DD/ 0753 TD/TT: 02/20/24 1000 [place]ar Alarm Superintendent: REASON FOR REFERRAL No Information MEDICATIONS Medication SIG (Take, Route, Frequency, Duration) Notes Start Date End Date Status Vitamin D3 Unknown Biotin 10 MG 1 tablet Orally Once a day for 30 day(s) Unknown Iron (Ferrous Sulfate) 325 (65 Fe) MG 1 tablet Orally Three times a Week for 30 day(s) Unknown Omeprazole 20 MG TAKE 1 CAPSULE BY [facility] EVERY DAY for 90 Unknown Dicyclomine HCl 10 MG take 1 or [...] a 24 hours for 30 day(s) 05/05/2024 Unknown IMMUNIZATIONS Vaccine Route Administration Date Status Comme [...] esophagitis presence not specified (K21.9) Active confirmed 718572902 Problem Gastroesophageal reflux disease without esophagitis (K21.9) Active confirmed 048001357 Problem Barretts esophagus without dysplasia (K22.70) Active confirmed 032111288 Problem Hiatal hernia (K44.9) Active confirmed 05281663 Problem 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) Active confirmed 554917702 Problem 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) Active confirmed Goodson esophag us (036049777) Problem Polyp of stomach and duodenum (K31.7) Active confirmed Benign neoplasm of stomach (68130287) Problem Gastroesophageal reflux disease (K21.9) Active confirmed Gastroesophagea l reflux disease (824870141) Problem Chronic diarrhea (K52.9) Active confirmed Chronic diarrhe a (018985201) Problem Abnormal weight loss (R63.4) Active confirmed Abnormal weight loss (160655976) Problem Early satiety (R68.81) Active confirmed Early satiety (271376771) Problem Weight loss (R63.4) Active confirmed We ight loss (122709238) Problem Abdominal fullness (R19.8) Active confirmed Epigastric fullness (5451347) Problem Serrated polyp of colon (K63.5) Active confirmed Serrated polyp of colon (597899192) Problem Gastric polyps (K31.7) Active confirmed Benign neoplasm of stomach (05433468) Problem Gastro-esophageal reflux disease without esophagitis (K21.9) Active confirmed Gastro-esophage al reflux disease without esophagitis (591860822) VITAL SIGNS Blood pressure diastolic 00 mm Hg 05/05/2024 Height 62 in 05/05/2024 Blood pressure systolic 00 mm Hg 05/05/2024 Weight 172 lbs 05/05/2024 BMI 31.46 kg/m2 05/05/2024 Encounters Encounter Location Date Provider Diagnosis [facility] Outpatient [address] [place] [id number] 09/24/2023 Dante Ho Colon polyps K63.5 ; Rectal polyp K62.1 ; Diarrhea R19.7 and Other hemorrhoids K64.8 [facility] Outpatient [address] [place] [id number] 03/19/2024 Dante Ho [facility] Outpatient [address] [place] [id number] 01/08/2024 Dante Ho Goodson esophagus K2 2.70 ; Hiatal hernia K44.9 ; Gastric polyps K31.7 ; Early satiety R68.81 ; Diarrhea R19.7 ; Gastro-esophageal reflux disease without esophagitis K21.9 and Weight loss R63.4 [facility] [address] [place] [address] 2023 Dante Ho Chronic diarrhea K52 .9 [facility] [address] [place] [address] 12/02/2023 Dante Ho Gastroesophageal ref lux disease, esophagitis presence not specified K21.9 ; Chronic diarrhea K52.9 ; Barretts esophagus without dysplasia K22.70 ; Hiatal hernia K44.9 ; Early satiety R68.81 ; Weight loss R63.4 ; Abdominal fullness R19.8 and Serrated polyp of colon K63.5 [facility] [address] [place] [address] 05/05/2024 Dante Ho Gastroesophageal ref lux disease, esophagitis presence not specified K21.9 ; Chronic diarrhea K52.9 ; Barretts esophagus without dysplasia K22.70 and Serrated polyp of colon K63.5 [facility] [address] [place] [phone] 09/20/2023 Dante Ho [facility] [address] [place] [phone] 09/29/2023 Dante Ho [facility] [address] [place] [address] 09/29/2023 Dante Ho [facility] [address] [place] [address] 09/29/2023 Dante Ho Chronic diarrhea K52 .9 and Abnormal weight loss R63.4 [facility] [address] [place] [phone] 12/02/2023 Dante Ho Chronic diarrhea K52 .9 [facility] [address] [place] [address] 12/05/2023 Dante Ho [facility] [address] [place] [address] 12/30/2023 Dante Ho [facility] [address] [place] [address] 12/31/2023 Dante Ho [facility] [address] [place] [address] 01/07/2024 Dante Ho [facility] [address] [place] [address] 01/11/2024 Dante Ho [facility] [address] [place] [address] 01/12/2024 Dante Ho Chronic diarrhea K52 .9 and Early satiety R68.81 [facility] [address] [place] [address] 02/26/2024 Dante Ho [facility] [address] [place] [phone] 05/05/2024 Dante Ho Chronic diarrhea K52 .9 [facility] [address] [address] 05/31/2024 Dante Ho ASSESSMENTS Encounter Date Diagnosis Assessment [...] over a prescription for the diarrhea. 05/05/2024 Gastroesophageal reflux disease, esophagitis presence not specified (ICD-10 - K21.9) 05/05/2024 Chronic diarrhea (ICD-10 - K52.9) Stay on Lactose-free diet I will send over a prescription for Dicyclomine as an antispasmodic to use before meals to try to decrease the loose stools 09/29/2023 Abnormal weight loss (ICD-10 - R63.4) 09/29/2023 Chronic diarrhea (ICD-10 - K52.9) 12/02/2023 Chronic diarrhea (ICD-10 - K52.9) 01/12/2024 Chronic diarrhea (ICD-10 - K52.9) 05/05/2024 Chronic diarrhea (ICD-10 - K52.9) 09/24/2023 Diarrhea (ICD-10 - R19.7) 01/08/2024 Gastric polyps (ICD- 10 - K31.7) 12/02/2023 Barretts esophagus without dysplasia (ICD-10 - K22.70) 05/05/2024 Barretts esophagus without dysplasia (ICD-10 - K22.70) Repeat upper endo in 09/202609/24/2023 Other hemorrhoids (ICD-10 - K64.8) 01/08/2024 Early [...] DIFFICILE RFLX PCR 2023 T4 Thyroxine 09/29/2023 FL upper GI w air w SBFT 02/20/2024 Future Test Test Name Order Date UPPER GI ENDOSCOPY 09/30/2017 UPPER GI ENDOSCOPY 12/13/2022 COLONOSCOPY 09/21/2023 Insurance Providers Payer Name Payer Address Payer Phone Subscriber Number Group Number Insured Name Patient Relationship to Insured Coverage Start Date Coverage End Date [facility] [address] [place], [place] [id number] [phone] [id number] JOHN MERIDA Self - patient is the insured MEDICAL (GENERAL) HISTORY Medical History History ICD Code Denies MA,DM,CVA,Lung disease,renal dise ase GERD/Goodson's--EGD 10/2017-- -small HH, tiny area of Goodson's but no dysplasia---no esophagitis EGD 02/2023 with a small to m oderate-sized hiatal hernia, small area of Goodson's esophagus with biopsies negative for dysplasia, and benign gastric polyps. Rapid heart rate for which s he was evaluated in the ER at [facility]. She had outpatient testing done, including an [...] abscesses Breast [facility] x [facility] for issues with damage to the milk ducts after removal of piercings with Dr. Hull. Most recent surgery was in early July of 2023. Breast surgery x 1 on the left for the s mckenna issues as above
--- OUTSIDE RECORDS SUMMARY | 2024-08-04 09:54 | XMS_ITS ---
Author Organization [facility] Address [address] [place] [address] Care Team Providers Care Sap Pi Developer Name Role Phone Samuel KAMARA, Eladia Primary Care Provider Dante Azul [facility] [phone] REASON FOR VISIT Dicyclomine Rx to [facility] in [place] MEDICATIONS Medication SIG (Take, Route, Fr equency, [...] Active Encounters Encounter Location Date Provider Diagnosis [facility] [address] [address] 05/05/2024 Dante Ho Chronic diarrhea K52.9 ASSESSMENTS [...]
--- OUTSIDE RECORDS SUMMARY | 2024-08-04 09:54 | XMS_ITS | Clinical Summary ---
Author Organization [facility] Address [address] [place] [address] Care Team Providers Care Professional Sports Scout Name Role Phone Eladia Baker MD Primary Care Provider [phone] Medications No known medications Active Problems No known active problems Social History Tobacco Use Types Packs/Day Years Used Date Smoking Tobacco: Never Assessed Sex and Gender Information Value Date Recorded Sex Assigned at Female 01/10/2024 4:46 PM EDT Gender Identity Not on file Sexual Orientation Not on file Job Start Date Occupation Industry Not on file Not on file Not on file Last Filed Vital Signs Vital Sign Reading Time Taken Comments Blood Pressure 116/67 01/10/2024 7:09 PM EDT Pulse 79 01/10/2024 7:09 PM EDT Temperature 37.1 ??C (98.7 ??F) 01/10/2024 7:09 PM ED T Respiratory Rate 16 01/10/2024 7:09 PM EDT Oxygen Saturation 100% 01/10/2024 7:09 PM EDT Inhaled Oxygen Concentration - - Weight 70.3 kg (155 lb) 01/10/2024 4:58 PM EDT Height 154.9 cm (5' 1 ) 01/10/2024 4:58 PM EDT Body Mass Index 29.29 01/10/2024 4:58 PM EDT Plan of Treatment Not on file Care Teams Professional Sports Scout Relationship Specialty Start Date End Date Eladia Baker MD [address] [place] [address] PCP - General Internal Medicine 01/10/24
--- OUTSIDE RECORDS SUMMARY | 2024-08-04 09:54 | XMS_ITS | Encounter Summary ---
Author Organization [facility] Address [address] [place] [address] Care Team Providers Care Outreach Manager Name Role Phone Eladia Baker MD Primary Care Provider [phone] Reason for Referral * Cardiac Stress Testing (Routine) - Closed Specialty Diagnoses / Procedures Referred By Contac t Referred To Contact Cardiology Diagnoses Syncope and collapse Procedures Tilt table Sunshine Zaman NP [facility], [address] [place] [address] Referral ID Status Reason Start Date Expiration Date Visits Re quested Visits Authorized [id number] Closed 06/29/2024 06/29/2025 1 1 Reason for Visit * Cardiac Stress Testing (Routine) - Closed Specialty Diagnoses / Procedures Referred By Contac t Referred To Contact Cardiology Diagnoses Syncope and collapse Procedures Tilt table Sunshine Zaman NP [facility], [address] [place] [address] Referral ID Status Reason Start Date Expiration Date Visits Re quested Visits Authorized [id number] Closed 06/29/2024 06/29/2025 1 1 Encounter Details Date Type Department Care Team (Latest Contact Info) Description 07/06/2024 1:18 PM EST - 07/06/2024 11:59 PM EST Hospital Encounter [facility] Xray [address] [place] [id number] Syncope and collapse Discharge Disposition: Home or Self Care Social History Tobacco Use Types Packs/Day Years Used Date Smoking Tobacco: Never Assessed Comments Unknown Sex and Gender Information Value Date Recorded Sex Assigned at Not on file Legal Sex Female 4:13 AM EST Gender Identity Not on file Sexual Orientation Not on file documented as of this encounter Discharge Disposition Disposition Code Departure Means Destination Home or Self Care documented in this encounter Plan of Treatment Not on file documented as of this encounter Procedures Procedure Name Priority Date/Time Associated Diagnosis Comments TILT TABLE Routine 07/06/2024 2:07 PM EST Syncope and collapse documented in this encounter Results * Tilt table (07/06/2024 2:07 PM EST) Anatomical Region Laterality Modality Radiographic Tawana ging Narrative 07/06/2024 2:49 PM EST Tilt Table The patient was brought to lab in fasting state. Patient lied supine for 5 minutes for equilibrium. Baseline ECG showed normal sinus rhythm. Baseline supine minimum BP: 112/79 mmHg Baseline supine maximum BP: 143/73 mmHg Baseline supine minimum HR: 80 bpm Baseline supine maximum HR: 94 bpm Patient tilted to 70 degrees. Tilt maintained for 6 minutes. Minimum BP during tilt: 142/88 mmHg Maximum BP during tilt: 148/84 mmHg Minimum heart rate during tilt: 78 bpm Maximum heart rate during tilt: 128 bpm Rhythm during tilt: sinus tachycardia There was a clear orthostatic response not noted. Patient experienced an exaggerated HR increase with tilt. Symptoms seen on tilt include: dizziness, light headedness and near syncope. Premonitory symptoms were reproduced. Syncope/presyncope symptoms were reproduced. POTS Conclusion: Abnormal tilt test with findings consistant with dysautonomia. Sunshine Zaman DUAL HOSE CEMENT[employer] [facility] PROCEDURES Final Result documented in this encounter Visit Diagnoses Diagnosis Syncope and collapse documented in this encounter Care Teams Outreach Manager Relationship Specialty Start Date End Date Eladia Baker MD [address] [place] [address] PCP - General 01/10/24 documented as of this encounter
--- OUTSIDE RECORDS SUMMARY | 2024-08-04 09:54 | XMS_ITS | Clinical Summary ---
Author Organization [facility] Address [address] [place] [address] Phone Care Team Providers Care Nutter Up Name Role Phone Eladia Baker MD Primary Care Provider Encounters Date Type Department Care Team Description 07/06/2024 1:18 PM EST - 07/06/2024 11:59 PM EST Hospital Encounter [facility] Xray [address] [place] [address] Syncope and collapse Discharge Disposition: Home or Self Care from Last 3 Months Social History Tobacco Use Types Packs/Day Years Used Date Smoking Tobacco: Never Assessed Comments Unknown Sex and Gender Information Value Date Recorded Sex Assigned at Not on file Legal Sex Female 4:13 AM EST Gender Identity Not on file Sexual Orientation Not on file Obstetrics History Plan of Treatment Health Maintenance Due Date Last Done Comments DTaP,Tdap,and Td Vaccines (1 - Tdap) 09/20/2007 Hepatitis B Vaccines (1 of 3 - 19+ 3-dose series) 09/20/2007 Cervical Cancer Screening: P ap Smear 10/19/2021 10/19/2020, 09/29/2018 Depression Screening 05/26/2022 HIV Screening 05/26/2022 Hepatitis C Screening 05/26/2022 Social Influencers of Health Screening 05/26/2022 COVID-19 Vaccine (1 - 2023-2 5 season) 2024 Influenza Vaccine (#1) 2024 03/31/2009 HIB Vaccines Aged Out No longer eligi ble based on patient's age to complete this topic HPV Vaccines Aged Out No longer eligi ble based on patient's age to complete this topic Hepatitis A Vaccines Aged Out No long er eligible based on patient's age to complete this topic IPV Vaccines Aged Out No longer eligi ble based on patient's age to complete this topic MMR Vaccines Aged Out No longer eligi ble based on patient's age to complete this topic Meningococcal ACWY Vaccine Aged Out N o longer eligible based on patient's age to complete this topic Meningococcal B Vacine Aged Out No lo nger eligible based on patient's age to complete this topic Pneumococcal Vaccine: Pediatrics (0 to 5 Years) and At-Risk Patients (6 to 64 Years) Aged Out No longer eligible b ased on patient's age to complete this topic RSV Immunization Patients Under 20 months Aged Out No longer eligible b ased on patient's age to complete this topic Varicella Vaccines Aged Out No longer eligible based on patient's age to complete this topic Procedures Procedure Name Priority Date/Time Associated Diagnosis Comments TILT TABLE Routine 07/06/2024 2:07 PM EST Syncope and collapse PAP SMEAR Routine 10/19/2020 from Last 3 Months or Most Recently Relevant to Health Maintenance Results * Tilt table (07/06/2024 2:07 PM [...] with findings consistant with dysautonomia. Sunshine Zaman NP [facility] PROCEDURES Final Result * Pap smear (10/19/2020) 10/19/2020 Narrative HISTORICAL TESTING LAB RESULTING AGENCY - 10/26/2020 9:55 AM EDT [id number] THINPREP PAP, IMAGED: NEGATIVE FOR SQUAMOUS INTRAEPITHELIAL LESION AND MALIGNANCY . ALECIA GROVER(ASCP) (CASE ELECTRONICALLY SIGNED 10 26 2020) RESULT OF APTIMA HIGH RISK HPV ASSAY: HIGH RISK HPV: ??NEGATIVE (SEROTYPES 16,18,31,33,35,39,45,51,52,56,58,59,66,68) COMPLETED ON 2020-10-23 ADEQUACY: SATISFACTORY ENDOCERVICAL/TRANSFORMATION ZONE COMPONENT PRESENT. SOURCE: THINPREP PAP HPV ANY DX: ??REFLEX 16 AND 18, CERVICAL, IMAGED CLINICAL INFORMATION: HPV ANY DIAGNOSIS. HORMONES. PAP HX: POS, HPV POS 2019. NO LMP RECORDED. Z12.4, Z01.419, R87.810 Chioma Walls [facility] LAB CYTOLOGY ORDERABLES Final R esult HISTORICAL TESTING LAB RESULTING AGENCY from Last 3 Months or Most Recently Relevant to Health Maintenance Insurance [facility] Care Teams Nutter Up Relationship Specialty Start Date End Date Eladia Baker MD [address] [place] [address] PCP - General 01/10/24
--- OUTSIDE RECORDS SUMMARY | 2024-08-04 09:54 | XMS_ITS ---
Author Organization [facility] Address [address] [place] [address] Care Team Providers Care Seismograph Chief Name Role Phone Samuel KAMARA, Eladia Primary Care Provider Dante Azul [phone] ALLERGIES Allergen (clinical drug ingredient) Drug/Non Drug Allergy documented on EMR Reaction Allergy Type Onset Date Status fentanyl Fentanyl Unknown Drug Allergy Active clindamycin Clindamycin Unknown Drug Allergy Act sanjiv buspirone Buspirone Unknown Drug Allergy Active Cyclobenzaprine HCl Unknown Drug Allergy Active Clindamycin HCl Unknown Drug Allergy A ctive MEDICATIONS Medication SIG (Take, Route, Frequency, Duration) Notes Start Date End Date Status Vitamin D3 Unknown Biotin 10 MG 1 tablet Orally Once a day for 30 day(s) Unknown Iron (Ferrous Sulfate) 325 (65 Fe) MG 1 tablet Orally Three times a Week for 30 day(s) Unknown Omeprazole 20 MG TAKE 1 CAPSULE BY [facility] EVERY DAY for 90 Unknown [...] 24 hours for 30 day(s) 05/05/2024 Unknown Encounters Encounter Location Date Provider Diagnosis [facility] [address] [place] [phone] 05/31/2024 Dante Ho PLAN OF TREATMENT No Information
--- OUTSIDE RECORDS SUMMARY | 2024-08-04 09:55 | XMS_ITS ---
Author Organization [facility] Address [address] [place] [address] Care Team Providers Care Tailings Worker Name Role Phone Samuel KAMARA, Eladia Primary Care Provider Dante Azul [phone] ALLERGIES Allergen (clinical drug ingredient) Drug/Non Drug Allergy documented on EMR Reaction Allergy Type Onset Date Status fentanyl Fentanyl Unknown Drug Allergy Active clindamycin Clindamycin Unknown Drug Allergy Act sanjiv buspirone Buspirone Unknown Drug Allergy Active cyclobenzaprine Cyclobenzaprine HCl Unknown Drug Allergy Active clindamycin Clindamycin HCl Unknown Drug Allergy Active MEDICATIONS Medication SIG (Take, Route, Frequency, Duration) [...] Omeprazole 20 MG TAKE 1 CAPSULE BY [facility] EVERY DAY for 90 Active Vitamin [...] 05/05/2024 Encounters Encounter Location Date Provider Diagnosis [facility] [address] [facility] [address] [place] [address] 05/05/2024 Dante Ho Gastroesophageal ref lux disease, esophagitis presence not specified K21.9 ; Chronic diarrhea K52.9 ; Barretts esophagus without dysplasia K22.70 and Serrated polyp of colon K63.5 ASSESSMENTS Encounter Date Diagnosis Assessment Notes Treatment Notes Treatment Clinical Notes 05/05/2024 Gastroesophageal reflux disease, esophagitis presence not specified (ICD-10 - K21.9) 05/05/2024 Chronic diarrhea (ICD-10 - K52.9) Stay on Lactose-free diet I will send over a prescription for Dicyclomine as an antispasmodic to use before meals to try to decrease the loose stools 05/05/2024 Barretts esophagus without dysplasia (ICD-10 - K22.70) Repeat upper endo in 09/202605/05/2024 Serrated polyp of colon (ICD-10 - K63.5) [...] 30 day(s) 05/05/2024 Treatment Notes Assessment Notes Chronic diarrhea Stay on Lactose-free diet I will send over a prescription for Dicyclomine as an antispasmodic to use before meals to try to decrease the loose stools Barretts esophagus without dysplasia Rep eat upper endo in 09/2026 Serrated polyp of colon Repeat colonosoc py [...]
== END 2024-08-04 10:35 | disposition home or self-care (01) ==
PROVIDERS: PCP Internal Medicine; Visit Provider Advanced Practice Midwife
DX: Z01.419 Encounter for gynecological examination (general) (routine) without abnormal findings (principal)
CPT/HCPCS: 99395; 99459

== ENCOUNTER 2024-09-01 12:48 | Emergency (ER) | payer BC, SELFPAY ==
--- NOTE | ~2024-09-01 | XR_ITS ---
EXAMINATION: XR CHEST CLINICAL INFORMATION: pain COMPARISON: January 04, 2013. TECHNIQUE: 2 views of the chest were obtained. FINDINGS: No consolidation pleural effusion or pneumothorax. No hyperinflation. Cardiomediastinal silhouette size is normal. Multilevel thoracic spondylosis. XR/XR chest 2V IMPRESSION: No acute airspace disease. Stable. Electronically signed by: Dennis Palmer MD 09/01/2024 01:52 PM EDT
--- NOTE | 2024-09-01 12:53 | ECG_ITS ---
Test Reason : CHEST PAIN Blood Pressure : */* mmHG Vent. Rate : 110 BPM Atrial Rate : 110 BPM P-R Int : 146 ms QRS Dur : 78 ms QT Int : 326 ms P-R-T Axes : 30 29 24 degrees QTcB Int : 441 ms Sinus tachycardia Otherwise normal ECG When compared with ECG of 31-Jul-2023 14:10, No significant change was found Referred By: Generic ED Physician Electronically Signed By: KIM BORJA
[2024-09-01 13:03] VITALS: BP 128/85; PULSE 116; RESP 19; TEMP 37.2; O2SAT 99; BMI 32.5
--- NOTE | 2024-09-01 13:05 | ED_ITS ---
HPI - General Adult General Chief complaint: Chest Pain Stated complaint: Chest Discomfort To Back SOB Time Seen by Provider: 09/01/24 20:06 Source: patient Limitations: no limitations History of Present Illness ED Provider: Ladonna Jarrett PA-C HPI narrative: 33-year-old female with a history of anxiety and morbid obesity, presents with shortness of breath and chest pain x2 days. Patient states she has cough and cold symptoms, the cough is dry and repetitive . Associated pleuritic chest pain that is central, worse with deep inspiration. Patient was seen by her primary care provider who advised to come to the emergency department for a chest x-ray. Denies unilateral calf pain or swelling. Denies hemoptysis. Patient does not have a diagnosis of asthma or COPD, she does not smoke tobacco. No fevers at home. Related Data Home Medications ?Medication ?Instructions ?Recorded ?Confirmed omeprazole 20 mg capsule,delayed 20 mg PO DAILY 04/27/21 05/31/24 release levonorgestrel 21 mcg/24 hr (up to 1 device intrauterine ONCE 12/12/21 05/31/24 8 years) 52 mg intrauterine device (Mirena) biotin 2,500 mcg tablet 5,000 mcg PO DAILY 03/07/23 05/31/24 cholecalciferol (vitamin D3) 50 50 mcg PO DAILY 06/28/24 mcg (2,000 unit) capsule dicyclomine 10 mg capsule 10 mg PO BID PRN 06/28/24 Previous Rx's ?Medication ?Instructions ?Recorded albuterol sulfate 90 mcg/actuation 2 puff inhalation Q4-6H PRN 09/01/24 aerosol inhaler bronchospasm #6.7 grams benzonatate 200 mg capsule 200 mg PO TID PRN cough #10 caps 09/01/24 Allergies Allergy/AdvReac Type Severity Reaction Status Date / Time clindamycin [CLINDAMYCIN] Allergy Intermediate HIVES/SWELL Verified 09/01/24 13:06 ING buspirone [From BuSpar] Allergy Blurry Verified 09/01/24 13:06 Vision fentanyl [FENTANYL] AdvReac Severe SEVERE N/V Verified 09/01/24 13:06 (POST EGD W/CS) escitalopram [From Lexapro] AdvReac Vomiting Verified 09/01/24 13:06 lorazepam AdvReac Vomiting Verified 09/01/24 13:06 Review of Systems 2 Review of Systems: Yes all other systems are reviewed and are negative Constitutional: Constitutional: Denies fatigue and Denies fever(s) Cardiovascular: Cardiovascular: Reports chest pain, Reports palpitations and Reports dyspnea Respiratory: Respiratory: Denies chest congestion, Reports cough, Denies hemoptysis, Reports dyspnea and Denies wheezing Musculoskeletal: Musculoskeletal: Denies arthralgias and Denies joint swelling Endocrine: Endocrine: Denies fatigue and Reports palpitations Allergic/Immunologic: Allergic/Immunologic: Denies wheezing PMFSH Past Medical History Attestation statement: The following information was validated with the patient. Medical History Presence of Mirena IUD Acute upper respiratory infection History of adenomatous polyp of colon COVID-19 vaccination declined Refused influenza vaccine Obesity Hypertriglyceridemia Anemia Mixed anxiety and depressive disorder H/O herpes simplex infection H/O nipple discharge Breast pain, right Cyst of left nipple Knee pain, right anterior Hiatal hernia Chronic heartburn Lumbago with sciatica, right side Tonsillar abscess Surgical History Hx of breast surgery (05/31/24) History of lumpectomy of right breast (07/28/23) Hx of breast surgery History of esophagogastroduodenoscopy (EGD) History of excision of mass (06/07/19) History of section (06/19/09) Family History Family History Maternal Aunt Breast cancer, Onset Age: 40 Father Myocardial infarction Maternal Grandmother Pancreas cancer Paternal Grandfather Lung cancer Bladder cancer Social History Social History Household Members Other:: duplex Housing: Apartment Are you a primary occasional caregiver to a significant other at home: No Do you presently have visiting nurse or other home services: No Alcohol intake: current Alcohol intake frequency: 0-2 drinks per day Comment: counts correct Patient Tobacco Use Status: Former Tobacco user Cigarette Packs Per Day: 1 Cigarettes Per Day: 20.0 Smoked in Last 30 Days: No e-Cigarette/Vaping Use: Never Used Second Hand Smoke Exposure: No Use of substances other than those prescribed or required for medical reasons: No Advance Directives: No Advance Directives Information Provided: No Do you have a plan to hurt others: No Plan Current occupational status: unemployed Sexual orientation: Straight/Heterosexual Gender identity: Female Cognitive needs: No Hearing needs: No Vision needs: No Physical Exam ED Vital Signs: Vital Signs - 24 hr 09/01/24 13:03 09/01/24 20:02 Temperature 99 F Pulse Rate 116 H 110 H Respiratory Rate 19 16 Blood Pressure 128/85 125/78 Pulse Oximetry 99 99 Oxygen Delivery Method Room Air Room Air BMI result Body Mass Index 32.5 Const Other: Alert well-appearing Orientation/consciousness: patient oriented x3 Resp Other: Nonlabored respirations, lungs clear to auscultation Cardio Other: Normal peripheral perfusion Skin Other: Warm dry no rash Neuro General: patient oriented x3, gait normal, no focal motor deficits and CN's II- XI intact bilaterally Extrem Other: No unilateral calf swelling Psych Other: Cooperative Course Course Course Narrative: RME, this is a rapid medical exam performed by Clay Thomas please refer to primary provider for complete H&P- 33 female presents for evaluation chest tightness and shortness of breath. Her pain radiates to her back. Plan for cardiac workup. Vitals are significant for a tachycardia to 125, but vitals are otherwise stable Medical Decision Making Medical Decision Making MDM Narrative: 33-year-old female with a history of anxiety and morbid obesity, presents with shortness of breath and chest pain x2 days. Patient states she has cough and cold symptoms, the cough is dry and repetitive . Associated pleuritic chest pain that is central, worse with deep inspiration. Patient was seen by her primary care provider who advised to come to the emergency department for a chest x-ray. Denies unilateral calf pain or swelling. Denies hemoptysis. Patient does not have a diagnosis of asthma or COPD, she does not smoke tobacco. No fevers at home. Problem: Obesity History: Per patient I have considered the following differential diagnoses: Reactive airway, viral syndrome, pneumonia, bronchitis, PE , ACS Plan: Screening labs, chest x-ray and viral panel were obtained from triage, everything is negative. ACS was considered, however the patient has no risk factors for coronary artery disease beyond obesity, troponin and EKG also obtained. She does have a bronchospasm type cough on exam, without active wheezing. She is afebrile. I am considering PE she is tachycardic, we will obtain a dimer I have independently reviewed the following tests: Labs: No leukocytosis, not anemic, no electrolyte abnormality, not , troponin negative, dimer 178, viral panel negative EKG: Sinus tachycardia, rate of 110, no ischemic changes no ectopy QTC 441 Chest x-ray: XR/XR chest 2V IMPRESSION: No acute airspace disease. Stable. Lab Data 09/01/24 13:14 09/01/24 13:14 Labs: Lab Results 09/01/24 09/01/24 09/01/24 Range/Units 13:13 13:14 20:29 WBC 8.2 (4.8-10.8) X10*3/uL RBC 4.48 (4.20-5.50) X10*6/uL Hgb 12.7 (12.0-16.0) g/dl Hct 37.3 (37.0-47.0) % MCV 83.3 (80.0-98.0) fL MCH 28.3 (27.0-33.0) pg MCHC 34.0 (31.0-35.0) g/dl RDW 12.8 (11.0-16.0) % Plt Count 243 (160-400) X10*3/uL MPV 9.6 (9.4-12.3) fL Immature Gran % (Auto) 0.2 (0.0-0.4) % Neut % (Auto) 78.0 H (45-73) % Lymph % (Auto) 14.3 L (20-40) % [place] % (Auto) 6.3 (2-11) % Eos % (Auto) 0.7 (0-4) % Baso % (Auto) 0.5 (0-2) % Lymph # (Auto) 1.2 (1.2-4.9) X10*3/uL [place] # (Auto) 0.5 (0.1-1.2) X10*3/uL Eos # (Auto) 0.1 (0.0-0.4) X10*3/uL Baso # (Auto) 0.0 (0.0-0.2) X10*3/uL Abs Immat Gran (auto) 0.02 (0.00-0.03) X10*3/uL Absolute Neuts (auto) 6.4 (2.0-8.3) x10*3/uL Absolute Nucleated RBC 0.000 (0.0-0.012) X10*3/uL Nucleated RBC % (auto) 0.0 (0.0-0.2) /100WBC D-Dimer High Sensitivty 178 NG/ML Sodium 138 (135-145) mmol/L Potassium 3.5 D (3.3-5.1) mmol/L Chloride 108 (96-108) mmol/L Carbon Dioxide 24 (22-29) mmol/L Anion Gap 10 L (12-20) BUN 9 (9-16) mg/dL Creatinine 0.78 (0.5-1.4) mg/dL Estim Creat Clear Calc 95.1 Estimated GFR > 60 Random Glucose 108 (60-115) mg/dL Calcium 9.7 (8.4-10.2) mg/dL Total Bilirubin 0.4 (0.0-1.0) mg/dL AST 21 (5-31) U/L ALT 21 (0-31) U/L Alkaline Phosphatase 91 (39-117) U/L Troponin I High Sens < 2.7 (<3.5-17.0) ng/L B-Natriuretic Peptide 15 (<100) pg/mL Total Protein 8.6 H (6.5-8.0) g/dL Albumin 4.4 (3.5-5.0) g/dL Lipase 9 (8-78) U/L Influenza Type A (PCR) NEGATIVE (Negative) Influenza Type B (PCR) NEGATIVE (Negative) RSV RNA Qual (PCR) NEGATIVE (Negative) SARS-CoV-2 RNA (RT-PCR) NEGATIVE (Negative) Discharge Plan Discharge Clinical Impression: Bronchospasm Patient Disposition: Home, Self-Care Instructions: Bronchospasm (ED) Additional Instructions: You have a bronchospasm type cough, your airway is reactive in response to your upper respiratory infection. See home care instructions. Use the Tessalon Perles as needed for cough, they may help. Use the albuterol as needed for the cough, this will help with the reactivity of your airway. All of your screening labs including a cardiac enzymes were negative, there were no concerning changes on your EKG in the chest x-ray is clear. Continue to follow up with primary care as needed. Prescriptions: New albuterol sulfate 90 mcg/actuation HFA aerosol inhaler 2 puff inhalation Q4-6H PRN (Reason: bronchospasm) Qty: 6.7 0RF benzonatate 200 mg capsule 200 mg PO TID PRN (Reason: cough) Qty: 10 0RF No Action biotin 2,500 mcg Tablet 5,000 mcg PO DAILY omeprazole 20 mg capsule,delayed release(DR/EC) 20 mg PO DAILY Mirena 20 mcg/24 hours (7 yrs) 52 mg intrauterine device 1 device intrauterine ONCE cholecalciferol (vitamin D3) 50 mcg (2,000 unit) capsule 50 mcg PO DAILY dicyclomine 10 mg capsule 10 mg PO BID PRN Stand Alone Forms: Work/School Release Print Language: Maltese
[2024-09-01 13:19] LABS: MANUAL DIFF FLAG NO
[2024-09-01 13:22] LABS: Basophils Percent Auto 0.5 % (0-2); Eosinophils Absolute Auto 0.1 X10*3/uL (0.0-0.4); Eosinophils Percent Auto 0.7 % (0-4); Hematocrit 37.3 % (37.0-47.0); Hemoglobin 12.7 g/dl (12.0-16.0); Imm Gran Abs Auto 0.02 X10*3/uL (0.00-0.03); Imm Gran Pct Auto 0.2 % (0.0-0.4); Lymphocytes Absolute Auto 1.2 X10*3/uL (1.2-4.9); Lymphocytes Percent Auto 14.3 % (20-40); Mean Corpuscular Hemoglobin 28.3 pg (27.0-33.0); Mean Corpuscular Volume 83.3 fL (80.0-98.0); Mean Platelet Volume 9.6 fL (9.4-12.3); Monocytes Absolute Auto 0.5 X10*3/uL (0.1-1.2); Monocytes Percent Auto 6.3 % (2-11); Neutrophils Absolute Auto 6.4 x10*3/uL (2.0-8.3); Platelet Count 243 X10*3/uL (160-400); Red Blood Count 4.48 X10*6/uL (4.20-5.50); Red Cell Distribution Width 12.8 % (11.0-16.0); White Blood Count 8.2 X10*3/uL (4.8-10.8)
[2024-09-01 13:39] LABS: Alanine Aminotransferase 21 U/L (0-31); Albumin Level 4.4 g/dL (3.5-5.0); Alkaline Phosphatase 91 U/L (39-117); Anion Gap 10 (12-20); Aspartate Amino Transferase 21 U/L (5-31); Bilirubin Total 0.4 mg/dL (0.0-1.0); Blood Urea Nitrogen 9 mg/dL (9-16); Calcium 9.7 mg/dL (8.4-10.2); Carbon Dioxide 24 mmol/L (22-29); Chloride 108 mmol/L (96-108); Creatinine Clr Calc Pharmacy 95.1; Estimated Glomerular Filt Rate > 60; Glucose Random 108 mg/dL (60-115); Lipase 9 U/L (8-78); Potassium 3.5 mmol/L (3.3-5.1); Sodium 138 mmol/L (135-145); Total Protein 8.6 g/dL (6.5-8.0)
[2024-09-01 13:44] LABS: B Type Natriuretic Peptide 15 pg/mL (<100)
[2024-09-01 13:50] LABS: Troponin-I High Sensitivity < 2.7 ng/L (<3.5-17.0)
[2024-09-01 13:57] LABS: Influenza A PCR NEGATIVE (Negative); Influenza B PCR NEGATIVE (Negative); Resp Syncy Virus RNA Qual PCR NEGATIVE (Negative); SARS COV2 PCR INHOUSE NEGATIVE (Negative)
--- OUTSIDE RECORDS SUMMARY | 2024-09-01 19:58 | XMS_ITS ---
Author Organization [facility] Address [address] [facility] [address] [place] [id number] Care Team Providers Care County Director Welfare Name Role Phone Samuel KAMARA, Eladia Primary Care Provider Dante Azul [facility] [phone] REASON FOR VISIT Dicyclomine Rx to [facility] in [place] Medications Medication SIG (Take, Route, Fr equency, Duration) [...] Active Encounters Encounter Location Date Provider Diagnosis [facility] [address] [phone] 05/05/2024 Dante Ho Chronic diarrhea K52.9 Assessments Encounter Date Diagnosis (ICD Code) Assessment Notes Treatment Notes Treatment Clinical Notes Section Notes 05/05/2024 Chronic diarrhea (ICD-10 - K52.9) Plan Of Treatment Medication Medication Name Sig Start Date Stop [...] a 24 hours for 30 day(s) 05/05/2024 Progress Notes * JOHN MERIDADOB:[birth year] (33 yo F)Acc No.[id number]:05/05/2024 Patient:JOHN CARRILLO :1990???Age:33 Y???Sex:Female Address:[address] [place] [address], [place] [address] * Refills? Refill Dicyclomine HCl Capsule, 10 MG, Orally, 60, take 1 or 2 capsules, Take 1 or 2 15 to 30 minutes before a meal to see if that will decrease cramps and diarrhea that you get after eating. You can also take 1 or 2 every 6 hours as needed for cramps and diarrhea. Don't take more than 4 times over the course of a 24 hours, 30 day(s), Refills=6 * true * Date:? Generated for Maris rodriguez/Aaron/eDnismitting on:?09/01/2024 07:58 PM EDT
--- OUTSIDE RECORDS SUMMARY | 2024-09-01 19:58 | XMS_ITS ---
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 Name Role Phone Samuel KAMARA, Eladia Primary Care Provider Dante Azul [phone] Allergies Allergen (clinical drug ingredient) Drug/Non Drug Allergy documented on EMR Reaction Allergy Type Onset Date Status fentanyl Fentanyl Unknown Drug Allergy Active clindamycin Clindamycin Unknown Drug Allergy Act sanjiv buspirone Buspirone Unknown Drug Allergy Active cyclobenzaprine Cyclobenzaprine HCl Unknown Drug Allergy Active clindamycin Clindamycin HCl Unknown Drug Allergy Active Medications Medication SIG (Take, Route, Frequency, Duration) Notes [...] Omeprazole 20 MG TAKE 1 CAPSULE BY [facility] EVERY DAY for 90 Active Vitamin D3 Active Iron (Ferrous Sulfate) 325 (65 Fe) MG 1 tablet Orally Three times a Week for 30 day(s) Active Biotin 10 MG 1 tablet Orally Once a day for 30 day(s) Active Social History Tobacco Use: Social History Observation Description Date Details (start date - stop date) Former Smoker NA - NA Tobacco Use/Smoking Question Answer Notes Patient is [...] Never (0 point) Points 3 Interpretation Positive Section Notes: Nonsmoker since 06/2021; no s ig alcohol Vital Signs Blood pressure systolic 00 mm Hg 05/05/20 24 Blood pressure diastolic 00 mm Hg 024 Height 62 in 05/05/2024 Weight 172 lbs 05/05/2024 BMI 31.46 kg/m2 05/05/2024 Encounters Encounter Location Date Provider Diagnosis [facility] [address] [place] [address] 05/05/2024 Dante Ho Gastroesophageal ref lux disease, esophagitis presence not specified K21.9 ; Chronic diarrhea K52.9 ; Barretts esophagus without dysplasia K22.70 and Serrated polyp of colon K63.5 Assessments Encounter Date Diagnosis (ICD Code) Assessment Notes Treatment Notes Treatment Clinical Notes Section Notes 05/05/2024 Gastroesophageal reflux disease, esophagitis presence not specified (ICD-10 - K21.9) Overall, Mavis appears well and does seem to be improved in regard to her previous significant problems with diarrhea. It does seem that staying on a lactose-free diet has helped to some degree. She has otherwise had a very extensive negative workup as described above for the diarrhea. We did review that she may have some component of irritable bowel syndrome as well as the component of lactose intolerance. I am going to give her a trial of dicyclomine to use either p.r.n. and/or to use before meals to see if that would help decrease any postprandial diarrhea and cramps. I did advise her that she could continue to use some Imodium for diarrhea relief as well. At this point I don't think any further evaluation of this is required given some moderate improvement in her symptoms, negative extensive workup as mentioned, and her good clinical appearance. We did review that I would recommend a followup upper endoscopy and colonoscopy in 2026 in regard to the underlying Goodson's esophagus and history of the serrated colon polyp. If things otherwise remain stable she will see me in the interim on a p.r.n. basis. I did advise her to certainly call if she has any problems or questions that I can be of assistance with in the interim. Mavis was very comfortable with this plan. Thank you again for allowing me to participate in Mavis's care. I shall continue to keep you advised of her progress. 05/05/2024 Chronic diarrhea (ICD-10 - K52.9) Stay on Lactose-free diet I will send over a prescription for Dicyclomine as an antispasmodic to use before meals to try to decrease the loose stools Overall, Mavis appears well and does seem to be improved in regard to her previous significant problems with diarrhea. It does seem that staying on a lactose-free diet has helped to some degree. She has otherwise had a very extensive negative workup as described above for the diarrhea. We did review that she may have some component of irritable bowel syndrome as well as the component of lactose intolerance. I am going to give her a trial of dicyclomine to use either p.r.n. and/or to use before meals to see if that would help decrease any postprandial diarrhea and cramps. I did advise her that she could continue to use some Imodium for diarrhea relief as well. At this point I don't think any further evaluation of this is required given some moderate improvement in her symptoms, negative extensive workup as mentioned, and her good clinical appearance. We did review that I would recommend a followup upper endoscopy and colonoscopy in 2026 in regard to the underlying Goodson's esophagus and history of the serrated colon polyp. If things otherwise remain stable she will see me in the interim on a p.r.n. basis. I did advise her to certainly call if she has any problems or questions that I can be of assistance with in the interim. Mavis was very comfortable with this plan. Thank you again for allowing me to participate in Mavis's care. I shall continue to keep you advised of her progress. 05/05/2024 Barretts esophagus without dysplasia (ICD-10 - K22.70) Repeat upper endo in 09/2026 Overall, Mavis appears well and does seem to be improved in regard to her previous significant problems with diarrhea. It does seem that staying on a lactose-free diet has helped to some degree. She has otherwise had a very extensive negative workup as described above for the diarrhea. We did review that she may have some component of irritable bowel syndrome as well as the component of lactose intolerance. I am going to give her a trial of dicyclomine to use either p.r.n. and/or to use before meals to see if that would help decrease any postprandial diarrhea and cramps. I did advise her that she could continue to use some Imodium for diarrhea relief as well. At this point I don't think any further evaluation of this is required given some moderate improvement in her symptoms, negative extensive workup as mentioned, and her good clinical appearance. We did review that I would recommend a followup upper endoscopy and colonoscopy in 2026 in regard to the underlying Goodson's esophagus and history of the serrated colon polyp. If things otherwise remain stable she will see me in the interim on a p.r.n. basis. I did advise her to certainly call if she has any problems or questions that I can be of assistance with in the interim. Mavis was very comfortable with this plan. Thank you again for allowing me to participate in Mavis's care. I shall continue to keep you advised of her progress. 05/05/2024 Serrated polyp of colon (ICD-10 - K63.5) Repeat colonosocpy in 09/2026 Overall, Maivs appears well and does seem to be improved in regard to her previous significant problems with diarrhea. It does seem that staying on a lactose-free diet has helped to some degree. She has otherwise had a very extensive negative workup as described above for the diarrhea. We did review that she may have some component of irritable bowel syndrome as well as the component of lactose intolerance. I am going to give her a trial of dicyclomine to use either p.r.n. and/or to use before meals to see if that would help decrease any postprandial diarrhea and cramps. I did advise her that she could continue to use some Imodium for diarrhea relief as well. At this point I don't think any further evaluation of this is required given some moderate improvement in her symptoms, negative extensive workup as mentioned, and her good clinical appearance. We did review that I would recommend a followup upper endoscopy and colonoscopy in 2026 in regard to the underlying Goodson's esophagus and history of the serrated colon polyp. If things otherwise remain stable she will see me in the interim on a p.r.n. basis. I did advise her to certainly call if she has any problems or questions that I can be of assistance with in the interim. Mavis was very comfortable with this plan. Thank you again for allowing me to participate in Mavis's care. I shall continue to keep you advised of her progress. Plan Of Treatment Medication Medication Name Sig [...] Follow Up: prn, Reason: Progress Notes * MAVIS MERIDADOB:[birth year] (33 yo F)Acc No.[id number]:05/05/2024 Progress Notes Patient:?MAVIS MERIDA Provider:?Danet Ho MD :1990???Age:33 Y???Sex:Female D ate:05/05/2024 Address:[address] [place], [place] [id number] Pcp:Eladia Baker MD Subjective: * Chief Complaints: * ??? * HPI: ???incontinence:? I saw Mavis in followup today in regard to her ongoing issues with diarrhea, gastroesophageal reflux and Goodson's esophagus, and history of a serrated colon polyp. ?I last saw Mavis in December, at which time she underwent a followup upper endoscopy in regard to the upper GI complaints of early satiety and her ongoing diarrhea. This did not reveal any significant findings. Duodenal biopsies revealed only some slight increase in lymphocytes but normal villi and this was not felt to be consistent with celiac disease. Previous laboratories for celiac disease had also been negative. Gastric biopsies were negative for H. pylori. 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 Since that time she underwent further testing with a small bowel series and nuclear medicine gastric emptying study, both of which were normal and negative for any findings that would account for her symptoms of early satiety and diarrhea. ?She did try a gluten-free diet for a while which did not really seem to help. The main thing that has helped to some degree is that of a lactose-free diet. She is no longer using any Lomotil or Imodium. She currently reports that she is having about 6 loose bowel movements per day with some cramping. She does find that stress will increase her symptoms as well. She remains on omeprazole with good relief of reflux symptoms although she still experiences some fullness during her meals. She has not lost any weight. She denies any significant heartburn or dysphagia. She has not noticed any jaundice, fevers, hematochezia, nor melena. Other workup over the summer revealed stool specimens that were negative for any sign of exocrine pancreatic insufficiency. ?Laboratories from just 3 weeks ago revealed a normal CBC, normal electrolytes, and blood sugar. * ROS:?General/Constitutional:?Change in appetite?admitsthat is associated with weight loss.?Chills?denies.?Fatigue?denies.?Ophthalmologic:?Comments?all negative.?ENT:?Comments?all negative.?Respiratory:?hemoptysis?denies.?Cough?denies.?Cardiovascular:?Chest pain?denies.?Orthopnea?denies.?Gastrointestinal:?Comments?See HPI for details.?Genitourinary:?Hematuria?denies.?Dysuria?denies.?Musculoskeletal:?Painful joints?denies.?Weakness?denies.?Skin:?Itching?denies.?Rash?denies.?Neurologic:?Headache?denies.?Seizures?denies.?Psychiatric:?Comments?all negative.? * Medical History:? * Surgical History:? Tonsillar abscesses Breast surgery x 3 on the right for issues with damage to the milk ducts after removal of piercings with Dr. Hull. Most recent surgery was in early July of 2023. Breast surgery x 1 on the left for the same issues as above * Hospitalization/Major Diagno stic Procedure:?No Hospitalization History. * Family History:?Father: hipolito esquivel, massive heart attack at age 32, diagnosed with HTN (hypertension), Diabetes, Heart disease.?Mother: alive, diagnosed with Heart disease, Diabetes.?Paternal Grand Mother: alive, crohns and hx of diverticulitis.? No known hx of colon cancer or esophageal disease. Maternal GM of pancreatic cancer. * Social History:?Tobacco Use:?Tobacco Use/Smoking?Patient is a?former smoker.?Drugs/Alcohol:?Alcohol Screen?Did you have a drink containing alcohol in the past year??Yes,?How often did you have a drink containing alcohol in the past year??2 to 3 times a week (3 points),?How many drinks did you have on a typical day when you were drinking in the past year??1 or 2 drinks (0 point),?How often did you have 6 or more drinks on one occasion in the past year??Never (0 point),?Points?3,?Interpretation?Positive.?Miscellaneous:?Caffeine: 3-4 cups per day. Marital status: . 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 ???Nonsmoker since 06/2021; no sig alcohol. * Medications:?TakingVitamin D 3 Biotin 10 MG Tablet 1 tablet Orally Once a dayIron (Ferrous Sulfate) 325 (65 Fe) MG Tablet 1 tablet Orally Three times a WeekOmeprazole 20 MG Capsule Delayed Release TAKE 1 CAPSULE BY MOUTH EVERY DAY Taking Vitamin D3 Taking Biotin 10 MG Tablet 1 tablet Orally Once a dayTaking Iron (Ferrous Sulfate) 325 (65 Fe) MG Tablet 1 tablet Orally Three times a WeekTaking Omeprazole 20 MG Capsule Delayed Release TAKE 1 CAPSULE BY MOUTH EVERY DAY DiscontinuedBudesonide 3 MG Capsule Delayed Release Particles TAKE 3 CAPSULES BY MOUTH EVERY DAY Lomotil 2.5-0.025 MG Tablet 1 or 2 tablets Orally Every 6 hours as needed for diarrhea. You can take 1 or 2 right when you get up in the morning to try to make things better before the diarrhea even starts. But make sure you avoid any constipationDiscontinued Budesonide 3 MG Capsule Delayed Release Particles TAKE 3 CAPSULES BY MOUTH EVERY DAY Discontinued Lomotil 2.5-0.025 MG Tablet 1 or 2 tablets Orally Every 6 hours as needed for diarrhea. You can take 1 or 2 right when you get up in the morning to try to make things better before the diarrhea even starts. But make sure you avoid any constipation * Allergies:?Cyclobenzaprine H ClClindamycin HClFentanylBuspironeClindamycinyes[Allergies Verified] Objective: * Vitals:?Wt: 172 lbs, Ht: 62 in, BMI:31.46 Index, BP: 00/00 mm Hg. * Examination: ???General Examination: ?GENERAL APPEARANCE:?pleasant, well nourished, well developed, in no acute distress.?EYES:?sclera non-icteric.?ORAL CAVITY:?mucosa moist.?NECK/THYROID:?no cervical lymphadenopathy, neck supple.?SKIN:?nonjaundiced, no spider angiomata.?HEART:?S1, S2 normal.?LUNGS:?clear to auscultation bilaterally.?ABDOMEN:?normal bowel sounds, no guarding or rigidity, no guarding or rigidity, no masses palpable, soft, nontender, nondistended.?EXTREMITIES:?no edema.?NEUROLOGIC:?alert and oriented.? Assessment: * Assessment: 1.?Chronic diarrhea - K52.9 (Primary)?2.?Gastroesophageal reflux disease, esophagitis presence not specified - K21.9?3.?Barretts esophagus without dysplasia - K22.70?4.?Serrated polyp of colon - K63.5? Overall, Mavis appears wel l and does seem to be improved in regard to her previous significant problems with diarrhea. It does seem that staying on a lactose-free diet has helped to some degree. She has otherwise had a very extensive negative workup as described above for the diarrhea. We did review that she may have some component of irritable bowel syndrome as well as the component of lactose intolerance. I am going to give her a trial of dicyclomine to use either p.r.n. and/or to use before meals to see if that would help decrease any postprandial diarrhea and cramps. I did advise her that she could continue to use some Imodium for diarrhea relief as well. At this point I don't think any further evaluation of this is required given some moderate improvement in her symptoms, negative extensive workup as mentioned, and her good clinical appearance. We did review that I would recommend a followup upper endoscopy and colonoscopy in 2026 in regard to the underlying Goodson's esophagus and history of the serrated colon polyp. If things otherwise remain stable she will see me in the interim on a p.r.n. basis. I did advise her to certainly call if she has any problems or questions that I can be of assistance with in the interim. Mavis was very comfortable with this plan. Thank you again for allowing me to participate in Mavis's care. I shall continue to keep you advised of her progress. Plan: * Treatment: 2.?Barretts esophagus withou t dysplasia? Notes: Repeat upper endo in 09/2026?? 3.?Serrated polyp of colon? Notes: Repeat colonosocpy in 09/2026?? * Procedure Codes:?1036F TOBAC CO [id number] BP SCR NOT PRFRM REC REASON NOS * Preventive Medicine:? ??Counseling:?Care goal follow-up plan:?Above Normal BMI Follow-up?Giving encouragement to exercise,?BMI management provided?Yes.? * Follow Up:?prn * * Sign off status: Completed true * Provider:?Dante Ho MD Date:? 024 Generated for Maris rodriguez/Aaron/Jritting on:?09/01/2024 07:58 PM EDT History and Physical Notes * HPI (History of Present Illness) Category Sub-Category Detail Notes Category Not es incontinence I saw Mavis in followup today in regard to her ongoing issues with diarrhea, gastroesophageal reflux and Goodson's esophagus, and history of a serrated colon polyp. I last saw Mavis in December, at which time she underwent a followup upper endoscopy in regard to the upper GI complaints of early satiety and her ongoing diarrhea. This did not reveal any significant findings. Duodenal biopsies revealed only some slight increase in lymphocytes but normal villi and this was not felt to be consistent with celiac disease. Previous laboratories for celiac disease had also been negative. Gastric biopsies were negative for H. pylori. 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 Since that time she underwent further testing with a small bowel series and nuclear medicine gastric emptying study, both of which were normal and negative for any findings that would account for her symptoms of early satiety and diarrhea. She did try a gluten-free diet for a while which did not really seem to help. The main thing that has helped to some degree is that of a lactose-free diet. She is no longer using any Lomotil or Imodium. She currently reports that she is having about 6 loose bowel movements per day with some cramping. She does find that stress will increase her symptoms as well. She remains on omeprazole with good relief of reflux symptoms although she still experiences some fullness during her meals. She has not lost any weight. She denies any significant heartburn or dysphagia. She has not noticed any jaundice, fevers, hematochezia, nor melena. Other workup over the summer revealed stool specimens that were negative for any sign of exocrine pancreatic insufficiency. Laboratories from just 3 weeks ago revealed a normal CBC, normal electrolytes, and blood sugar. Examination Category Sub-Category Detail Notes Category Not es General Examination GENERAL APPEARANCE: pleasant , well [...]
--- OUTSIDE RECORDS SUMMARY | 2024-09-01 19:58 | XMS_ITS | Patient Health Record ---
Author Organization [facility] Address [address] [place] [address] Care Team Providers Care Technical Support Technician Name Role Phone Samuel KAMARA, Eladia Primary Care Provider Dante Azul [phone] Allergies Allergen (clinical drug ingredient) Drug/Non Drug Allergy documented on EMR Reaction Allergy Type Onset Date Status fentanyl Fentanyl Unknown Drug Allergy Active clindamycin Clindamycin Unknown Drug Allergy Act sanjiv buspirone Buspirone Unknown Drug Allergy Active cyclobenzaprine Cyclobenzaprine HCl Unknown Drug Allergy Active clindamycin Clindamycin HCl Unknown Drug Allergy Active Results Component Value Reference Range Notes Calprotectin, Fecal Reviewed date:09/29/2023 07:09:12 PM Interpretation: Performing Lab:[facility], [address] [place] [phone] Notes/Report: Calprotectin, Fecal 165 Reference Range: <50 [...] borderline values. THIS TEST WAS PERFORMED AT: [facility] [place] [address] [place] [address] MONTEZ AMBROSIO MD,PHD,ISMA GI PANEL Reviewed date:09/22/2023 06:31:35 PM Interpretation: Performing Lab:[facility], [address] [place] [phone] Notes/Report: Campylobacter Not Detected Not Detect. Plesiomonas [...] is performed by Multiplexed PCR, utilizing the [employer] Array. T4 Thyroxine Reviewed date:12/08/2023 11:45:41 PM Interpretation: Performing Lab:[facility], [address] [place] [phone] Notes/Report: T4 Thyroxine 9.1 4.5-12.0 ug/dL Pancreatic Elastase-1 Reviewed date:01/26/2024 11:51:01 PM Interpretation: Performing Lab:[facility], [address] [place] [phone] Notes/Report: Pancreatic Elastase-1 >500 Adult and Pediatric Reference Ranges for Pancreatic Elastase-1: Normal: >200 mcg/g Moderate Pancreatic Insufficiency: 100-200 mcg/g Severe Pancreatic Insufficiency: <100 mcg/g Elastase-1 (E-1) assay results are expressed in mcg/g, which represent mcg E1/g feces. It is not necessary to interrupt enzyme substitution therapy. THIS TEST WAS PERFORMED AT: [facility] [place] [id number] [place] [phone] MONTEZ AMBROSIO MD,PHD,ISMA Fecal Fat Qualitative Reviewed date:01/26/2024 11:51:18 PM Interpretation: Performing Lab:[facility], [address] [place] [phone] Notes/Report: Fecal Fat Qualitative NORMAL NORMAL THIS TEST WAS PERFORMED AT: [facility] [id number] [place] [phone] MONTEZ AMBROSIO MD,PHD,ISMA Calprotectin, Fecal Reviewed date:01/26/2024 11:48:13 PM Interpretation: Performing Lab:[facility], [address] [place] [phone] Notes/Report: Calprotectin, Fecal 78 Reference Range: <50 [...] borderline values. THIS TEST WAS PERFORMED AT: [facility] [place] [address] [place] [address] MONTEZ AMBROSIO MD,PHD,ISMA Complete Blood Count Auto Di ff Reviewed date:2023 07:04:05 PM Interpretation: Performing Lab:[facility], [address] [place] [phone] Notes/Report: White Blood Count 8.3 4.8-10.8 X10*3/uL [...] 0.0-0.2 /100WBC Neutrophils Absolute Auto 4.7 2.0-8.3 x10*3/uL Imm Gran Abs Auto 0.04 0.00-0.03 X10*3/uL Lymphocytes Absolute Auto 2.8 1.2-4.9 X10*3/uL Monocytes Absolute Auto 0.6 0.1-1.2 X10*3/uL Eosinophils Absolute Auto 0.2 0.0-0.4 X10*3/uL Basophils Absolute Auto 0.0 0.0-0.2 X10*3/uL NRBC Abs Auto 0.000 0.0-0.012 X10*3/uL Erythrocyte Sedimentation Ra te Reviewed date:09/22/2023 06:32:28 PM Interpretation: Performing Lab:[facility], [address] [place] [phone] Notes/Report: Erythrocyte Sedimentation Rate 44 0-20 MM/HR Patients with polycythemia and many hemoglobin abnormalities may have depressed sed rates whereas patients with anemia may have elevated sed rates. Liver Panel Reviewed date:2023 07:01:51 PM Interpretation: Performing Lab:[facility], [address] [place] [phone] Notes/Report: Bilirubin Total 0.3 0.0-1.0 mg/dL Bilirubin Direct 0.2 0.0-0.5 mg/dL Aspartate Amino Transferase 19 5-31 U/L Alanine Aminotransferase 22 0-31 U/L Total Protein 8.6 6.5-8.0 g/dL Albumin Level 4.2 3.5-5.0 g/dL Alkaline Phosphatase 103 39-117 U/L Basic Metabolic Panel Reviewed date:2023 07:02:14 PM Interpretation: Performing Lab:[address] [phone] Notes/Report: Sodium 141 135-145 mmol/L Potassium 3.5 3.3-5.1 mmol/L Chloride 109 96-108 mmol/L Carbon Dioxide 25 22-29 mmol/L Anion Gap 11 12-20 Blood Urea Nitrogen 6 9-16 mg/dL Creatinine 0.76 0.5-1.4 mg/dL Estimated Glomerular Filt Rate > 60 NOTE: For -Palauan individuals, multiply the result by 1.210. Chronic Kidney Disease: Estimated GFR < 60 mL/min/1.73m2 Severe Kidney Disease: Estimated GFR < 15 mL/min/1.73m2 Glucose Random 90 60-115 mg/dL Calcium 9.9 8.4-10.2 mg/dL C Reactive Protein Reviewed date:2023 07:02:22 PM Interpretation: Performing Lab:[address] [phone] Notes/Report: C Reactive Protein 3.04 < or = 0.50 mg/dL Immunoglobulin A Reviewed date:09/24/2023 06:11:24 PM Interpretation: Performing Lab:[address] [address] Notes/Report: Immunoglobulin A 357 47-310 mg/dL THIS TEST WAS PERFORMED AT: [facility] [address] [place] [phone] CHUCKY MEJÍA MD Transglutaminase Ab IgG Reviewed date:09/24/2023 06:11:32 PM Interpretation: Performing Lab:[address] [phone] Notes/Report: Transglutaminase Ab IgG <1.0 Value Interpretation ----- <15.0 Antibody not detected > or = 15.0 Antibody detected THIS TEST WAS PERFORMED AT: [facility] [address] [place] [phone] CHUCKY MEJÍA MD Transglutaminase IgA Reviewed date:09/24/2023 06:11:41 PM Interpretation: Performing Lab:[facility], [address] [place] [phone] Notes/Report: Transglutaminase IgA <1.0 Value Interpretation ----- <15.0 Antibody not detected > or = 15.0 Antibody detected THIS TEST WAS PERFORMED AT: [facility] [address] [place] [phone] CHUCKY MEJÍA MD Gliadin Ab Panel Reviewed date:09/24/2023 06:12:12 PM Interpretation: Performing Lab:[facility], [address] [place] [phone] Notes/Report: Gliadin Deamidated IgA Ab 1.5 Value Interpretation ----- <15.0 Antibody not detected > or = 15.0 Antibody detected Gliadin Deamidated IgG Ab 8.5 Value Interpretation ----- <15.0 Antibody not detected > or = 15.0 Antibody detected THIS TEST WAS PERFORMED AT: [facility] [address] [place] [phone] CHUCKY MEJÍA MD Endomysial IgA rflx Titer Reviewed date:09/24/2023 06:12:20 PM Interpretation: Performing Lab:[facility], [address] [place] [phone] Notes/Report: Endomysial IgA Antibody Negative Negative THIS TEST WAS PERFORMED AT: [facility] [address] [place] [address] ARTEMIO SAHU MD,PHD Endomysial Titer TNP Leukocytes Stool Qualitative Reviewed date:09/22/2023 06:30:35 PM Interpretation: Performing Lab:[facility], [address] [place] [phone] Notes/Report: Leukocytes Stool Qualitative NEGATIVE NEGATIVE CDiff Gene PCR Reviewed date:09/22/2023 06:30:28 PM Interpretation: Performing Lab:[facility], [address] [place] [phone] Notes/Report: CDiff Gene PCR NEGATIVE Negative If C. difficile strongly suspected despite one negative test, a second test may be sent vs. empiric treatment for C. difficile infection. Ur Preg Test Reviewed date:09/24/2023 06:01:05 PM Interpretation: Performing Lab:[facility], [address] [place] [phone] Notes/Report: Urine NEGATIVE NEGATIVE This test was developed to detect early . False negative results may occur after the 5th - 7th week of when using this test method. If clinically indicated, consider a serum hCG. Pathology Reviewed date:10/04/2023 12:47:30 AM Interpretation: Performing Lab:[facility], [address] [place] [phone] Notes/Report: --- Name: Jennifer Merida Art Age/Sex: 33/F : 1990 Unit#: [id number] Attend Dr: Dante Ho Re09/24/23 Status : [facility] [place] [place] Location: [facility] Disch: --- SPEC : [id number] RECD : 09/24/23 STATUS: MARKO SAAVEDRA NUM: [id number] ASAEL: 09/24/[address] [facility] [address]: Dante Ho ENTERED: 09/24/23 56 SP TYPE: Surgical OTHR DR: Eladia Baker MD ORDERED: HE Stain/18 , Gross Micro L4/6 Addendum Addendum 1 Entered: 09/29/23 (E): Additional tiss ue levels show colonic mucosa with thermal artifact and minimal hyperplastic changes ; no adenomatous dysplasia seen. Addendum Signed (signature on file) Wen Bora 09/29/23 0835 --- Diagnosis A. Colon, ascending, polyp: Sessile serrated lesion/polyp without dysplasia. B. Terminal ileum, biopsy: Focal mild active ileitis; no granulomas or dysplasia (see comment). C. Colon, ascending, biopsy: Colonic mucosa with lymphoid aggregates and no specific change; no colitis, granulomas or dysplasia. D. Colon, descending , biopsy: Colonic mucosa with lymphoid aggregates and no specific change; no colitis, granulomas or dysplasia. E. Colon, at 20 cm, polyp: Polypoid colonic mucosa with thermal artifact on initial levels (see comment). F. Colon, rectal erendira yp: Hyperplastic polyp. Comment: (B): These mild findings may be due to NSAIDs/drugs, bowel prep, infection, or early inflammatory disease and clinical correlation is necessary. (E): Additional deep er tissue levels pending; addendum to follow. Clinical History Pre-Op Dx: Diarrhea Post-Op Dx: Colon po lyp and hemorrhoids CONTINUED ON NEXT PAGE --- Name: Jennifre Merida Age/Sex: 33/F : 1990 Unit#: [id number] Attend Dr: Dante Ho Re09/24/23 Status : [facility] [place] [place] Location: [facility] Disch: --- SPEC : [id number] RECD : 09/24/23 STATUS: DADAKim STEWARDJuan NUM: [id number] ASAEL: 09/24/[address] [facility] [address]: Dante Ho ENTERED: 09/24/23 56 SP TYPE: Surgical OTHR DR: Eladia Baker MD ORDERED: HE Stain/18 , Gross Micro L4/6 Microscopic Description Microscopic sections reviewed. Material Received A. Proximal ascendin g polyp B. Terminal ileum C. Ascending colon, r/o microscopic colitis D. Descending colon, r/o microscopic colitis E. Polyp @ 20 cm F. Rectal polyp Gross Description Received in 6 parts. Part A: Received in formalin labeled ?proximal ascending colon polyp? is a 0.6 cm martínez-pink papular tissue fragment, bisected and entirely submitted in a cassette labeled A. Part B: Received in formalin labeled ?terminal ileum? are 3 martínez irregular tissue fragments ranging from 0.25-0. 3 cm, submitted in toto in a cassette labeled B. Part C: Received in formalin labeled ?ascending colon? are 4 martínez-pink irregular and rectangular tissue fragments ranging from 0.25-0.3 cm, submitted in toto in a cassette labeled C. Part D: Received in formalin labeled ?descending colon? are 4 martínez-pink irregular tissue fragments each measuring 0.25 cm, submitted in toto in a cassette labeled D. Part E: Received in formalin labeled ?polyp at 20 cm? is a 0.35 cm hyperemic and congested, pink-maroon papular tissue fragment, submitted in toto in a cassette labeled E. Part F: Received in formalin labeled ?rectal polyp? are 2 martínez-pink irregular tissue fragments measuring 0.2 and 0.25 cm, submitted in toto in a cassette labeled F. CEDS Copies To: Eladia Baker MD [facility] [place] [address] [address] CONTINUED ON NEXT PAGE --- Name: Jennifer Merida Age/Sex: 33/F : 1990 Unit#: [id number] Attend Dr: Dante Ho Re09/24/23 Status : [facility] [place] [place] Location: [facility] Disch: --- SPEC : [id number] RECD : 09/24/23 STATUS: MARKO SAAVEDRA NUM: [id number] ASAEL: 09/24/[address] [facility] [address]: Dante Ho ENTERED: 09/24/23-08 56 SP TYPE: Surgical OTHR DR: Eladia Baker MD ORDERED: HE Stain/18 , Gross Micro L4/6 Copies To: (Continued) Ho,[address] [place] [address] --- Signed (signature on file) Wen [place] 09/25/23 1218 --- END OF REPORT Basic Metabolic Panel Reviewed date:12/08/2023 11:45:21 PM Interpretation: Performing Lab:[facility], [address] [place] [phone] Notes/Report: Sodium 143 135-145 mmol/L Potassium 3.4 3.3-5.1 mmol/L Chloride 106 96-108 mmol/L Carbon Dioxide 28 22-29 mmol/L Anion Gap 12 12-20 Blood Urea Nitrogen 7 9-16 mg/dL Creatinine 0.72 0.5-1.4 mg/dL Estimated Glomerular Filt Rate > 60 NOTE: For -Palauan individuals, multiply the result by 1.210. Chronic Kidney Disease: Estimated GFR < 60 mL/min/1.73m2 Severe Kidney Disease: Estimated GFR < 15 mL/min/1.73m2 Glucose Random 88 60-115 mg/dL Calcium 9.8 8.4-10.2 mg/dL Thyroid Stimulating Hormone Reviewed date:12/08/2023 11:45:28 PM Interpretation: Performing Lab:[facility], [address] [place] [phone] Notes/Report: Thyroid Stimulating Hormone 1.16 0.32-4.0 uIU/mL TSH 3rd Generation ([facility]) CT abdomen pelvis w con Reviewed date:01/03/2024 05:30:54 PM Interpretation: Performing Lab: Notes/Report: [address] [address] [address] Scan Report Signed Patient: John Merida MR#: [id number] : 1990 Acct:[id number] Age/Sex: 33 / F ADM Date: 12/11/23 Loc: HO.CT Attending Dr: Dante Ho MD Ordering Physician: Dante Ho MD Date of Service: 12/11/23 Procedure(s): CT abdomen pelvis w IV con Accession Number(s): [id number] cc: Eladia Baker MD; Dante Ho MD [...] in OV> 12/29/23 1434 DD/ 1503 TD/TT: Welfare Analyst: [place] [address] CT Scan Report Signed Patient: John Merida MR#: [id number] : 1990 Acct:[id number] Age/Sex: 33 / F ADM Date: 12/11/23 Loc: HO.CT Attending Dr: Dante Ho MD Ordering Physician: Dante Ho MD Date of Service: 12/11/23 Procedure(s): CT abdomen pelvis w IV con Accession Number(s): [id number] cc: Eladia Baker MD; Dante Ho MD EXAMINATION: CT ABDOMEN AND PELVI S WITH CONTRAST CLINICAL INFORMATION: Chronic diarrhea and [...] performed using dose optimization techniques as appropriate, various ly including the following: *Automated exposure control *Adjustment [...] liver is normal in size, shape, and attenuati on. No focal hepatic lesion or biliary ductal dilatation is presen t. The gallbladder is unremarkable with no evidence of radiopaque gallstones, gallbladder wall thickening, or obvious pericholecystic inflammatory changes. PANCREAS: No discret e suspicious mass. There is a small lipoma or prominent fatty clef t in the uncinate measuring 10 x 5 mm. No ductal dilatation. SPLEEN: Unremarkable. ADRENAL GLANDS: Unremarkable. KIDNEYS AND URETERS: The kidneys are normal in size, shape, and attenuation. No hydronephrosis, hydroureter, or calculi seen. No perinephric stranding. BLADDER: Unremarkable. GASTROINTESTINAL TRA CT: The small and large bowel are normal in caliber. No focal richard wel wall thickening. No acute inflammatory changes. The appendix appears normal. ABDOMINAL WALL: No significant hernia is appreciated. LYMPH NODES: No lymphadenopathy. VASCULAR: No aortic aneurysm. PELVIC VISCERA: An I UD appears appropriately positioned in the uterus. Ovaries appear aga l for age. OSSEOUS STRUCTURES: No suspicious osseous lesions CT/CT abdomen pelvis w IV con IMPRESSION: No explanation for chronic diarrhea and weight loss. No CT evidence of enteritis or colitis . No visible bowel mass. Dictated By: Garth Hutchins MD Signed By: <Electronically signed by Garth Hutchins MD in OV> 12/29/23 1434 DD/ 1503 TD/TT: Welfare Analyst: JAVIER Yi Test Reviewed date:01/08/2024 08:57:46 AM Interpretation: Performing Lab:[facility], [address] [place] [phone] Notes/Report: Urine NEGATIVE NEGATIVE This test was developed to detect early . False negative results may occur after the 5th - 7th week of when using this test method. If clinically indicated, consider a serum hCG. Pathology Reviewed date:01/13/2024 07:25:09 PM Interpretation: Performing Lab:[facility], [address] [place] [phone] Notes/Report: --- Name: Jennifer Merida Age/Sex: 33/F : 1990 [facility]#: [id number] Unit#: [id number] Attend Dr: Dante Ho MD Re01/08/24 Status : [facility] [place] [place] Location: [facility] Disch: --- SPEC : [id number] RECD : 01/08/24 STATUS: [facility] NUM: [id number] ASAEL: 01/08/24-[address] [facility] [address]: Dante Ho MD ENTERED: 01/08/24- SP TYPE: Surgical OTHR DR: Eladia Baker MD ORDERED: HE Stain/12 , Gross Micro L4/4, IHC/2, Special st. 2/4, H. pylori/2, AB/PAS/4 Diagnosis A. Duodenum, descending, biopsy: Duodenal mucosa with mildly increased intraepithelial lymphocytes and preserved villous architecture. See comment. B. Duodenum, bulb, biopsy: Christiano gland hyperplasia; otherwise duodenal mucosal within normal limits. C. Stomach, antrum, biopsy: Antral-type mucosa with mild chronic inactive inflammation; no Helicobacter organisms seen. D. Stomach, polyp: Fundic gland polyp with background mild chronic inactive inflammation; no Helicobacter organisms seen. COMMENT: The finding s in the duodenum are non-specific. The differential diagnosis is broad and includes infection (e.g. viral or H. pylori), medication/drugs (e.g. NSAIDs), gluten sensitivity/celiac disease, bacterial overgrowth, tropical sprue, immunodeficiency syndromes (e.g. IgA deficiency, CVID), autoimmune enteropathy, Crohns and collagen vascular disease, am clint others. Please correlate with clinical and other laboratory findings. Clinical History Pre-Op Dx: Diaphragmatic hernia without obstruction Post-Op Dx: Gastric polyps and reflux Microscopic Description A-D. Microscopic sections examined. No metaplastic changes are seen, supported by AB/PAS stains (A-D); no Helicobacter organisms are seen, supported by H. pylori immunostain (C and D). Material Received A. Descending duoden um, r/o celiac B. Duodenal bulb, r/ o celiac C. Gastric antrum D. Gastric polyp CONTINUED ON NEXT PAGE --- Name: Jennifer Merida Age/Sex: 33/F : 1990 Unit#: [id number] Attend Dr: Dante Ho MD Re01/08/24 Status : [facility] [place] [place] Location: [facility] Disch: --- SPEC : [id number] RECD : 01/08/24 STATUS: MARKO SAAVEDRA NUM: [id number] ASAEL: 01/08/24-[address] [facility] [address]: Dante Ho MD ENTERED: 01/08/24- 37 SP TYPE: Surgical OTHR DR: Eladia Baker MD ORDERED: HE Stain/12 , Gross Micro L4/4, IHC/2, Special st. 2, H. pylori/2, AB/PAS/4 Gross Description Received in four parts. Part A: Received in formalin labeled ?descending duodenum bx, rule out celiac? are 4 martínez- pink irregular tissu e fragments each measuring 0.3 cm, submitted in toto in a cassette labeled A. Part B: Received in formalin labeled ?duodenal bulb bx, rule out celiac? are 3 martínez-pink irregular tissue fragments ranging from 0.25-0.3 cm, submitted in toto in a cassette labeled B. Part C: Received in formalin labeled ?gastric antrum bx? are 3 martínez-pink rectangular tissue fragments ranging 0.3-0.45 cm, submitted in toto in a cassette labeled C. Part D: Received in formalin labeled ?gastric polyp bx? are 3 martínez-pink irregular tissue fragments ranging fr om 0.1-0.3 cm, submitted in toto in a cassette labeled D. CEDS Special studies orde red and performed: Immunostain for H. pylori on C and D; AB/PAS stains on A-D Copies To: Eladia Baker MD [facility] [address] [place], [place] [id number] Dante Ho MD [facility] [address] [place] [address] [address] [place], [place] [id number] --- Signed (signature on file) Michael Leblanc MD 01/09/24 1607 --- END OF REPORT Erythrocyte Sedimentation Ra te Reviewed date:01/15/2024 07:42:05 PM Interpretation: Performing Lab:[facility], [address] [place] [phone] Notes/Report: Erythrocyte Sedimentation Rate 39 0-20 MM/HR Patients with polycythemia and many hemoglobin abnormalities may have depressed sed rates whereas patients with anemia may have elevated sed rates. C Reactive Protein Reviewed date:01/15/2024 07:41:58 PM Interpretation: Performing Lab:[address] [phone] Notes/Report: C Reactive Protein 1.58 < or = 0.50 mg/dL Chymotrypsin, Stool Reviewed date:02/26/2024 11:06:00 PM Interpretation: Performing Lab:[address] [phone] Notes/Report: Chymotrypsin, Stool 5.3 2.3-51.4 U/g This test was developed and its analytical performance characteristics have been determined by [facility]. It has not been cleared or approved by FDA. This assay has been validated pursuant to the CLIA regulations and is used for clinical purposes. THIS TEST WAS PERFORMED AT: [facility] [address] [place] [address] MONTEZ AMBROSIO MD,PHD,ISMA [place] gastric emptying study Reviewed date:02/26/2024 11:14:16 PM Interpretation: Performing Lab: Notes/Report: [address] [address] Nuclear Medicine Report Signed Patient: John Merida MR#: [id number] : 1990 Acct:[id number] Age/Sex: 33 / F ADM Date: 02/17/24 Loc: EVA Attending Dr: Dante Ho MD Ordering Physician: Dnate Ho MD Date of Service: 02/17/24 Procedure(s): NM gastric emptying study Accession Number(s): [id number] cc: Eladia Baker MD; Dante Ho MD EXAMINATION: NM RADIONUCLIDE SOLID FOOD GASTRIC EMPTYING 4-HOUR STUDY [...] grading per JNMT Consensus Recommendations in 2008 (https://tech.snmjournals.org/content/36/1/44) Grade 1 (mild retention): 11-20% at 4h Grade 2 (moderate retention): 21-35% at 4h Grade 3 (severe retention): 36-50% at 4h Grade 4 (very severe retention): >50% retention at 4h Electronically signed by: Brunilda Chan MD 02/19/2024 03:11 PM EDT Dictated By: Brunilda Chan MD Signed By: <Electronically signed by Brunilda Chan MD in OV> 02/19/24 1511 DD/ 0825 TD/TT: 02/17/24 1200 Welfare Analyst: SHARON [address] [address] Nuclear Medicine Report Signed Patient: John Merida MR#: [id number] : 1990 Acct:[id number] Age/Sex: 33 / F ADM Date: 02/17/24 Loc: EVA Attending Dr: Dante Ho MD Ordering Physician: Dante Ho MD Date of Service: 02/17/24 Procedure(s): WA gastric emptying study Accession Number(s): [id number] cc: Eladia Baker MD; Dante Ho MD EXAMINATION: WA RADIONUCLIDE LORELEI D FOOD GASTRIC EMPTYING 4-HOUR STUDY CLINICAL INFORMATION: Early satiety. COMPARISON: None TECHNIQUE: A standard meal consisting of 4 oz of Egg Beaters brand tagged with 1000 microcuries Tc- 99m Sulfur Colloid, 8 oz water and tiny piece of toast with jelly was administered orally to the patient. Images were obtained using a mitzy l head gamma camera in the anterior and [...] the stomach immediately post ingestion. As the st udy progresses, there is good clearance of activity from the stomach and visualization of progressively increasing small bowel activity. By t he end of the study, there is almost no retention noted in the stomach . Retention in the stomach at each time interval was: 1 hour 85% (normal 37%-90%) 2 hours 31% (normal 30%-60%) 3 hours 2% 4 hours estimation w as not performed since only 2% retention was noted at the 3 hours interval. NM/WA gastric emptying study IMPRESSION: Normal 4-hour solid food gastric emptying study. Slightly technically limited since patien t did not eat the entire meal. For solid meal, rapi d gastric emptying is less than 30% at 60 minutes. Delayed gastric emptying criteria is more than 60% remaining at 120 minutes or more than 10% at 240 minutes. The 4-hour value is the best discriminator of a normal or abnormal result). Gastric emptying noah dy grading per JNMT Consensus Recommendations in 2008 (https://tech.snmjourna ls.org/content/36) Grade 1 (mild retention): 11-20% at 4h Grade 2 (moderate retention): 21-35% at 4h Grade 3 (severe retention): 36-50% at 4h Grade 4 (very severe retention): >50% retention at 4h Electronically narda d by: Brunilda Chan MD 02/19/2024 03:11 PM EDT RP Dictated By: Brunilda Chan MD Signed By: <Electronically signed by Brunilda Chan MD in OV> 02/19/24 1511 DD/ 0825 TD/TT: 02/17/24 1200 Welfare Analyst: [place]AR[place] upper GI w air w SBFT (No t yet reviewed by provider) Interpretation: Performing Lab: Notes/Report: [address] [address] Fluoroscopy Report Signed Patient: John Merida MR#: [id number] : 1990 Acct:[id number] Age/Sex: 33 / F ADM Date: 02/20/24 Loc: HO.XRAY Attending Dr: Dante Ho MD Ordering Physician: Dante Ho MD Date of Service: 02/20/24 Procedure(s): FL upper GI w air w SBFT Accession Number(s): [id number] cc: Eladia Baker MD; Dante Ho MD [...] and mucosal fold appearance. SMALL BOWEL SERIES: Log Stacker Operator view demonstrates normal bowel gas pattern. No [...] Daniel Morgan MD 02/20/2024 03:45 PM EDT RP Dictated By: Marcus Bergeron Signed By: <Electronically signed by Marcus Bergeron in OV> 02/20/24 1545 <Electronically signed by Daniel Morgan MD in OV> 05/26/24 1208 DD/ 0753 TD/TT: 02/20/24 1000 Welfare Analyst: [place] [address] Fluoroscopy Report Signed Patient: John Merida MR#: [id number] : 1990 Acct:[id number] Age/Sex: 33 / F ADM Date: 02/20/24 Loc: HO.XRAY Attending Dr: Dante Ho MD Ordering Physician: Dante Ho MD Date of Service: 02/20/24 Procedure(s): FL upp er GI w air w SBFT Accession Number(s): [id number] cc: Eladia Baker MD; Dante Ho MD EXAMINATION: XR UPPER GI SERIES W ITH SMALL BOWEL CLINICAL INFORMATION: Early satiety. Chron ic diarrhea. COMPARISON: None TECHNIQUE: Fluoroscopic air contrast upper GI examination was performed utilizing standard techniques with thin and thick barium and effervescent granules. Numerous s pot images were obtained. Films were then obtained every 30 minutes unt il contrast reached the right colon. A spot image of the cecum/termina l ileum was obtained. FINDINGS: Dual and single contrast images of the esophagus demonstrate normal caliber, contour, an d mucosal pattern. Mild cricopharyngeal achalasia is present. No evide nce of stricture, mass, or ulcerations identified. Esophageal peristals is was normal. A small type I hiata l hernia is present. No significant gastroesophageal ref lux was seen during the course of the examination and on reflux views. Dual contrast and single contrast images of the stomach demonstrated a normal contour. The gastric folds have a severely thickened appearance, suggestive of gastritis. No masses or ulcerations are seen. Contrast freely passed into t he gastric antrum and duodenal bulb without delay. Single and air-contr ast images of the duodenal bulb demonstrate no abnormality. The duodenal sweep has a normal appearance, course, and mucosal fold appearance. SMALL BOWEL SERIES: Log Stacker Operator view demonstra moni normal bowel gas pattern. No dilated loops. IUD present within the central inferior pelvis. Lung bases clear. No organomegaly or abnormal calcifications. The small bowel has a normal fold pattern and caliber. No strictures, masses, or dilated loops are present. Contrast is observed in the right colon after 60 minut es. The terminal ileum has a normal appearance. FLUOROSCOPY TIME: 3 minutes 55 seconds Number of Spot Image s: 10 Number of Cine: 14 DOSE AREA PRODUCT: 2613 uGy-m2 (microgray-meter squared) FL/FL upper GI w air w SBFT IMPRESSION: 1. Mild cricopharyng eal achalasia. 2. Small type I hiat al hernia. 3. Severely thickene d appearance of the gastric rugal folds, suggestive of gastritis. Recomm end correlation with EGD. 4. Unremarkable smal l bowel series. Contrast is seen in the right colon after 60 minutes. This procedure was performed by Marcus Bergeron PA-C, and supervised by Dr. Morgan Electronically narda d by: Daniel Morgan MD 02/20/2024 03:45 PM EDT Dictated By: Marcus Bergeron Signed By: <Electronically signed by Marcus Bergeron in OV> 02/20/24 4776 <Electronically sign ed by Daniel Morgan MD in OV> 05/26/24 1208 DD/ 0753 TD/TT: 02/20/24 1000 Welfare Analyst: Reason For Referral No Information Medications Medication SIG (Take, Route, Frequency, Duration) Notes Start Date End Date Status Vitamin D3 Unknown Biotin 10 MG 1 tablet Orally Once a day for 30 day(s) Unknown Iron (Ferrous Sulfate) 325 (65 Fe) MG 1 tablet Orally Three times a Week for 30 day(s) Unknown Omeprazole 20 MG TAKE 1 CAPSULE BY [facility] EVERY DAY for 90 Unknown Dicyclomine HCl [...] 24 hours for 30 day(s) 05/05/2024 Unknown Immunizations Vaccine Route Administration Date Status Comme nts Influenza Unknown 05/05/2018 Refused Influenza Unknown 12/13/2022 Refused Social History Tobacco Use: Social History Observation [...] point) Points 3 Interpretation Positive Section Notes: Smokes 1/2 ppd; no sig alcohol Eats chocolate at least every other day Smokes 1/2 ppd; no sig alcoh ol Nonsmoker since 06/2021; no s ig alcohol Nonsmoker since 06/2021; no s ig alcohol Nonsmoker since 06/2021; no s ig alcohol Nonsmoker since 06/2021; no s ig alcohol Problems Problem Type SNOMED Code ICD Code Onset Dates Problem Status W/U Status Risk Notes Problem Gastro-esophageal reflux disease without esophagitis (261216066) Gastro-esophageal reflux disease without esophagitis (K21.9) Active confirmed Problem Weight loss (860324724) Weight loss (R63.4) Active confirmed Problem 729995785 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) Active confirmed Problem Benign neoplasm of stomach (83314337) Polyp of stomach and duodenum (K31.7) Active confirmed Problem Abnormal weight loss (049821097) Abnormal weight loss (R63.4) Active confirmed Problem Early satiety (189820034) Early satiety (R68.81) Active confirmed Problem Gastroesophageal reflux disease (058967392) Gastroesophageal reflux disease (K21.9) Active confirmed Problem 724645448 Gastroesophageal reflux disease without esophagitis (K21.9) Active confirmed Problem 927670441 Barretts esophag us without dysplasia (K22.70) Active confirmed Problem 803688754 Gastroesophageal reflux disease, esophagitis presence not specified (K21.9) Active confirmed Problem 22770354 Hiatal hernia (K44.9) Active confirmed Problem Benign neoplasm of stomach (09076718) Gastric polyps (K31.7) Active confirmed Problem Goodson esophagus (614153741) 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) Active confirmed Problem Chronic diarrhea (491495660) Chronic diarrhea (K52.9) Active confirmed Problem Serrated polyp of colon (183704312) Serrated polyp of colon (K63.5) Active confirmed Problem Epigastric fullness (3815556) Abdominal fullness (R19.8) Active confirmed Vital Signs Blood pressure diastolic 00 mm Hg 05/05/2024 Height 62 in 05/05/2024 Blood pressure systolic 00 mm Hg 05/05/2024 Weight 172 lbs 05/05/2024 BMI 31.46 kg/m2 05/05/2024 Encounters Encounter Location Date Provider Diagnosis [facility] [address] [place] [address] [id number] 09/24/2023 Dante Ho Colon polyps K63.5 ; Rectal polyp K62.1 ; Diarrhea R19.7 and Other hemorrhoids K64.8 [facility] [address] [place] [address] [id number] 01/08/2024 Dante Ho Goodson esophagus K2 2.70 ; Hiatal hernia K44.9 ; Gastric polyps K31.7 ; Early satiety R68.81 ; Diarrhea R19.7 ; Gastro-esophageal reflux disease without esophagitis K21.9 and Weight loss R63.4 [facility] [address] [place] [address] 2023 Dante Ho Chronic diarrhea K52 .9 [facility] [address] [place] [address] 12/02/2023 Dante Ho Gastroesophageal ref lux disease, esophagitis presence not specified K21.9 ; Chronic diarrhea K52.9 ; Barretts esophagus without dysplasia K22.70 ; Hiatal hernia K44.9 ; Early satiety R68.81 ; Weight loss R63.4 ; Abdominal fullness R19.8 and Serrated polyp of colon K63.5 [facility] [address] [place] [address] 05/05/2024 Dante Ho Gastroesophageal ref lux disease, esophagitis presence not specified K21.9 ; Chronic diarrhea K52.9 ; Barretts esophagus without dysplasia K22.70 and Serrated polyp of colon K63.5 [facility] [address] [place] [phone] 09/20/2023 Dante Ho [facility] [address] [place] [address] 09/29/2023 Dante Ho [facility] [address] [place] [phone] 09/29/2023 Dante Ho [facility] [address] [place] [address] 09/29/2023 Dante Ho Chronic diarrhea K52 .9 and Abnormal weight loss R63.4 [facility] [address] [place] [address] 12/02/2023 Dante Ho Chronic diarrhea K52 .9 [facility] [address] [place] [address] 12/05/2023 Dante Ho [facility] [address] [place] [address] 12/30/2023 Dante Ho [facility] [address] [place] [address] 12/31/2023 Dante Ho [facility] [address] [place] [address] 01/07/2024 [facility] [address] [place] [phone] 01/11/2024 Dante Ho [facility] [address] [place] [phone] 01/12/2024 Dante Ho Chronic diarrhea K52 .9 and Early satiety R68.81 [facility] [address] [place] [phone] 02/26/2024 Dante Ho [facility] [address] [place] [address] 05/05/2024 Dante Ho Chronic diarrhea K52 .9 [facility] [address] [place] [phone] 05/31/2024 Dante Ho Assessments Encounter Date Diagnosis (ICD Code) Assessment Notes Treatment Notes Treatment Clinical Notes Section Notes 09/24/2023 Rectal polyp (ICD-10 - K62.1) 09/24/2023 Colon polyps (ICD-10 - K63.5) 01/08/2024 Hiatal hernia (ICD-10 - K44.9) 01/08/2024 Goodson esophagus (ICD-10 - K22.70) 2023 Chronic diarrhea (ICD-10 - K52.9) Use 1 or 2 Imodium every 4 to 6 hours as needed for diarrhea Overall, John appears well. We did review the findings on her upper endoscopy. Based on the biopsies of the Goodson's esophagus being negative for dysplasia I advised her of the need for another upper endoscopy in 2025 for followup in that regard. It does seem that omeprazole is working well for the history of reflux and I advised her to certainly continue that. In regard to her symptoms of ongoing diarrhea, some early satiety, some anorexia, and significant weight loss, I advised her that it would be important to rule out inflammatory bowel disease, as well as any type of infectious process. This seems to have started after an outpatient breast surgery and I'm not sure if she received antibiotics for that. Another possibility would be that of celiac disease. Given the otherwise negative endoscopy last year I doubt she has any significant upper GI pathology contributing to this. The current upper GI symptoms might be in relation to the ongoing process causing the diarrhea. I have ordered the below laboratories and stool specimens for further evaluation. In the meantime, I have recommended that she use Imodium at least 3 or 4 times a day as needed, I advised her to be careful with her diet and to try to stay on a bland diet, and avoid caffeine and dairy. I have recommended that she undergo a colonoscopy in the near future to rule out anything such as inflammatory bowel disease or microscopic colitis. Full consent has been obtained for this, including risks of bleeding and perforation. The procedure will be done with monitored anesthesia care. I advised her to contact me before the colonoscopy, or go to the ER, if she develops any problems such as bleeding, abdominal pain, or worsening symptoms in general. John was comfortable with this plan. Thank you again for allowing me to participate in John's care. I shall continue to keep you advised of her progress. 12/02/2023 Gastroesophageal reflux disease, esophagitis presence not specified (ICD-10 - K21.9) Overall, John appears well from a clinical standpoint despite her ongoing issues with diarrhea, early satiety, and some abdominal fullness. She had lost some weight earlier in the year but that seems to have leveled off at this point. I did review the colonoscopy findings with her in regard to not finding any particular etiology of her diarrhea. We did discuss the significance of the serrated colon polyp and the need for a followup colonoscopy in 2026 for further surveillance and screening. In regard to the ongoing GI symptoms I did advise her that at this point I would have her stop the budesonide as it is not particularly helping her and there is no definitive indication to continue with it. I will start her on some Lomotil to use throughout the day to see if that can give her any symptomatic improvement. I did advise her that she could take some right in the morning when she awakens, rather than waiting to the onset of diarrhea, to see if that could help improve things during the day for her. I had recommended a CT of her abdomen when I spoke to her in September in regard to her ongoing issues with the abdominal discomfort, early satiety, weight loss, and ongoing diarrhea. She was to have had the CT scan yesterday but due to a lapse in her health insurance this had to be canceled and she reports that it is now not scheduled until the end of December. I shall try to get that CT scan appointment moved to a much earlier date either here in [place] or reschedule it in [place]. I have also scheduled her for an upper endoscopy somewhat further down the road due to the ongoing upper GI complaints of the early satiety and fullness. I do think the yield on that will be low given the upper endoscopy results from last year during a surveillance of her Goodson's esophagus. She does have the hiatal hernia but otherwise seems asymptomatic on her PPI in that regard. Nonetheless, given her ongoing symptoms I did recommend that we schedule the upper endoscopy for now. We can obtain duodenal biopsies for further assessment of possible celiac disease in regard to her diarrhea despite the negative laboratories for celiac disease. Depending upon the results of her CT scan I may want her to undergo at least a small bowel series to further evaluate her diarrhea and to try to further definitively rule out Crohn's disease given the microscopic changes in the terminal ileum with inflammation, as well as the somewhat elevated sedimentation rate and C-reactive protein. I will be in touch with her as any results become available but hopefully the Lomotil prescription will give her some symptomatic relief. I may move her upper endoscopy to a sooner date depending upon the results of her studies and her clinical course. I did advise John to contact me prior to her endoscopy if she has any problems or questions I can be of assistance with. John was comfortable with this plan. Thank you again for allowing me to participate in John's care. I shall continue to keep you advised of her progress. 12/02/2023 Chronic diarrhea (ICD-10 - K52.9) Stop the Budesonide completely. I will send over a prescription for the diarrhea. Overall, John appears well from a clinical standpoint despite her ongoing issues with diarrhea, early satiety, and some abdominal fullness. She had lost some weight earlier in the year but that seems to have leveled off at this point. I did review the colonoscopy findings with her in regard to not finding any particular etiology of her diarrhea. We did discuss the significance of the serrated colon polyp and the need for a followup colonoscopy in 2026 for further surveillance and screening. In regard to the ongoing GI symptoms I did advise her that at this point I would have her stop the budesonide as it is not particularly helping her and there is no definitive indication to continue with it. I will start her on some Lomotil to use throughout the day to see if that can give her any symptomatic improvement. I did advise her that she could take some right in the morning when she awakens, rather than waiting to the onset of diarrhea, to see if that could help improve things during the day for her. I had recommended a CT of her abdomen when I spoke to her in September in regard to her ongoing issues with the abdominal discomfort, early satiety, weight loss, and ongoing diarrhea. She was to have had the CT scan yesterday but due to a lapse in her health insurance this had to be canceled and she reports that it is now not scheduled until the end of December. I shall try to get that CT scan appointment moved to a much earlier date either here in [place] or reschedule it in [place]. I have also scheduled her for an upper endoscopy somewhat further down the road due to the ongoing upper GI complaints of the early satiety and fullness. I do think the yield on that will be low given the upper endoscopy results from last year during a surveillance of her Goodson's esophagus. She does have the hiatal hernia but otherwise seems asymptomatic on her PPI in that regard. Nonetheless, given her ongoing symptoms I did recommend that we schedule the upper endoscopy for now. We can obtain duodenal biopsies for further assessment of possible celiac disease in regard to her diarrhea despite the negative laboratories for celiac disease. Depending upon the results of her CT scan I may want her to undergo at least a small bowel series to further evaluate her diarrhea and to try to further definitively rule out Crohn's disease given the microscopic changes in the terminal ileum with inflammation, as well as the somewhat elevated sedimentation rate and C-reactive protein. I will be in touch with her as any results become available but hopefully the Lomotil prescription will give her some symptomatic relief. I may move her upper endoscopy to a sooner date depending upon the results of her studies and her clinical course. I did advise John to contact me prior to her endoscopy if she has any problems or questions I can be of assistance with. John was comfortable with this plan. Thank you again for allowing me to participate in John's care. I shall continue to keep you advised of her progress. 05/05/2024 Gastroesophageal reflux disease, esophagitis presence not specified (ICD-10 - K21.9) Overall, John appears well and does seem to be [...] be of assistance with in the interim. John was very comfortable with this plan. Thank you again for allowing me to participate in John's care. I shall continue to keep you advised of her progress. 05/05/2024 Chronic diarrhea (ICD-10 - K52.9) Stay on Lactose-free diet I will send over a prescription for Dicyclomine as an antispasmodic to use before meals to try to decrease the loose stools Overall, John appears well and does seem to be [...] be of assistance with in the interim. John was very comfortable with this plan. Thank you again for allowing me to participate in John's care. I shall continue to keep you advised of her progress. 09/29/2023 Abnormal weight loss (ICD-10 - R63.4) 09/29/2023 Chronic diarrhea (ICD-10 - K52.9) 12/02/2023 Chronic diarrhea (ICD-10 - K52.9) 01/12/2024 Chronic diarrhea (ICD-10 - K52.9) 05/05/2024 Chronic diarrhea (ICD-10 - K52.9) 09/24/2023 Diarrhea (ICD-10 - R19.7) 01/08/2024 Gastric polyps (ICD-10 - K31.7) 12/02/2023 Barretts esophagus without dysplasia (ICD-10 - K22.70) Overall, John appears well from a clinical standpoint despite her ongoing issues with diarrhea, early satiety, and some abdominal fullness. She had lost some weight earlier in the year but that seems to have leveled off at this point. I did review the colonoscopy findings with her in regard to not finding any particular etiology of her diarrhea. We did discuss the significance of the serrated colon polyp and the need for a followup colonoscopy in 2026 for further surveillance and screening. In regard to the ongoing GI symptoms I did advise her that at this point I would have her stop the budesonide as it is not particularly helping her and there is no definitive indication to continue with it. I will start her on some Lomotil to use throughout the day to see if that can give her any symptomatic improvement. I did advise her that she could take some right in the morning when she awakens, rather than waiting to the onset of diarrhea, to see if that could help improve things during the day for her. I had recommended a CT of her abdomen when I spoke to her in September in regard to her ongoing issues with the abdominal discomfort, early satiety, weight loss, and ongoing diarrhea. She was to have had the CT scan yesterday but due to a lapse in her health insurance this had to be canceled and she reports that it is now not scheduled until the end of December. I shall try to get that CT scan appointment moved to a much earlier date either here in [place] or reschedule it in [place]. I have also scheduled her for an upper endoscopy somewhat further down the road due to the ongoing upper GI complaints of the early satiety and fullness. I do think the yield on that will be low given the upper endoscopy results from last year during a surveillance of her Goodson's esophagus. She does have the hiatal hernia but otherwise seems asymptomatic on her PPI in that regard. Nonetheless, given her ongoing symptoms I did recommend that we schedule the upper endoscopy for now. We can obtain duodenal biopsies for further assessment of possible celiac disease in regard to her diarrhea despite the negative laboratories for celiac disease. Depending upon the results of her CT scan I may want her to undergo at least a small bowel series to further evaluate her diarrhea and to try to further definitively rule out Crohn's disease given the microscopic changes in the terminal ileum with inflammation, as well as the somewhat elevated sedimentation rate and C-reactive protein. I will be in touch with her as any results become available but hopefully the Lomotil prescription will give her some symptomatic relief. I may move her upper endoscopy to a sooner date depending upon the results of her studies and her clinical course. I did advise John to contact me prior to her endoscopy if she has any problems or questions I can be of assistance with. John was comfortable with this plan. Thank you again for allowing me to participate in John's care. I shall continue to keep you advised of her progress. 05/05/2024 Barretts esophagus without dysplasia (ICD-10 - K22.70) Repeat upper endo in 09/2026 Overall, John appears well and does seem to be [...] be of assistance with in the interim. John was very comfortable with this plan. Thank you again for allowing me to participate in John's care. I shall continue to keep you advised of her progress. 09/24/2023 Other hemorrhoids (ICD-10 - K64.8) 01/08/2024 Early satiety (ICD-10 - R68.81) 12/02/2023 Hiatal hernia (ICD-10 - K44.9) Overall, John appears well from a clinical standpoint despite her ongoing issues with diarrhea, early satiety, and some abdominal fullness. She had lost some weight earlier in the year but that seems to have leveled off at this point. I did review the colonoscopy findings with her in regard to not finding any particular etiology of her diarrhea. We did discuss the significance of the serrated colon polyp and the need for a followup colonoscopy in 2026 for further surveillance and screening. In regard to the ongoing GI symptoms I did advise her that at this point I would have her stop the budesonide as it is not particularly helping her and there is no definitive indication to continue with it. I will start her on some Lomotil to use throughout the day to see if that can give her any symptomatic improvement. I did advise her that she could take some right in the morning when she awakens, rather than waiting to the onset of diarrhea, to see if that could help improve things during the day for her. I had recommended a CT of her abdomen when I spoke to her in September in regard to her ongoing issues with the abdominal discomfort, early satiety, weight loss, and ongoing diarrhea. She was to have had the CT scan yesterday but due to a lapse in her health insurance this had to be canceled and she reports that it is now not scheduled until the end of December. I shall try to get that CT scan appointment moved to a much earlier date either here in [place] or reschedule it in [place]. I have also scheduled her for an upper endoscopy somewhat further down the road due to the ongoing upper GI complaints of the early satiety and fullness. I do think the yield on that will be low given the upper endoscopy results from last year during a surveillance of her Goodson's esophagus. She does have the hiatal hernia but otherwise seems asymptomatic on her PPI in that regard. Nonetheless, given her ongoing symptoms I did recommend that we schedule the upper endoscopy for now. We can obtain duodenal biopsies for further assessment of possible celiac disease in regard to her diarrhea despite the negative laboratories for celiac disease. Depending upon the results of her CT scan I may want her to undergo at least a small bowel series to further evaluate her diarrhea and to try to further definitively rule out Crohn's disease given the microscopic changes in the terminal ileum with inflammation, as well as the somewhat elevated sedimentation rate and C-reactive protein. I will be in touch with her as any results become available but hopefully the Lomotil prescription will give her some symptomatic relief. I may move her upper endoscopy to a sooner date depending upon the results of her studies and her clinical course. I did advise John to contact me prior to her endoscopy if she has any problems or questions I can be of assistance with. John was comfortable with this plan. Thank you again for allowing me to participate in John's care. I shall continue to keep you advised of her progress. 05/05/2024 Serrated polyp of colon (ICD-10 - K63.5) Repeat colonosocpy in 09/2026 Overall, John appears well and does seem to be [...] be of assistance with in the interim. John was very comfortable with this plan. Thank you again for allowing me to participate in John's care. I shall continue to keep you advised of her progress. 01/12/2024 Early satiety (ICD-10 - R68.81) 01/08/2024 Diarrhea (ICD-10 - R19.7) 12/02/2023 Early satiety (ICD-10 - R68.81) Overall, John appears well from a clinical standpoint despite her ongoing issues with diarrhea, early satiety, and some abdominal fullness. She had lost some weight earlier in the year but that seems to have leveled off at this point. I did review the colonoscopy findings with her in regard to not finding any particular etiology of her diarrhea. We did discuss the significance of the serrated colon polyp and the need for a followup colonoscopy in 2026 for further surveillance and screening. In regard to the ongoing GI symptoms I did advise her that at this point I would have her stop the budesonide as it is not particularly helping her and there is no definitive indication to continue with it. I will start her on some Lomotil to use throughout the day to see if that can give her any symptomatic improvement. I did advise her that she could take some right in the morning when she awakens, rather than waiting to the onset of diarrhea, to see if that could help improve things during the day for her. I had recommended a CT of her abdomen when I spoke to her in September in regard to her ongoing issues with the abdominal discomfort, early satiety, weight loss, and ongoing diarrhea. She was to have had the CT scan yesterday but due to a lapse in her health insurance this had to be canceled and she reports that it is now not scheduled until the end of December. I shall try to get that CT scan appointment moved to a much earlier date either here in [place] or reschedule it in [place]. I have also scheduled her for an upper endoscopy somewhat further down the road due to the ongoing upper GI complaints of the early satiety and fullness. I do think the yield on that will be low given the upper endoscopy results from last year during a surveillance of her Goodson's esophagus. She does have the hiatal hernia but otherwise seems asymptomatic on her PPI in that regard. Nonetheless, given her ongoing symptoms I did recommend that we schedule the upper endoscopy for now. We can obtain duodenal biopsies for further assessment of possible celiac disease in regard to her diarrhea despite the negative laboratories for celiac disease. Depending upon the results of her CT scan I may want her to undergo at least a small bowel series to further evaluate her diarrhea and to try to further definitively rule out Crohn's disease given the microscopic changes in the terminal ileum with inflammation, as well as the somewhat elevated sedimentation rate and C-reactive protein. I will be in touch with her as any results become available but hopefully the Lomotil prescription will give her some symptomatic relief. I may move her upper endoscopy to a sooner date depending upon the results of her studies and her clinical course. I did advise John to contact me prior to her endoscopy if she has any problems or questions I can be of assistance with. John was comfortable with this plan. Thank you again for allowing me to participate in John's care. I shall continue to keep you advised of her progress. 01/08/2024 Gastro-esophageal reflux disease without esophagitis (ICD-10 - K21.9) 12/02/2023 Weight loss (ICD-10 - R63.4) Overall, John appears well from a clinical standpoint despite her ongoing issues with diarrhea, early satiety, and some abdominal fullness. She had lost some weight earlier in the year but that seems to have leveled off at this point. I did review the colonoscopy findings with her in regard to not finding any particular etiology of her diarrhea. We did discuss the significance of the serrated colon polyp and the need for a followup colonoscopy in 2026 for further surveillance and screening. In regard to the ongoing GI symptoms I did advise her that at this point I would have her stop the budesonide as it is not particularly helping her and there is no definitive indication to continue with it. I will start her on some Lomotil to use throughout the day to see if that can give her any symptomatic improvement. I did advise her that she could take some right in the morning when she awakens, rather than waiting to the onset of diarrhea, to see if that could help improve things during the day for her. I had recommended a CT of her abdomen when I spoke to her in September in regard to her ongoing issues with the abdominal discomfort, early satiety, weight loss, and ongoing diarrhea. She was to have had the CT scan yesterday but due to a lapse in her health insurance this had to be canceled and she reports that it is now not scheduled until the end of December. I shall try to get that CT scan appointment moved to a much earlier date either here in [place] or reschedule it in [place]. I have also scheduled her for an upper endoscopy somewhat further down the road due to the ongoing upper GI complaints of the early satiety and fullness. I do think the yield on that will be low given the upper endoscopy results from last year during a surveillance of her Goodson's esophagus. She does have the hiatal hernia but otherwise seems asymptomatic on her PPI in that regard. Nonetheless, given her ongoing symptoms I did recommend that we schedule the upper endoscopy for now. We can obtain duodenal biopsies for further assessment of possible celiac disease in regard to her diarrhea despite the negative laboratories for celiac disease. Depending upon the results of her CT scan I may want her to undergo at least a small bowel series to further evaluate her diarrhea and to try to further definitively rule out Crohn's disease given the microscopic changes in the terminal ileum with inflammation, as well as the somewhat elevated sedimentation rate and C-reactive protein. I will be in touch with her as any results become available but hopefully the Lomotil prescription will give her some symptomatic relief. I may move her upper endoscopy to a sooner date depending upon the results of her studies and her clinical course. I did advise John to contact me prior to her endoscopy if she has any problems or questions I can be of assistance with. John was comfortable with this plan. Thank you again for allowing me to participate in John's care. I shall continue to keep you advised of her progress. 01/08/2024 Weight loss (ICD-10 - R63.4) 12/02/2023 Abdominal fullness (ICD-10 - R19.8) Overall, John appears well from a clinical standpoint despite her ongoing issues with diarrhea, early satiety, and some abdominal fullness. She had lost some weight earlier in the year but that seems to have leveled off at this point. I did review the colonoscopy findings with her in regard to not finding any particular etiology of her diarrhea. We did discuss the significance of the serrated colon polyp and the need for a followup colonoscopy in 2026 for further surveillance and screening. In regard to the ongoing GI symptoms I did advise her that at this point I would have her stop the budesonide as it is not particularly helping her and there is no definitive indication to continue with it. I will start her on some Lomotil to use throughout the day to see if that can give her any symptomatic improvement. I did advise her that she could take some right in the morning when she awakens, rather than waiting to the onset of diarrhea, to see if that could help improve things during the day for her. I had recommended a CT of her abdomen when I spoke to her in September in regard to her ongoing issues with the abdominal discomfort, early satiety, weight loss, and ongoing diarrhea. She was to have had the CT scan yesterday but due to a lapse in her health insurance this had to be canceled and she reports that it is now not scheduled until the end of December. I shall try to get that CT scan appointment moved to a much earlier date either here in [place] or reschedule it in [place]. I have also scheduled her for an upper endoscopy somewhat further down the road due to the ongoing upper GI complaints of the early satiety and fullness. I do think the yield on that will be low given the upper endoscopy results from last year during a surveillance of her Goodson's esophagus. She does have the hiatal hernia but otherwise seems asymptomatic on her PPI in that regard. Nonetheless, given her ongoing symptoms I did recommend that we schedule the upper endoscopy for now. We can obtain duodenal biopsies for further assessment of possible celiac disease in regard to her diarrhea despite the negative laboratories for celiac disease. Depending upon the results of her CT scan I may want her to undergo at least a small bowel series to further evaluate her diarrhea and to try to further definitively rule out Crohn's disease given the microscopic changes in the terminal ileum with inflammation, as well as the somewhat elevated sedimentation rate and C-reactive protein. I will be in touch with her as any results become available but hopefully the Lomotil prescription will give her some symptomatic relief. I may move her upper endoscopy to a sooner date depending upon the results of her studies and her clinical course. I did advise John to contact me prior to her endoscopy if she has any problems or questions I can be of assistance with. John was comfortable with this plan. Thank you again for allowing me to participate in John's care. I shall continue to keep you advised of her progress. 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 She had lost some weight earlier in the year but that seems to have leveled off at this point. I did review the colonoscopy findings with her in regard to not finding any particular etiology of her diarrhea. We did discuss the significance of the serrated colon polyp and the need for a followup colonoscopy in 2026 for further surveillance and screening. In regard to the ongoing GI symptoms I did advise her that at this point I would have her stop the budesonide as it is not particularly helping her and there is no definitive indication to continue with it. I will start her on some Lomotil to use throughout the day to see if that can give her any symptomatic improvement. I did advise her that she could take some right in the morning when she awakens, rather than waiting to the onset of diarrhea, to see if that could help improve things during the day for her. I had recommended a CT of her abdomen when I spoke to her in September in regard to her ongoing issues with the abdominal discomfort, early satiety, weight loss, and ongoing diarrhea. She was to have had the CT scan yesterday but due to a lapse in her health insurance this had to be canceled and she reports that it is now not scheduled until the end of December. I shall try to get that CT scan appointment moved to a much earlier date either here in [place] or reschedule it in [place]. I have also scheduled her for an upper endoscopy somewhat further down the road due to the ongoing upper GI complaints of the early satiety and fullness. I do think the yield on that will be low given the upper endoscopy results from last year during a surveillance of her Goodson's esophagus. She does have the hiatal hernia but otherwise seems asymptomatic on her PPI in that regard. Nonetheless, given her ongoing symptoms I did recommend that we schedule the upper endoscopy for now. We can obtain duodenal biopsies for further assessment of possible celiac disease in regard to her diarrhea despite the negative laboratories for celiac disease. Depending upon the results of her CT scan I may want her to undergo at least a small bowel series to further evaluate her diarrhea and to try to further definitively rule out Crohn's disease given the microscopic changes in the terminal ileum with inflammation, as well as the somewhat elevated sedimentation rate and C-reactive protein. I will be in touch with her as any results become available but hopefully the Lomotil prescription will give her some symptomatic relief. I may move her upper endoscopy to a sooner date depending upon the results of her studies and her clinical course. I did advise John to contact me prior to her endoscopy if she has any problems or questions I can be of assistance with. John was comfortable with this plan. Thank you again for allowing me to participate in John's care. I shall continue to keep you advised of her progress. Plan Of Treatment Pending Test Test Name Order Date CHEM 7 PROFILE 12/02/2023 CHEM 7 PROFILE 2023 LIVER PROFILE 2023 TSH (THYROID STIMULATING HORMONE) 2023 TSH (THYROID STIMULATING HORMONE) 2023 CRP 2023 CRP 01/12/2024 CBC w DIFF 2023 SED RATE (ESR) 01/12/2024 SED RATE (ESR) 2023 CELIAC PANEL #10 2023 TRYPSIN,STOOL 01/12/2024 CT ABD & PELVIS WITH CONTRAST 09/29/2023 CT ABD & PELVIS WITH CONTRAST 12/02/2023 NUC GASTRIC ANTRUM EMPTYING 01/12/2024 XR GI [...] Insured Coverage Start Date Coverage End Date [facility] [address] [place], [place] [id number] [id number] JOHN MERIDA Self - patient is the insured Medical (General) History Medical History History ICD Code Denies CO,DM,CVA,Lung disease,renal dise ase GERD/Goodson's--EGD 10/2017-- -small HH, tiny area of Goodson's but no dysplasia---no esophagitis EGD 02/2023 with a small to m oderate-sized hiatal hernia, small area of Goodson's esophagus with biopsies negative for dysplasia, and benign gastric polyps. Rapid heart rate for which s he was evaluated in the ER at [facility]. She had outpatient testing done, including an [...]
--- OUTSIDE RECORDS SUMMARY | 2024-09-01 19:58 | XMS_ITS | Clinical Summary ---
Author Organization [facility] Address [address] [place] [address] Care Team Providers Care Slate Roofer Name Role Phone Eladia Baker MD Primary Care Provider [phone] Medications No known medications Active Problems No [...] of Treatment Not on file Care Teams Slate Roofer Relationship Specialty Start Date End Date Eladia Baker MD [address] [place] [address] PCP - General Internal Medicine 01/10/24
--- OUTSIDE RECORDS SUMMARY | 2024-09-01 19:58 | XMS_ITS | Clinical Summary ---
Author Organization [facility] Address [address] [place] [address] Phone Care Team Providers Care Ambulance Driver Paramedic Name Role Phone Eladia Baker MD Primary Care Provider Encounters Date Type Department Care Team Description 07/06/2024 1:18 PM EST - 07/06/2024 11:59 PM EST Hospital Encounter [facility] Xray [address] [place] [address] Syncope and collapse Discharge Disposition: [...] RESULTING AGENCY - 10/26/2020 9:55 AM EDT [id number] THINPREP PAP, IMAGED: NEGATIVE FOR SQUAMOUS INTRAEPITHELIAL [...] LMP RECORDED. Z12.4, Z01.419, R87.810 [facility] Wall[facility] LAB CYTOLOGY ORDERABLES Final R esult HISTORICAL TESTING LAB RESULTING AGENCY from Last 3 Months or Most Recently Relevant to Health Maintenance Insurance [facility] Care Teams Ambulance Driver Paramedic Relationship Specialty Start Date End Date Eladia Baker MD [address] [place] [address] PCP - General 01/10/24
[2024-09-01 20:02] VITALS: BP 125/78; PULSE 110; RESP 16; O2SAT 99
[2024-09-01 20:51] LABS: D Dimer High Sensitivity 178 NG/ML
[2024-09-01 21:36] VITALS: BP 123/81; PULSE 98; RESP 16; TEMP 36.7; O2SAT 99
== END 2024-09-01 21:37 | disposition home or self-care (01) ==
PROVIDERS: Physician Assistant; Physician Assistant Medical; Emergency Provider Emergency Medicine Emergency Medical Services; PCP Internal Medicine
DX: J98.01 Acute bronchospasm (principal); R07.89 Other chest pain; R00.0 Tachycardia, unspecified; R06.02 Shortness of breath; R05.9 Cough, unspecified; Z79.899 Other long term (current) drug therapy; Z03.818 Encounter for observation for suspected exposure to other biological agents ruled out
CPT/HCPCS: 0241U; 36415; 71046; 80053; 83690; 83880; 84484; 85025; 85379; 93005; 99283; 99285

== ENCOUNTER → 2024-09-01 12:53 | Outpatient (BNV) | payer BC, SELFPAY | PROVIDERS: PCP Internal Medicine; Visit Provider Internal Medicine | DX: R07.9 Chest pain, unspecified (principal); R00.0 Tachycardia, unspecified | CPT/HCPCS: 93010 ==

== ENCOUNTER → 2024-09-01 13:05 | Outpatient (BNV) | payer BC, SELFPAY | PROVIDERS: PCP Internal Medicine; Visit Provider Radiology Diagnostic Radiology | DX: R07.9 Chest pain, unspecified (principal) | CPT/HCPCS: 71046 ==

== ENCOUNTER 2024-10-14 14:29 | Outpatient (AMB) | payer BC, SELFPAY ==
[2024-10-14 14:32] VITALS: BP 114/72; PULSE 94; BMI 33.1
--- NOTE | 2024-10-14 14:32 | A.OFFVIS_ITS ---
Vital Signs 10/14/24 14:32 Height 5 ft 1 in Weight 175 lb 0.752 oz BMI 33.1 BP 114/72 Blood Pressure Location Lt brachial Position Sitting Pulse 94 Pulse Source Pulse Oximeter Intake Visit Reasons: 2-3m follow up /tilt table/event monitor Brand Recorder Required: No Allergies clindamycin [CLINDAMYCIN] Allergy (Intermediate, Verified 10/14/24 14:34) HIVES/SWELLING buspirone [From BuSpar] Allergy (Verified 10/14/24 14:34) Blurry Vision fentanyl [FENTANYL] Adverse Reaction (Severe, Verified 10/14/24 14:34) SEVERE N/V (POST EGD W/CS) escitalopram [From Lexapro] Adverse Reaction (Verified 10/14/24 14:34) Vomiting lorazepam Adverse Reaction (Verified 10/14/24 14:34) Vomiting Medication List - Last Reconciled 10/14/24 by Sunshine Zaman, BUNCH TRIMMER MOLD-C biotin 5,000 mcg PO DAILY cholecalciferol (vitamin D3) 50 mcg PO DAILY levonorgestrel (Mirena) 1 device intrauterine ONCE omeprazole 20 mg PO DAILY HPI HPI 2-3m follow up /tilt table/event monitor: Details: Mavis is a 34 yo female with PMH of hypertriglyceridemia, mild obesity, anxiety, heart palpitations who recently had a tilt-table test showing dysautonomia. She now presents for follow-up. Today she states that she reports that her symptoms have been ongoing but not as severe. In the past she has reported episodes that occur randomly - she feels heat in her body, then heart beats fast, followed by diarrhea, sweatiness and presyncope. She has not had any full syncope. She tells me at times when she bends over and stands up she feels lightheaded. Her only other pattern is it happens more in the evenings. No chest discomfort, shortness of breath, PND, orthopnea or edema. 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 She has been trying to increase her fluid intake and wear compression stockings. PENDING SALE TO [facility] Medical History Presence of Mirena IUD Acute upper respiratory infection History of adenomatous polyp of colon COVID-19 vaccination declined Refused influenza vaccine Obesity Hypertriglyceridemia Anemia Mixed anxiety and depressive disorder H/O herpes simplex infection H/O nipple discharge Breast pain, right Cyst of left nipple Knee pain, right anterior Hiatal hernia Chronic heartburn Lumbago with sciatica, right side Tonsillar abscess Surgical History Hx of breast surgery (05/31/24) History of lumpectomy of right breast (07/28/23) Hx of breast surgery History of esophagogastroduodenoscopy (EGD) History of excision of mass (06/07/19) History of section (06/19/09) Family History Maternal Aunt Breast cancer, Onset Age: 40 Father Myocardial infarction Maternal Grandmother Pancreas cancer Paternal Grandfather Lung cancer Bladder cancer Social History Household Members Other:: duplex Housing: Apartment Are you a primary palliative care physician to a significant other at home: No Do you presently have visiting nurse or other home services: No Alcohol intake: current Alcohol intake frequency: 0-2 drinks per day Comment: counts correct Patient Tobacco Use Status: Former Tobacco user Cigarette Packs Per Day: 1 Cigarettes Per Day: 20.0 e-Cigarette/Vaping Use: Never Used Second Hand Smoke Exposure: No Current occupational status: unemployed Sexual orientation: Straight/Heterosexual Gender identity: Female Cognitive needs: No Hearing needs: No Vision needs: No Female Reproductive History Menstrual Age of Menarche: 10 Review of Systems Const All systems reviewed & are unremarkable except as noted in HPI and below ENT Reports dizziness Card Denies chest pain, Denies chest pain at rest, Denies chest pain with activity, Denies rapid heart rate, Denies pedal edema, Denies edema, Denies leg edema, Denies lightheadedness, Denies palpitations, Denies dyspnea, Denies dyspnea on exertion and Denies orthopnea Resp Denies cough, Denies dyspnea and Denies dyspnea on exertion GI Denies hematochezia and Denies change in stool character Musc Denies abnormal gait, Denies limited range of motion, Denies muscle cramps, Denies muscle weakness, Denies numbness, Denies radiating pain into limb, Denies stiffness and Denies tingling Neuro Denies abnormal gait, Reports dizziness, Denies numbness and Denies tingling Endo Denies palpitations Physical Exam Vital Signs: Last Vital Signs Pulse 94 10/14/24 14:32 BP 114/72 10/14/24 14:32 BMI result Body Mass Index 33.1 Const General: cooperative, healthy appearing, comfortable and no acute distress Orientation/consciousness: patient oriented x3 Neck Neck: Yes normal visual inspection Resp Effort & Inspection: normal respiratory effort Auscultation: clear to auscultation bilaterally, no rales, no rhonchi and no wheezes Cardio Rate: regular rate Rhythm: regular rhythm Heart sounds: S1 normal heart sound present, S2 normal heart sound present, no gallops, no murmurs and no rubs Neuro General: patient oriented x3 Extrem General: Yes normal to inspection Psych Appearance: grossly normal Mental Status: mental status grossly normal Speech and movement: Normal speech and movement present Assessment & Plan Assessment & Plan (1) Dysautonomia: Code(s): G90.1 - Familial dysautonomia [Addy-Day] Category: Medical Plan: History of heart palpitations and presyncopal type events. Echocardiogram done 08/29/2023 showed EF 55-60%, no evidence of regional wall motion abnormality, normal valves. Holter monitor was done 08/29/2023 for 3 days shows sinus rhythm with average heart rate 79, rare PVCs. Cardiac event monitor 07/12/2024 worn for 27 days shows sinus rhythm with average heart rate 76 beats per minute, rare ventricular ectopy. Symptoms of dizziness, weakness, rapid heartbeat correlated with sinus tachycardia. Tilt-table test on on 07/06/2024 shows findings of dysautonomia. She was mildly orthostatic on last visit. Finding of dysautonomia reviewed with her in detail and described that this can be diffi cult to manage. Discussed the need for ongoing good hydration with the fluid intake at least 64 oz daily, liberal salt intake, compression stocking use, recognize symptoms and sit/ lay down until symptoms resolve, slow position changes. Instructed to call if symptoms worsening. Continue to follow with PCP. At this time will arrange for cardiology follow-up in 1 year, sooner if needed. (2) Pre-syncope: Code(s): R55 - Syncope and collapse Category: Medical Plan: As above Plan Time spent on chart review, documentation, interview assessment Coding Level of Care Code Est Pt Level 3 (35771) Complex EM visit Add On G2211 Diagnoses Dysautonomia G90.1 Pre-syncope R55 Time Spent (min) 22
--- OUTSIDE RECORDS SUMMARY | 2024-10-14 17:04 | XMS_ITS | Clinical Summary ---
Author Organization [facility] Address [address] [place] [address] Care Team Providers Care Associate Professor Of Media Arts Name Role Phone Eladia Baker MD Primary Care Provider [phone] Medications No known medications Active Problems No [...] of Treatment Not on file Care Teams Associate Professor Of Media Arts Relationship Specialty Start Date End Date Eladia Baker MD [address] [place] [address] PCP - General Internal Medicine 01/10/24
--- OUTSIDE RECORDS SUMMARY | 2024-10-14 17:04 | XMS_ITS | Clinical Summary ---
Author Organization [facility] Address [address] [place] [address] Phone Care Team Providers Care Marriage And Family Counselor Name Role Phone Eladia Baker MD Primary Care Provider [phone] Social History Tobacco Use Types Packs/Day Years [...] Influencers of Health Screening 05/26/2022 COVID-19 Vaccine ( - 2023-2 5 season) 2024 Influenza Vaccine (Season Ended) 2025 03/31/2009 HIB Vaccines Aged Out No longer [...] age to complete this topic Meningococcal B Vaccine Aged Out No l onger eligible based on patient's age to complete [...] Procedure Name Priority Date/Time Associated Diagnosis Comments PAP SMEAR Routine 10/19/2020 from Last 3 Months or Most Recently Relevant to Health Maintenance Results * Pap smear (10/19/2020) 10/19/2020 Narrative HISTORICAL TESTING LAB RESULTING AGENCY - 10/26/2020 9:55 AM EDT [id number] THINPREP PAP, IMAGED: NEGATIVE FOR SQUAMOUS INTRAEPITHELIAL [...] 2019. NO LMP RECORDED. Z12.4, Z01.419, R87.810 us [facility] LAB CYTOLOGY ORDERABLES Final R esult HISTORICAL TESTING LAB RESULTING AGENCY from Last 3 Months or Most Recently Relevant to Health Maintenance Insurance [facility] [place] Care Teams Marriage And Family Counselor Relationship Specialty Start Date End Date Eladia Baker MD [address] [place] [address] PCP - General 01/10/24
== END 2024-10-14 14:58 | disposition home or self-care (01) ==
LOC: HO.HCS 14:30
PROVIDERS: PCP Internal Medicine; Visit Provider Nurse Practitioner Family
DX: G90.1 Familial dysautonomia [Riley-Day] (principal); R55 Syncope and collapse
CPT/HCPCS: 99213

== ENCOUNTER → 2024-10-14 14:29 | Outpatient (BNVA) | payer BC, SELFPAY | PROVIDERS: PCP Internal Medicine; Visit Provider Nurse Practitioner Family ==

== ENCOUNTER 2025-02-08 08:58 | Outpatient (AMB) | payer BC, SELFPAY ==
--- NOTE | 2025-02-08 09:00 | MHC.OFFVIS ---
Vital Signs 02/08/25 09:01 Height 5 ft 1 in Weight 182 lb 15.739 oz BMI 34.6 BP 118/82 Blood Pressure Location Lt brachial Position Sitting Pulse 98 Pulse Source Pulse Oximeter Intake Visit Reasons: Follow up Metal Mold Dresser Required: No Allergies clindamycin (CLINDAMYCIN) Allergy (Intermediate, Verified 02/08/25 09:04) HIVES/SWELLING buspirone (From BuSpar) Allergy (Verified 02/08/25 09:04) Blurry Vision fentanyl (FENTANYL) Adverse Reaction (Severe, Verified 02/08/25 09:04) SEVERE N/V (POST EGD W/CS) escitalopram (From Lexapro) Adverse Reaction (Verified 02/08/25 09:04) Vomiting lorazepam Adverse Reaction (Verified 02/08/25 09:04) Vomiting Medication List - Last Reconciled 02/08/25 by Sunshine Zaman, BUSINESS ARCHITECT-C biotin 5,000 mcg PO DAILY cholecalciferol (vitamin D3) 50 mcg PO DAILY levonorgestrel (Mirena) 1 device intrauterine ONCE omeprazole 20 mg PO DAILY HPI HPI Follow up: Details: Mavis is a 34 yo female with PMH of hypertriglyceridemia, mild obesity, anxiety, heart palpitations who recently had a tilt-table test showing dysautonomia. She was instructed on increase fluid intake, compression stocking use and now presents for follow-up. Today she states that she reports that her symptoms continue. She notices heart palpitations when she is upright and doing things. At times he she will get her usual heat in her body, then heart beats fast, followed by diarrhea, sweatiness and presyncope. She has not had any full syncope. She tells me at times when she bends over and stands up she feels lightheaded. 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 No chest discomfort, shortness of breath, PND, orthopnea or edema. She has been trying to increase her fluid intake and wear compression stockings. [facility] Medical History Presence of Mirena IUD Acute upper respiratory infection History of adenomatous polyp of colon COVID-19 vaccination declined Refused influenza vaccine Obesity Hypertriglyceridemia Anemia Mixed anxiety and depressive disorder H/O herpes simplex infection H/O nipple discharge Breast pain, right Cyst of left nipple Knee pain, right anterior Hiatal hernia Chronic heartburn Lumbago with sciatica, right side Tonsillar abscess Surgical History Hx of breast surgery (05/31/24) History of lumpectomy of right breast (07/28/23) Hx of breast surgery History of esophagogastroduodenoscopy (EGD) History of excision of mass (06/07/19) History of section (06/19/09) Family History Maternal Aunt Breast cancer, Onset Age: 40 Father Myocardial infarction Maternal Grandmother Pancreas cancer Paternal Grandfather Lung cancer Bladder cancer Social History Household Members Other:: duplex Housing: Apartment Are you a primary critical care clinical nurse specialist to a significant other at home: No Do you presently have visiting nurse or other home services: No Alcohol intake: current Alcohol intake frequency: 0-2 drinks per day Comment: counts correct Patient Tobacco Use Status: Former Tobacco user Cigarette Packs Per Day: 1 Cigarettes Per Day: 20.0 e-Cigarette/Vaping Use: Never Used Second Hand Smoke Exposure: No Current occupational status: unemployed Sexual orientation: Straight/Heterosexual Gender identity: Female Cognitive needs: No Hearing needs: No Vision needs: No Female Reproductive History Menstrual Age of Menarche: 10 Review of Systems Const All systems reviewed & are unremarkable except as noted in HPI and below ENT Reports dizziness Card Details: presyncope, no full syncope Denies chest pain, Denies chest pain at rest, Denies chest pain with activity, Reports rapid heart rate, Denies pedal edema, Denies edema, Denies leg edema, Denies lightheadedness, Denies palpitations, Denies dyspnea, Denies dyspnea on exertion and Denies orthopnea Resp Denies cough, Denies dyspnea and Denies dyspnea on exertion GI Denies hematochezia and Denies change in stool character Musc Denies abnormal gait, Denies limited range of motion, Denies muscle cramps, Denies muscle weakness, Denies numbness, Denies radiating pain into limb, Denies stiffness and Denies tingling Neuro Denies abnormal gait, Reports dizziness, Denies numbness and Denies tingling Endo Denies palpitations Physical Exam Vital Signs: Last Vital Signs Pulse 98 02/08/25 09:01 BP 118/82 02/08/25 09:01 BMI result Body Mass Index 34.6 Const General: cooperative, healthy appearing, comfortable and no acute distress Orientation/consciousness: patient oriented x3 Neck Neck: Yes normal visual inspection Resp Effort & Inspection: normal respiratory effort Auscultation: clear to auscultation bilaterally, no rales, no rhonchi and no wheezes Cardio Rate: regular rate Rhythm: regular rhythm Heart sounds: S1 normal heart sound present, S2 normal heart sound present, no gallops, no murmurs and no rubs Neuro General: patient oriented x3 Extrem General: Yes normal to inspection Psych Appearance: grossly normal Mental Status: mental status grossly normal Speech and movement: Normal speech and movement present Assessment & Plan Assessment & Plan (1) Dysautonomia: Code(s): G90.1 - Familial dysautonomia [Addy-Day] Category: Medical Plan: History of heart palpitations and presyncopal type events. Echocardiogram done 08/29/2023 showed EF 55-60%, no evidence of regional wall motion abnormality, normal valves. Holter monitor was done 08/29/2023 for 3 days shows sinus rhythm with average heart rate 79, rare PVCs. Cardiac event monitor 07/12/2024 worn for 27 days shows sinus rhythm with average heart rate 76 beats per minute, rare ventricular ectopy. Symptoms of dizziness, weakness, rapid heartbeat correlated with sinus tachycardia. Tilt-table test on on 07/06/2024 shows findings of dysautonomia. She has been increasing her fluid and salt intake, wearing compression stockings and continues to have symptoms, primarily tachycardia. Will add metoprolol XL 25 mg daily to help manage heart rate with POTS like syndrome. Reviewed fluid intake greater than 64 oz daily, recognize symptoms and sit/ lay down until symptoms resolve, slow position changes. Cardiology follow-up 2 months, sooner if needed. (2) Pre-syncope: Code(s): R55 - Syncope and collapse Category: Medical Plan: As above Plan I discussed with the patient the use of metoprolol to manage her tachycardia, emphasizing the importance of monitoring for side effects and discontinuing if necessary. We talked about increasing her fluid intake and the role of electrolytes and sodium in stabilizing her symptoms. I recommended compression stockings for prolonged standing and scheduled a follow-up in two months to assess her progress. Medications: New metoprolol succinate ER 25 mg PO DAILY 30 tabs 3RF Patient Instructions: - Start metoprolol as prescribed, stop if you experience side effects. - Drink over 64 ounces of fluids daily, include electrolytes and sodium. - Wear compression stockings when standing for long periods. - Follow up in two months to check on your progress. Patient was informed and verbally consented to the use of an ambient scribe for clinic note documentation during this visit. Visit time spent on chart review, interview, assessment, orders, documentation. Coding Level of Care Code Est Pt Level 4 (33762) Complex EM visit Add On G2211 Diagnoses Dysautonomia G90.1 Pre-syncope R55 Time Spent (min) 32
[2025-02-08 09:01] VITALS: BP 118/82; PULSE 98; BMI 34.6
--- OUTSIDE RECORDS SUMMARY | 2025-02-08 09:50 | XMS_ITS | Clinical Summary ---
Author Organization [facility] Address [address] [place] [address] Phone Care Team Providers Care Etymology Teacher Name Role Phone Eladia Baker MD Primary Care Provider Social History Tobacco Use Types Packs/Day Years [...] Screening: P ap Smear 10/19/2021 10/19/2020, 09/29/2018 HIV Screening 05/26/2022 Hepatitis C Screening 05/26/2022 Social Influencers of Health Screening 05/26/2022 COVID-19 Vaccine (1 - 2023-2 5 season) 2024 Depression Screening 06/23/2024 Influenza Vaccine (#1) 2025 03/31/2009 HIB Vaccines Aged Out No [...] 5 Years) and At-Risk Patients (6 to 49 Years) Aged Out No longer eligible b [...] RESULTING AGENCY - 10/26/2020 9:55 AM EDT [id number] THINPREP PAP, IMAGED: NEGATIVE FOR SQUAMOUS INTRAEPITHELIAL LESION AND MALIGNANCY . ALECIA GROVER(ASCP) (CASE ELECTRONICALLY SIGNED 10 26 2020) RESULT OF APTIMA HIGH RISK HPV ASSAY: HIGH RISK HPV: NEGATIVE (SEROTYPES 16,18,31,33,35,39,45,51,52,56,58,59,66,68) COMPLETED ON 2020-10-23 ADEQUACY: SATISFACTORY ENDOCERVICAL/TRANSFORMATION ZONE COMPONENT PRESENT. SOURCE: THINPREP PAP HPV ANY DX: REFLEX 16 AND 18, CERVICAL, IMAGED CLINICAL INFORMATION: HPV ANY DIAGNOSIS. HORMONES. PAP HX: POS, HPV POS 2019. NO LMP RECORDED. Z12.4, Z01.419, R87.810 us [facility] LAB CYTOLOGY ORDERABLES Final R esult HISTORICAL TESTING LAB RESULTING AGENCY from Last 3 Months or Most Recently Relevant to Health Maintenance Insurance [facility] Care Teams Etymology Teacher Relationship Specialty Start Date End Date Eladia Baker MD [address] [place] [address] PCP - General 01/10/24
--- OUTSIDE RECORDS SUMMARY | 2025-02-08 09:50 | XMS_ITS ---
Author Name [facility] Organization Unknown Results Test Name/Text Value Interpretation Date Range Source PMV BLD AUTO 9.9 fL Normal 01/10/2024 7.4 - 11.4 [facility] NUCLEATED RBC 0.0 % Normal 01/10/2024 0 - 1 [facility] RBC QN AUTO 28.8 pg Normal 01/10/2024 25 - 33 [facility] MCHC RBC AUTO MCNC 33.7 g/dL Normal 01/10/2024 32 - 36 [facility] LYMPHOCYTES NO. BLD AUTO 1.8 K/uL Normal 01/10/2024 1 - 3.2 [facility] PLATELET NO. BLD AUTO 286.0 K/uL Normal 01/10/2024 150 - 450 [facility] MONOCYTES NO. BLD AUTO 0.4 K/uL Normal 01/10/2024 0 - 0. 8 [facility] IMMATURE GRANULOCYTE, PERCENT 0.4 % Normal 01/10/2024 0 - 1 [facility] HGB BLD [facility] 12.0 g/dL Below low normal 01/10/2024 12.5 - 16 [facility] EOSINOPHIL NFR BLD AUTO 0.6 % Normal 01/10/2024 0 - 6 [facility] MCV RBC AUTO 85.4 fL Normal 01/10/2024 78 - 100 [facility] H LYMPHOCYTES NFR BLD AUTO 21.2 % Normal 01/10/2024 20 - 48 [facility] BASOPHILS NFR BLD AUTO 0.4 % Normal 01/10/2024 0 - 2 [facility] RDW RBC AUTO RTO 13.0 % Normal 01/10/2024 12.1 - 16.2 [facility] HCT VFR BLD AUTO 35.6 % Below low normal 01/10/2024 37 - 47 [facility] IMMATURE GRANULOCYTE, ABSOLUTE 0.03 k/uL Normal 01/10/2024 - 0.1 [facility] RBC NO. BLD AUTO 4.17 M/uL Below low normal 01/10/2024 4.2 - 5.4 [facility] MONOCYTES NFR BLD AUTO 4.9 % Normal 01/10/2024 2 - 12 [facility] NEUTROPHILS NFR BLD AUTO 72.5 % Normal 01/10/2024 44 - 74 [facility] WBC NO. BLD AUTO 8.4 K/uL Normal 01/10/2024 4 - 10.5 CT [facility] NEUTROPHILS NO. BLD AUTO 6.1 K/uL Normal 01/10/2024 1.8 - 7.8 [facility] BASOPHILS IN BLOOD BY AUTOMATED COUNT 0.0 K/uL Normal 01/10/2024 0 - 0.2 [facility] EOSINOPHIL NO. BLD AUTO 0.1 K/uL Normal 01/10/2024 0 - 0 .5 [facility] MAGNESIUM SERPL MCNC 1.5 mg/dL Below low normal 01/10/2024 1 .7 - 2.8 [facility] POTASSIUM SERPL SCNC 3.1 mmol/L Below low normal 01/10/2024 3.5 - 5.1 [facility] HCO3 SER SCNC 28.0 mmol/L Normal 01/10/2024 24 - 32 [facility] BUN SERPL [facility] 8.0 mg/dL Normal 01/10/2024 7 - [facility] CALCIUM [facility] 8.9 mg/dL Normal 01/10/2024 8.4 - 10.2 [facility] SODIUM SERPL SCNC 138.0 mmol/L Normal 01/10/2024 135 - 14 5 [facility] ANION GAP SERPL [facility] 10.0 mmol/L Normal 01/10/2024 5 - 14 [facility] Glomerular filtration rate/1.73 sq M. predicted 98.0 Normal 01/10/2024 60 - [facility] GLUCOSE SERPL MCNC 106.0 mg/dL Normal 01/10/2024 70 - 199 [facility] CHLORIDE SERPL SCNC 101.0 mmol/L Normal 01/10/2024 98 - 1 07 [facility] CREAT SERPL [facility] 0.8 mg/dL Normal 01/10/2024 0.5 - 1 CT [facility] LACTATE SERPL SCNC 1.3 mmol/L Normal 01/10/2024 0.5 - 2 [facility] CK SERPL CCNC 75.0 U/L Normal 01/10/2024 30 - 135 [facility] History of Medication Use Medication Directions Dispensed Refills Start Date End Date Stat us potassium chloride ER (K-DUR,KLOR-CON) tablet 20 mEq Take 1 tablet (20 mEq total) by mouth 2 (two) times a day for 4 days. 01/10/2024 01/15/2024 aborted potassium chloride ER tablet 40 mEq 40 mEq, Oral, Once, On 01/10/24 at 1830, For 1 doseDo not crush or chew tablet. To make a liquid dissolution from a tablet: 1) Place the whole tablet(s) in approximately cup of water (4 fluid ounces). 2) Allow approximately 2 minutes for the tablet(s) to disintegrate. 3) Stir for about johnston 01/10/2024 01/10/2024 completed sodium chloride 0.9% bolus (NS) 1,000 mL 1,000 mL, Intravenous, at 1,000 mL/hr, Once, On 01/10/24 at 1715, For 1 dose 01/10/2024 01/10/2024 completed Problems Problem Status Onset Date Problem Type Date of Resoluti on Source Hypokalemia active EncounterDiagnosisAct [facility] Hypomagnesemia active EncounterDiagnosisAct [facility] Encounters Encounter Type Encounter Reason Primary Diagnosis Location Date Emergency Hypokalemia Hypokalemia [facility] 2023 Care Team Organization Name Specialty Phone Email Start Date End Da te [facility] AARTI WELCH Primary Care [facility] 01/10/2024 01/04/2025 [facility] 01/10/2024
--- OUTSIDE RECORDS SUMMARY | 2025-02-08 09:50 | XMS_ITS | Patient Health Record ---
Author Organization [facility] Address [address] [place] [address] Care Team Providers Care Caretaker Grounds Name Role Phone Samuel KAMARA, Eladia Primary Care Provider Dante Azul [phone] Allergies Allergen (clinical drug ingredient) Drug/Non Drug Allergy documented on EMR Reaction Allergy Type Onset Date Status clindamycin Clindamycin Unknown Drug Allergy Act sanjiv buspirone Buspirone Unknown Drug Allergy Active cyclobenzaprine Cyclobenzaprine HCl Unknown Drug Allergy Active clindamycin Clindamycin HCl Unknown Drug Allergy Active fentanyl Fentanyl Unknown Drug Allergy Active Results Component Value Reference Range Notes NM gastric emptying study Reviewed date:02/26/2024 11:14:16 PM Interpretation: Performing Lab: Notes/Report: [address] [address] Nuclear Medicine Report Signed Patient: Mavis Merida MR#: [id number] : 1990 Acct:[id number] Age/Sex: 33 / F ADM Date: 02/17/24 Loc: EVA Attending Dr: Dante Ho MD Ordering Physician: Dante Ho MD Date of Service: 02/17/24 Procedure(s): NM gastric emptying study Accession Number(s): [id number] cc: Eladia Baker MD; Dante Ho MD [...] 02/19/24 1511 DD/ 0825 TD/TT: 02/17/24 [address] Pressman: SHARON FL upper GI w air w SBFT (No t yet reviewed by provider) Interpretation: Performing Lab: Notes/Report: [address] [place] [address] Fluoroscopy Report Signed Patient: Mavis Merida MR#: [id number] : 1990 Acct:[id number] Age/Sex: 33 / F ADM Date: 02/20/24 Loc: HO.XRAY Attending Dr: Dante Ho MD Ordering Physician: Dante Ho MD Date of Service: 02/20/24 Procedure(s): FL upper GI w air w SBFT Accession Number(s): [id number] cc: Eladia Baker MD; Dante Ho MD [...] and mucosal fold appearance. SMALL BOWEL SERIES: Racetrack Steward view demonstrates normal bowel gas pattern. No [...] 05/26/24 1208 DD/ 0753 TD/TT: 02/20/24 [address] Pressman: Reason For Referral No Information Medications Medication SIG (Take, Route, Frequency, Duration) Notes Start Date End Date Status Vitamin D3 Unknown Biotin 10 MG 1 tablet Orally Once a day for 30 day(s) Unknown Iron (Ferrous Sulfate) 325 (65 Fe) MG 1 tablet Orally Three times a Week for 30 day(s) Unknown Omeprazole 20 MG TAKE 1 CAPSULE BY [facility] EVERY DAY for 90 Unknown Dicyclomine [...] Notes Problem Gastro-esophageal reflux disease without esophagitis (596217590) Gastro-esophageal reflux disease without esophagitis (K21.9) Active confirmed Problem Weight loss (076527350) Weight loss (R63.4) Active confirmed Problem 635066654 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) Active confirmed Problem Benign neoplasm of stomach (38226618) Polyp of stomach and duodenum (K31.7) Active confirmed Problem Abnormal weight loss (460107736) Abnormal weight loss (R63.4) Active confirmed Problem Early satiety (734771580) Early satiety (R68.81) Active confirmed Problem Gastroesophageal reflux disease (132018882) Gastroesophageal reflux disease (K21.9) Active confirmed Problem 563493157 Gastroesophageal reflux disease without esophagitis (K21.9) Active confirmed Problem 269932736 Barretts esophag us without dysplasia (K22.70) Active confirmed Problem 395019951 Gastroesophageal reflux disease, esophagitis presence not specified (K21.9) Active confirmed Problem 66239671 Hiatal hernia (K44.9) Active confirmed Problem Benign neoplasm of stomach (39264165) Gastric polyps (K31.7) Active confirmed Problem Goodson esophagus (934181181) 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) Active confirmed Problem Chronic diarrhea (196606723) Chronic diarrhea (K52.9) Active confirmed Problem Serrated polyp of colon (988997148) Serrated polyp of colon (K63.5) Active confirmed Problem Epigastric fullness (8443790) Abdominal fullness (R19.8) Active confirmed Vital Signs Blood pressure diastolic 00 mm Hg 05/05/2024 Height 62 in 05/05/2024 Blood pressure systolic 00 mm Hg 05/05/2024 Weight 172 lbs 05/05/2024 BMI 31.46 kg/m2 05/05/2024 Encounters Encounter Location Date Provider Diagnosis [facility] [address] [place] [address] 05/05/2024 Dante Ho Gastroesophageal ref lux disease, esophagitis presence not specified K21.9 ; Chronic diarrhea K52.9 ; Barretts esophagus without dysplasia K22.70 and Serrated polyp of colon K63.5 [facility] [address] [place] [phone] 02/26/2024 Dante Ho [facility] [address] [place] [phone] 05/05/2024 Dante Ho Chronic diarrhea K52 .9 [facility] [address] [place] [phone] 05/31/2024 Dante Ho Assessments Encounter Date Diagnosis [...] progress. 05/05/2024 Chronic diarrhea (ICD-10 - K52.9) 05/05/2024 Barretts esophagus without dysplasia (ICD-10 - [...] - K63.5) Repeat colonosocpy in 09/2026 Overall, Mavis appears well and [...] 2023 TSH (THYROID STIMULATING HORMONE) 2023 CRP 01/12/2024 CRP 2023 CBC w DIFF 2023 SED [...] Insured Coverage Start Date Coverage End Date [facility] [address] [place], [place] [id number] [id number] MAVIS MERIDA Self - patient is the insured Medical (General) History Medical History History ICD Code Denies [place],DM,CVA,Lung disease,renal dise ase GERD/Goodson's--EGD 10/2017-- -small HH, tiny area of Goodson's but no dysplasia---no esophagitis EGD 02/2023 with a small to m oderate-sized hiatal hernia, small area of Goodson's esophagus with biopsies negative for dysplasia, and benign gastric polyps. Rapid heart rate for which s he was evaluated in the ER at [facility]. She had outpatient testing done, including [...]
--- OUTSIDE RECORDS SUMMARY | 2025-02-08 09:50 | XMS_ITS | Clinical Summary ---
Author Organization [facility] Address [address] [place] [address] Care Team Providers Care Director Surface Transportation Name Role Phone Eladia Baker MD Primary Care Provider [phone] Medications No known medications Active Problems No [...] 79 01/10/2024 7:09 PM EDT Temperature 37.1 C (98.7 F) 01/10/2024 7:09 PM EDT Respiratory Rate 16 01/10/2024 7:09 PM EDT Oxygen Saturation 100% 01/10/2024 7:09 PM EDT Inhaled Oxygen Concentration - - Weight 70.3 kg (155 lb) 01/10/2024 4:58 PM EDT Height 154.9 cm (5' 1 ) 01/10/2024 4:58 PM EDT Body Mass Index 29.29 01/10/2024 4:58 PM EDT Plan of Treatment Not on file Care Teams Director Surface Transportation Relationship Specialty Start Date End Date Eladia Baker MD [address] [place] [address] PCP - General Internal Medicine 01/10/24
== END 2025-02-08 09:37 | disposition home or self-care (01) ==
LOC: HO.HCS 08:58
PROVIDERS: PCP Internal Medicine; Visit Provider Nurse Practitioner Family
DX: G90.1 Familial dysautonomia [Riley-Day] (principal); R55 Syncope and collapse
CPT/HCPCS: 99214

== ENCOUNTER 2025-04-15 13:35 | Outpatient (AMB) | payer BC, SELFPAY ==
--- OUTSIDE RECORDS SUMMARY | 2024-01-08 03:30 | XMS_ITS ---
Author Organization [facility] Address [address] [place] [address] Care Team Providers Care Mud Jack Nozzleman Name Role Phone Samuel KAMARA, Eladia Primary Care Provider Dante Azul [phone] REASON FOR VISIT gerd, edouard's, hiatal hernia Problems Problem Type SNOMED Code ICD Code Onset Dates Problem Status W/U Status Risk Notes Problem Benign neoplasm of stomach (04183529) Gastric polyps (K31.7) Active confirmed Problem Gastro-esophagea l reflux disease without esophagitis (096815791) Gastro-esophage al reflux disease without esophagitis (K21.9) Active confirmed Encounters Encounter Location Date Provider Diagnosis [facility] [place] [address] [place] [phone] 01/08/2024 Dante Ho 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 Gerd, edouard's, hiatal hernia. * Medical History: Objective: * Vitals: Assessment: * Assessment: 1. 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 H iatal hernia - K44.9 ? 3 . G astric polyps - K31.7 4 . E ana satiety - R68.81 ?5. D iarrhea - R19.7 6 . G luz-esophageal reflux disease without esophagitis - K21.9 7 . W eight loss - R63.4 Plan: * Treatment: * Procedure Codes: 4 3239 UPPER GI ENDOSCOPY, BIOPSY * * The named appointment provid er may or may not be the originator of this progress note, and it is not deemed complete until electronically signed by the appointment provider. Sign off status: Pending * Provider: Eddy Ho MD Date: 0 01/08/2024 Generated for Maris rodriguez/Aaron/eTransmitting on: 03:34 PM EDT
--- OUTSIDE RECORDS SUMMARY | 2024-03-19 07:40 | XMS_ITS ---
Author Organization [facility] Address [address] [place] [address] Care Team Providers Care Towerman Name Role Phone Samuel KAMARA, Eladia Primary Care Provider Dante Azul [phone] REASON FOR VISIT gerd, edouard's, hiatal hernia Encounters Encounter Location Date Provider Diagnosis [facility] [place] [address] [place] [phone] 03/19/2024 Dante Ho Plan Of Treatment No Information Progress Notes * JOHN MERIDADOB:[birth year] (34 yo F)Acc No.[id number]:03/19/2024 EGD/MAC Patient: JOHN BERRIOS Provider: Eddy Ho MD :1990 A ge:33 Y S ex:Female Date:03/19/2024 Address:[address] [place], [place] [phone] Pcp:Eladia Baker MD Subjective: * Chief Complaints: * 1 . Gerd, edouard's, hiatal hernia. * Medical History: Objective: * Vitals: Assessment: Plan: * Treatment: * * The named appointment provid er may or may not be the originator of this progress note, and it is not deemed complete until electronically signed by the appointment provider. Sign off status: Pending * Provider: Eddy Ho MD Date: 0 03/19/2024 Generated for Printi ng/Faxing/eTransmitting on: 1 03:34 PM EDT
[2025-04-15 13:37] VITALS: BP 120/74; PULSE 91; BMI 35.4
--- NOTE | 2025-04-15 13:37 | MHC.OFFVIS ---
Vital Signs 04/15/25 13:37 Height 5 ft 1 in Weight 187 lb 6.287 oz BMI 35.4 BP 120/74 Blood Pressure Location Lt brachial Position Sitting Pulse 91 Intake Visit Reasons: 2 month f/u Intake Note: 2 month follow-up still having palpitations but not as bad Benchroom Shop Optician Required: No Allergies clindamycin (CLINDAMYCIN) Allergy (Intermediate, Verified 02/08/25 09:04) HIVES/SWELLING buspirone (From BuSpar) Allergy (Verified 02/08/25 09:04) Blurry Vision fentanyl (FENTANYL) Adverse Reaction (Severe, Verified 02/08/25 09:04) SEVERE N/V (POST EGD W/CS) escitalopram (From Lexapro) Adverse Reaction (Verified 02/08/25 09:04) Vomiting lorazepam Adverse Reaction (Verified 02/08/25 09:04) Vomiting Medication List - Last Reconciled 04/15/25 by Sunshine Zaman, GERIATRIC NURSING ASSISTANT-C biotin 5,000 mcg PO DAILY cholecalciferol (vitamin D3) 50 mcg PO DAILY levonorgestrel (Mirena) 1 device intrauterine ONCE metoprolol succinate ER 25 mg PO DAILY omeprazole 20 mg PO DAILY HPI HPI 2 month f/u: Details: Mavis is a 34 yo female with PMH of hypertriglyceridemia, mild obesity, anxiety, heart palpitation, dysautonomia who was started on metoprolol last visit and now presents for follow-up. Today she states that she reports that she has been having less heart palpitations with the metoprolol. She still has some however has been feeling better overall. No presyncope, syncope, falls. She is still not working and reports she has gained weight recently. Not doing any routine exercise. No chest discomfort, shortness of breath, PND, orthopnea or edema. She has been trying to increase her fluid intake and wear compression stockings. [facility] Medical History Presence of Mirena IUD Acute upper respiratory infection History of adenomatous polyp of colon COVID-19 vaccination declined Refused influenza vaccine Obesity Hypertriglyceridemia Anemia Mixed anxiety and depressive disorder H/O herpes simplex infection H/O nipple discharge Breast pain, right Cyst of left nipple Knee pain, right anterior Hiatal hernia Chronic heartburn Lumbago with sciatica, right side Tonsillar abscess Surgical History Hx of breast surgery (05/31/24) History of lumpectomy of right breast (07/28/23) Hx of breast surgery History of esophagogastroduodenoscopy (EGD) History of excision of mass (06/07/19) History of section (06/19/09) Family History Maternal Aunt Breast cancer, Onset Age: 40 Father Myocardial infarction Maternal Grandmother Pancreas cancer Paternal Grandfather Lung cancer Bladder cancer Social History Household Members Other:: duplex Housing: Apartment Are you a primary child care sitter to a significant other at home: No Do you presently have visiting nurse or other home services: No Alcohol intake: current Alcohol intake frequency: 0-2 drinks per day Comment: counts correct Patient Tobacco Use Status: Former Tobacco user Cigarette Packs Per Day: 1 Cigarettes Per Day: 20.0 e-Cigarette/Vaping Use: Never Used Second Hand Smoke Exposure: No Current occupational status: unemployed Sexual orientation: Straight/Heterosexual Gender identity: Female Cognitive needs: No Hearing needs: No Vision needs: No Female Reproductive History Menstrual Age of Menarche: 10 Review of Systems Const All systems reviewed & are unremarkable except as noted in HPI and below Denies chills, Denies fatigue, Denies fever(s), Denies frequent falls, Denies weakness, Denies weight gain and Denies weight loss ENT Denies dizziness Card Denies chest pain, Reports rapid heart rate, Denies leg edema, Denies lightheadedness, Denies palpitations, Denies dyspnea, Denies dyspnea on exertion, Denies orthopnea and Denies other (loss of consciousness) Resp Denies cough, Denies dyspnea and Denies dyspnea on exertion GI Denies hematochezia and Denies change in stool character Musc Denies abnormal gait, Denies muscle weakness, Denies numbness, Denies radiating pain into limb and Denies tingling Neuro Denies abnormal gait, Denies dizziness, Denies frequent falls, Denies numbness, Denies tingling and Denies weakness Endo Denies fatigue and Denies palpitations Physical Exam Vital Signs: BMI result Body Mass Index 35.4 Const General: cooperative, healthy appearing, comfortable and no acute distress Orientation/consciousness: patient oriented x3 Neck Neck: Yes normal visual inspection Resp Effort & Inspection: normal respiratory effort Auscultation: clear to auscultation bilaterally, no rales, no rhonchi and no wheezes Cardio Rate: regular rate Rhythm: regular rhythm Heart sounds: S1 normal heart sound present, S2 normal heart sound present, no gallops, no murmurs and no rubs Neuro General: patient oriented x3 Extrem General: Yes normal to inspection Psych Appearance: grossly normal Mental Status: mental status grossly normal Speech and movement: Normal speech and movement present Assessment & Plan Assessment & Plan (1) Dysautonomia: Code(s): G90.1 - Familial dysautonomia [] Category: Medical Plan: History of heart palpitations and presyncopal type events. Echocardiogram done 08/29/2023 showed EF 55-60%, no evidence of regional wall motion abnormality, normal valves. Holter monitor was done 08/29/2023 for 3 days shows sinus rhythm with average heart rate 79, rare PVCs. Cardiac event monitor 07/12/2024 worn for 27 days shows sinus rhythm with average heart rate 76 beats per minute, rare ventricular ectopy. Symptoms of dizziness, weakness, rapid heartbeat correlated with sinus tachycardia. Tilt-table test on on 07/06/2024 shows findings of dysautonomia. She has been increasing her fluid and salt intake, wearing compression stockings and continued to have symptoms, primarily tachycardia. Metoprolol XL 25 mg daily was added last visit and she does report some improvement in her symptoms. Will have her try increase of metoprolol XL to 50 mg daily. Continue fluid intake greater than 64 oz daily, compression stocking use, increase physical activity. Cardiology follow-up 6 months, sooner if needed. (2) Pre-syncope: Code(s): R55 - Syncope and collapse Category: Medical Plan: As above Plan Time spent on chart review, documentation, interview and assessment. Coding Level of Care Code Est Pt Level 3 (38582) Complex EM visit Add On G2211 Diagnoses Dysautonomia G90.1 Pre-syncope R55 Time Spent (min) 24
--- OUTSIDE RECORDS SUMMARY | 2025-04-15 15:34 | XMS_ITS | Clinical Summary ---
Author Organization [facility] Address [address] [place] [address] Care Team Providers Care Lamp Wirer Name Role Phone Eladia Baker MD Primary Care Provider [phone] Medications No known medications Active Problems No [...] of Treatment Not on file Care Teams Lamp Wirer Relationship Specialty Start Date End Date Eladia Baker MD [address] [place] [address] PCP - General Internal Medicine 01/10/24
--- OUTSIDE RECORDS SUMMARY | 2025-04-15 15:34 | XMS_ITS | Patient Health Record ---
Author Organization [facility] Address [address] [place] [address] Care Team Providers Care It Data Architect Name Role Phone Samuel KAMARA, Eladia Primary Care Provider Dante Azul [phone] Allergies Allergen (clinical drug ingredient) Drug/Non Drug Allergy documented on EMR Reaction Allergy Type Onset Date Status clindamycin Clindamycin Unknown Drug Allergy Act sanjiv buspirone Buspirone Unknown Drug Allergy Active cyclobenzaprine Cyclobenzaprine HCl Unknown Drug Allergy Active clindamycin Clindamycin HCl Unknown Drug Allergy Active fentanyl Fentanyl Unknown Drug Allergy Active Reason For Referral No Information Medications Medication SIG (Take, Route, Frequency, Duration) Notes Start Date End Date Status Vitamin D3 Unknown Biotin 10 MG 1 tablet Orally Once a day; Duration: 30 day(s) Unknown Iron (Ferrous Sulfate) 325 (65 Fe) MG 1 tablet Orally Three times a Week; Duration: 30 day(s) Unknown Omeprazole 20 MG TAKE 1 CAPSULE BY [facility] EVERY DAY; Duration: 90 Unknown Dicyclomine HCl 10 MG take [...] times over the course of a 24 hours; Duration: 30 day(s) 05/05/2024 Unknown Immunizations Vaccine Route [...] Notes Problem Gastro-esophageal reflux disease without esophagitis (654512693) Gastro-esophageal reflux disease without esophagitis (K21.9) Active confirmed Problem Weight loss (418848586) Weight loss (R63.4) Active confirmed Problem Goodson's esophagus (052433383) 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) Active confirmed Problem Benign neoplasm of stomach (84718801) Polyp of stomach and duodenum (K31.7) Active confirmed Problem Abnormal weight loss (414664821) Abnormal weight loss (R63.4) Active confirmed Problem Early satiety (165397753) Early satiety (R68.81) Active confirmed Problem Gastroesophageal reflux disease (001599408) Gastroesophageal reflux disease (K21.9) Active confirmed Problem Gastroesophageal reflux disease without esophagitis (763579879) Gastroesophageal reflux disease without esophagitis (K21.9) Active confirmed Problem Goodson's esophagus (589941077) Barretts esophagus without dysplasia (K22.70) Active confirmed Problem Gastroesophageal reflux disease (399500652) Gastroesophageal reflux disease, esophagitis presence not specified (K21.9) Active confirmed Problem Hiatal hernia (02871672) Hiatal hernia (K44.9) Active confirmed Problem Benign neoplasm of stomach (98181892) Gastric polyps (K31.7) Active confirmed Problem Goodson esophagus (271680372) 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) Active confirmed Problem Chronic diarrhea (854841908) Chronic diarrhea (K52.9) Active confirmed Problem Serrated polyp of colon (129652719) Serrated polyp of colon (K63.5) Active confirmed Problem Epigastric fullness (9933645) Abdominal fullness (R19.8) Active confirmed Vital Signs Blood pressure diastolic 00 mm Hg 05/05/2024 Height 62 in 05/05/2024 Blood pressure systolic 00 mm Hg 05/05/2024 Weight 172 lbs 05/05/2024 BMI 31.46 kg/m2 05/05/2024 Encounters Encounter Location Date Provider Diagnosis [facility] [address] [address] 05/05/2024 Dante Ho Gastroesophageal ref lux disease, esophagitis presence not specified K21.9 ; Chronic diarrhea K52.9 ; Barretts esophagus without dysplasia K22.70 and Serrated polyp of colon K63.5 [facility] [address] [address] 05/05/2024 Dante Ho Chronic diarrhea K52 .9 [facility] [address] [address] 05/31/2024 Dante Ho Assessments Encounter Date Diagnosis [...] Insured Coverage Start Date Coverage End Date [facility] [address] [place], [place] [id number] [phone] [id number] MAGNOLIA MAVIS Self - patient is the insured Medical (General) History Medical History History ICD Code Denies [place],DM,CVA,Lung disease,renal dise ase GERD/Goodson's--EGD 10/2017-- -small HH, tiny area of Goodson's but no dysplasia---no esophagitis EGD 02/2023 with a small to m oderate-sized hiatal hernia, small area of Goodson's esophagus with biopsies negative for dysplasia, and benign gastric polyps. Rapid heart rate for which s he was evaluated in the ER at [facility]. She had outpatient testing done, including [...] abscesses [facility] to the milk ducts after removal of piercings with Dr. Hull. Most recent surgery was in early July of 2023. Breast surgery x 1 on the left for the s mckenna issues as above
--- OUTSIDE RECORDS SUMMARY | 2025-04-15 15:34 | XMS_ITS | Clinical Summary ---
Author Organization [facility] Address [address] [place] [address] Phone Care Team Providers Care Clinical Laboratory Service Teacher Name Role Phone Eladia aBker MD Primary Care Provider Social History Tobacco [...] of 3 - 19+ 3-dose series) 09/20/2007 HPV Vaccines (1 - 3-dose SCD M series) 09/20/2015 Cervical Cancer Screening: P ap Smear 10/19/2021 10/19/2020, 09/29/2018 HIV Screening 05/26/2022 Hepatitis C Screening 05/26/2022 Social Influencers of Health Screening 05/26/2022 Depression Screening 06/23/2024 COVID-19 Vaccine ( - 2023-2 5 season) 2025 Influenza Vaccine (#1) 2025 03/31/2009 RSV Immunization Adult Patients (1 - 1-dose 75+ series) 09/20/2063 HIB Vaccines Aged Out No longer eligi [...] RESULTING AGENCY - 10/26/2020 9:55 AM EDT [id number] THINPREP PAP, IMAGED: NEGATIVE FOR SQUAMOUS INTRAEPITHELIAL [...] LMP RECORDED. Z12.4, Z01.419, R87.810 [place] [facility] LAB CYTOLOGY ORDERABLES Final R esult HISTORICAL TESTING LAB RESULTING AGENCY from Last 3 Months or Most Recently Relevant to Health Maintenance Insurance [facility] Care Teams Clinical Laboratory Service Teacher Relationship Specialty Start Date End Date Eladia Baker MD [address] [place] [address] PCP - General 01/10/24
== END 2025-04-15 13:59 | disposition home or self-care (01) ==
LOC: HO.HCS 13:35
PROVIDERS: PCP Internal Medicine; Visit Provider Nurse Practitioner Family
DX: G90.1 Familial dysautonomia [Riley-Day] (principal); R55 Syncope and collapse
CPT/HCPCS: 99213

== ENCOUNTER 2025-05-16 08:30 | Outpatient (AMB) | payer BC, SELFPAY ==
--- OUTSIDE RECORDS SUMMARY | 2024-01-08 02:30 | XMS_ITS ---
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) Gastric polyps (K31.7) Active confirmed Problem Gastro-esophagea l reflux disease without esophagitis (962207381) Gastro-esophage al reflux disease without esophagitis (K21.9) Active confirmed Encounters Encounter Location Date Provider Diagnosis [facility] [place] Out[place] [address] [place] [phone] 01/08/2024 Dante Ho 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 ; Hiatal hernia K44.9 ; Gastric polyps K31.7 ; Early satiety R68.81 ; Diarrhea R19.7 ; Gastro-esophageal reflux disease without esophagitis K21.9 and Weight loss R63.4 Assessments Encounter Date Diagnosis (ICD Code) Assessment Notes Treatment Notes Treatment Clinical Notes Section Notes 01/08/2024 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) 01/08/2024 Hiatal hernia (ICD-10 - K44.9) 01/08/2024 Gastric polyps (ICD-10 - K31.7) 01/08/2024 Early satiety (ICD-10 - R68.81) 01/08/2024 Diarrhea (ICD-10 - R19.7) 01/08/2024 Gastro-esophagea l reflux disease without esophagitis (ICD-10 - K21.9) 01/08/2024 Weight loss (ICD-10 - R63.4) Plan Of Treatment No Information Progress Notes * JOHN MERIDADOB:[birth year] (34 yo F)Acc No.[id number]:01/08/2024 EGD/MAC Patient: JOHN BERRIOS Provider: Eddy Ho MD :1990 A ge:33 Y S ex:Female Date:01/08/2024 Address:[address] [place] [address] Pcp:Eladia Baker MD Subjective: * Chief Complaints: * G erd, eduoard's, hiatal hernia Assessment: * Assessment: 1. 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 H iatal hernia - K44.9 ? 3 . G astric polyps - K31.7 4 . E ana satiety - R68.81 ?5. D iarrhea - R19.7 6 . G luz-esophageal reflux disease without esophagitis - K21.9 7 . W eight loss - R63.4 Plan: * Procedure Codes: 4 3239 UPPER GI ENDOSCOPY, BIOPSY Billing Information: * Procedure Codes: 68872 UPPER GI ENDOSCOPY, BIOPSY. * The named appointment provid er may or may not be the originator of this progress note, and it is not deemed complete until electronically signed by the appointment provider. Sign off status: Pending * Provider: Eddy Ho MD Date: 0 01/08/2024 Generated for Maris rodriguez/Aaron/eTransmitting on: 07/16/2024 08:43 AM EST
--- OUTSIDE RECORDS SUMMARY | 2024-03-19 06:40 | XMS_ITS ---
Author Organization [facility] Address [address] [place] [address] Care Team Providers Care Cigar Packer And Shader Name Role Phone Samuel KAMARA, Eladia Primary Care Provider Dante Azul [phone] REASON FOR VISIT gerd, edouard's, hiatal hernia Encounters Encounter Location Date Provider Diagnosis [facility] [place] [address] [place] [id number] 03/19/2024 Dante Ho Plan Of Treatment No Information Progress Notes * JOHN MERIDADOB:[birth year] (34 yo F)Acc No.[id number]:03/19/2024 EGD/MAC Patient: JOHN BERRIOS Provider: Eddy Ho MD :1990 A ge:33 Y S ex:Female Date:03/19/2024 Address:[address] [place], [place] [phone] Pcp:Eladia Baker MD Subjective: * Chief Complaints: * G erd, edouard's, hiatal hernia * The named appointment provid er may or may not be the originator of this progress note, and it is not deemed complete until electronically signed by the appointment provider. Sign off status: Pending * Provider: Eddy Ho MD Date: 0 03/19/2024 Generated for Printi ng/Faxing/eTransmitting on: 07/16/2024 08:43 AM EST
--- OUTSIDE RECORDS SUMMARY | 2025-05-16 08:43 | XMS_ITS | Clinical Summary ---
Author Organization [facility] Address [address] [place] [address] Phone Care Team Providers Care Rotary Slicing Machine Operator Name Role Phone Eladia Baker MD Primary [...] Depression Screening 06/23/2024 COVID-19 Vaccine ( - 2024-2 6 season) 2025 Influenza Vaccine (#1) 2025 03/31/2009 [...] RESULTING AGENCY - 10/26/2020 9:55 AM EDT [id number] THINPREP PAP, IMAGED: NEGATIVE FOR SQUAMOUS INTRAEPITHELIAL [...] LMP RECORDED. Z12.4, Z01.419, R87.810 [place] [facility] LAB CYTOLOGY ORDERABLES Final R esult HISTORICAL TESTING LAB RESULTING AGENCY from Last 3 Months or Most Recently Relevant to Health Maintenance Insurance [facility] Care Teams Rotary Slicing Machine Operator Relationship Specialty Start Date End Date Eladia Baker MD [address] [place] [address] PCP - General 01/10/24
--- OUTSIDE RECORDS SUMMARY | 2025-05-16 08:43 | XMS_ITS | Clinical Summary ---
Author Organization [facility] Address [address] [place] [address] Care Team Providers Care Scrap Drop Engineer Name Role Phone Eladia Baker MD Primary Care Provider [phone] Medications No known medications Active Problems No [...] of Treatment Not on file Care Teams Scrap Drop Engineer Relationship Specialty Start Date End Date Eladia Baker MD [address] [place] [address] PCP - General Internal Medicine 01/10/24
--- OUTSIDE RECORDS SUMMARY | 2025-05-16 08:43 | XMS_ITS | Patient Health Record ---
Author Organization [facility] Address [address] [place] [address] Care Team Providers Care Buzzsaw Operator Helper Name Role Phone Samuel KAMARA, Eladia Primary Care Provider Dante Azul [phone] Allergies Allergen (clinical drug ingredient) Drug/Non Drug Allergy documented on EMR Reaction Allergy Type Onset Date Status clindamycin Clindamycin HCl Unknown Drug Allergy Active cyclobenzaprine Cyclobenzaprine HCl Unknown Drug Allergy Active buspirone Buspirone Unknown Drug Allergy Active clindamycin Clindamycin Unknown Drug Allergy Act sanjiv fentanyl Fentanyl Unknown Drug Allergy Active Reason For Referral No Information Medications Medication SIG (Take, Route, Frequency, Duration) Notes Start Date End Date Status Omeprazole TAKE 1 CAPSULE BY [facility] EVERY DAY Orally Once a day; Duration: 90 days Active Vitamin D3 Unknown Biotin 10 MG Tablet 1 tablet Orally Once a day; Duration: 30 day(s) Unknown Iron (Ferrous Sulfate) 325 (65 Fe) MG Tablet 1 tablet Orally Three times a Week; Duration: 30 day(s) Unknown Omeprazole 20 MG Capsule Delayed Release TAKE 1 CAPSULE BY MOUTH EVERY DAY FOR 90 DAYS; Duration: 90 Active Dicyclomine HCl 10 MG Capsule take 1 or 2 capsules Orally Take 1 or 2 15 to [...] stop date) Former Smoker NA - NA Social History Drugs/Alcohol: Social Info Question Answer Notes Alcohol Screen Did you have a drink containing alcohol in the past year? Yes How often did you have a drink containing alcohol in the past year? 2 to 3 times a week (3 points) How many drinks did you have on a typical day when you were drinking in the past year? 1 or 2 drinks (0 point) How often did you have 6 or more drinks on one occasion in the past year? 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 Caffeine: 3-4 cups per day Section Notes: Smokes 1/2 ppd; no sig [...] Notes Problem Gastro-esophageal reflux disease without esophagitis (555882425) Gastro-esophageal reflux disease without esophagitis (K21.9) Active confirmed Problem Weight loss (727028233) Weight loss (R63.4) Active confirmed Problem Goodson's esophagus (121324493) 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) Active confirmed Problem Benign neoplasm of stomach (16779322) Polyp of stomach and duodenum (K31.7) Active confirmed Problem Abnormal weight loss (676919560) Abnormal weight loss (R63.4) Active confirmed Problem Early satiety (829018402) Early satiety (R68.81) Active confirmed Problem Gastroesophageal reflux disease (209323978) Gastroesophageal reflux disease (K21.9) Active confirmed Problem Gastroesophageal reflux disease without esophagitis (203082711) Gastroesophageal reflux disease without esophagitis (K21.9) Active confirmed Problem Goodson's esophagus (524975041) Barretts esophagus without dysplasia (K22.70) Active confirmed Problem Gastroesophageal reflux disease (181314707) Gastroesophageal reflux disease, esophagitis presence not specified (K21.9) Active confirmed Problem Hiatal hernia (45543620) Hiatal hernia (K44.9) Active confirmed Problem Benign neoplasm of stomach (13470044) Gastric polyps (K31.7) Active confirmed Problem Goodson esophagus (371624309) 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) Active confirmed Problem Chronic diarrhea (346049192) Chronic diarrhea (K52.9) Active confirmed Problem Serrated polyp of colon (163468075) Serrated polyp of colon (K63.5) Active confirmed Problem Epigastric fullness (4780458) Abdominal fullness (R19.8) Active confirmed Encounters Encounter Location Date Provider Diagnosis [facility] [address] [place] [address] 05/31/2024 Dante Ho [facility] [address] [place] [phone] 05/10/2025 Dante Ho Plan Of Treatment Pending Test Test Name [...] Insured Coverage Start Date Coverage End Date [facility] [address] [place], [place] [id number] [phone] [id number] JOHN MERIDA Self - patient is the insured Medical (General) History Medical History History ICD Code Denies OK,DM,CVA,Lung disease,renal dise ase GERD/Goodson's--EGD 10/2017-- -small HH, tiny area of Goodson's but no dysplasia---no esophagitis EGD 02/2023 with a small to m oderate-sized hiatal hernia, small area of Goodson's esophagus with biopsies negative for dysplasia, and benign gastric polyps. Rapid heart rate for which s he was evaluated in the ER at [facility]. She had outpatient testing done, including [...] abscesses [facility] issues with damage to the milk ducts after removal of piercings with Dr. Hull. Most recent surgery was in early July of 2023. Breast surgery x 1 on the left for the s mckenna issues as above
[2025-05-16 08:53] VITALS: BP 110/70; PULSE 79; RESP 16; TEMP 36.8; O2SAT 98; BMI 36.1
--- NOTE | 2025-05-16 08:53 | MHC.PC.OV ---
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 Allergies clindamycin (CLINDAMYCIN) Allergy (Intermediate, Verified 05/16/25 09:28) HIVES/SWELLING buspirone (From BuSpar) Allergy (Verified 05/16/25 09:28) Blurry Vision fentanyl (FENTANYL) Adverse Reaction (Severe, Verified 05/16/25 09:28) SEVERE N/V (POST EGD W/CS) escitalopram (From Lexapro) Adverse Reaction (Verified 05/16/25 09:28) Vomiting lorazepam Adverse Reaction (Verified 05/16/25 09:28) Vomiting Medication List - Last Reconciled 05/16/25 by Eladia Baker MD biotin 5,000 mcg PO DAILY cholecalciferol (vitamin D3) 50 mcg PO DAILY levonorgestrel (Mirena) 1 device intrauterine ONCE metoprolol succinate ER 50 mg PO DAILY omeprazole 20 mg PO DAILY prednisolone acetate 1% 1 drp ophthalmic-Right TID Tobacco use date assessed: 05/16/25 Dental Screening Dental Screen Date: 05/16/25 Did you have a dental visit in the last 12 months?: No Did you have a dental problem in the last 6 months where you did not have access to dental care?: No Was dental information given to patient?: Patient declined HPI Annual PE HPI Details 34 yo female with PMH of hypertriglyceridemia, mild obesity, anxiety, heart palpitation, dysautonomia who was started on metoprolol last visit and now presents for her physical exam. The patient is followed by cardiology for suspected dysautonomia, characterized by lightheadedness and vision darkening upon positional changes or with minimal exertion, such as walking across a parking lot. 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 Management includes Metoprolol, increased fluid and salt intake, and compression stockings, though symptoms persist. The next cardiology follow-up is in September. The patient developed spontaneous, painless, diffuse redness of the right eye several weeks ago, which was diagnosed as a subconjunctival hemorrhage. It improved with prednisone drops but recurred within 24 hours of discontinuing the medication. There has been no change in vision, and the patient has a an appointment to see an electronic commerce specialist today. The patient has a history of migraines and reports frequent headaches characterized by a sensation of pressure, which are managed with Tylenol and ibuprofen. The patient has not seen a neurologist for this complaint. The patient is at high risk for breast cancer, with a personal history of about four breast surgeries and a family history of a maternal aunt diagnosed with breast cancer in her 40s. The patient is followed by Dr. Salas and is due for a yearly mammogram but has not yet scheduled it, and is now experiencing some pain in the previously operated breast. Recent lab work from August was notable for low vitamin D, for which the patient is taking supplements. Cholesterol and blood sugar levels were normal, and the patient is not anemic. The patient has a strong family history of diabetes, with both parents affected. Dietary habits include eating only once a day and poor fluid intake. A Pap smear in July was negative for HPV but showed a shift in vaginal trena without associated symptoms. The last tetanus shot was approximately 16 years ago. [facility] Medical History (Updated 05/22/25 @ 23:56 by Eladia Baker MD) Migraine Presence of Mirena IUD Acute upper respiratory infection History of adenomatous polyp of colon COVID-19 vaccination declined Refused influenza vaccine Obesity Hypertriglyceridemia Anemia Mixed anxiety and depressive disorder H/O herpes simplex infection H/O nipple discharge Breast pain, right Cyst of left nipple Knee pain, right anterior Hiatal hernia Chronic heartburn Lumbago with sciatica, right side Tonsillar abscess Surgical History Hx of breast surgery (05/31/24) History of lumpectomy of right breast (07/28/23) Hx of breast surgery History of esophagogastroduodenoscopy (EGD) History of excision of mass (06/07/19) History of section (06/19/09) Family History Maternal Aunt Breast cancer, Onset Age: 40 Father Myocardial infarction Maternal Grandmother Pancreas cancer Paternal Grandfather Lung cancer Bladder cancer Social History Household Members Other:: duplex Housing: Apartment Are you a primary youth care worker to a significant other at home: No Do you presently have visiting nurse or other home services: No Alcohol intake: current Alcohol intake frequency: 0-2 drinks per day Comment: counts correct Patient Tobacco Use Status: Former Tobacco user Cigarette Packs Per Day: 1 Cigarettes Per Day: 20.0 e-Cigarette/Vaping Use: Never Used Second Hand Smoke Exposure: No service: No Current occupational status: unemployed Sexual orientation: Straight/Heterosexual Gender identity: Female Cognitive needs: No Hearing needs: No Vision needs: No Female Reproductive History Menstrual Age of Menarche: 10 Questionnaire PHQ-9 Over the last 2 weeks, how often have you been bothered by any of the following problems? 1. Little interest or pleasure in doing things: not at all 2. Feeling down, depressed, or hopeless: not at all 3. Trouble falling or staying asleep, or sleeping too much: more than half the days 4. Feeling tired or having little energy: more than half the days 5. Poor appetite or overeating: more than half the days 6. Feeling bad about yourself - or that you are a failure or have let yourself or your family down: not at all 7. Trouble concentrating on things, such as reading the newspaper or watching television: not at all 8. Moving or speaking so slowly that other people could have noticed. Or the opposite - being so fidgety or restless that you have been moving around a lot more than usual: not at all 9. Thoughts that you would be better off or of hurting yourself in some way: not at all Total score: 6 Depression Screening Interpretation: Negative Depression Screening Done: Yes 43861 - PHQ-9 Billing: Yes Source: Developed by Drs. Dante Perkins, Soniya Maldonado, Jatinder Tellez and colleagues, with an educational betsy from [employer]. Thrive Questionnaire Date Thrive assessed: 05/09/25 I am a: Patient What is your living situation today?: I have a steady place to live Within the past 12 months, did the food you bought not last and you didn't have the money to get more?: Never true Within the past 12 months, did you worry whether your food would run out before you got money to buy more?: Never true Do you have trouble paying for medicines?: No Do you have trouble getting transportation to medical appointments?: No Do you have trouble paying your heating and electricity bill?: No Do you have trouble taking care of your child, family member or friend?: No Do you have trouble with day-to-day activities such as bathing, preparing meals, shopping, managing finances, etc.?: No Are you currently unemployed and looking for a job?: No Are you interested in more education?: No Please select the resources that you would like help with: None Currently or been in a relationship where the following occur: No concerns reported THRIVE Score: 0 AUDIT C Alcohol Use Questionnaire (AUDIT-C) 1. How often do you have a drink containing alcohol?: Monthly or less 2. How many drinks containing alcohol do you have on a typical day when you are drinking?: 1 or 2 3. How often do you have six or more drinks on one occasion?: Never Total Score: 1 Score Reviewed/Action Taken: Yes ELLIOT-7 AMB Questionnaire ELLIOT-7 Date ELLIOT - 7 assessed: 05/16/25 Feeling nervous, anxious, or on edge: 1 = Several days Not being able to stop or control worryin = Several days Worrying too much about different things: 1 = Several days Trouble relaxin = Several days Being so restless that it is hard to sit still: 0 = Not at all Becoming easily annoyed or irritable: 0 = Not at all Feeling afraid as if something awful might happen: 0 = Not at all Total ELLIOT-7 score (0-4 normal; 5-9 mild; 10-14 moderate; 15-21 severe): 4 Source: Developed by Drs. Dante Perkins, Soniya Maldonado, Jatinder Tellez and colleagues, with an educational betsy from [employer]. ELLIOT-7 Assessment Billing ELLIOT-7 Assessment Tool: ELLIOT-7 Assessment 43617 Review of Systems Const Denies fatigue, Denies fever(s), Denies frequent falls, Denies weakness and Denies weight loss Eyes Details: History of? Subconjunctival hemorrhage OD, currently on tapering dose of prednisolone eye drop, has an appointment to see Dr. Villarreal this afternoon for further evaluation and management. Denies change in vision and Reports requires corrective lenses ENT Reports no additional complaints Card Denies chest pain, Reports rapid heart rate (With moderate exertion), Denies leg edema, Reports lightheadedness (When bending down), Denies palpitations, Denies dyspnea, Denies orthopnea and Denies other (loss of consciousness) Resp Denies cough and Denies dyspnea GI Denies hematochezia and Denies change in stool character Denies nipple discharge Musc Denies abnormal gait, Denies muscle weakness, Denies numbness, Denies radiating pain into limb and Denies tingling Skin/Breast Denies breast skin changes, Denies breast mass and Denies nipple discharge Neuro Denies abnormal gait, Denies frequent falls, Denies numbness, Denies tingling and Denies weakness Psych Reports no additional complaints Endo Denies fatigue and Denies palpitations Morgan/Lymph Reports no additional complaints Aller/Immun Reports no additional complaints Physical exam (Primary Care) Vital Signs: Last Vital Signs Temp 98.2 F 05/16/25 08:53 Pulse 79 05/16/25 08:53 Resp 16 05/16/25 08:53 BP 110/70 05/16/25 08:53 Pulse Ox 98 05/16/25 08:53 Oxygen Delivery Method Room Air 05/16/25 08:53 BMI result Body Mass Index 36.1 Tobacco/Smoking Status: Tobacco use Status Tobacco use date assessed 05/16/25 05/16/25 09:00 Patient Tobacco Use Status Former Tobacco user 05/16/25 08:54 Tobacco use type 04/22/24 08:34 e-Cigarette/Vaping Use Never Used 05/16/25 08:54 PHQ-9: PHQ-9 Score PHQ-9: Total score 6 05/16/25 09:29 Depression Screening Interpretation: Negative Thrive Assessment: Date of Thrive Assessment Date Thrive assessed 05/09/25 05/16/25 08:54 Currently or been in a relationship where the following occur: No concerns reported Const General: comfortable, no acute distress and alert Orientation/consciousness: patient oriented x3 HENMT Teeth and gingiva: dentures (Upper and lower) Eyes General: appearance normal, both eyes and all related structures Neck Neck: Yes full ROM, Yes no lymphadenopathy and Yes supple Chest Chest palpation & inspection: normal inspection of the chest Breast/axilla palpation: normal palpation of the breasts Resp Effort & Inspection: normal respiratory effort Auscultation: clear to auscultation bilaterally Cardio Rate: regular rate Rhythm: regular rhythm Heart sounds: S1 normal heart sound present and S2 normal heart sound present GI Palpation (GI): Soft to palpation, nontender, no guarding and no hernias Auscultation: normal bowel sounds General: Yes no CVA tenderness and Yes deferred (Goes to [facility]) Back/Spine/Pelvis Back: no CVA tenderness and No back tenderness Skin General skin exam: no rashes or lesions noted Neuro General: patient oriented x3, gait normal, tone normal, moves all extremities, Normal light touch and pain sensation and no focal motor deficits Extrem General: Yes full ROM, Yes no joint enlargement, Yes no clubbing, cyanosis or edema, Yes no calf tenderness and Yes normal gait Psych Appearance: grossly normal and well kempt Mental Status: mental status grossly normal Speech and movement: Normal speech and movement present Affect: normal affect Coding Level of Care Code Est Pt Prev Care 18-39y(38932) Diagnoses Annual visit for general adult medical examination with abnormal findings Z. Dysautonomia G90.1 Class 1 obesity due to excess calories without serious comorbidity with body mass index (BMI) of 32.0 to 32.9 in adult E66.811; E66.09; Z68.32 Body mass index: BMI 32.0-32.9 Obesity classification: adult class 1 (BMI 30 - 34.9) Obesity type: due to excess calories Serious obesity comorbidity presence: without serious comorbidity Migraine without aura and without status migrainosus, not intractable G43.009 Migraine type: migraine (< 15 days per month) without aura Status migrainosus presence: without status migrainosus Intractability: not intractable Additional Codes ELLIOT-7 Assessment Billing - ELLIOT-7 Assessment Tool: ELLIOT-7 Assessment 80993 ([id number]) PHQ-9 - 88148 - PHQ-9 Billing: Yes ([id number]) Assessment & Plan Assessment & Plan (1) Annual visit for general adult medical examination with abnormal findings: Code(s): Z00.01 - Encounter for general adult medical examination with abnormal findings Plan: The patient is overdue for a recommended annual mammogram. [facility] and to anticipate needing a new order from Dr. Salas. The patient was advised to take Tylenol beforehand and request a padded plate to minimize discomfort. The patient's tetanus vaccination is out of date. declined the influenza vaccine at this time. Up-to-date with her cervical cancer screening (2) Dysautonomia: Code(s): G90.1 - Familial dysautonomia [Addy-Day] Category: Medical Plan: The patient's symptoms of orthostatic intolerance persist despite treatment with Metoprolol and lifestyle modifications including increased salt and fluid intake and use of compression stockings, as recommended by cardiology. The patient was counseled on the importance of regular meals and adequate hydration, as the patient currently eats once a day and has poor fluid intake. The patient was advised to engage in graded, seated exercises with weights (3) Obesity: Code(s): E66.9 - Obesity, unspecified Category: Medical Qualifiers: Body mass index: BMI 32.0-32.9 Obesity classification: adult class 1 (BMI 30 - 34.9) Obesity type: due to excess calories Serious obesity comorbidity presence: without serious comorbidity Qualified Code(s): E66.811 - Obesity, class 1; E66.09 - Other obesity due to excess calories; Z68.32 - Body mass index [BMI] 32.0-32.9, adult Plan: Mediterranean diet is a healthy diet that helps, limit food high in fat, sugar, and calories. Eat slowly, pay attention to portion sizes, plan your meals ahead of time, start regular physical activity, at least 150 minutes of moderate intensity exercise, or 90 minutes per week of vigorous exercise. Keeping a food diary, tracking what you eat and your physical activity can help assess what improvements you can make. There are many health problems associated with being overweight/obese, so it is important to improve your diet and exercise. There are medications and surgical options available, but Lifestyle changes are the 1st step. (4) Migraine: Code(s): G43.909 - Migraine, unspecified, not intractable, without status migrainosus Category: Medical Qualifiers: Migraine type: migraine (< 15 days per month) without aura Status migrainosus presence: without status migrainosus Intractability: not intractable Qualified Code(s): G43.009 - Migraine without aura, not intractable, without status migrainosus Plan: he patient has a history of migraines and reports frequent pressure-type headaches managed with [id number] analgesics. The plan is to continue current management, with consideration for a neurology referral if symptoms worsen
== END 2025-05-16 09:45 | disposition home or self-care (01) ==
LOC: HO.HMCC 08:31
PROVIDERS: PCP Internal Medicine; Visit Provider Internal Medicine
DX: Z00.01 Encounter for general adult medical examination with abnormal findings (principal); G90.1 Familial dysautonomia [Riley-Day]; E66.811 Obesity, class 1; E66.09 Other obesity due to excess calories; Z68.32 Body mass index [BMI] 32.0-32.9, adult; G43.009 Migraine without aura, not intractable, without status migrainosus

== ENCOUNTER → 2025-05-16 08:30 | Outpatient (BNVA) | payer BC, SELFPAY | PROVIDERS: PCP Internal Medicine; Visit Provider Internal Medicine | DX: Z00.01 Encounter for general adult medical examination with abnormal findings (principal); G90.1 Familial dysautonomia [Riley-Day]; E66.811 Obesity, class 1; E66.09 Other obesity due to excess calories; G43.009 Migraine without aura, not intractable, without status migrainosus; Z68.36 Body mass index [BMI] 36.0-36.9, adult | CPT/HCPCS: 96127 ==